=== PATIENT | male | born 1955 | race Caucasian/White ===

== ENCOUNTER 2021-01-02 19:34 | Inpatient (IN) ==
[2021-01-02] MEDS ORDERED: SODIUM CHLORIDE 0.9% 1000ML 1,000 ML IV STA (19:51)
--- NOTE | 2021-01-02 19:54 | Emergency Department Note ---
Impression & Plan Atrial fibrillation with RVR, NSTEMI (non-ST elevated myocardial infarction), Chest pain ED Provider Note NAME: ALEXANDRO NAVARRO AGE: 65 SEX: M : 1955 ARRIVES VIA: Walk-In INFORMANT: Patient ED PROVIDER(S): Clint Ignacio DO CHIEF COMPLAINT: Chest pain and palpitations HPI: Patient is a 65-year-old male who presents to ER for intermittent chest pain. He had some chest pain last night-midsternal which improved with rubbing on his chest. That has now abated. He does feel short of breath with walking around and that has been there for the past 2 weeks. He went to PCP and was referred in as he was found to be in a rapid heartbeat. Denies any belly pain, nausea, vomiting, or diarrhea. No dysuria, urgency, or frequency. He does have prostate cancer which they are currently treating. He notes that he normally has palpitations when he is in A. fib but he has not had any recently. He does not have any currently. He only takes aspirin and no other blood thinners. He has not missed any doses of his metoprolol. ROS: See above HPI for pertinent positives & negatives. A total of 10 systems reviewed and were otherwise negative. PAST MEDICAL HISTORY:See Below PAST SURGICAL HISTORY:See Below FAMILY HISTORY:See Below SOCIAL HISTORY:See Below HOME MEDICATIONS:See Below ALLERGIES:See Below VITALS:See Below PHYSICAL EXAMINATION: GENERAL: Sitting up in bed, alert, well appearing, well nourished, no distress, non-toxic EYE EXAM: normal conjunctiva. OROPHARYNX: no exudate, no erythema, lips, buccal mucosa, and tongue normal and mucous membranes are moist NECK: supple, no nuchal rigidity, no adenopathy, non-tender LUNGS: Clear to auscultation. Normal chest wall mechanics HEART: Tachycardia, S1 normal and S2 normal ABDOMEN: abdomen soft, non-tender, normo-active bowel sounds, no masses, no rebound or guarding. UPPER EXTREMITIES: upper extremities are grossly normal. LOWER EXTREMITIES: No pitting edema. NEURO EXAM: Normal sensorium, cranial nerves II-XII grossly intact, normal speech, no gross weakness of arms, no gross weakness of legs. MEDICAL DECISION MAKING: Patient is a 65-year-old male who presents the ER referred in by PCP for increased heart rate. IV was established blood was obtained. Labs showed no significant leukocytosis or anemia. INR unremarkable. BMP along with LFTs bilirubin was unremarkable. Troponin was positive at 9.5. TSH and lipase was unremarkable. Covid was negative. Initial EKG showed a atrial tachycardia which was persistently 163 which appeared was consistent with atrial flutter. We started to give her IV Lopressor. Heart rate trended down to the low 100s and then climbed back up on 4 separate occasions. Patient was given a total of 4 doses of IV Lopressor 4 mg. After the last dose heart rate trended up to the 180s. Troponin came back at this point 9.5. He is completely asymptomatic. Patient was discussed with Dr. Neto Marlow who agreed with placing the gentleman on a Cardizem drip. He was given a bolus of Cardizem. Elected to hold on amiodarone as we did not want him to convert as is uncertain of how long this gentleman has been in Afib. Heart rate trended down to the 80s and he remained well controlled on the Cardizem. Chest x-ray was unremarkable. He was discussed with the hospitalist. I placed him on heparin and he was given a bolus and drip. He had no bleeding risk factors. Patient was admitted for further work-up and admitted to the hospitalist. Triage Nursing notes reviewed. Limited review of prior medical records performed Vital Signs: reviewed and remarkable for HTN and tachy Differential diagnosis: Differential diagnoses includes but is not limited to acute coronary syndrome, myocardial infarction, pericarditis, pulmonary embolus, aortic dissection, pneumonia, pneumothorax, musculoskeletal, shingles, esophageal. ER treatment provided: See below Diagnostics interpreted by me: ECG: Atrial tachycardia rate of [address] depressions in the anterior lateral and inferior leads EKG #2 A. fib RVR With variable block rate of [address] depressions in the high lateral leads anterior and lateral which is slightly worse than previous. Mild ST elevations in V1 Cardiac Monitoring: An order was placed for continuous cardiac monitoring. The monitor shows a rate of 163 with atrial flutter rhythm. Laboratory studies: As stated above and show below. Imaging studies: Portable AP upright 1 view of the chest shows no focal infiltrate or pneumothorax per my read. Consultation(s): Discussed with Neto Marlow as stated above Discussed with Arvin Lloyd for further evaluation Procedures: none Critical Care: I have personally spent 75 minutes of critical care time in the direct management of this patient. This includes bedside care, interpretation of diagnostic studies, and testing, discussion with consultants, patient, and family members, and other required patient management activities. This 75 minutes is in excess of all separately billable procedures. Past Med/Surg History Social History Smoking Status: Never smoker Preferred Language: Turkmen Feels Safe at Home: Yes Allergies Allergies Allergy/AdvReac Type Severity Reaction Status Date / Time kiwi Allergy Intermediate Lip and Unverified 01/02/21 20:06 Tongue Swell Hemp Seeds Allergy Intermediate Tongue Uncoded 01/02/21 20:06 Swells Home Meds Home Medications Medication Instructions Recorded Confirmed [place] Ocular 1 cap PO DAILY 07/18/20 01/02/21 alpha lipoic acid 600 mg capsule 600 mg PO BID 07/18/20 01/02/21 ascorbic acid (vitamin C) 1,000 mg 1,000 mg PO BID 07/18/20 01/02/21 tablet,extended release aspirin 81 mg tablet,delayed 81 mg PO DAILY 07/18/20 01/02/21 release biotin 1,000 mcg chewable tablet 1,000 mcg PO DAILY 07/18/20 01/02/21 cholecalciferol (vitamin D3) 125 125 mcg PO BID 07/18/20 01/02/21 mcg (5,000 unit) tablet coenzyme Q10 100 mg capsule 200 mg PO DAILY 07/18/20 01/02/21 (CoQ-10) fenofibrate nanocrystallized 145 145 mg PO DAILY 07/18/20 01/02/21 mg tablet glipizide 10 mg tablet 10 mg PO BID 07/18/20 01/02/21 iodine 150 mcg tablet (Kelp 150 mcg PO DAILY 07/18/20 01/02/21 (iodine)) levocarnitine 500 mg tablet 1,000 mg PO BID 07/18/20 01/02/21 (L-Carnitine) linagliptin 5 mg tablet (Tradjenta) 5 mg PO DAILY 07/18/20 01/02/21 lisinopril 5 mg tablet 5 mg PO DAILY 07/18/20 01/02/21 meclizine 25 mg tablet 25 mg PO DAILY 07/18/20 01/02/21 metformin 850 mg tablet 850 mg PO TID 07/18/20 01/02/21 metoprolol tartrate 25 mg tablet 25 mg PO BID 07/18/20 01/02/21 multivitamin 1 tab PO DAILY 07/18/20 01/02/21 niacin 500 mg tablet 500 mg PO BID 07/18/20 01/02/21 olive leaf extract 250 mg capsule 500 mg PO DAILY 07/18/20 01/02/21 omega-3 fatty acids 1,000 mg PO BID 07/18/20 01/02/21 prasterone (dhea) 50 mg tablet 50 mg PO BID 07/18/20 01/02/21 (DHEA) pyridoxine (vitamin B6) 100 mg 100 mg PO BID 07/18/20 01/02/21 tablet (Vitamin B-6) turmeric root extract 500 mg 500 mg PO DAILY 07/18/20 01/02/21 capsule vitamin A 2,400 mcg capsule 8,000 unit PO [id number] 07/18/20 01/02/21 vitamin B complex 1 tab PO DAILY 07/18/20 01/02/21 vitamin E 400 unit capsule 400 unit PO DAILY 07/18/20 01/02/21 Apigenin 50 mg PO QAM 01/02/21 01/02/21 acetylcysteine 600 mg capsule (NAC) 600 mg PO HS 01/02/21 01/02/21 aspirin 325 mg tablet 325 mg PO BID 01/02/21 01/02/21 zinc 50 mg tablet 75 mg PO DAILY 01/02/21 01/02/21 Results & Data (ED) Vital Signs Vital Signs - 24 hr 01/02/21 19:34 01/02/21 19:37 01/02/21 19:50 Temperature 36.8 C Temperature Source Temporal Artery Scan Pulse Rate 163 H 163 H Pulse Rate [Apical] Pulse Rate from SpO2 Sensor Respiratory Rate 18 20 Respiratory Effort / Characteristics Respiratory Depth Blood Pressure 141/83 H 139/101 H Blood Pressure [Right Arm] Blood Pressure Mean 102 113 Blood Pressure Mean [Right Arm] Pulse Oximetry 98 Oxygen Delivery Method Room Air Room Air Oxygen Flow Rate Sepsis Recent Fever Within 48 Hours No Sepsis New/Unexplained Change in Mental Status No Sepsis Action Taken by Nursing No Action Required 01/02/21 19:52 01/02/21 20:03 01/02/21 20:09 Temperature 37.1 C Temperature Source Oral Pulse Rate 160 H Pulse Rate [Apical] 127 H Pulse Rate from SpO2 Sensor Respiratory Rate 20 Respiratory Effort / Characteristics Non-Labored Spontaneous Respiratory Depth Normal Blood Pressure 139/101 H Blood Pressure [Right Arm] 143/107 H Blood Pressure Mean Blood Pressure Mean [Right Arm] 119 Pulse Oximetry 98 98 Oxygen Delivery Method Nasal Cannula Room Air Oxygen Flow Rate 2 Sepsis Recent Fever Within 48 Hours Sepsis New/Unexplained Change in Mental Status Sepsis Action Taken by Nursing 01/02/21 20:10 01/02/21 20:30 01/02/21 20:31 Temperature Temperature Source Pulse Rate 128 H 175 H 187 H Pulse Rate [Apical] Pulse Rate from SpO2 Sensor 79 79 Respiratory Rate 19 14 Respiratory Effort / Characteristics Respiratory Depth Blood Pressure 143/107 H 127/88 127/88 Blood Pressure [Right Arm] Blood Pressure Mean 119 101 Blood Pressure Mean [Right Arm] Pulse Oximetry 98 96 Oxygen Delivery Method Oxygen Flow Rate Sepsis Recent Fever Within 48 Hours Sepsis New/Unexplained Change in Mental Status Sepsis Action Taken by Nursing 01/02/21 20:39 01/02/21 20:40 01/02/21 20:59 Temperature Temperature Source Pulse Rate 165 H 111 H 80 Pulse Rate [Apical] Pulse Rate from SpO2 Sensor 68 Respiratory Rate 19 20 Respiratory Effort / Characteristics Respiratory Depth Blood Pressure 132/87 132/87 126/78 Blood Pressure [Right Arm] Blood Pressure Mean 102 94 Blood Pressure Mean [Right Arm] Pulse Oximetry 98 Oxygen Delivery Method Oxygen Flow Rate Sepsis Recent Fever Within 48 Hours Sepsis New/Unexplained Change in Mental Status Sepsis Action Taken by Nursing 01/02/21 21:00 01/02/21 21:10 01/02/21 21:15 Temperature Temperature Source Pulse Rate 80 108 H Pulse Rate [Apical] 85 Pulse Rate from SpO2 Sensor 81 Respiratory Rate 17 17 Respiratory Effort / Characteristics Respiratory Depth Blood Pressure 128/86 112/75 Blood Pressure [Right Arm] Blood Pressure Mean 100 87 Blood Pressure Mean [Right Arm] Pulse Oximetry 100 Oxygen Delivery Method Oxygen Flow Rate Sepsis Recent Fever Within 48 Hours Sepsis New/Unexplained Change in Mental Status Sepsis Action Taken by Nursing 01/02/21 21:30 01/02/21 21:45 01/02/21 22:00 Temperature Temperature Source Pulse Rate 82 Pulse Rate [Apical] Pulse Rate from SpO2 Sensor 80 82 Respiratory Rate 15 Respiratory Effort / Characteristics Respiratory Depth Blood Pressure 117/87 114/89 112/81 Blood Pressure [Right Arm] Blood Pressure Mean 97 97 91 Blood Pressure Mean [Right Arm] Pulse Oximetry 100 100 Oxygen Delivery Method Oxygen Flow Rate Sepsis Recent Fever Within 48 Hours Sepsis New/Unexplained Change in Mental Status Sepsis Action Taken by Nursing 01/02/21 22:15 01/02/21 22:30 Temperature Temperature Source Pulse Rate 109 H 81 Pulse Rate [Apical] Pulse Rate from SpO2 Sensor Respiratory Rate 20 20 Respiratory Effort / Characteristics Respiratory Depth Blood Pressure 112/75 106/75 Blood Pressure [Right Arm] Blood Pressure Mean 87 85 Blood Pressure Mean [Right Arm] Pulse Oximetry Oxygen Delivery Method Oxygen Flow Rate Sepsis Recent Fever Within 48 Hours Sepsis New/Unexplained Change in Mental Status Sepsis Action Taken by Nursing Laboratory Data Result diagrams: 01/02/21 19:55 01/02/21 19:55 Lab Results 01/02/21 01/02/21 01/02/21 Range/Units 19:55 19:55 19:55 WBC 9.65 (4.8-10.8) K/uL RBC 4.63 L (4.7-6.1) M/uL Hgb 14.3 (14.0-18.0) g/dL Hct 42.3 (42-52) % MCV 91.4 (80-100) fL MCH 30.9 (25-34) pg MCHC 33.8 (32-36) g/dL RDW Std Deviation 48.1 H (36.4-46.3) fL RDW Coeff of Bailey 14.4 (11.5-14.5) % Plt Count 336 (130-400) K/uL MPV 10.0 (7.4-10.4) fL Immature Gran % (Auto) 0.4 % Neut % (Auto) 75.5 % Lymph % (Auto) 15.6 % [place] % (Auto) 7.0 % Eos % (Auto) 1.3 % Baso % (Auto) 0.2 % Neut # (Auto) 7.27 H (1.4-6.5) K/uL Lymph # (Auto) 1.51 (1.2-3.4) K/uL [place] # (Auto) 0.68 H (0.11-0.59) K/uL Eos # (Auto) 0.13 (0-0.5) K/uL Baso # (Auto) 0.02 (0-0.2) K/uL Immature Gran # (Auto) 0.04 H (0.00-0.02) K/uL PT 10.6 (9.0-12.0) Seconds INR 1.0 (0.9-1.1) APTT 26.3 (21.0-31.0) Seconds PTT Ratio 1.0 Sodium 139 (136-145) mmol/L Potassium 4.0 (3.5-5.1) mmol/L Chloride 105 (98-107) mmol/L Carbon Dioxide 30 (21-32) mmol/L Anion Gap 4.0 (3-11) BUN 26 H (7-18) mg/dl Creatinine 1.47 H (0.6-1.4) mg/dl Est Cr Clr Drug Dosing Not Reportable Est GFR ( Amer) 56.8 ml/min Est GFR (Non-Af Amer) 49.0 ml/min BUN/Creatinine Ratio 17.8 (10-20) Glucose 223 H (70-99) mg/dl Calcium 10.0 (8.5-10.1) mg/dl Magnesium 1.9 (1.8-2.4) mg/dl Total Bilirubin 0.5 (0.2-1) mg/dl AST 79 H (15-37) U/L ALT 30 (12-78) U/L Alkaline Phosphatase 48 (45-117) U/L Troponin I 9.560 H* (0-0.045) ng/ml Total Protein 7.5 (6.4-8.2) gm/dl Albumin 3.5 (3.4-5.0) gm/dl Globulin 4.0 (2.5-4.0) gm/dl Albumin/Globulin Ratio 0.9 (0.9-2) Lipase 467 H (73-393) U/L TSH 1.720 (0.300-4.500) uIu/ml COVID-19 Eval Order SARS-CoV-2 (PCR) (Negative) 01/02/21 01/02/21 Range/Units 21:16 21:16 WBC (4.8-10.8) K/uL RBC (4.7-6.1) M/uL Hgb (14.0-18.0) g/dL Hct (42-52) % MCV (80-100) fL MCH (25-34) pg MCHC (32-36) g/dL RDW Std Deviation (36.4-46.3) fL RDW Coeff of Bailey (11.5-14.5) % Plt Count (130-400) K/uL MPV (7.4-10.4) fL Immature Gran % (Auto) % Neut % (Auto) % Lymph % (Auto) % [place] % (Auto) % Eos % (Auto) % Baso % (Auto) % Neut # (Auto) (1.4-6.5) K/uL Lymph # (Auto) (1.2-3.4) K/uL [place] # (Auto) (0.11-0.59) K/uL Eos # (Auto) (0-0.5) K/uL Baso # (Auto) (0-0.2) K/uL Immature Gran # (Auto) (0.00-0.02) K/uL PT (9.0-12.0) Seconds INR (0.9-1.1) APTT (21.0-31.0) Seconds PTT Ratio Sodium (136-145) mmol/L Potassium (3.5-5.1) mmol/L Chloride (98-107) mmol/L Carbon Dioxide (21-32) mmol/L Anion Gap (3-11) BUN (7-18) mg/dl Creatinine (0.6-1.4) mg/dl Est Cr Clr Drug Dosing Est GFR ( Amer) ml/min Est GFR (Non-Af Amer) ml/min BUN/Creatinine Ratio (10-20) Glucose (70-99) mg/dl Calcium (8.5-10.1) mg/dl Magnesium (1.8-2.4) mg/dl Total Bilirubin (0.2-1) mg/dl AST (15-37) U/L ALT (12-78) U/L Alkaline Phosphatase (45-117) U/L Troponin I (0-0.045) ng/ml Total Protein (6.4-8.2) gm/dl Albumin (3.4-5.0) gm/dl Globulin (2.5-4.0) gm/dl Albumin/Globulin Ratio (0.9-2) Lipase (73-393) U/L TSH (0.300-4.500) uIu/ml COVID-19 Eval Order Covid19 at [facility] SARS-CoV-2 (PCR) NEGATIVE (Negative) Administered Medications Heparin Sodium/Dextrose (Heparin Sodium/Dextrose) 25,000 units in 500 mls @ 19 mls/hr IV .Q24H ACSEY; Protocol Stop: 02/01/21 21:14 Last Admin: 01/02/21 21:08 Dose: 950 units/hr, 19 mls/hr Documented by: [id number] Cosigned by: [id number] Diltiazem HCl 125 mg/ Dextrose 125 mls @ 5 mls/hr IV .Q24H CASEY; Protocol Stop: 02/01/21 20:59 Last Admin: 01/02/21 21:09 Dose: 5 mg/hr, 5 mls/hr Documented by: [id number] Cosigned by: [id number] Magnesium Sulfate/Dextrose (Magnesium Sulfate / D5w) 1 gm in 100 mls @ 50 mls/hr IV ONE STA Stop: 01/02/21 23:58 Last Admin: 01/02/21 22:23 Dose: 50 mls/hr Documented by: [id number] Sodium Chloride (Nss) 500 mls @ 500 mls/hr IV .Q1H STA Stop: 01/02/21 22:58 Last Admin: 01/02/21 22:26 Dose: 500 mls/hr Documented by: [id number] Metoprolol Tartrate (Metoprolol Tartrate 1 Mg/Ml Vial) 5 mg IV Q5M PRN PRN Reason: Tachycardia Stop: 02/01/21 19:50 Last Admin: 01/02/21 20:39 Dose: 5 mg Documented by: [id number] Admin: 01/02/21 20:30 Dose: 5 mg Documented by: [id number] Admin: 01/02/21 20:03 Dose: 5 mg Documented by: [id number] Discontinued Medications Diltiazem HCl (Diltiazem Hcl 5 Mg/Ml 5 Ml Vial) 10 mg IV NOW STA Stop: 01/02/21 21:01 Last Admin: 01/02/21 21:07 Dose: 10 mg Documented by: [id number] Cosigned by: [id number] Heparin Sodium (Porcine) (Heparin Sod (Porcine) 1000 Unit/Ml) 1 units IV NOW ONE Stop: 01/02/21 21:05 Last Admin: 01/02/21 21:08 Dose: 4,000 units Documented by: [id number] Cosigned by: [id number] Heparin Sodium/Dextrose (Heparin Iv Adult Wt-Based Low-Dose With Bolus Protocol) 1 ea N/A NOW STA; Protocol Stop: 01/02/21 20:50 Last Admin: 01/02/21 21:12 Dose: Not Given Documented by: [id number] Sodium Chloride (Nss 1000ml) 1,000 mls @ 999 mls/hr IV .Q1H1M STA Stop: 01/02/21 20:51 Last Infusion: 01/02/21 21:13 Dose: 0 mls/hr Documented by: [id number] Admin: 01/02/21 20:04 Dose: 999 mls/hr Documented by: [id number] Metoprolol Tartrate (Metoprolol Tartrate 25 Mg Tab) 25 mg PO NOW STA Stop: 01/02/21 21:55 Last Admin: 01/02/21 22:23 Dose: 25 mg Documented by: [id number] Miscellaneous (Stat Iv Infusion Titration Per Protocol) 1 ea N/A NOW STA Stop: 01/02/21 21:01 Last Admin: 01/02/21 22:23 Dose: 1 ea Documented by: [id number] Discharge Plan Visit Data Chief Complaint: Cardiac Assessment Stated Complaint: CARDIAC ASSESSMENT, DOC REF'D ED Provider: Clint Ignacio Discharge Problem: Atrial fibrillation with RVR, NSTEMI (non-ST elevated myocardial infarction), Chest pain Discharge Instructions Interventions: ED Discharge Assessment Last Done: 01/02/21 22:54 Forms Stand Alone Forms: My [facility] Prescriptions Prescriptions: No Action multivitamin Tablet 1 tab PO DAILY RF: 0 vitamin A 8,000 unit Capsule 8,000 unit PO [id number] RF: 0 glipizide 10 mg Tablet 10 mg PO BID RF: 0 ascorbic acid (vitamin C) 1,000 mg Tablet Extended Release 1,000 mg PO BID RF: 0 metformin 850 mg Tablet 850 mg PO TID RF: 0 aspirin [Aspir-81] 81 mg Tablet,Delayed Release (Dr/Ec) 81 mg PO DAILY RF: 0 meclizine 25 mg Tablet 25 mg PO DAILY RF: 0 L-Carnitine 500 mg Tablet 1,000 mg PO BID RF: 0 niacin 500 mg Tablet 500 mg PO BID RF: 0 vitamin B complex Tablet 1 tab PO DAILY RF: 0 lisinopril 5 mg tablet 5 mg PO DAILY RF: 0 pyridoxine (vitamin B6) [Vitamin B-6] 100 mg Tablet 100 mg PO BID RF: 0 vitamin E 400 unit Capsule 400 unit PO DAILY RF: 0 coenzyme Q10 [CoQ-10] 100 mg Capsule 200 mg PO DAILY RF: 0 [place] 3 Fish Oil Capsule 1,000 mg PO BID RF: 0 metoprolol tartrate 25 mg tablet 25 mg PO BID RF: 0 fenofibrate nanocrystallized 145 mg Tablet 145 mg PO DAILY RF: 0 cholecalciferol (vitamin D3) 125 mcg (5,000 unit) Tablet 125 mcg PO BID RF: 0 alpha lipoic acid 600 mg Capsule 600 mg PO BID RF: 0 olive leaf extract 250 mg Capsule 500 mg PO DAILY RF: 0 Tradjenta 5 mg Tablet 5 mg PO DAILY RF: 0 turmeric root extract 500 mg Capsule 500 mg PO DAILY RF: 0 Kelp (iodine) 150 mcg Tablet 150 mcg PO DAILY RF: 0 DHEA 50 mg Tablet 50 mg PO BID RF: 0 biotin 1,000 mcg Tablet,Chewable 1,000 mcg PO DAILY RF: 0 [place] Ocular 1 cap PO DAILY RF: 0 aspirin 325 mg Tablet 325 mg PO BID RF: 0 Apigenin 50 mg PO QAM RF: 0 zinc 50 mg Tablet 75 mg PO DAILY RF: 0 acetylcysteine [NAC] 600 mg Capsule 600 mg PO HS RF: 0 Referrals Referrals: Kathy Ibrahim MD [Primary Care Provider] -
[2021-01-02 20:03] LABS: Basophils # (auto) 0.02 K/uL (0-0.2); Basophils % (auto) 0.2 %; Eosinophils # (auto) 0.13 K/uL (0-0.5); Eosinophils % (auto) 1.3 %; Hematocrit (blood only) 42.3 % (42-52); Hemoglobin 14.3 g/dL (14.0-18.0); Immature Granulocytes # (auto) 0.04 K/uL (0.00-0.02); Immature Granulocytes % (auto) 0.4 %; Lymphocytes # (auto) 1.51 K/uL (1.2-3.4); Lymphocytes % (auto) 15.6 %; Mean Corpuscular Hemoglobin 30.9 pg (25-34); Mean Corpuscular Hgb Conc 33.8 g/dL (32-36); Mean Corpuscular Volume 91.4 fL (80-100); Monocytes # (auto) 0.68 K/uL (0.11-0.59); Neutrophils # (auto) 7.27 K/uL (1.4-6.5); Neutrophils % (auto) 75.5 %; Platelet Count 336 K/uL (130-400); RDW Coefficient of Variation 14.4 % (11.5-14.5); RDW Standard Deviation 48.1 fL (36.4-46.3); Red Blood Count 4.63 M/uL (4.7-6.1); White Blood Count 9.65 K/uL (4.8-10.8)
[2021-01-02] MEDS: METOPROLOL TARTRATE 1 MG/ML VIAL IV PRN ×3 (20:03→20:39)
[2021-01-02 20:13] LABS: Partial Thromboplastin Time 26.3 Seconds (21.0-31.0); Prothrombin Time 10.6 Seconds (9.0-12.0)
[2021-01-02 20:22] LABS: Alanine Aminotransferase 30 U/L (12-78); Albumin Level 3.5 gm/dl (3.4-5.0); Aspartate Aminotransferase 79 U/L (15-37); BUN Creatinine Ratio 17.8 (10-20); Blood Urea Nitrogen 26 mg/dl (7-18); Carbon Dioxide 30 mmol/L (21-32); Chloride 105 mmol/L (98-107); Est GFR (African American) 56.8 ml/min; Glucose 223 mg/dl (70-99); Lipase 467 U/L (73-393); Sodium 139 mmol/L (136-145)
[2021-01-02 20:31] LABS: Albumin Globulin Ratio 0.9 (0.9-2); Alkaline Phosphatase 48 U/L (45-117); Bilirubin,Total 0.5 mg/dl (0.2-1); Total Protein 7.5 gm/dl (6.4-8.2)
[2021-01-02] MEDS ORDERED: Heparin IV Adult Wt-Based Low-Dose WITH Bolus Protocol STA (20:49)
[2021-01-02] MEDS ORDERED: dilTIAZem HCL 125 MG in DEXTROSE 5% 100 ML IV SCH (21:00)
[2021-01-02] MEDS ORDERED: dilTIAZem HCl 5 MG/ML 5 ML VIAL IV STA (21:00)
[2021-01-02] MEDS ORDERED: STAT IV Infusion **Titration per Protocol STA (21:00)
[2021-01-02] MEDS ORDERED: HEPARIN SOD (PORCINE) 1000 UNIT/ML IV ONE (21:04)
[2021-01-02] MEDS: HEPARIN SODIUM/DEXTROSE 25,000 UNITS/500 ML BAG IV SCH (21:08)
[2021-01-02 21:25] LABS: Magnesium 1.9 mg/dl (1.8-2.4)
--- NOTE | 2021-01-02 21:52 | History & Physical Report ---
Date of Service January 02, 2021 Assessment & Plan (1) NSTEMI (non-ST elevated myocardial infarction): Plan: Weeklong symptoms No consultation until today. Rapid A. fib/AFl secondary to above not on anticoagulation as per patient preference hypertension, stable hyperlipidemia, hx statin reluctance as per records DM2 on oral medications, well-controlled as of recent hemoglobin A1c of 6.12 July 2020 bladder cancer status post surgery w possible metastatic disease CRI, creatinine at baseline, history of hydronephrosis as per records PCU Aspirin, beta-phuong, IV heparin TTE, Cardiology consult Re: ACS N.p.o. after midnight until patient seen by cardiology in anticipation of procedure Facilitate home beta-phuong and titrate, wean off Cardizem drip Update lipid profile and hemoglobin A1c Basal insulin adjusted for n.p.o. status, ISS BG goal 1 10-1 40 DVT prophylaxis. IV Heparin Full code Patient requesting updates for providers. Ms. Althea Raymond, contact #[phone]. Text document was generated using [employer] voice recognition software. It may contain grammatical or spelling errors. Kindly contact undersigned for clarification of any documentation item in question. History of Present Illness Chief Complaint: Chest pain Primary Care Provider: Kathy Ibrahim MD History obtained from patient, family, and records. Medical history significant for PAF not on anticoagulation as per patient preference, hypertension, hyperlipidemia, DM2 on oral medications, bladder cancer status post surgery with possible new mets, CRI (baseline creatinine 1.5). Last week patient noted intermittent chest pain, burning to sharp description without shortness of breath, nonpleuritic, no cough symptoms, sometimes accompanied by palpitations. Chest pain noted on both rest and exertion. Relief with aspirin intake. About 10 episodes over the next few days until last night when chest pain became more pronounced going to his neck both shoulders and both arms. Patient could not get comfortable. Patient seen at urgent care center today. Chest pain relieved by nitroglycerin administration at the facility. EKG concerning for ischemia or infarct as per documentation. Urgent care provider recommended ER evaluation but patient declined. Patient later agreed to go to ER after urgent care provider called his home and talk to his . At the ER, patient noted to be in rapid A. fib heart rate 1 10-1 80s. Lopressor dose followed by IV Cardizem bolus and drip initiated at the ER. Patient currently chest pain-free. Medical History as above recent outpatient CT from October 2020 showed scattered retroperitoneal lymph nodes, possible metastatic disease Patient following with oncology and radiation oncology as per documentation. 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 Allergies Allergy/AdvReac Type Severity Reaction Status Date / Time kiwi Allergy Intermediate Lip and Unverified 01/02/21 20:06 Tongue Swell Hemp Seeds Allergy Intermediate Tongue Uncoded 01/02/21 20:06 Swells Home Medications Medication Instructions Recorded Confirmed Type Macuguard Ocular 1 cap PO DAILY 07/18/20 01/02/21 History alpha lipoic acid 600 mg capsule 600 mg PO BID 07/18/20 01/02/21 History ascorbic acid (vitamin C) 1,000 mg 1,000 mg PO BID 07/18/20 01/02/21 History tablet,extended release aspirin 81 mg tablet,delayed 81 mg PO DAILY 07/18/20 01/02/21 History release biotin 1,000 mcg chewable tablet 1,000 mcg PO DAILY 07/18/20 01/02/21 History cholecalciferol (vitamin D3) 125 125 mcg PO BID 07/18/20 01/02/21 History mcg (5,000 unit) tablet coenzyme Q10 100 mg capsule 200 mg PO DAILY 07/18/20 01/02/21 History (CoQ-10) fenofibrate nanocrystallized 145 145 mg PO DAILY 07/18/20 01/02/21 History mg tablet glipizide 10 mg tablet 10 mg PO BID 07/18/20 01/02/21 History iodine 150 mcg tablet (Kelp 150 mcg PO DAILY 07/18/20 01/02/21 History (iodine)) levocarnitine 500 mg tablet 1,000 mg PO BID 07/18/20 01/02/21 History (L-Carnitine) linagliptin 5 mg tablet (Tradjenta) 5 mg PO DAILY 07/18/20 01/02/21 History lisinopril 5 mg tablet 5 mg PO DAILY 07/18/20 01/02/21 History meclizine 25 mg tablet 25 mg PO DAILY 07/18/20 01/02/21 History metformin 850 mg tablet 850 mg PO TID 07/18/20 01/02/21 History metoprolol tartrate 25 mg tablet 25 mg PO BID 07/18/20 01/02/21 History multivitamin 1 tab PO DAILY 07/18/20 01/02/21 History niacin 500 mg tablet 500 mg PO BID 07/18/20 01/02/21 History olive leaf extract 250 mg capsule 500 mg PO DAILY 07/18/20 01/02/21 History omega-3 fatty acids 1,000 mg PO BID 07/18/20 01/02/21 History prasterone (dhea) 50 mg tablet 50 mg PO BID 07/18/20 01/02/21 History (DHEA) pyridoxine (vitamin B6) 100 mg 100 mg PO BID 07/18/20 01/02/21 History tablet (Vitamin B-6) turmeric root extract 500 mg 500 mg PO DAILY 07/18/20 01/02/21 History capsule vitamin A 2,400 mcg capsule 8,000 unit PO [id number] 07/18/20 01/02/21 History vitamin B complex 1 tab PO DAILY 07/18/20 01/02/21 History vitamin E 400 unit capsule 400 unit PO DAILY 07/18/20 01/02/21 History Apigenin 50 mg PO QAM 01/02/21 01/02/21 History acetylcysteine 600 mg capsule (NAC) 600 mg PO HS 01/02/21 01/02/21 History aspirin 325 mg tablet 325 mg PO BID 01/02/21 01/02/21 History zinc 50 mg tablet 75 mg PO DAILY 01/02/21 01/02/21 History Past Med/Surg History Social History Smoking Status: Never smoker Preferred Language: Tamazight Feels Safe at Home: Yes Review of Systems Review of Systems: As per HPI, all 10 systems reviewed, intermittent hemorrhoidal bleed, all other ROS negative Physical Exam Physical Exam: GENERAL: Comfortable, obese, slightly anxious, no respiratory distress SKIN: Normal color, warm HEENT: Bespectacled, [place] palpebral conjunctivae, no ptosis, dry buccal mucosa NECK : Supple, no tenderness CHEST : CTA, no tenderness HEART : Irregular, tachycardic, no obvious murmurs ABDOMEN: Some distention, nontender EXTREMITIES : No LE swelling/tenderness, no other conspicuous deformities noted NEUROLOGIC : Coherent, no facial asymmetry, no other gross focality Results & Data Results & Data ([facility]) Vital Signs (Past 12 Hours) Vital Signs Temp Pulse Pulse Resp BP BP Pulse Ox 01/02/21 21:00 80 17 128/86 01/02/21 20:59 80 20 126/78 01/02/21 20:40 111 H 19 132/87 98 01/02/21 20:39 165 H 132/87 01/02/21 20:31 187 H 14 127/88 96 01/02/21 20:30 175 H 127/88 01/02/21 20:10 128 H 19 143/107 H 98 01/02/21 20:09 37.1 C 127 H 20 143/107 H 98 01/02/21 20:03 160 H 139/101 H 01/02/21 19:52 98 01/02/21 19:50 163 H 20 139/101 H 01/02/21 19:37 36.8 C 163 H 18 141/83 H 98 Laboratory Results Laboratory Results WBC 9.65 K/uL (4.8-10.8) 01/02/21 19:55 RBC 4.63 M/uL (4.7-6.1) L 01/02/21 19:55 Hgb 14.3 g/dL (14.0-18.0) 01/02/21 19:55 Hct 42.3 % (42-52) 01/02/21 19:55 MCV 91.4 fL (80-100) 01/02/21 19:55 MCH 30.9 pg (25-34) 01/02/21 19:55 MCHC 33.8 g/dL (32-36) 01/02/21 19:55 RDW Std Deviation 48.1 fL (36.4-46.3) H 01/02/21 19:55 RDW Coeff of Bailey 14.4 % (11.5-14.5) 01/02/21 19:55 Plt Count 336 K/uL (130-400) 01/02/21 19:55 MPV 10.0 fL (7.4-10.4) 01/02/21 19:55 Immature Gran % (Auto) 0.4 % 01/02/21 19:55 Neut % (Auto) 75.5 % 01/02/21 19:55 Lymph % (Auto) 15.6 % 01/02/21 19:55 [place] % (Auto) 7.0 % 01/02/21 19:55 Eos % (Auto) 1.3 % 01/02/21 19:55 Baso % (Auto) 0.2 % 01/02/21 19:55 Neut # (Auto) 7.27 K/uL (1.4-6.5) H 01/02/21 19:55 Lymph # (Auto) 1.51 K/uL (1.2-3.4) 01/02/21 19:55 [place] # (Auto) 0.68 K/uL (0.11-0.59) H 01/02/21 19:55 Eos # (Auto) 0.13 K/uL (0-0.5) 01/02/21 19:55 Baso # (Auto) 0.02 K/uL (0-0.2) 01/02/21 19:55 Immature Gran # (Auto) 0.04 K/uL (0.00-0.02) H 01/02/21 19:55 PT 10.6 Seconds (9.0-12.0) 01/02/21 19:55 INR 1.0 (0.9-1.1) 01/02/21 19:55 APTT 26.3 Seconds (21.0-31.0) 01/02/21 19:55 PTT Ratio 1.0 01/02/21 19:55 Sodium 139 mmol/L (136-145) 01/02/21 19:55 Potassium 4.0 mmol/L (3.5-5.1) 01/02/21 19:55 Chloride 105 mmol/L (98-107) 01/02/21 19:55 Carbon Dioxide 30 mmol/L (21-32) 01/02/21 19:55 Anion Gap 4.0 (3-11) 01/02/21 19:55 BUN 26 mg/dl (7-18) H 01/02/21 19:55 Creatinine 1.47 mg/dl (0.6-1.4) H 01/02/21 19:55 Est Cr Clr Drug Dosing Not Reportable 01/02/21 19:55 Est GFR ( Amer) 56.8 ml/min 01/02/21 19:55 Est GFR (Non-Af Amer) 49.0 ml/min 01/02/21 19:55 BUN/Creatinine Ratio 17.8 (10-20) 01/02/21 19:55 Glucose 223 mg/dl (70-99) H 01/02/21 19:55 Calcium 10.0 mg/dl (8.5-10.1) 01/02/21 19:55 Magnesium 1.9 mg/dl (1.8-2.4) 01/02/21 19:55 Total Bilirubin 0.5 mg/dl (0.2-1) 01/02/21 19:55 AST 79 U/L (15-37) H 01/02/21 19:55 ALT 30 U/L (12-78) 01/02/21 19:55 Alkaline Phosphatase 48 U/L (45-117) 01/02/21 19:55 Troponin I 9.560 ng/ml (0-0.045) H* 01/02/21 19:55 Total Protein 7.5 gm/dl (6.4-8.2) 01/02/21 19:55 Albumin 3.5 gm/dl (3.4-5.0) 01/02/21 19:55 Globulin 4.0 gm/dl (2.5-4.0) 01/02/21 19:55 Albumin/Globulin Ratio 0.9 (0.9-2) 01/02/21 19:55 Lipase 467 U/L (73-393) H 01/02/21 19:55 TSH 1.720 uIu/ml (0.300-4.500) 01/02/21 19:55 COVID-19 Eval Order Covid19 at [facility] 01/02/21 21:16 Diagnostic Findings Chest x-ray as per my interpretation cardiomegaly, elevated right hemidiaphragm EKG as per my interpretation : Rate 120, atrial flutter, RBBB, ST depression anterolateral leads
[2021-01-02] MEDS ORDERED: METOPROLOL TARTRATE 25 MG TAB PO STA (21:54)
[2021-01-02] MEDS ORDERED: MAGNESIUM SULFATE / D5W 1 GM/100 ML BAG IV STA (21:59)
[2021-01-02] MEDS ORDERED: SODIUM CHLORIDE 0.9% 500 ML IV STA (21:59)
[2021-01-02] MEDS ORDERED: GLUCAGON FOR INJ 1 MG VIAL SQ PRN (23:42)
[2021-01-02] MEDS ORDERED: LORazepam 0.5 MG/1 ML VIAL IV PRN (23:42)
[2021-01-02] MEDS ORDERED: HYDROmorphone INJ 0.5 MG/0.5 ML SYR IV PRN (23:42)
[2021-01-02] MEDS ORDERED: GLUCOSE 40% GEL 15 GM TUBE PO PRN (23:42)
[2021-01-02] MEDS ORDERED: DEXTROSE 50% 50 ML SYRINGE IV PRN (23:42)
[2021-01-02] MEDS ORDERED: CARBOHYDRATES FOR HYPOGLYCEMIA PO PRN (23:42)
[2021-01-02] MEDS ORDERED: traMADol HCL 50 MG TABLET PO PRN (23:42)
[2021-01-02] MEDS ORDERED: GLUCOSE 10 TABS/TUBE PO PRN (23:42)
[2021-01-02] MEDS ORDERED: PROMETHAZINE HCL 12.5 MG in SODIUM CHLORIDE 0.9% 50 ML IV PRN (23:42)
[2021-01-03] MEDS ORDERED: NSS + 20MEQ KCL 20 MEQ/1,000 ML BAG IV SCH (00:01)
[2021-01-03] MEDS: INSULIN ASPART 100 UNITS/ML 3 ML PEN SC SCH ×6 (00:11→21:15)
[2021-01-03] MEDS ORDERED: INSULIN GLARGINE SOLOSTAR 100 UNITS/ML 3 ML PEN SC STA (00:16)
[2021-01-03 03:26] LABS: Basophils # (auto) 0.03 K/uL (0-0.2); Basophils % (auto) 0.4 %; Eosinophils # (auto) 0.18 K/uL (0-0.5); Eosinophils % (auto) 2.2 %; Hematocrit (blood only) 38.7 % (42-52); Hemoglobin 12.6 g/dL (14.0-18.0); Immature Granulocytes # (auto) 0.02 K/uL (0.00-0.02); Immature Granulocytes % (auto) 0.2 %; Lymphocytes % (auto) 24.5 %; Mean Corpuscular Hemoglobin 30.1 pg (25-34); Mean Corpuscular Hgb Conc 32.6 g/dL (32-36); Mean Corpuscular Volume 92.4 fL (80-100); Mean Platelet Volume 9.5 fL (7.4-10.4); Monocytes # (auto) 0.61 K/uL (0.11-0.59); Monocytes % (auto) 7.5 %; Neutrophils # (auto) 5.32 K/uL (1.4-6.5); Neutrophils % (auto) 65.2 %; Platelet Count 274 K/uL (130-400); RDW Coefficient of Variation 14.6 % (11.5-14.5); RDW Standard Deviation 49.2 fL (36.4-46.3); Red Blood Count 4.19 M/uL (4.7-6.1); White Blood Count 8.16 K/uL (4.8-10.8)
[2021-01-03 03:39] LABS: Partial Thromboplastin Ratio 1.4; Partial Thromboplastin Time 37.1 Seconds (21.0-31.0)
[2021-01-03 03:42] LABS: BUN Creatinine Ratio 17.1 (10-20); Calcium 8.8 mg/dl (8.5-10.1); Creatinine Clr Calc Pharmacy 56.2 ml/min; Est GFR (African American) 59.2 ml/min; Est GFR (Non-African American) 51.1 ml/min; Potassium 4.1 mmol/L (3.5-5.1)
[2021-01-03 03:51] LABS: Troponin I 15.3 ng/ml (0-0.045)
[2021-01-03] MEDS ORDERED: HEPARIN SOD (PORCINE) 1000 UNIT/ML IV ONE (04:30)
--- NOTE | 2021-01-03 07:06 | XRay Report ---
XR chest 1V portable CLINICAL HISTORY: Chest Pain COMPARISON STUDY: No previous studies for comparison. FINDINGS: No pneumothorax. No pleural effusion. No large infiltrates or consolidative lesions are seen. Cardiomediastinal silhouette is within normal limits in size. No significant pulmonary vascular congestion.. Osseous structures: Multilevel degenerative changes of the spine. IMPRESSION: 1. No acute pulmonary process. ACT 112: Negative or not required by law. The above report was generated using voice recognition software. It may contain grammatical, syntax o r spelling errors. Electronically signed by: Yamila Krishna DO 01/03/2021 7:05 AM
--- NOTE | 2021-01-03 07:53 | Electrocardiogram Report ---
Test Reason : Blood Pressure : / mmHG Vent. Rate : 163 BPM Atrial Rate : 163 BPM P-R Int : 000 ms QRS Dur : 140 ms QT Int : 286 ms P-R-T Axes : 000 -50 268 degrees QTc Int : 470 ms Atrial flutter Left axis deviation ST depression in Anterolateral leads Abnormal ECG When compared with ECG of 18-JUL-2020 08:22, Vent. rate has increased BY 58 BPM Confirmed by Rajesh Resendiz ([id number]) on 01/03/2021 7:52:50 AM Referred By: REFERRED SELF Confirmed By:Rajesh Resendiz
--- NOTE | 2021-01-03 07:54 | Electrocardiogram Report ---
Test Reason : Blood Pressure : / mmHG Vent. Rate : 123 BPM Atrial Rate : 052 BPM P-R Int : 208 ms QRS Dur : 118 ms QT Int : 318 ms P-R-T Axes : 254 059 186 degrees QTc Int : 455 ms Atrial flutter Right bundle branch block ST depression in Anterolateral leads Abnormal ECG When compared with ECG of 02-JAN-2021 19:46, HR has decreased by 40 bpm Confirmed by Rajesh Resendiz ([id number]) on 01/03/2021 7:53:53 AM Referred By: REFERRED SELF Confirmed By:Rajesh Resendiz
[2021-01-03 07:57] LABS: Estimated Average Glucose 148 mg/dl; Hemoglobin A1C 6.8 % (4.5-5.6)
--- NOTE | 2021-01-03 08:03 | Cardiology Consultation ---
Date of Consultation January 03, 2021 Assessment & Plan (1) Atrial flutter with rapid ventricular response: (2) Bladder carcinoma: (3) DM2 (diabetes mellitus, type 2): (4) NSTEMI (non-ST elevated myocardial infarction): (5) Ischemic cardiomyopathy: The above findings were discussed with the patient along with his on the phone at great lengths. He was counseled about the ischemic changes and need for likely urgent intervention. Patient currently would like to hold off catheterization and think about it further I again stressed the need for urgent intervention and he will alert us as to his decision He is to remain n.p.o. and on IV heparin. I would be concerned with long-term dual antiplatelet therapy given the patient's bladder carcinoma and believe bare-metal stenting would be the preferred option should intervention be necessary. In terms of his atrial flutter he has been in A. fib in the past but previously not anticoagulated due to bladder carcinoma. He is now status post TURP with ongoing radiation oncology treatments has not had any bleeding issues while on heparin He spontaneously converted back to normal sinus rhythm and consideration for anticoagulation will have to be discussed Addendum: The patient notified nursing that he would like to proceed with cardiac catheterization here. Further recommendations to follow. History of Present Illness Reason for Consultation: Non-STEMI and atrial flutter with rapid ventricular response Requesting Physician: Dr. White Attending Physician: Shantell Chambers MD History of Present Illness The patient is a 65-year-old male who was previously seen by Dr. Ndiaye of our cardiology practice. He presented to [facility] on 01/02/2021 with complaints of indigestion. He states that for over the last week he has been having episodes of a burning sensation in his chest. He states that this sensation seems to come and go and does not appear to be associated with activity. He denies any associated shortness of breath, diaphoresis, nausea or lightheadedness. He notes that the day prior to presentation his discomfort was much more severe in nature and radiated through to his back and down his bilateral arms. [facility] at [facility] and sent to the emergency department. Upon further questioning he states he is also had palpitations for most of his life. He was recently diagnosed with paroxysmal atrial fibrillation and started on metoprolol. He states he has been having difficulty tolerating the dose and is down to 1/2 tablet of tartrate daily. He was not previously anticoagulated due to bladder cancer but he is now status post TURP at [facility] and he is scheduled to see medical oncology for further treatment. Currently he is without complaint at rest. Allergies Allergy/AdvReac Type Severity Reaction Status Date / Time kiwi Allergy Intermediate Lip and Unverified 01/02/21 20:06 Tongue Swell Hemp Seeds Allergy Intermediate Tongue Uncoded 01/02/21 20:06 Swells Home Medications Medication Instructions Recorded Confirmed Type Macuguard Ocular 1 cap PO DAILY 07/18/20 01/02/21 History alpha lipoic acid 600 mg capsule 600 mg PO BID 07/18/20 01/02/21 History ascorbic acid (vitamin C) 1,000 mg 1,000 mg PO BID 07/18/20 01/02/21 History tablet,extended release aspirin 81 mg tablet,delayed 81 mg PO DAILY 07/18/20 01/02/21 History release biotin 1,000 mcg chewable tablet 1,000 mcg PO DAILY 07/18/20 01/02/21 History cholecalciferol (vitamin D3) 125 125 mcg PO BID 07/18/20 01/02/21 History mcg (5,000 unit) tablet coenzyme Q10 100 mg capsule 200 mg PO DAILY 07/18/20 01/02/21 History (CoQ-10) fenofibrate nanocrystallized 145 145 mg PO DAILY 07/18/20 01/02/21 History mg tablet glipizide 10 mg tablet 10 mg PO BID 07/18/20 01/02/21 History iodine 150 mcg tablet (Kelp 150 mcg PO DAILY 07/18/20 01/02/21 History (iodine)) levocarnitine 500 mg tablet 1,000 mg PO BID 07/18/20 01/02/21 History (L-Carnitine) linagliptin 5 mg tablet (Tradjenta) 5 mg PO DAILY 07/18/20 01/02/21 History lisinopril 5 mg tablet 5 mg PO DAILY 07/18/20 01/02/21 History meclizine 25 mg tablet 25 mg PO DAILY 07/18/20 01/02/21 History metformin 850 mg tablet 850 mg PO TID 07/18/20 01/02/21 History metoprolol tartrate 25 mg tablet 25 mg PO BID 07/18/20 01/02/21 History multivitamin 1 tab PO DAILY 07/18/20 01/02/21 History niacin 500 mg tablet 500 mg PO BID 07/18/20 01/02/21 History olive leaf extract 250 mg capsule 500 mg PO DAILY 07/18/20 01/02/21 History omega-3 fatty acids 1,000 mg PO BID 07/18/20 01/02/21 History prasterone (dhea) 50 mg tablet 50 mg PO BID 07/18/20 01/02/21 History (DHEA) pyridoxine (vitamin B6) 100 mg 100 mg PO BID 07/18/20 01/02/21 History tablet (Vitamin B-6) turmeric root extract 500 mg 500 mg PO DAILY 07/18/20 01/02/21 History capsule vitamin A 2,400 mcg capsule 8,000 unit PO [id number] 07/18/20 01/02/21 History vitamin B complex 1 tab PO DAILY 07/18/20 01/02/21 History vitamin E 400 unit capsule 400 unit PO DAILY 07/18/20 01/02/21 History Apigenin 50 mg PO QAM 01/02/21 01/02/21 History acetylcysteine 600 mg capsule (NAC) 600 mg PO HS 01/02/21 01/02/21 History aspirin 325 mg tablet 325 mg PO BID 01/02/21 01/02/21 History zinc 50 mg tablet 75 mg PO DAILY 01/02/21 01/02/21 History Patient History Social History Smoking Status: Never smoker Second Hand Exposure: No; Do You Dip or Chew Tobacco: No; Tobacco Cessation Education Requested by Patient: No Hx Alcohol Use: Yes Alcohol type: beer Hx Substance Use: No Preferred Language: Bel[place] Communication Ability: Effective Senior Logistics Manager Required: No Beliefs That Will Affect Care: None marital status: Current Living Situation: Spouse Other Information That Helps Us Care for You: No Feels Safe at Home: Yes Safety Concerns: Feels Safe At This Time Assistive Devices: None Review of Systems Review of Systems: All systems reviewed & are unremarkable except as noted in HPI & below Physical Exam Physical Exam: General: Awake, alert and oriented x 3. No acute distress. HEENT: Normocephalic, atraumatic. Pupils equal, round and reactive to light and accommodation. Extraocular muscles are intact. Anicteric sclera. Moist mucous membranes. Neck: No JVD. No bruit. Cardiovascular: Regular. Positive S-4. Normal S-1 and S-2. No S-3. No murmurs or rubs. Pulmonary: Clear to auscultation B/L. No rales, rhonchi or wheezing Abdomen: Bowel sounds x 4, soft. No rebound, guarding or tenderness. No organomegaly. Extremities: No clubbing, cyanosis or edema. +2 pedal pulses bilaterally. Skin: Warm and dry. Results & Data ([facility]) Vital Signs (Past 12 Hours) Vital Signs Temp Pulse Pulse Pulse Resp BP BP 01/03/21 07:27 37.0 C 63 18 106/72 01/03/21 03:31 36.9 C 57 L 18 01/02/21 23:50 233 H 10 L 01/02/21 23:47 36.9 C 77 20 01/02/21 23:44 189 H 21 01/02/21 23:00 103 H 20 100/76 01/02/21 22:55 82 20 121/59 L 01/02/21 22:54 37 C 87 20 121/85 01/02/21 22:30 81 20 106/75 01/02/21 22:15 109 H 20 112/75 01/02/21 22:00 82 15 112/81 01/02/21 21:45 114/89 01/02/21 21:30 117/87 01/02/21 21:15 108 H 17 112/75 01/02/21 21:10 85 01/02/21 21:00 80 17 128/86 01/02/21 20:59 80 20 126/78 01/02/21 20:40 111 H 19 132/87 01/02/21 20:39 165 H 132/87 01/02/21 20:31 187 H 14 127/88 01/02/21 20:30 175 H 127/88 01/02/21 20:10 128 H 19 143/107 H 01/02/21 20:09 37.1 C 127 H 20 BP Pulse Ox 01/03/21 07:27 97 01/03/21 03:31 114/74 98 01/02/21 23:50 01/02/21 23:47 116/76 97 08/01/21 23:44 01/02/21 23:00 01/02/21 22:55 01/02/21 22:54 98 01/02/21 22:30 01/02/21 22:15 01/02/21 22:00 01/02/21 21:45 100 01/02/21 21:30 100 01/02/21 21:15 100 01/02/21 21:10 01/02/21 21:00 01/02/21 20:59 01/02/21 20:40 98 01/02/21 20:39 01/02/21 20:31 96 01/02/21 20:30 01/02/21 20:10 98 01/02/21 20:09 143/107 H 98 Laboratory Results Laboratory Results - last 24 hr 01/02/21 01/02/21 01/02/21 19:55 19:55 19:55 WBC 9.65 RBC 4.63 L Hgb 14.3 Hct 42.3 MCV 91.4 MCH 30.9 MCHC 33.8 RDW Std Deviation 48.1 H RDW Coeff of Bailey 14.4 Plt Count 336 MPV 10.0 Immature Gran % (Auto) 0.4 Neut % (Auto) 75.5 Lymph % (Auto) 15.6 Stanton % (Auto) 7.0 Eos % (Auto) 1.3 Baso % (Auto) 0.2 Neut # (Auto) 7.27 H Lymph # (Auto) 1.51 Stanton # (Auto) 0.68 H Eos # (Auto) 0.13 Baso # (Auto) 0.02 Immature Gran # (Auto) 0.04 H PT 10.6 INR 1.0 APTT 26.3 PTT Ratio 1.0 Sodium 139 Potassium 4.0 Chloride 105 Carbon Dioxide 30 Anion Gap 4.0 BUN 26 H Creatinine 1.47 H Est Cr Clr Drug Dosing Not Reportable Est GFR ( Amer) 56.8 Est GFR (Non-Af Amer) 49.0 BUN/Creatinine Ratio 17.8 Glucose 223 H POC Glucose Estimat Average Glucose Hemoglobin A1c Calcium 10.0 Magnesium 1.9 Total Bilirubin 0.5 AST 79 H ALT 30 Alkaline Phosphatase 48 Troponin I 9.560 H* Total Protein 7.5 Albumin 3.5 Globulin 4.0 Albumin/Globulin Ratio 0.9 Triglycerides Cholesterol LDL Cholesterol, Calc VLDL Cholesterol, Calc HDL Cholesterol Cholesterol/HDL Ratio Lipase 467 H TSH 1.720 COVID-19 Eval Order SARS-CoV-2 (PCR) 01/02/21 01/02/21 01/02/21 19:55 21:16 21:16 WBC RBC Hgb Hct MCV MCH MCHC RDW Std Deviation RDW Coeff of Bailey Plt Count MPV Immature Gran % (Auto) Neut % (Auto) Lymph % (Auto) Stanton % (Auto) Eos % (Auto) Baso % (Auto) Neut # (Auto) Lymph # (Auto) Stanton # (Auto) Eos # (Auto) Baso # (Auto) Immature Gran # (Auto) PT INR APTT PTT Ratio Sodium Potassium Chloride Carbon Dioxide Anion Gap BUN Creatinine Est Cr Clr Drug Dosing Est GFR ( Amer) Est GFR (Non-Af Amer) BUN/Creatinine Ratio Glucose POC Glucose Estimat Average Glucose 148 Hemoglobin A1c 6.8 H Calcium Magnesium Total Bilirubin AST ALT Alkaline Phosphatase Troponin I Total Protein Albumin Globulin Albumin/Globulin Ratio Triglycerides Cholesterol LDL Cholesterol, Calc VLDL Cholesterol, Calc HDL Cholesterol Cholesterol/HDL Ratio Lipase TSH COVID-19 Eval Order Covid19 at [facility] SARS-CoV-2 (PCR) NEGATIVE 01/03/21 01/03/21 01/03/21 00:09 03:13 03:13 WBC 8.16 RBC 4.19 L Hgb 12.6 L Hct 38.7 L MCV 92.4 MCH 30.1 MCHC 32.6 RDW Std Deviation 49.2 H RDW Coeff of Bailey 14.6 H Plt Count 274 MPV 9.5 Immature Gran % (Auto) 0.2 Neut % (Auto) 65.2 Lymph % (Auto) 24.5 Stanton % (Auto) 7.5 Eos % (Auto) 2.2 Baso % (Auto) 0.4 Neut # (Auto) 5.32 Lymph # (Auto) 2.00 Stanton # (Auto) 0.61 H Eos # (Auto) 0.18 Baso # (Auto) 0.03 Immature Gran # (Auto) 0.02 PT INR APTT PTT Ratio Sodium 141 Potassium 4.1 Chloride 108 H Carbon Dioxide 28 Anion Gap 5.0 BUN 24 H Creatinine 1.42 H Est Cr Clr Drug Dosing 56.2 Est GFR ( Amer) 59.2 Est GFR (Non-Af Amer) 51.1 BUN/Creatinine Ratio 17.1 Glucose 215 H POC Glucose 329 H* Estimat Average Glucose Hemoglobin A1c Calcium 8.8 Magnesium Total Bilirubin AST ALT Alkaline Phosphatase Troponin I 15.300 H* Total Protein Albumin Globulin Albumin/Globulin Ratio Triglycerides 127 Cholesterol 175 LDL Cholesterol, Calc 121 VLDL Cholesterol, Calc 25 HDL Cholesterol 29 Cholesterol/HDL Ratio 6 Lipase TSH COVID-19 Eval Order SARS-CoV-2 (PCR) 01/03/21 01/03/21 01/03/21 03:13 05:40 09:49 WBC RBC Hgb Hct MCV MCH MCHC RDW Std Deviation RDW Coeff of Bailey Plt Count MPV Immature Gran % (Auto) Neut % (Auto) Lymph % (Auto) Stanton % (Auto) Eos % (Auto) Baso % (Auto) Neut # (Auto) Lymph # (Auto) Stanton # (Auto) Eos # (Auto) Baso # (Auto) Immature Gran # (Auto) PT INR APTT 37.1 H PTT Ratio 1.4 Sodium Potassium Chloride Carbon Dioxide Anion Gap BUN Creatinine Est Cr Clr Drug Dosing Est GFR ( Amer) Est GFR (Non-Af Amer) BUN/Creatinine Ratio Glucose POC Glucose 195 H Estimat Average Glucose Hemoglobin A1c Calcium Magnesium Total Bilirubin AST ALT Alkaline Phosphatase Troponin I Pending Total Protein Albumin Globulin Albumin/Globulin Ratio Triglycerides Cholesterol LDL Cholesterol, Calc VLDL Cholesterol, Calc HDL Cholesterol Cholesterol/HDL Ratio Lipase TSH COVID-19 Eval Order SARS-CoV-2 (PCR)
[2021-01-03] MEDS: NIACIN 500 MG TAB PO SCH ×2 (08:09→21:19)
[2021-01-03] MEDS: MULTIVITAMIN TAB PO SCH (08:09)
[2021-01-03] MEDS: FENOFIBRATE NANOCRYSTALLIZED 145 MG TABLET PO SCH (08:09)
[2021-01-03] MEDS: METOPROLOL TARTRATE 25 MG TAB PO SCH ×2 (08:09→21:19)
[2021-01-03] MEDS: ASPIRIN 81 MG ECTAB PO SCH (08:09)
[2021-01-03] MEDS: INSULIN GLARGINE SOLOSTAR 100 UNITS/ML 3 ML PEN SC SCH (08:13)
--- NOTE | 2021-01-03 08:26 | Electrocardiogram Report ---
Test Reason : Blood Pressure : / mmHG Vent. Rate : 055 BPM Atrial Rate : 055 BPM P-R Int : 134 ms QRS Dur : 082 ms QT Int : 420 ms P-R-T Axes : 043 028 140 degrees QTc Int : 401 ms Sinus bradycardia Left atrial enlargement ST elevation consider anterior injury or acute infarct Inferior leads Consider right ventricular involvement in acute inferior infarct Abnormal ECG When compared with ECG of 02-JAN-2021 20:48, Atrial flutter no longer present HR has decreased by [address] elevation in Inferior leads now present Confirmed by Rajesh Resendiz ([id number]) on 01/03/2021 8:26:09 AM Referred By: REFERRED SELF Confirmed By:Rajesh Resendiz
[2021-01-03] MEDS ORDERED: lisinopril 5 MG TAB PO SCH (09:00)
[2021-01-03] MEDS ORDERED: niCARdipine HCL INJ 2.5 MG/ML 10 ML AMP ONE (10:14)
[2021-01-03] MEDS ORDERED: HEPARIN (PORCINE) 1000 UNIT/ML 10 ML (CATH LAB USE ONLY) ONE (10:14)
[2021-01-03] MEDS ORDERED: MIDAZOLAM HCL 1 MG/ML 2ML VIAL ONE ×2 (10:14→11:08)
[2021-01-03] MEDS ORDERED: fentaNYL citrate 100 MCG/2 ML VIAL ONE (10:15)
[2021-01-03] MEDS ORDERED: NITROGLYCERIN/D5W 100MCG/ML 20ML SYR ONE (10:15)
--- NOTE | 2021-01-03 10:24 | Pre Anesthesia Assessment ---
Date of Service January 03, 2021 Pre Sedation Assessment Vital Signs Temp Pulse Pulse Pulse Resp BP BP 01/03/21 10:03 67 20 101/62 01/03/21 07:27 37.0 C 63 18 106/72 01/03/21 03:31 36.9 C 57 L 18 01/02/21 23:50 233 H 10 L 01/02/21 23:47 36.9 C 77 20 01/02/21 23:44 189 H 21 01/02/21 23:00 103 H 20 100/76 01/02/21 22:55 82 20 121/59 L 01/02/21 22:54 37 C 87 20 121/85 01/02/21 22:30 81 20 106/75 01/02/21 22:15 109 H 20 112/75 01/02/21 22:00 82 15 112/81 01/02/21 21:45 114/89 01/02/21 21:30 117/87 01/02/21 21:15 108 H 17 112/75 01/02/21 21:10 85 01/02/21 21:00 80 17 128/86 01/02/21 20:59 80 20 126/78 01/02/21 20:40 111 H 19 132/87 01/02/21 20:39 165 H 132/87 01/02/21 20:31 187 H 14 127/88 01/02/21 20:30 175 H 127/88 01/02/21 20:10 128 H 19 143/107 H 01/02/21 20:09 37.1 C 127 H 20 01/02/21 20:03 160 H 139/101 H 01/02/21 19:52 01/02/21 19:50 163 H 20 139/101 H 01/02/21 19:37 36.8 C 163 H 18 141/83 H BP Pulse Ox 01/03/21 10:03 97 01/03/21 07:27 97 01/03/21 03:31 114/74 98 01/02/21 23:50 01/02/21 23:47 116/76 97 01/02/21 23:44 01/02/21 23:00 01/02/21 22:55 01/02/21 22:54 98 01/02/21 22:30 01/02/21 22:15 01/02/21 22:00 01/02/21 21:45 100 01/02/21 21:30 100 01/02/21 21:15 100 01/02/21 21:10 01/02/21 21:00 01/02/21 20:59 01/02/21 20:40 98 01/02/21 20:39 01/02/21 20:31 96 01/02/21 20:30 01/02/21 20:10 98 01/02/21 20:09 143/107 H 98 01/02/21 20:03 01/02/21 19:52 98 01/02/21 19:50 01/02/21 19:37 98 Cardiovascular RRR, no murmur, no edema Respiratory normal respiratory effort, lungs clear to auscultation Pre-Sedation Airway Assessment Smoking Status: Never smoker Hx Sleep Apnea: No Short, Thick Neck: No Thyromental Distance: > or= 3.5 Finger Breadths Oral Cavity: + WNL Mallampati Class: II ASA: ASA3 NPO Status Date of Last Intake of Fluids: 01/03/21 Time of Last Intake of Fluids: 07:00 Last Oral Intake of Fluids Comment: sips Date of Last Intake of Solid Food: 01/02/21 Time of Last Intake of Solid Foods: 22:00 Procedure Planning Contraindications for Sedation: none Current Medications Reviewed: Yes Notes The planned sedation has been discussed with the patient. Informed Consent was obtained. I have identified the patient, determined the appropriateness of sedation and have assessed the patient immediately prior to the procedure. All medicine(s) and interventions are by my order.
--- NOTE | 2021-01-03 10:24 | History & Physical Bridge Note ---
Date of Service January 03, 2021 History & Physical Bridge Note I have examined the patient, reviewed the History & Physical and in the interval since the performance of the History & Physical I have noted the following changes of clinical significance: no changes noted
[2021-01-03] MEDS ORDERED: ATROPINE SULFATE 0.1 MG/ML 10ML SYR IV ONE (11:42)
--- NOTE | 2021-01-03 11:54 | Cardiac Catheterization ---
Cardiac Cath Procedure Brief Procedure Date January 03, 2021 Pre-Procedure Diagnosis Pre-Procedure Diagnosis: Non STEMI AUC Score AUC Score: 9 Post-Procedure Diagnosis Post-Procedure Diagnosis: Severe CAD Procedure(s) Performed Procedure(s) Performed: Coronary Angiography and Left Heart Cath Dye Lab Technician Neto Marlow MD Cafe Aide(s) Aleena Aaron Estimated Blood Loss Estimated Blood Loss: <15cc Medication(s) Medication(s): Fentanyl (12.5 mcg IV x 3), Lidocaine 1% (Local infiltration access site) and Versed (1 mg IV x 3) Preliminary Findings Impression: Severe three-vessel coronary disease including proximal left anterior descending Recommendations Recommendations: CABG Specimens Specimens: None Fluids (cc crystalloids) Fluids (cc crystalloids): 100 Anesthesia Start time 1035, stop time 1128 Procedural Complication(s) None Disposition PCU
--- NOTE | 2021-01-03 12:03 | Cardiac Catheterization ---
Cardiac Cath Procedure Full Procedure Date January 03, 2021 Pre-Procedure Diagnosis Pre-Procedure Diagnosis: Non STEMI AUC Score AUC Score: 9 Post-Procedure Diagnosis Post-Procedure Diagnosis: Severe CAD Procedure(s) Performed Procedure(s) Performed: Coronary Angiography and Left Heart Cath Log Preparer Neto Marlow MD Geophysics Professor(s) Aleena Aaron Estimated Blood Loss Estimated Blood Loss: <15cc Medication(s) Medication(s): Fentanyl (12.5 mcg IV x 3), Lidocaine 1% (Local infiltration access site) and Versed (1 mg IV x 3) Summary of Findings Impression: Severe three-vessel coronary disease including proximal left anterior descending Mild left ventricular dysfunction by echocardiography (LV angiography not performed) Coronary angiography: Initial attempt via right radial access not obtained, wire unable to be advanced. Procedure performed without incident via right femoral artery Catheters used: 5 Dutch arterial sheath, 5 Dutch JL4 5 Dutch 3 DRC 5 Dutch angled pigtail Right dominant coronary anatomy noted Left main: Normal length and caliber with mild calcification and no obstruction Left anterior descending: Type III in distribution it gives rise to a small septal branch then 2 diagonal branches and a second small diagonal branch all in the midportion of its proximal third. The vessel then continues to beyond the left ventricular apex. There is diffuse disease in its proximal segment narrowing it by 80% proximal to the first septal branch and 90% after the second septal bra nch with diffuse disease between. The first diagonal is very small the second diagonal is modest in caliber and bifurcates with a 90% stenosis in its midportion. Left circumflex: Modest in caliber giving rise to a moderate obtuse marginal and a small posterior lateral branch. The obtuse marginal has a 90% narrowing in its proximal portion Right coronary artery: Dominant distribution. It gives rise to a sinoatrial branch shortly after its origin to mid vessel right ventricular branches, a modest sized posterior descending artery and 3 posterior ventricular branches. There is a discrete 80% stenosis in the mid right coronary artery LV angiography: Not performed in an attempt to conserve contrast exposure, adequate echocardiogram Hemodynamics: LV end-diastolic pressure 18-20, no transaortic valve gradient Hemodynamics Rest Ao:: 101// Final Ao: 104/62/80 LV: 114/10/ Recommendations Recommendations: CABG Specimens Specimens: None Radiation Exposure (mGy) 484 Contrast (mls) 60 Fluids (cc crystalloids) Fluids (cc crystalloids): 100 Anesthesia Start time 1035, stop time 1128 Procedural Complication(s) None Disposition PCU I attest to the content of the Intraoperative Record and any orders documented therein. Any exceptions are noted below. ACC Data: Physician Gynecologist Cardiac Status Clinical evaluation leading to the procedure CAD Presenation: Non STEMI Heart Failure: No Cardiogenic Shock within 24 Hours: No Cardiac Arrest within 24 Hours: No Imaging Studies Past 6 Months: Yes Stress Studies Past 6 Months: No Standard Exercise Test: No Stress Echocardiogram: No Stress Testing w/SPECT MPI: No Cardiac CTA: No STEMI OR Non-STEMI Symptom Onset Date: 01/02/21 Symptom Onset Time: 08:00 Thrombolytics: No Coronary Anatomy Dominant: Right Left Main (% Stenosis): Normal (Modest caliber vessel with mild calcification) LAD (% Stenosis): Proximal (80) and Mid (90 and proximal third after 2 diagonal branches, 70% mid) D1 (% Stenosis): Distal (Small vessel with distal disease) D2 (% Stenosis): Mid (80) OM1 (% Stenosis): Proximal (90) RCA (% Stenosis): Mid (80) R PDA (% Stenosis): Normal R PL1 (% Stenosis): Normal R PL2 (% Stenosis): Normal Diagnostic Physicians Name: Neto Marlow MD Closure Device Recommendations: CABG
[2021-01-03] MEDS: SODIUM CHLORIDE 0.9% 1000ML 1,000 ML IV SCH ×2 (12:31→20:06)
--- NOTE | 2021-01-03 14:20 | Communication Note ---
Date of Service: January 03, 2021 Patient underwent diagnostic coronary angiography today, left heart catheterization after presenting with atrial flutter with rapid response and non-ST segment elevation myocardial infarction. Study demonstrated three-vessel coronary disease including proximal left anterior descending stenosis. Discussed results with patient and his have recommended surgical evaluation. Patient in the process of consideration We will continue beta-phuong aspirin DELICIA inhibitor and resume IV heparin in 3 hours In the past patient has declined statin this will once again need to be readdressed
--- NOTE | 2021-01-03 16:58 | Hospitalist Progress Note ---
Date of Service January 03, 2021 Assessment & Plan (1) NSTEMI (non-ST elevated myocardial infarction): Plan: S/P cardiac catheterization with triple-vessel disease A. fib with RVR - rate controlled now History of hypertension History of diabetes mellitus type 2 History of hyperlipidemia Appreciate cardiology input. Continue aspirin 81 mg daily, Lopressor 25 mg daily, lisinopril 5 mg daily. Patient remains on heparin infusion. Diltiazem has been on hold, rate is controlled. Patient found to have triple-vessel disease. However, patient is not sure where he wants to have CABG done. He is thinking of going to [facility]. Continue with Lantus 15 units daily and insulin sliding scale AC at bedtime. DVT prophylaxis. IV Heparin Full code Admission and Anticipated Discharge Date Admission Date: January 02, 2021 Subjective Doing okay this morning. Patient was seen post catheterization. Denies any chest pain, shortness of breath, abdominal pain, dizziness or any palpitations. Denies any significant right groin discomfort. Review of Systems Review of Systems: All systems reviewed & are unremarkable except as noted in HPI & below Physical Exam Physical Exam: General: A&Ox3 HENT: NCAT, MMM, EOMI Eyes: PERRLA Neck: Supple, normal range of motion CVS: normal rate and rhythm Resp: b/l breath sound Abdomen: Soft, ND/NT, +BS Extremities: No c/c/e Neuro: face symmetric, no focal deficit Skin: warm and dry, no rashes/lesions/errythema MSK: normal ROM, no joint swelling/erythema Results & Data Results & Data ([facility]) Vital Signs (Past 12 Hours) Vital Signs Temp Pulse Pulse Pulse Resp BP BP 01/03/21 15:53 78 98/62 L 01/03/21 14:55 77 01/03/21 14:53 72 100/65 01/03/21 14:25 77 101/66 01/03/21 13:53 74 102/69 01/03/21 12:48 69 18 108/72 01/03/21 12:23 77 18 109/73 01/03/21 12:22 37.0 C 71 16 103/68 01/03/21 12:00 69 18 101/66 01/03/21 11:55 69 18 104/66 01/03/21 11:50 68 18 105/67 01/03/21 11:45 67 18 104/68 01/03/21 10:03 67 20 101/62 01/03/21 07:27 37.0 C 63 18 106/72 01/03/21 07:00 60 Pulse Ox 01/03/21 15:53 96 01/03/21 14:55 01/03/21 14:53 97 01/03/21 14:25 01/03/21 13:53 96 01/03/21 12:48 97 01/03/21 12:23 99 01/03/21 12:22 97 01/03/21 12:00 97 01/03/21 11:55 97 01/03/21 11:50 96 01/03/21 11:45 96 01/03/21 10:03 97 01/03/21 07:27 97 01/03/21 07:00
[2021-01-03] MEDS ORDERED: Nursing to Pharmacy Communication SCH (17:00)
[2021-01-03] MEDS ORDERED: INSULIN ASPART 100 UNITS/ML 3 ML PEN SC SCH (21:00)
[2021-01-03 23:39] LABS: Partial Thromboplastin Ratio 1.4; Partial Thromboplastin Time 36.8 Seconds (21.0-31.0)
[2021-01-04] MEDS ORDERED: HEPARIN SOD (PORCINE) 1000 UNIT/ML IV ONE (00:30)
[2021-01-04] MEDS: HEPARIN SODIUM/DEXTROSE 25,000 UNITS/500 ML BAG IV SCH (03:17)
[2021-01-04] MEDS: SODIUM CHLORIDE 0.9% 1000ML 1,000 ML IV SCH (03:18)
[2021-01-04 07:22] LABS: Partial Thromboplastin Time 51.3 Seconds (21.0-31.0)
[2021-01-04] MEDS: ASPIRIN 81 MG ECTAB PO SCH (08:19)
[2021-01-04] MEDS: MULTIVITAMIN TAB PO SCH (08:19)
[2021-01-04] MEDS: lisinopril 5 MG TAB PO SCH (08:19)
[2021-01-04] MEDS: NIACIN 500 MG TAB PO SCH ×2 (08:19→20:25)
[2021-01-04] MEDS: METOPROLOL TARTRATE 25 MG TAB PO SCH ×2 (08:19→20:25)
[2021-01-04] MEDS: FENOFIBRATE NANOCRYSTALLIZED 145 MG TABLET PO SCH (08:19)
[2021-01-04] MEDS: INSULIN ASPART 100 UNITS/ML 3 ML PEN SC SCH ×4 (08:21→22:09)
[2021-01-04] MEDS: INSULIN GLARGINE SOLOSTAR 100 UNITS/ML 3 ML PEN SC SCH (08:21)
[2021-01-04] MEDS ORDERED: STAT IV Infusion **Titration per Protocol STA (08:35)
[2021-01-04] MEDS ORDERED: 0.2 MICRON FILTER SET 1 EA IV ONE (08:35)
[2021-01-04] MEDS ORDERED: AMIODARONE IV BOLUS & DRIP IV STA (08:35)
[2021-01-04] MEDS ORDERED: AMIODARONE / D5W 150 MG/100 ML BAG IV ONE (08:45)
[2021-01-04 08:46] LABS: Basophils # (auto) 0.03 K/uL (0-0.2); Basophils % (auto) 0.4 %; Eosinophils # (auto) 0.13 K/uL (0-0.5); Eosinophils % (auto) 1.9 %; Hematocrit (blood only) 36.9 % (42-52); Hemoglobin 12.2 g/dL (14.0-18.0); Immature Granulocytes # (auto) 0.01 K/uL (0.00-0.02); Immature Granulocytes % (auto) 0.1 %; Lymphocytes # (auto) 1.22 K/uL (1.2-3.4); Lymphocytes % (auto) 17.5 %; Mean Corpuscular Hemoglobin 30.6 pg (25-34); Mean Corpuscular Hgb Conc 33.1 g/dL (32-36); Mean Corpuscular Volume 92.5 fL (80-100); Mean Platelet Volume 11.1 fL (7.4-10.4); Monocytes # (auto) 0.52 K/uL (0.11-0.59); Monocytes % (auto) 7.4 %; Neutrophils # (auto) 5.08 K/uL (1.4-6.5); Neutrophils % (auto) 72.7 %; Platelet Count 241 K/uL (130-400); RDW Coefficient of Variation 14.8 % (11.5-14.5); RDW Standard Deviation 50.1 fL (36.4-46.3); Red Blood Count 3.99 M/uL (4.7-6.1); White Blood Count 6.99 K/uL (4.8-10.8)
[2021-01-04] MEDS: NITROGLYCERIN SL 0.4 MG/TAB TAB SL PRN ×2 (08:52→11:05)
[2021-01-04 08:53] LABS: Est GFR (African American) 59.2 ml/min; Potassium 4.3 mmol/L (3.5-5.1)
[2021-01-04 08:54] LABS: Albumin Level 2.9 gm/dl (3.4-5.0); BUN Creatinine Ratio 15.6 (10-20); Calcium 8.7 mg/dl (8.5-10.1); Creatinine Clr Calc Pharmacy 56.7 ml/min; Est GFR (Non-African American) 51.1 ml/min
[2021-01-04 08:56] LABS: Albumin Globulin Ratio 0.8 (0.9-2); Bilirubin,Total 0.4 mg/dl (0.2-1); Globulin 3.5 gm/dl (2.5-4.0); Total Protein 6.4 gm/dl (6.4-8.2)
[2021-01-04] MEDS ORDERED: AMIODARONE / D5W 360 MG/200 ML BAG IV ONE (09:00)
--- NOTE | 2021-01-04 10:28 | Cardiology Progress Note ---
Date of Service January 04, 2021 Assessment & Plan (1) Atrial flutter with rapid ventricular response: (2) Bladder carcinoma: (3) DM2 (diabetes mellitus, type 2): (4) NSTEMI (non-ST elevated myocardial infarction): (5) Ischemic cardiomyopathy: Plan: Cardiac catheterization revealed 4-vessel disease in prox LAD, D2, OM1 and RCA. Coronary artery bypass grafting surgery recommended, however, they she is unsure as to where he would like to have the surgery done It have recurrent chest discomfort overnight so will not be able to discharge to home. Await patient decision. Will continue heparin for 48 hours now back in AFib so will be continued Given recurrences of atrial fibrillation and a high likelihood of recurrence during perioperative. Patient will be placed on amnio bolus and drip at this time to help maintain sinus rhythm Continue current aspirin, metoprolol and lisinopril Patient declining statin therapy despite lengthy discussion Recommend transfer to tertiary care center for coronary bypass surgery Admission and Anticipated Discharge Date Admission Date: January 02, 2021 Subjective Patient seen and examined, chart reviewed. States he had some recurrent chest discomfort overnight along with palpitations with activity. Denies shortness of breath or lightheadedness. He and his for still discussing where he would like to go for surgery he is also question whether not he would be a candidate for a trial of chelation therapy is currently being conducted at [facility]. Telemetry reviewed: Normal sinus rhythm overnight, lapsed back into AFib with RVR as I entered the room this morning. Review of Systems Review of Systems: All systems reviewed & are unremarkable except as noted in HPI & below Physical Exam Physical Exam: General: Awake, alert and oriented x 3. No acute distress. HEENT: Normocephalic, atraumatic. Pupils equal, round and reactive to light and accommodation. Extraocular muscles are intact. Anicteric sclera. Moist mucous membranes. Neck: No JVD. No bruit. Cardiovascular: irregularly irregular, unable to appreciate murmur, rub or gallop. Pulmonary: Clear to auscultation bilaterally. No rales, rhonchi, or wheezing. Abdomen: Bowel sounds x 4, soft. No rebound, guarding or tenderness. No organomegaly. Extremities: No clubbing, cyanosis or edema. +2 pedal pulses bilaterally. Skin: Warm and dry. Results & Data ([facility]) Vital Signs (Past 12 Hours) Vital Signs Temp Pulse Pulse Resp BP BP Pulse Ox 01/04/21 08:46 160 H 148/87 H 01/04/21 08:30 140 H 01/04/21 07:18 67 01/04/21 07:03 37.5 C 64 18 125/78 96 01/04/21 03:57 37.3 C 68 18 111/74 97 01/03/21 23:51 37.6 C H 67 18 114/76 94
--- NOTE | 2021-01-04 13:00 | Hospitalist Progress Note ---
Date of Service January 04, 2021 Assessment & Plan (1) NSTEMI (non-ST elevated myocardial infarction): Plan: S/P cardiac catheterization with triple-vessel disease A. fib with RVR - rate controlled now History of hypertension History of diabetes mellitus type 2 History of hyperlipidemia Appreciate cardiology input. Continue aspirin 81 mg daily, Lopressor 25 mg daily, lisinopril 5 mg daily. Patient remains on heparin infusion; to complete for 48 hours. Patient went into atrial flutter this morning. He started on amiodarone. Cardiology is on board. Patient found to have triple-vessel disease. Patient decided to be transferred to [facility] for his CABG. Spoke with [facility] transplant center patient was accepted by Dr. Robertson. Patient to be transferred once bed becomes available. Continue with Lantus 15 units daily and insulin sliding scale AC at bedtime. DVT prophylaxis. IV Heparin Full code Admission and Anticipated Discharge Date Admission Date: January 02, 2021 Subjective Earlier today patient did have chest pain and palpitations. Reports currently is resolved. Denies any shortness of breath, chest pain, palpitations, dizziness, nausea or any vomiting. Rest of the review of system is negative. Review of Systems Review of Systems: All systems reviewed & are unremarkable except as noted in HPI & below Physical Exam Physical Exam: General: A&Ox3 HENT: NCAT, MMM, EOMI Eyes: PERRLA Neck: Supple, normal range of motion CVS: normal rate and rhythm Resp: b/l breath sound Abdomen: Soft, ND/NT, +BS Extremities: No c/c/e Neuro: face symmetric, no focal deficit Skin: warm and dry, no rashes/lesions/errythema MSK: normal ROM, no joint swelling/erythema Results & Data Results & Data ([facility]) Vital Signs (Past 12 Hours) Vital Signs Temp Pulse Pulse Resp BP BP Pulse Ox 01/04/21 10:56 38.2 C H 91 H 18 138/89 97 01/04/21 08:46 160 H 148/87 H 01/04/21 08:30 140 H 01/04/21 07:18 67 01/04/21 07:03 37.5 C 64 18 125/78 96 01/04/21 03:57 37.3 C 68 18 111/74 97
[2021-01-04] MEDS: AMIODARONE / D5W 360 MG/200 ML BAG IV SCH (14:53)
[2021-01-04] MEDS: ACETAMINOPHEN 325 MG TAB PO PRN ×2 (15:31→20:24)
[2021-01-04 23:04] LABS: Magnesium 1.8 mg/dl (1.8-2.4)
[2021-01-05] MEDS: AMIODARONE / D5W 360 MG/200 ML BAG IV SCH ×2 (01:24→12:05)
[2021-01-05] MEDS: HEPARIN SODIUM/DEXTROSE 25,000 UNITS/500 ML BAG IV SCH ×4 (01:24→18:31)
[2021-01-05] MEDS ORDERED: MAGNESIUM SULFATE / D5W 1 GM/100 ML BAG IV ONE (03:00)
[2021-01-05] MEDS: ASPIRIN 81 MG ECTAB PO SCH (07:52)
[2021-01-05] MEDS: METOPROLOL TARTRATE 25 MG TAB PO SCH ×2 (07:52→20:23)
[2021-01-05] MEDS: NIACIN 500 MG TAB PO SCH ×2 (07:52→20:24)
[2021-01-05] MEDS: FENOFIBRATE NANOCRYSTALLIZED 145 MG TABLET PO SCH (07:52)
[2021-01-05] MEDS: MULTIVITAMIN TAB PO SCH (07:53)
[2021-01-05] MEDS: lisinopril 5 MG TAB PO SCH (07:53)
[2021-01-05] MEDS: INSULIN ASPART 100 UNITS/ML 3 ML PEN SC SCH ×4 (07:58→20:31)
[2021-01-05] MEDS: INSULIN GLARGINE SOLOSTAR 100 UNITS/ML 3 ML PEN SC SCH (08:01)
[2021-01-05 08:49] LABS: Hematocrit (blood only) 42.1 % (42-52); Hemoglobin 14.2 g/dL (14.0-18.0); Mean Corpuscular Hemoglobin 30.5 pg (25-34); Mean Corpuscular Volume 90.3 fL (80-100); Mean Platelet Volume 10.3 fL (7.4-10.4); Platelet Count 256 K/uL (130-400); RDW Coefficient of Variation 14.4 % (11.5-14.5); RDW Standard Deviation 47.3 fL (36.4-46.3); Red Blood Count 4.66 M/uL (4.7-6.1); White Blood Count 8.51 K/uL (4.8-10.8)
[2021-01-05 08:55] LABS: Mean Corpuscular Hgb Conc 33.7 g/dL (32-36)
[2021-01-05 08:58] LABS: Partial Thromboplastin Ratio 1.6; Partial Thromboplastin Time 41.3 Seconds (21.0-31.0)
[2021-01-05 09:12] LABS: BUN Creatinine Ratio 12.6 (10-20); Calcium 9.3 mg/dl (8.5-10.1); Est GFR (African American) 60.3 ml/min; Potassium 4.1 mmol/L (3.5-5.1)
--- NOTE | 2021-01-05 15:46 | Hospitalist Progress Note ---
Date of Service January 05, 2021 Assessment & Plan (1) NSTEMI (non-ST elevated myocardial infarction): Plan: S/P cardiac catheterization with 4 vessel disease A. flutter with RVR - rate controlled now History of hypertension History of diabetes mellitus type 2 History of hyperlipidemia Continue aspirin 81 mg daily, Lopressor 25 mg daily, lisinopril 5 mg daily. Patient back in [facility]. Currently on heparin drip and amiodarone drip Patient found to have multiple vessel disease. Patient decided to be transferred to [facility] for his CABG. Dr Chambers spoke with [facility] transfer center and patient was accepted by Dr. Robertson. Patient to be transferred once bed becomes available. Cardiology on board and recommendations noted Continue with Lantus 15 units daily and insulin sliding scale AC at bedtime. DVT prophylaxis. IV Heparin Full code Admission and Anticipated Discharge Date Admission Date: January 02, 2021 Subjective 65-year-old man with history of paroxysmal A. fib not previously on anticoagulation but but as per patient preference, hypertension, DM type II on oral medication, bladder cancer status post surgery with possible new meds, CKD who presented to the hospital with intermittent chest pain. Found to be in NSTEMI. Cardiac catheterization revealed 4 vessel disease in proximal LAD, D2, OM1 and RCA. Patient preferred to be transferred to [place] for evaluation and continue management. Patient seen and examined this morning. Denies any complaints. Denies any chest pain with mild exertion at this time. Denies any shortness of breath or palpitations Telemetry showed atrial fibrillation with rates ranging from 40-120s Review of Systems Constitutional: no fever, no chills and no fatigue Eyes: no problem reported Ear, Nose, Mouth, Throat: no problem reported Respiratory: no cough, no chest congestion and no dyspnea Cardiovascular: no chest pain, no dyspnea, no dyspnea on exertion, no orthopnea, no palpitations and no lightheadedness Gastrointestinal: no abdominal pain, no heartburn, no nausea, no vomiting and no diarrhea/loose stools Genitourinary: no dysuria, no difficulty urinating, no urinary frequency or no urinary incontinence Musculoskeletal: no problem reported Neurologic: no generalized weakness, no dizziness, no headache(s) and no confusion Psychiatric: no depression and no anxiety Physical Exam Constitutional: + well hydrated; no acute distress Eyes: PERRL, conjunctivae normal, anicteric sclerae ENMT: external ear and nose normal, oropharynx normal Respiratory: normal respiratory effort, lungs clear to auscultation Cardiovascular: Rate/Rhythm: + irregularly irregular Heart Sounds: normal S1 and normal S2 Gastrointestinal (Abdomen): normal bowel sounds, soft, nontender, no hepatosplenomegaly Musculoskeletal: no cyanosis or clubbing, extremities motor strength 5/5 Neurologic: PERRL, EOMI, accommodation nl, no face palsy, no dysarthria Psychiatric: A+Ox3, euthymic affect Genitourinary: no CVA tenderness Results & Data Results & Data ([facility]) Vital Signs (Past 12 Hours) Vital Signs Temp Pulse Resp BP Pulse Ox 01/05/21 10:47 37 C 85 16 112/75 98 01/05/21 07:20 36.7 C 56 L 16 123/73 97 01/05/21 04:00 36.8 C 92 H 20 129/80 96 Laboratory Results Abnormal lab results 01/04/21 01/04/21 01/04/21 Range/Units 10:35 16:27 20:59 RBC (4.7-6.1) M/uL RDW Std Deviation (36.4-46.3) fL APTT (21.0-31.0) Seconds Glucose (70-99) mg/dl POC Glucose 178 H 178 H (70-99) mg/dl CA 19-9 Antigen 294 H (<34) U/mL 01/05/21 01/05/21 01/05/21 Range/Units 07:21 08:25 08:25 RBC 4.66 L (4.7-6.1) M/uL RDW Std Deviation 47.3 H (36.4-46.3) fL APTT 41.3 H (21.0-31.0) Seconds Glucose (70-99) mg/dl POC Glucose 229 H (70-99) mg/dl CA 19-9 Antigen (<34) U/mL 01/05/21 01/05/21 Range/Units 08:25 11:14 RBC (4.7-6.1) M/uL RDW Std Deviation (36.4-46.3) fL APTT (21.0-31.0) Seconds Glucose 292 H (70-99) mg/dl POC Glucose 285 H (70-99) mg/dl CA 19-9 Antigen (<34) U/mL
[2021-01-05] MEDS ORDERED: DEXTROSE 50% 50 ML SYRINGE IV PRN (16:40)
[2021-01-05] MEDS ORDERED: GLUCOSE 10 TABS/TUBE PO PRN (16:40)
[2021-01-05] MEDS ORDERED: GLUCOSE 40% GEL 15 GM TUBE PO PRN (16:40)
[2021-01-05] MEDS ORDERED: CARBOHYDRATES FOR HYPOGLYCEMIA PO PRN (16:40)
[2021-01-05] MEDS ORDERED: GLUCAGON FOR INJ 1 MG VIAL SQ PRN (16:40)
[2021-01-05 17:09] LABS: Partial Thromboplastin Ratio 1.6; Partial Thromboplastin Time 41.3 Seconds (21.0-31.0)
--- NOTE | 2021-01-05 17:16 | Cardiology Progress Note ---
Date of Service January 05, 2021 Assessment & Plan (1) Atrial flutter with rapid ventricular response: Plan: We will continue IV amiodarone, increase metoprolol slightly using caution given transient bradycardia (2) Bladder carcinoma: (3) DM2 (diabetes mellitus, type 2): (4) NSTEMI (non-ST elevated myocardial infarction): (5) Ischemic cardiomyopathy: Plan: Cardiac catheterization revealed 4-vessel disease in prox LAD, D2, OM1 and RCA. Coronary artery bypass grafting surgery recommended Patient declining statin therapy despite lengthy discussion Recommend transfer to tertiary [facility] for coronary bypass surgery patient awaiting confirmation of medically Admission and Anticipated Discharge Date Admission Date: January 02, 2021 Subjective Patient denies chest pain shortness of breath tachypalpitations or dizziness. Heart rate "all over the place". Waiting bed availability for transfer to [facility]. Review of Systems Review of Systems: All systems reviewed & are unremarkable except as noted in Subjective Physical Exam Constitutional: no acute distress Eyes: PERRL, conjunctivae normal, anicteric sclerae ENMT: external ear and nose normal, oropharynx normal Neck: trachea midline, no thyromegaly Respiratory: normal respiratory effort, lungs clear to auscultation Cardiovascular: Rate/Rhythm: + tachycardic and + irregularly irregular Heart Sounds: normal S1 and normal S2; no gallop and no murmur Palpation: normal PMI Vessels: normal carotid upstroke and radial pulses present; no JVD and no carotid bruit Extremities: no edema Gastrointestinal (Abdomen): normal bowel sounds, soft, nontender, no hepatosplenomegaly Musculoskeletal: no cyanosis or clubbing, extremities motor strength 5/5 Skin: no rashes, warm and dry Neurologic: PERRL, EOMI, accommodation nl, no face palsy, no dysarthria Psychiatric: A+Ox3, euthymic affect Results & Data ([facility]) Vital Signs (Past 12 Hours) Vital Signs Temp Pulse Resp BP Pulse Ox 01/05/21 16:06 36.9 C 119 H 18 148/93 H 98 01/05/21 10:47 37 C 85 16 112/75 98 01/05/21 07:20 36.7 C 56 L 16 123/73 97 Laboratory Results Laboratory Results - last 24 hr 01/04/21 01/04/21 01/04/21 06:37 06:37 10:35 WBC RBC Hgb Hct MCV MCH MCHC RDW Std Deviation RDW Coeff of Bailey Plt Count MPV APTT PTT Ratio Sodium Potassium Chloride Carbon Dioxide Anion Gap BUN Creatinine Est Cr Clr Drug Dosing Est GFR ( Amer) Est GFR (Non-Af Amer) BUN/Creatinine Ratio Glucose POC Glucose Calcium Magnesium 1.8 Cancelled CA 19-9 Antigen 294 H 01/04/21 01/05/21 01/05/21 20:59 07:21 08:25 WBC RBC Hgb Hct MCV MCH MCHC RDW Std Deviation RDW Coeff of Bailey Plt Count MPV APTT 41.3 H PTT Ratio 1.6 Sodium Potassium Chloride Carbon Dioxide Anion Gap BUN Creatinine Est Cr Clr Drug Dosing Est GFR ( Amer) Est GFR (Non-Af Amer) BUN/Creatinine Ratio Glucose POC Glucose 178 H 229 H Calcium Magnesium CA 19-9 Antigen 01/05/21 01/05/21 01/05/21 08:25 08:25 11:14 WBC 8.51 RBC 4.66 L Hgb 14.2 Hct 42.1 MCV 90.3 MCH 30.5 MCHC 33.7 RDW Std Deviation 47.3 H RDW Coeff of Bailey 14.4 Plt Count 256 MPV 10.3 APTT PTT Ratio Sodium 137 Potassium 4.1 Chloride 107 Carbon Dioxide 24 Anion Gap 7.0 BUN 18 Creatinine 1.40 Est Cr Clr Drug Dosing 57.0 Est GFR ( Amer) 60.3 Est GFR (Non-Af Amer) 52.0 BUN/Creatinine Ratio 12.6 Glucose 292 H POC Glucose 285 H Calcium 9.3 Magnesium CA 19-9 Antigen 01/05/21 01/05/21 16:14 16:18 WBC RBC Hgb Hct MCV MCH MCHC RDW Std Deviation RDW Coeff of Bailey Plt Count MPV APTT 41.3 H PTT Ratio 1.6 Sodium Potassium Chloride Carbon Dioxide Anion Gap BUN Creatinine Est Cr Clr Drug Dosing Est GFR ( Amer) Est GFR (Non-Af Amer) BUN/Creatinine Ratio Glucose POC Glucose 244 H Calcium Magnesium CA 19-9 Antigen
[2021-01-05] MEDS ORDERED: PHARMACY GLYCEMIC MGMT CONSULT PRN (17:39)
[2021-01-05] MEDS ORDERED: INSULIN GLARGINE SOLOSTAR 100 UNITS/ML 3 ML PEN SC STA (17:58)
[2021-01-06] MEDS: AMIODARONE / D5W 360 MG/200 ML BAG IV SCH (00:17)
[2021-01-06] MEDS: INSULIN ASPART 100 UNITS/ML 3 ML PEN SC SCH ×6 (00:19→19:32)
[2021-01-06 00:53] LABS: Partial Thromboplastin Time 52.8 Seconds (21.0-31.0)
[2021-01-06 07:15] LABS: Hematocrit (blood only) 41.7 % (42-52); Hemoglobin 13.9 g/dL (14.0-18.0); Mean Corpuscular Hemoglobin 29.9 pg (25-34); Mean Corpuscular Hgb Conc 33.3 g/dL (32-36); Mean Corpuscular Volume 89.7 fL (80-100); Mean Platelet Volume 10.8 fL (7.4-10.4); Platelet Count 284 K/uL (130-400); RDW Coefficient of Variation 14.3 % (11.5-14.5); RDW Standard Deviation 46.6 fL (36.4-46.3); Red Blood Count 4.65 M/uL (4.7-6.1); White Blood Count 8.05 K/uL (4.8-10.8)
[2021-01-06] MEDS ORDERED: INSULIN ASPART 100 UNITS/ML 3 ML PEN SC SCH ×2 (07:30→16:30)
[2021-01-06 07:50] LABS: BUN Creatinine Ratio 13.6 (10-20); Calcium 9.9 mg/dl (8.5-10.1); Creatinine Clr Calc Pharmacy 56.8 ml/min; Est GFR (African American) 60.8 ml/min; Est GFR (Non-African American) 52.4 ml/min; Potassium 4.3 mmol/L (3.5-5.1)
[2021-01-06] MEDS: HEPARIN SODIUM/DEXTROSE 25,000 UNITS/500 ML BAG IV SCH ×2 (08:09→13:42)
[2021-01-06] MEDS: FENOFIBRATE NANOCRYSTALLIZED 145 MG TABLET PO SCH (08:31)
[2021-01-06] MEDS: METOPROLOL TARTRATE 25 MG TAB PO SCH ×2 (08:31→19:35)
[2021-01-06] MEDS: NIACIN 500 MG TAB PO SCH ×2 (08:32→19:35)
[2021-01-06] MEDS: lisinopril 5 MG TAB PO SCH (08:32)
[2021-01-06] MEDS: MULTIVITAMIN TAB PO SCH (08:32)
[2021-01-06] MEDS ORDERED: INSULIN GLARGINE SOLOSTAR 100 UNITS/ML 3 ML PEN SC SCH (09:00)
[2021-01-06] MEDS: ASPIRIN 81 MG ECTAB PO SCH (09:35)
--- NOTE | 2021-01-06 10:35 | Pharmacy Report ---
Pharmacy Glycemic Short Note 2 - Date of Service January 06, 2021 - Glycemic Short BSG Results (Last 24 hours): 01/05/21 01/05/21 01/05/21 11:14 16:14 20:30 Glucose POC Glucose 285 H 244 H 226 H 01/06/21 01/06/21 01/06/21 00:11 05:19 06:41 Glucose 238 H POC Glucose 174 H 232 H 01/06/21 07:28 Glucose POC Glucose 238 H OUTPATIENT ANTIDIABETIC REGIMEN: * Glipizide 10 mg daily * Linagliptin 5 mg daily * Metformin 850 mg TID * A1c = 6.8% 01/02/21 ASSESSMENT: * 65 yo male who presented with chest pain and found to have NSTEMI * He received a total of 52 units of insulin yesterday with poor glycemic control * 25 units of basal + 27 units of bolus * BSGs ranged from 174 - 292 mg/dL * pt on both heparin and amiodarone infusions * Fasting BSG remains above goal. Will continue to titrate basal insulin. * Post prandial BSGs are trending downward but remain above goal, therefore novolog parameters will be tightened. PLAN FOR INPATIENT GLYCEMIC CONTROL: * Hold outpatient oral diabetes medications * Basal insulin * Lantus 23 units SQ this morning, then dose per scale BID: * 10 units for BSG less than 180 mg/dL * 16 units for BSG 180 mg/dL or more * Bolus insulin * NovoLog per scale ACHS or Q6hrs while NPO * Goal Range: Low 110 mg/dL - High 140 mg/dL * Correction Factor: 15 mg/dL/unit * Nutritional / Prandial insulin per carb ratio of 1 unit per 5 grams CHO consumed PLAN FOR DISCHARGE: * A1c of 6.8% is at goal * Continue triple oral therapy as long as patient denies frequent hypoglycemia at home
--- NOTE | 2021-01-06 13:09 | Cardiology Progress Note ---
Date of Service January 06, 2021 Assessment & Plan (1) Atrial flutter with rapid ventricular response: Plan: Rhythm continues to demonstrate atrial flutter with occasional conversion to sinus rhythm with brief postconversion pauses. We will continue IV heparin for anticoagulation. Change IV amiodarone to oral (2) Bladder carcinoma: (3) DM2 (diabetes mellitus, type 2): (4) NSTEMI (non-ST elevated myocardial infarction): (5) Ischemic cardiomyopathy: Plan: Cardiac catheterization revealed 4-vessel disease in prox LAD, D2, OM1 and RCA. Coronary artery bypass grafting surgery recommended Patient declining statin therapy despite lengthy discussion Recommend transfer to tertiary care [place] for coronary bypass surgery patient awaiting confirmation of medical bed Admission and Anticipated Discharge Date Admission Date: January 02, 2021 Subjective Patient was seen and examined, chart, medications, telemetry reviewed. He denies any chest pains or shortness of breath. Remains in atrial flutter with intermittent conversion to sinus rhythm. Has 3 to 3-1/2-second pauses on conversion then after short periods of sinus bradycardia lapses back into atrial flutter. Patient asymptomatic Completing IV amiodarone, remains anticoagulated with IV heparin Review of Systems Review of Systems: All systems reviewed & are unremarkable except as noted in Subjective Physical Exam Constitutional: no acute distress Eyes: PERRL, conjunctivae normal, anicteric sclerae ENMT: external ear and nose normal, oropharynx normal Neck: trachea midline, no thyromegaly Respiratory: normal respiratory effort, lungs clear to auscultation Cardiovascular: RRR, no murmur, no edema Rate/Rhythm: + tachycardic and + irregularly irregular Heart Sounds: normal S1 and normal S2; no gallop and no murmur Palpation: normal PMI Vessels: normal carotid upstroke and radial pulses present; no JVD and no carotid bruit Extremities: no edema Gastrointestinal (Abdomen): normal bowel sounds, soft, nontender, no hepatosplenomegaly Musculoskeletal: no cyanosis or clubbing, extremities motor strength 5/5 Skin: no rashes, warm and dry Neurologic: PERRL, EOMI, accommodation nl, no face palsy, no dysarthria Psychiatric: A+Ox3, euthymic affect Results & Data ([facility]) Vital Signs (Past 12 Hours) Vital Signs Temp Pulse Pulse Resp BP BP Pulse Ox 01/06/21 11:58 37.1 C 51 L 18 114/70 96 01/06/21 08:28 36.7 C 86 16 125/87 97 01/06/21 08:00 130 H 01/06/21 03:20 36.6 C 131 H 16 113/77 98 Laboratory Results Laboratory Results - last 24 hr 01/05/21 01/05/21 01/05/21 16:14 16:18 20:30 WBC RBC Hgb Hct MCV MCH MCHC RDW Std Deviation RDW Coeff of Bailey Plt Count MPV APTT 41.3 H PTT Ratio 1.6 Sodium Potassium Chloride Carbon Dioxide Anion Gap BUN Creatinine Est Cr Clr Drug Dosing Est GFR ( Amer) Est GFR (Non-Af Amer) BUN/Creatinine Ratio Glucose POC Glucose 244 H 226 H Calcium 01/06/21 01/06/21 01/06/21 00:11 00:13 05:19 WBC RBC Hgb Hct MCV MCH MCHC RDW Std Deviation RDW Coeff of Bailey Plt Count MPV APTT 52.8 H* PTT Ratio 2.0 Sodium Potassium Chloride Carbon Dioxide Anion Gap BUN Creatinine Est Cr Clr Drug Dosing Est GFR ( Amer) Est GFR (Non-Af Amer) BUN/Creatinine Ratio Glucose POC Glucose 174 H 232 H Calcium 01/06/21 01/06/21 01/06/21 06:41 06:41 07:28 WBC 8.05 RBC 4.65 L Hgb 13.9 L Hct 41.7 L MCV 89.7 MCH 29.9 MCHC 33.3 RDW Std Deviation 46.6 H RDW Coeff of Bailey 14.3 Plt Count 284 MPV 10.8 H APTT PTT Ratio Sodium 137 Potassium 4.3 Chloride 106 Carbon Dioxide 27 Anion Gap 4.0 BUN 19 H Creatinine 1.39 Est Cr Clr Drug Dosing 56.8 Est GFR ( Amer) 60.8 Est GFR (Non-Af Amer) 52.4 BUN/Creatinine Ratio 13.6 Glucose 238 H POC Glucose 238 H Calcium 9.9 01/06/21 11:05 WBC RBC Hgb Hct MCV MCH MCHC RDW Std Deviation RDW Coeff of Bailey Plt Count MPV APTT PTT Ratio Sodium Potassium Chloride Carbon Dioxide Anion Gap BUN Creatinine Est Cr Clr Drug Dosing Est GFR ( Amer) Est GFR (Non-Af Amer) BUN/Creatinine Ratio Glucose POC Glucose 230 H Calcium
--- NOTE | 2021-01-06 13:15 | Hospitalist Progress Note ---
Date of Service January 06, 2021 Assessment & Plan (1) NSTEMI (non-ST elevated myocardial infarction): Plan: S/P cardiac catheterization with 4 vessel disease A. flutter with RVR - rate controlled now History of hypertension History of diabetes mellitus type 2 History of hyperlipidemia Continue aspirin 81 mg daily, Lopressor 25 mg daily, lisinopril 5 mg daily. Patient back in Aflutter. Currently on heparin drip Cardiology changed iv amio to po Patient found to have multiple vessel disease. Patient decided to be transferred to [facility] for his CABG. Dr Chambers spoke with [facility] transfer center and patient was accepted by Dr. Robertson. Patient to be transferred once bed becomes available. I called [facility] transfer center earlier this morning. They stated they do not have a bed at this time and will update us once they know Cardiology on board and recommendations noted Continue with Lantus and insulin sliding scale DVT prophylaxis. IV Heparin Full code Admission and Anticipated Discharge Date Admission Date: January 02, 2021 Subjective 65-year-old man with history of paroxysmal A. fib not previously on anticoagulation but but as per patient preference, hypertension, DM type II on oral medication, bladder cancer status post surgery with possible new meds, CKD who presented to the hospital with intermittent chest pain. Found to be in NSTEMI. Cardiac catheterization revealed 4 vessel disease in proximal LAD, D2, OM1 and RCA. Patient preferred to be transferred to [place] for evaluation and continue management. Patient seen and examined this morning. Denies any complaints. Review of Systems Constitutional: no fever, no chills and no fatigue Eyes: no problem reported Ear, Nose, Mouth, Throat: no problem reported Respiratory: no cough, no chest congestion and no dyspnea Cardiovascular: no chest pain, no dyspnea, no dyspnea on exertion, no orthopnea, no palpitations and no lightheadedness Gastrointestinal: no abdominal pain, no heartburn, no nausea, no vomiting and no diarrhea/loose stools Genitourinary: no dysuria, no difficulty urinating, no urinary frequency or no urinary incontinence Musculoskeletal: no problem reported Neurologic: no generalized weakness, no dizziness, no headache(s) and no confusion Psychiatric: no depression and no anxiety Physical Exam Constitutional: + well hydrated; no acute distress Eyes: PERRL, conjunctivae normal, anicteric sclerae ENMT: external ear and nose normal, oropharynx normal Respiratory: normal respiratory effort, lungs clear to auscultation Cardiovascular: Rate/Rhythm: + irregularly irregular Heart Sounds: normal S1 and normal S2 Gastrointestinal (Abdomen): normal bowel sounds, soft, nontender, no hepatosplenomegaly Musculoskeletal: no cyanosis or clubbing, extremities motor strength 5/5 Neurologic: PERRL, EOMI, accommodation nl, no face palsy, no dysarthria Psychiatric: A+Ox3, euthymic affect Genitourinary: no CVA tenderness Results & Data Results & Data ([facility]) Vital Signs (Past 12 Hours) Vital Signs Temp Pulse Pulse Resp BP BP Pulse Ox 01/06/21 11:58 37.1 C 51 L 18 114/70 96 01/06/21 08:28 36.7 C 86 16 125/87 97 01/06/21 08:00 130 H 01/06/21 03:20 36.6 C 131 H 16 113/77 98 Laboratory Results Abnormal lab results 01/05/21 01/05/21 01/06/21 Range/Units 16:18 20:30 00:11 RBC (4.7-6.1) M/uL Hgb (14.0-18.0) g/dL Hct (42-52) % RDW Std Deviation (36.4-46.3) fL MPV (7.4-10.4) fL APTT 41.3 H (21.0-31.0) Seconds BUN (7-18) mg/dl Glucose (70-99) mg/dl POC Glucose 226 H 174 H (70-99) mg/dl 01/06/21 01/06/21 01/06/21 Range/Units 00:13 05:19 06:41 RBC 4.65 L (4.7-6.1) M/uL Hgb 13.9 L (14.0-18.0) g/dL Hct 41.7 L (42-52) % RDW Std Deviation 46.6 H (36.4-46.3) fL MPV 10.8 H (7.4-10.4) fL APTT 52.8 H* (21.0-31.0) Seconds BUN (7-18) mg/dl Glucose (70-99) mg/dl POC Glucose 232 H (70-99) mg/dl 01/06/21 01/06/2121 Range/Units 06:41 07:28 11:05 RBC (4.7-6.1) M/uL Hgb (14.0-18.0) g/dL Hct (42-52) % RDW Std Deviation (36.4-46.3) fL MPV (7.4-10.4) fL APTT (21.0-31.0) Seconds BUN 19 H (7-18) mg/dl Glucose 238 H (70-99) mg/dl POC Glucose 238 H 230 H (70-99) mg/dl 01/06/21 Range/Units 16:25 RBC (4.7-6.1) M/uL Hgb (14.0-18.0) g/dL Hct (42-52) % RDW Std Deviation (36.4-46.3) fL MPV (7.4-10.4) fL APTT (21.0-31.0) Seconds BUN (7-18) mg/dl Glucose (70-99) mg/dl POC Glucose 112 H (70-99) mg/dl
[2021-01-06] MEDS: AMIODARONE 200 MG TAB PO SCH ×2 (14:22→19:33)
[2021-01-06] MEDS: INSULIN GLARGINE SOLOSTAR 100 UNITS/ML 3 ML PEN SC SCH (19:33)
[2021-01-07] MEDS ORDERED: INSULIN ASPART 100 UNITS/ML 3 ML PEN SC SCH
--- NOTE | 2021-01-07 05:46 | Electrocardiogram Report ---
Test Reason : Blood Pressure : / mmHG Vent. Rate : 146 BPM Atrial Rate : 133 BPM P-R Int : 000 ms QRS Dur : 090 ms QT Int : 300 ms P-R-T Axes : 000 096 153 degrees QTc Int : 467 ms Poor data quality, interpretation may be adversely affected Atrial flutter with rapid ventricular response Rightward axis Anterior infarct Marked ST abnormality, possible anterior subendocardial injury ST elevation, consider inferior injury pattern Abnormal ECG When compared with ECG of 03-JAN-2021 03:15, Atrial flutter has replaced Sinus rhythm Vent. rate has increased BY 91 BPM Acute Anterior infarct is now Present Confirmed by Kristian Huston ([id number]) on 01/07/2021 5:46:25 AM Referred By: REFERRED SELF Confirmed By:Kristian Huston
[2021-01-07 07:58] LABS: Hematocrit (blood only) 38.7 % (42-52); Hemoglobin 12.7 g/dL (14.0-18.0); Mean Corpuscular Hemoglobin 29.7 pg (25-34); Mean Corpuscular Hgb Conc 32.8 g/dL (32-36); Mean Corpuscular Volume 90.4 fL (80-100); Mean Platelet Volume 10.4 fL (7.4-10.4); Platelet Count 289 K/uL (130-400); RDW Coefficient of Variation 14.3 % (11.5-14.5); RDW Standard Deviation 46.9 fL (36.4-46.3); Red Blood Count 4.28 M/uL (4.7-6.1); White Blood Count 8.03 K/uL (4.8-10.8)
[2021-01-07 08:20] LABS: BUN Creatinine Ratio 14.4 (10-20); Calcium 9.7 mg/dl (8.5-10.1); Creatinine Clr Calc Pharmacy 51.3 ml/min; Est GFR (African American) 53.7 ml/min; Est GFR (Non-African American) 46.3 ml/min; Magnesium 1.9 mg/dl (1.8-2.4); Potassium 4.2 mmol/L (3.5-5.1)
[2021-01-07 08:21] LABS: Partial Thromboplastin Ratio 1.9
[2021-01-07 08:22] LABS: Phosphorus 4.3 mg/dl (2.5-4.9)
[2021-01-07 08:27] LABS: Partial Thromboplastin Time 51.1 Seconds (21.0-31.0)
[2021-01-07] MEDS: INSULIN ASPART 100 UNITS/ML 3 ML PEN SC SCH ×4 (08:37→20:43)
[2021-01-07] MEDS: HEPARIN SODIUM/DEXTROSE 25,000 UNITS/500 ML BAG IV SCH (08:37)
[2021-01-07] MEDS: METOPROLOL TARTRATE 25 MG TAB PO SCH ×2 (08:38→20:47)
[2021-01-07] MEDS: FENOFIBRATE NANOCRYSTALLIZED 145 MG TABLET PO SCH (08:39)
[2021-01-07] MEDS: lisinopril 5 MG TAB PO SCH (08:39)
[2021-01-07] MEDS: AMIODARONE 200 MG TAB PO SCH ×3 (08:39→20:43)
[2021-01-07] MEDS: MULTIVITAMIN TAB PO SCH (08:39)
[2021-01-07] MEDS: ASPIRIN 81 MG ECTAB PO SCH (08:39)
[2021-01-07] MEDS: NIACIN 500 MG TAB PO SCH ×2 (08:39→20:47)
[2021-01-07] MEDS: INSULIN GLARGINE SOLOSTAR 100 UNITS/ML 3 ML PEN SC SCH ×2 (08:40→20:44)
--- NOTE | 2021-01-07 09:13 | Hospitalist Progress Note ---
Date of Service January 07, 2021 Assessment & Plan (1) NSTEMI (non-ST elevated myocardial infarction): Plan: S/P cardiac catheterization with 4 vessel disease A. flutter with RVR - rate controlled now History of hypertension History of diabetes mellitus type 2 History of hyperlipidemia Continue aspirin 81 mg daily, Lopressor 25 mg daily, lisinopril 5 mg daily. Cardiology on board Converted back to sinus rhythm Currently on heparin drip Continue po amiodarone and metoprolol Patient found to have multiple vessel disease. Patient decided to be transferred to [facility] for his CABG. Dr Chambers spoke with [facility] transfer center and patient was accepted by Dr. Robertson. Patient to be transferred once bed becomes available. Still awaiting bed availability at [place] Continue with Lantus and insulin sliding scale DVT prophylaxis. IV Heparin Full code Admission and Anticipated Discharge Date Admission Date: January 02, 2021 Subjective 65-year-old man with history of paroxysmal A. fib not previously on anticoagulation but but as per patient preference, hypertension, DM type II on oral medication, bladder cancer status post surgery with possible new meds, CKD who presented to the hospital with intermittent chest pain. Found to be in NSTEMI. Cardiac catheterization revealed 4 vessel disease in proximal LAD, D2, OM1 and RCA. Patient preferred to be transferred to [place] for evaluation and continue management. Patient seen and examined this morning. Denies any complaints. Still waiting on bed availability at [facility] Review of Systems Review of Systems: As per HPI, all 10 systems reviewed, intermittent hemorrhoidal bleed, all other ROS negative Constitutional: no fever, no chills and no fatigue Eyes: no problem reported Ear, Nose, Mouth, Throat: no problem reported Respiratory: no cough, no chest congestion and no dyspnea Cardiovascular: no chest pain, no dyspnea, no dyspnea on exertion, no orthopnea, no palpitations and no lightheadedness Gastrointestinal: no abdominal pain, no heartburn, no nausea, no vomiting and no diarrhea/loose stools Genitourinary: no dysuria, no difficulty urinating, no urinary frequency or no urinary incontinence Musculoskeletal: no problem reported Neurologic: no generalized weakness, no dizziness, no headache(s) and no confusion Psychiatric: no depression and no anxiety Physical Exam Constitutional: + well hydrated; no acute distress Eyes: PERRL, conjunctivae normal, anicteric sclerae ENMT: external ear and nose normal, oropharynx normal Respiratory: normal respiratory effort, lungs clear to auscultation Cardiovascular: Rate/Rhythm: regular rate and regular rhythm Heart Sounds: normal S1 and normal S2 Gastrointestinal (Abdomen): normal bowel sounds, soft, nontender, no hepatosplenomegaly Musculoskeletal: no cyanosis or clubbing, extremities motor strength 5/5 Neurologic: PERRL, EOMI, accommodation nl, no face palsy, no dysarthria Psychiatric: A+Ox3, euthymic affect Genitourinary: no CVA tenderness Results & Data Results & Data ([facility]) Vital Signs (Past 12 Hours) Vital Signs Temp Pulse Resp BP BP Pulse Ox 01/07/21 07:20 36.6 C 59 L 18 113/73 97 01/07/21 03:42 36.9 C 58 L 18 111/65 97 01/06/21 23:27 37.1 C 62 16 102/65 98 Laboratory Results Abnormal lab results 01/06/21 01/06/21 01/06/21 Range/Units 16:25 19:30 23:10 RBC (4.7-6.1) M/uL Hgb (14.0-18.0) g/dL Hct (42-52) % RDW Std Deviation (36.4-46.3) fL APTT (21.0-31.0) Seconds BUN (7-18) mg/dl Creatinine (0.6-1.4) mg/dl Glucose (70-99) mg/dl POC Glucose 112 H 156 H 117 H (70-99) mg/dl 01/07/21 01/07/21 01/07/21 Range/Units 03:42 07:27 07:34 RBC 4.28 L (4.7-6.1) M/uL Hgb 12.7 L (14.0-18.0) g/dL Hct 38.7 L (42-52) % RDW Std Deviation 46.9 H (36.4-46.3) fL APTT (21.0-31.0) Seconds BUN (7-18) mg/dl Creatinine (0.6-1.4) mg/dl Glucose (70-99) mg/dl POC Glucose 168 H 186 H (70-99) mg/dl 01/07/21 01/07/21 01/07/21 Range/Units 07:34 07:34 11:23 RBC (4.7-6.1) M/uL Hgb (14.0-18.0) g/dL Hct (42-52) % RDW Std Deviation (36.4-46.3) fL APTT 51.1 H* (21.0-31.0) Seconds BUN 22 H (7-18) mg/dl Creatinine 1.54 H (0.6-1.4) mg/dl Glucose 192 H (70-99) mg/dl POC Glucose 162 H (70-99) mg/dl
--- NOTE | 2021-01-07 11:17 | Cardiology Progress Note ---
Date of Service January 07, 2021 Assessment & Plan (1) Atrial flutter with rapid ventricular response: Plan: Rhythm continues to demonstrate atrial flutter with occasional conversion to sinus rhythm with brief postconversion pauses. We will continue IV heparin for anticoagulation. Now maintaining sinus rhythm on oral amiodarone and metoprolol. (2) Bladder carcinoma: (3) DM2 (diabetes mellitus, type 2): (4) NSTEMI (non-ST elevated myocardial infarction): (5) Ischemic cardiomyopathy: Plan: Cardiac catheterization revealed multi vessel disease in prox LAD, D2, OM1 and RCA. Coronary artery bypass grafting surgery recommended Patient declining statin therapy despite lengthy discussion Recommend transfer to tertiary care center for coronary bypass surgery patient awaiting confirmation of medical bed Admission and Anticipated Discharge Date Admission Date: January 02, 2021 Subjective Patient was seen and examined, chart, medications, telemetry reviewed. No anginal symptoms Converted to sinus rhythm last evening no further atrial arrhythmias overnight. No pauses or bradycardia arrhythmias. No bleeding difficulties Review of Systems Review of Systems: All systems reviewed & are unremarkable except as noted in Subjective Physical Exam Constitutional: no acute distress Eyes: PERRL, conjunctivae normal, anicteric sclerae ENMT: external ear and nose normal, oropharynx normal Neck: trachea midline, no thyromegaly Respiratory: normal respiratory effort, lungs clear to auscultation Cardiovascular: RRR, no murmur, no edema Rate/Rhythm: + tachycardic and + irregularly irregular Heart Sounds: normal S1 and normal S2; no gallop and no murmur Palpation: normal PMI Vessels: normal carotid upstroke and radial pulses present; no JVD and no carotid bruit Extremities: no edema Gastrointestinal (Abdomen): normal bowel sounds, soft, nontender, no hepatosplenomegaly Musculoskeletal: no cyanosis or clubbing, extremities motor strength 5/5 Skin: no rashes, warm and dry Neurologic: PERRL, EOMI, accommodation nl, no face palsy, no dysarthria Psychiatric: A+Ox3, euthymic affect Results & Data ([facility]) Vital Signs (Past 12 Hours) Vital Signs Temp Pulse Resp BP BP Pulse Ox 01/07/21 07:20 36.6 C 59 L 18 113/73 97 01/07/21 03:42 36.9 C 58 L 18 111/65 97 01/06/21 23:27 37.1 C 62 16 102/65 98 Laboratory Results Laboratory Results - last 24 hr 01/06/21 01/06/21 01/06/21 16:25 19:30 23:10 WBC RBC Hgb Hct MCV MCH MCHC RDW Std Deviation RDW Coeff of Bailey Plt Count MPV APTT PTT Ratio Sodium Potassium Chloride Carbon Dioxide Anion Gap BUN Creatinine Est Cr Clr Drug Dosing Est GFR ( Amer) Est GFR (Non-Af Amer) BUN/Creatinine Ratio Glucose POC Glucose 112 H 156 H 117 H Calcium Phosphorus Magnesium 01/07/21 01/07/21 01/07/21 03:42 07:27 07:34 WBC 8.03 RBC 4.28 L Hgb 12.7 L Hct 38.7 L MCV 90.4 MCH 29.7 MCHC 32.8 RDW Std Deviation 46.9 H RDW Coeff of Bailey 14.3 Plt Count 289 MPV 10.4 APTT PTT Ratio Sodium Potassium Chloride Carbon Dioxide Anion Gap BUN Creatinine Est Cr Clr Drug Dosing Est GFR ( Amer) Est GFR (Non-Af Amer) BUN/Creatinine Ratio Glucose POC Glucose 168 H 186 H Calcium Phosphorus Magnesium 01/07/21 01/07/21 07:34 07:34 WBC RBC Hgb Hct MCV MCH MCHC RDW Std Deviation RDW Coeff of Bailey Plt Count MPV APTT 51.1 H* PTT Ratio 1.9 Sodium 136 Potassium 4.2 Chloride 105 Carbon Dioxide 23 Anion Gap 8.0 BUN 22 H Creatinine 1.54 H Est Cr Clr Drug Dosing 51.3 Est GFR ( Amer) 53.7 Est GFR (Non-Af Amer) 46.3 BUN/Creatinine Ratio 14.4 Glucose 192 H POC Glucose Calcium 9.7 Phosphorus 4.3 Magnesium 1.9
--- NOTE | 2021-01-07 12:49 | Pharmacy Report ---
Pharmacy Glycemic Short Note 2 - Date of Service January 07, 2021 - Glycemic Short BSG Results (Last 24 hours): 01/06/21 01/06/21 01/06/21 16:25 19:30 23:10 Glucose POC Glucose 112 H 156 H 117 H 01/07/21 01/07/21 01/07/21 03:42 07:27 07:34 Glucose 192 H POC Glucose 168 H 186 H 01/07/21 11:23 Glucose POC Glucose 162 H OUTPATIENT ANTIDIABETIC REGIMEN: * Glipizide 10 mg daily * Linagliptin 5 mg daily * Metformin 850 mg TID * A1c = 6.8% 01/02/21 ASSESSMENT: 01/07 * Pt has received 92 units of insulin over the past 24hrs * 33 units of basal with Lantus * 59 units of bolus with NovoLog * BSGs [phone] mg/dl * AM fasting BSg elevated with 33 units of basal insulin on board - will increase to 36-40 units * Post-prandial BSGs in range - no changes needed to CF/CR 01/06 * 65 yo male who presented with chest pain and found to have NSTEMI * He received a total of 52 units of insulin yesterday with poor glycemic control * 25 units of basal + 27 units of bolus * BSGs ranged from 174 - 292 mg/dL * pt on both heparin and amiodarone infusions * Fasting BSG remains above goal. Will continue to titrate basal insulin. * Post prandial BSGs are trending downward but remain above goal, therefore novolog parameters will be tightened. PLAN FOR INPATIENT GLYCEMIC CONTROL: * Hold outpatient oral diabetes medications * Basal insulin * Lantus 20 units SQ this morning, then dose per scale BID: * 16 units for BSG less than 180 mg/dL * 20 units for BSG 180 mg/dL or more * Bolus insulin * NovoLog per scale ACHS or Q6hrs while NPO * Goal Range: Low 110 mg/dL - High 140 mg/dL * Correction Factor: 12 mg/dL/unit * Nutritional / Prandial insulin per carb ratio of 1 unit per 4 grams CHO consumed PLAN FOR DISCHARGE: * A1c of 6.8% is at goal * Continue triple oral therapy as long as patient denies frequent hypoglycemia at home
[2021-01-08] MEDS: HEPARIN SODIUM/DEXTROSE 25,000 UNITS/500 ML BAG IV SCH ×2 (03:03→22:04)
[2021-01-08 08:19] LABS: Partial Thromboplastin Ratio 2.4
[2021-01-08 08:22] LABS: Partial Thromboplastin Time 62.2 Seconds (21.0-31.0)
[2021-01-08] MEDS: INSULIN ASPART 100 UNITS/ML 3 ML PEN SC SCH ×4 (08:24→22:05)
[2021-01-08] MEDS: INSULIN GLARGINE SOLOSTAR 100 UNITS/ML 3 ML PEN SC SCH ×2 (08:25→22:06)
[2021-01-08] MEDS: MULTIVITAMIN TAB PO SCH (08:26)
[2021-01-08] MEDS: NIACIN 500 MG TAB PO SCH ×2 (08:26→22:02)
[2021-01-08] MEDS: FENOFIBRATE NANOCRYSTALLIZED 145 MG TABLET PO SCH (08:26)
[2021-01-08] MEDS: lisinopril 5 MG TAB PO SCH (08:26)
[2021-01-08] MEDS: METOPROLOL TARTRATE 25 MG TAB PO SCH ×2 (08:26→22:02)
[2021-01-08] MEDS: ASPIRIN 81 MG ECTAB PO SCH (08:26)
[2021-01-08] MEDS: AMIODARONE 200 MG TAB PO SCH ×3 (08:27→22:01)
--- NOTE | 2021-01-08 09:37 | Discharge Summary ---
Date of Service January 09, 2021 Admission HPI Per Admitting Provider History obtained from patient, family, and records. Medical history significant for PAF not on anticoagulation as per patient preference, hypertension, hyperlipidemia, DM2 on oral medications, bladder cancer status post surgery with possible new mets, CRI (baseline creatinine 1.5). Last week patient noted intermittent chest pain, burning to sharp description without shortness of breath, nonpleuritic, no cough symptoms, sometimes accompanied by palpitations. Chest pain noted on both rest and exertion. Relief with aspirin intake. About 10 episodes over the next few days until last night when chest pain became more pronounced going to his neck both shoulders and both arms. Patient could not get comfortable. Patient seen at urgent care center today. Chest pain relieved by nitroglycerin administration at the facility. EKG concerning for ischemia or infarct as per documentation. Urgent care provider recommended ER evaluation but patient declined. Patient later agreed to go to ER after urgent care provider called his home and talk to his . At the ER, patient noted to be in rapid A. fib heart rate 1 10-1 80s. Lopressor dose followed by IV Cardizem bolus and drip initiated at the ER. Patient currently chest pain-free. Medical History as above recent outpatient CT from October 2020 showed scattered retroperitoneal lymph nodes, possible metastatic disease Patient following with oncology and radiation oncology as per documentation. 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 Admission Exam Per Admitting Provider GENERAL: Comfortable, obese, slightly anxious, no respiratory distress SKIN: Normal color, warm HEENT: Bespectacled, Mcmillin palpebral conjunctivae, no ptosis, dry buccal mucosa NECK : Supple, no tenderness CHEST : CTA, no tenderness HEART : Irregular, tachycardic, no obvious murmurs ABDOMEN: Some distention, nontender EXTREMITIES : No LE swelling/tenderness, no other conspicuous deformities noted NEUROLOGIC : Coherent, no facial asymmetry, no other gross focality Principal Diagnosis Non ST elevated Myocardial Infarction Multivessel Coronary Artery Disease Atrial flutter with rapid ventricular rate Discharge Exam Constitutional + well hydrated; no acute distress Eyes PERRL, conjunctivae normal, anicteric sclerae ENMT external ear and nose normal, oropharynx normal Respiratory normal respiratory effort, lungs clear to auscultation Cardiovascular Rate/Rhythm: regular rate and regular rhythm Heart Sounds: normal S1 and normal S2 Gastrointestinal (Abdomen) normal bowel sounds, soft, nontender, no hepatosplenomegaly Musculoskeletal no cyanosis or clubbing, extremities motor strength 5/5 Neurologic PERRL, EOMI, accommodation nl, no face palsy, no dysarthria Psychiatric A+Ox3, euthymic affect Genitourinary no CVA tenderness Discharge Data Allergies Allergy/AdvReac Type Severity Reaction Status Date / Time kiwi Allergy Intermediate Lip and Unverified 01/02/21 20:06 Tongue Swell Hemp Seeds Allergy Intermediate Tongue Uncoded 01/02/21 20:06 Swells Consultations 01/02/21 20:51 ED Decision to Admit Stat 01/02/21 23:42 Consult Cardiology Routine 01/04/21 12:49 Burn CD for patient Stat Procedures Performed Operation Date: 01/03/21 10:00 Actual Procedures p Cath, Left with Cors and Vent - Neto Marlow MD Summary of Findings Impression: Severe three-vessel coronary disease including proximal left anterior descending Mild left ventricular dysfunction by echocardiography (LV angiography not performed) Coronary angiography: Initial attempt via right radial access not obtained, wire unable to be advanced. Procedure performed without incident via right femoral artery Catheters used: 5 Niuean arterial sheath, 5 Niuean JL4 5 Niuean 3 DRC 5 Niuean angled pigtail Right dominant coronary anatomy noted Left main: Normal length and caliber with mild calcification and no obstruction Left anterior descending: Type III in distribution it gives rise to a small septal branch then 2 diagonal branches and a second small diagonal branch all in the midportion of its proximal third. The vessel then continues to beyond the left ventricular apex. There is diffuse disease in its proximal segment narrowing it by 80% proximal to the first septal branch and 90% after the second septal branch with diffuse disease between. The first diagonal is very small the second diagonal is modest in caliber and bifurcates with a 90% stenosis in its midportion. Left circumflex: Modest in caliber giving rise to a moderate obtuse marginal and a small posterior lateral branch. The obtuse marginal has a 90% narrowing in its proximal portion Right coronary artery: Dominant distribution. It gives rise to a sinoatrial branch shortly after its origin to mid vessel right ventricular branches, a modest sized posterior descending artery and 3 posterior ventricular branches. There is a discrete 80% stenosis in the mid right coronary artery LV angiography: Not performed in an attempt to conserve contrast exposure, adequate echocardiogram Hemodynamics: LV end-diastolic pressure 18-20, no transaortic valve gradient Hemodynamics Rest Ao:: 101/62/79 Final Ao: 104/62/80 LV: 114/03/27 Recommendations Recommendations: CABG Specimens Specimens: None Radiation Exposure (mGy) 484 Contrast (mls) 60 Fluids (cc crystalloids) Fluids (cc crystalloids): 100 Anesthesia Start time 1035, stop time 1128 Procedural Complication(s) None Disposition PCU I attest to the content of the Intraoperative Record and any orders documented therein. Any exceptions are noted below. 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 Cardiac Status Clinical evaluation leading to the procedure CAD Presenation: Non STEMI Heart Failure: No Cardiogenic Shock within 24 Hours: No Cardiac Arrest within 24 Hours: No Imaging Studies Past 6 Months: Yes Stress Studies Past 6 Months: No Standard Exercise Test: No Stress Echocardiogram: No Stress Testing w/SPECT MPI: No Cardiac CTA: No STEMI OR Non-STEMI Symptom Onset Date: 01/02/21 Symptom Onset Time: 08:00 Thrombolytics: No Coronary Anatomy Dominant: Right Left Main (% Stenosis): Normal (Modest caliber vessel with mild calcification) LAD (% Stenosis): Proximal (80) and Mid (90 and proximal third after 2 diagonal branches, 70% mid) D1 (% Stenosis): Distal (Small vessel with distal disease) D2 (% Stenosis): Mid (80) OM1 (% Stenosis): Proximal (90) RCA (% Stenosis): Mid (80) R PDA (% Stenosis): Normal R PL1 (% Stenosis): Normal R PL2 (% Stenosis): Normal Diagnostic Physicians Name: Neto Marlow MD Closure Device Recommendations: CABG s Cineradiography w/Routine Exam - Neto Marlow MD s Ultrasound Vascular Access - Neto Marlow MD Ordered Studies 01/03/21 10:15 CL Cath Imgs for PACS use only Stat Hospital Course (1) NSTEMI (non-ST elevated myocardial infarction): S/P cardiac catheterization with 4 vessel disease A. flutter with RVR - reverted back to sinus rhythm History of hypertension History of diabetes mellitus type 2 History of hyperlipidemia Patient is currently asymptomatic Continue aspirin 81 mg daily, lisinopril 5 mg daily. Currently on heparin drip. Was initially on amiodarone drip for Aflutter with RVR, now switched to oral Lopressor was increased to 37.5mg bid Aflutter has converted back to sinus rhythm Patient found to have multiple vessel disease as detailed in report above. Patient decided to be transferred to [facility] for his evaluation for CABG. Dr Chambers spoke with [facility] transfer center and patient was accepted by Dr. Robertson. Patient to be transferred once bed becomes available. Tiger Machine Operator recommends to continue IV heparin in route to [facility] Home antidiabetic regimen were held and glycemic control achieved with insulin regimen while inpatient. Total Time Total Time Spent Total Time Spent (In Minutes): 60 Total Time Includes: Examination of the Patient, Discharge Planning, Medication Reconciliation and Communication With Other Providers Discharge Plan Discharge Items Patient Disposition: Transfer Acute Care Hospital Reason For Visit: Chest Pain Discharge Diagnosis: Non ST elevated Myocardial Infarction Multivessel Coronary Artery Disease Atrial flutter with rapid ventricular rate Activity: As commented below Non-emergency contact: Primary Care Provider and Tiger Machine Operator Call non-emergency contact if: you have any medication questions Follow-up/Referrals: Kathy Ibrahim MD [Primary Care Provider] - Diet: Heart Healthy Addtl Attending Provider Instructions: Mr Raymond You came to the hospital complaining of chest pain. You were extensively evaluated and got a cardiac catheterization which revealed multivessel disease. You will need evaluation for CABG. You opted to be transferred to [place] for that. You are being transferred to [place] for continued evaluation and management. For the Atrial flutter with rapid ventricular rate, your metoprolol was increased to 37.5mg twice daily and started on amiodarone. The Tiger Machine Operator at [facility] will let you know of any other adjustments they will make while you are being managed there. It was a pleasure taking care of you. Pending Studies at Discharge: No Stand-Alone Forms: [facility] Skilled Items Patient informed of condition?: Yes DNR: No Discharge Level of Care: Other Communicable Disease: No Discharge Prognosis: Stable Lines: Peripheral IV Urinary Catheter: No Medications and DC Order Prescriptions: New amiodarone 200 mg Tablet 200 mg PO TID Qty: 90 RF: 0 nitroglycerin [Nitrostat] 0.4 mg Tablet, Sublingual 0.4 mg sublingual UD PRN (Reason: chest pain) Qty: 20 RF: 0 metoprolol tartrate 25 mg Tablet 37.5 mg PO BID Qty: 75 RF: 0 Continued multivitamin Tablet 1 tab PO DAILY RF: 0 vitamin A 8,000 unit Capsule 8,000 unit PO 6XWK RF: 0 glipizide 10 mg Tablet 10 mg PO BID RF: 0 ascorbic acid (vitamin C) 1,000 mg Tablet Extended Release 1,000 mg PO BID RF: 0 metformin 850 mg Tablet 850 mg PO TID RF: 0 aspirin 81 mg Tablet,Delayed Release (Dr/Ec) 81 mg PO DAILY RF: 0 meclizine 25 mg Tablet 25 mg PO DAILY RF: 0 L-Carnitine 500 mg Tablet 1,000 mg PO BID RF: 0 niacin 500 mg Tablet 500 mg PO BID RF: 0 vitamin B complex Tablet 1 tab PO DAILY RF: 0 lisinopril 5 mg tablet 5 mg PO DAILY RF: 0 pyridoxine (vitamin B6) [Vitamin B-6] 100 mg Tablet 100 mg PO BID RF: 0 vitamin E 400 unit Capsule 400 unit PO DAILY RF: 0 coenzyme Q10 [CoQ-10] 100 mg Capsule 200 mg PO DAILY RF: 0 omega-3 fatty acids Capsule 1,000 mg PO BID RF: 0 fenofibrate nanocrystallized 145 mg Tablet 145 mg PO DAILY RF: 0 cholecalciferol (vitamin D3) 125 mcg (5,000 unit) Tablet 125 mcg PO BID RF: 0 alpha lipoic acid 600 mg Capsule 600 mg PO BID RF: 0 olive leaf extract 250 mg Capsule 500 mg PO DAILY RF: 0 Tradjenta 5 mg Tablet 5 mg PO DAILY RF: 0 turmeric root extract 500 mg Capsule 500 mg PO DAILY RF: 0 DHEA 50 mg Tablet 50 mg PO BID RF: 0 biotin 1,000 mcg Tablet,Chewable 1,000 mcg PO DAILY RF: 0 Macuguard Ocular 1 cap PO DAILY RF: 0 Apigenin 50 mg PO QAM RF: 0 zinc 50 mg Tablet 75 mg PO DAILY RF: 0 acetylcysteine [NAC] 600 mg Capsule 600 mg PO HS RF: 0 Discontinued metoprolol tartrate 25 mg tablet 25 mg PO BID RF: 0 Kelp (iodine) 150 mcg Tablet 150 mcg PO DAILY RF: 0 aspirin 325 mg Tablet 325 mg PO BID RF: 0 Discharge Orders: Discharge Order (Routine); Ordered 01/09/21 Ordered By: Jodie Benitez Admission Data Admit Date/Time: 01/02/21 22:31 Attending Provider: Jodie Benitez I. Admit Provider: Dawit Petersen Primary Care Provider: Kathy Ibrahim Other Providers: Dawit Petersen ; Rupert Nguyễn ; Donald Nguyễn ; Neto Marlow ; Aleksey Quiñones ; Rakesh Ndiaye ; Ras Gambino ; Farida Valles ; Althea Dockery ; Taylor Butler ; Onesimo Lizama ; Shantlel Chambers Other Interventions: Discharge Summary Assessment (RN) Last Done: 01/09/21 23:49
--- NOTE | 2021-01-08 19:24 | Hospitalist Progress Note ---
Date of Service January 08, 2021 Assessment & Plan (1) NSTEMI (non-ST elevated myocardial infarction): Plan: S/P cardiac catheterization with 4 vessel disease A. flutter with RVR - reverted back to sinus rhythm History of hypertension History of diabetes mellitus type 2 History of hyperlipidemia Patient is currently asymptomatic Continue aspirin 81 mg daily, lisinopril 5 mg daily. Currently on heparin drip. Was initially on amiodarone drip for Aflutter with RVR, now switched to oral Lopressor was increased to 37.5mg bid Aflutter has converted back to sinus rhythm Patient found to have multiple vessel disease as detailed in report above. Patient decided to be transferred to [facility] for his evaluation for CABG. Dr Chambers spoke with [facility] transfer center and patient was accepted by Dr. Robertson. Patient to be transferred once transport becomes available. Automatic Riveting Machine Operator recommends to continue IV heparin in route to [facility] Home antidiabetic regimen were held and glycemic control achieved with insulin regimen while inpatient. Admission and Anticipated Discharge Date Admission Date: January 02, 2021 Subjective 65-year-old man with history of paroxysmal A. fib not previously on anticoagulation but but as per patient preference, hypertension, DM type II on oral medication, bladder cancer status post surgery with possible new meds, CKD who presented to the hospital with intermittent chest pain. Found to be in NSTEMI. Cardiac catheterization revealed 4 vessel disease in proximal LAD, D2, OM1 and RCA. Patient preferred to be transferred to [place] for evaluation and continue management. Patient seen and examined this morning. Denies any complaints. Bed now available at [facility]. Now awaiting transport availability Review of Systems Review of Systems: As per HPI, all 10 systems reviewed, intermittent hemorrhoidal bleed, all other ROS negative Constitutional: no fever, no chills and no fatigue Eyes: no problem reported Ear, Nose, Mouth, Throat: no problem reported Respiratory: no cough, no chest congestion and no dyspnea Cardiovascular: no chest pain, no dyspnea, no dyspnea on exertion, no orthopnea, no palpitations and no lightheadedness Gastrointestinal: no abdominal pain, no heartburn, no nausea, no vomiting and no diarrhea/loose stools Genitourinary: no dysuria, no difficulty urinating, no urinary frequency or no urinary incontinence Musculoskeletal: no problem reported Neurologic: no generalized weakness, no dizziness, no headache(s) and no confusion Psychiatric: no depression and no anxiety Physical Exam Constitutional: + well hydrated; no acute distress Eyes: PERRL, conjunctivae normal, anicteric sclerae ENMT: external ear and nose normal, oropharynx normal Respiratory: normal respiratory effort, lungs clear to auscultation Cardiovascular: Rate/Rhythm: regular rate and regular rhythm Heart Sounds: normal S1 and normal S2 Gastrointestinal (Abdomen): normal bowel sounds, soft, nontender, no hepatosplenomegaly Musculoskeletal: no cyanosis or clubbing, extremities motor strength 5/5 Neurologic: PERRL, EOMI, accommodation nl, no face palsy, no dysarthria Psychiatric: A+Ox3, euthymic affect Genitourinary: no CVA tenderness Results & Data Results & Data ([facility]) Vital Signs (Past 12 Hours) Vital Signs Temp Pulse Pulse Pulse Resp BP BP 01/08/21 19:17 36.8 C 60 17 113/66 01/08/21 16:00 36.8 C 50 L 18 107/69 01/08/21 11:57 36.6 C 50 L 18 119/56 L 01/08/21 09:57 36.7 C 77 54 L 17 117/71 106/68 01/08/21 08:10 62 01/08/21 07:38 36.7 C 54 L 17 117/71 01/08/21 07:37 51 L Pulse Ox 01/08/21 19:17 98 01/08/21 16:00 98 01/08/21 11:57 99 01/08/21 09:57 98 01/08/21 08:10 01/08/21 07:38 98 01/08/21 07:37
[2021-01-09 08:33] LABS: Partial Thromboplastin Ratio 2.4
[2021-01-09] MEDS: INSULIN ASPART 100 UNITS/ML 3 ML PEN SC SCH ×4 (08:40→20:22)
[2021-01-09] MEDS: lisinopril 5 MG TAB PO SCH (08:41)
[2021-01-09] MEDS: METOPROLOL TARTRATE 25 MG TAB PO SCH ×3 (08:41→20:21)
[2021-01-09] MEDS: MULTIVITAMIN TAB PO SCH (08:41)
[2021-01-09] MEDS: NIACIN 500 MG TAB PO SCH ×2 (08:42→20:21)
[2021-01-09] MEDS: FENOFIBRATE NANOCRYSTALLIZED 145 MG TABLET PO SCH (08:42)
[2021-01-09] MEDS: AMIODARONE 200 MG TAB PO SCH (08:42)
[2021-01-09] MEDS: ASPIRIN 81 MG ECTAB PO SCH (08:42)
[2021-01-09] MEDS: INSULIN GLARGINE SOLOSTAR 100 UNITS/ML 3 ML PEN SC SCH ×2 (08:43→20:21)
[2021-01-09 08:50] LABS: Partial Thromboplastin Time 63.7 Seconds (21.0-31.0)
--- NOTE | 2021-01-09 10:38 | Cardiology Progress Note ---
Date of Service January 09, 2021 Assessment & Plan (1) Atrial flutter with rapid ventricular response: Plan: Continue IV heparin in anticipation of transport to [place] for CABG. Now maintaining sinus rhythm on oral amiodarone and metoprolol. (2) Bladder carcinoma: (3) DM2 (diabetes mellitus, type 2): (4) NSTEMI (non-ST elevated myocardial infarction): (5) Ischemic cardiomyopathy: Plan: Cardiac catheterization revealed multi vessel disease in prox LAD, D2, OM1 and RCA. Coronary artery bypass grafting surgery recommended Patient declining statin therapy despite lengthy discussion Recommend transfer to tertiary care [place] for coronary bypass surgery patient awaiting confirmation of medical bed Admission and Anticipated Discharge Date Admission Date: January 02, 2021 Subjective The patient with no chest pain. Atrial arrhythmias are under control. Still waiting for transfer to [place] for CABG. Review of Systems Review of Systems: Review of Systems: See HPI for pertinent positives. All other 10 point review of systems are negative. Physical Exam Physical Exam: General: no acute distress and stated age Head: normocephalic, no masses, lesions, tenderness or abnormalities Eyes: conjunctiva are pink and non-injected, sclera clear Neck: supple, no adenopathy, no bruits, normal jugular venous pulse, no hepatojugular reflux Chest: normal shape and normal respiratory effort Lungs: clear to auscultation and percussion Cardiac Exam: - regular rate & rhythm, no murmurs gallops or rubs - normal S1, normal S2 Pulses: 2(+) throughout Abdomen: abdomen soft, non-tender, no abnormal masses and no hepatosplenomegaly Musculoskeletal: no gait disturbance, no joint inflammation, no deforming arthritis Extremities: no edema and no cyanosis Neuro: grossly normal exam Results & Data ([facility]) Vital Signs (Past 12 Hours) Vital Signs Temp Pulse Resp BP BP Pulse Ox 01/09/21 07:30 36.7 C 52 L 18 110/68 98 01/09/21 03:16 37.0 C 50 L 15 114/71 97 01/09/21 00:00 36.7 C 54 L 16 105/68 98 Laboratory Results Laboratory Results - last 24 hr 01/08/21 01/08/21 01/08/21 11:32 16:20 20:32 APTT PTT Ratio POC Glucose 130 H 166 H 162 H 01/09/21 01/09/21 07:02 07:58 APTT 63.7 H* PTT Ratio 2.4 POC Glucose 154 H Medications Administered Current Inpatient Medications Acetaminophen (Acetaminophen 325 Mg Tab) 650 mg PO Q4H PRN PRN Reason: Pain or Fever Stop: 02/01/21 23:41 Last Admin: 01/04/21 20:24 Dose: 650 mg Documented by: Amiodarone HCl (Amiodarone 200 Mg Tab) 200 mg PO TID [facility] Stop: 02/05/21 13:59 Last Admin: 01/09/21 08:42 Dose: 200 mg Documented by: Aspirin (Aspirin 81 Mg Ectab) 81 mg PO DAILY [facility] Stop: 02/02/21 08:59 Last Admin: 01/09/21 08:42 Dose: 81 mg Documented by: Dextrose (Dextrose 50% 50 Ml Syringe) 25 - 50 ml IV UD PRN; Protocol PRN Reason: Hypoglycemia Protocol Stop: 02/04/21 16:39 Fenofibrate (Fenofibrate Nanocrystallized 145 Mg Tablet) 145 mg PO DAILY [facility] Stop: 02/02/21 08:59 Last Admin: 01/09/21 08:42 Dose: 145 mg Documented by: Glucagon (Glucagon For Inj 1 Mg Vial) 1 mg SQ UD PRN; Protocol PRN Reason: Hypoglycemia Protocol Stop: 02/04/21 16:39 Glucose (Glucose 10 Tabs/Tube) 4 - 8 tabs PO UD PRN; Protocol PRN Reason: Hypoglycemia Protocol Stop: 02/04/21 16:39 Glucose (Glucose 40% Gel 15 Gm Tube) 15 - 30 gm PO UD PRN; Protocol PRN Reason: Hypoglycemia Protocol Stop: 02/04/21 16:39 Hydromorphone HCl (Hydromorphone Inj 0.5 Mg/0.5 Ml Syr) 0.5 mg IV Q3H PRN PRN Reason: Pain Stop: 01/16/21 23:41 Heparin Sodium/Dextrose (Heparin Sodium/Dextrose) 25,000 units in 500 mls @ 29 mls/hr IV .[id number] [facility]; Protocol Stop: 02/01/21 21:14 Last Admin: 01/08/21 22:04 Dose: 1,450 units/hr, 29 mls/hr Documented by: Lorazepam (Ativan) 0.5 mg in 1 mls @ 1 mls/min IV Q4H PRN PRN Reason: Anxiety/Agitation Stop: 02/01/21 23:41 Promethazine HCl 12.5 mg/ (Sodium Chloride) 50.5 mls @ 202 mls/hr IV Q6H PRN PRN Reason: Nausea And Vomiting Stop: 02/01/21 23:41 Insulin Aspart (Insulin Aspart 100 Units/Ml 3 Ml Pen) 0 units SC ACHS [facility]; Protocol Stop: 02/02/21 00:00 Last Admin: 01/09/21 08:40 Dose: 15 units Documented by: Insulin Glargine (Insulin Glargine Solostar 100 Units/Ml 3 Ml Pen) 24 units SC BID [facility]; Protocol Stop: 02/05/21 20:59 Last Admin: 01/09/21 08:43 Dose: 24 units Documented by: Lisinopril (Lisinopril 5 Mg Tab) 5 mg PO DAILY [facility] Stop: 02/03/21 08:59 Last Admin: 01/09/21 08:41 Dose: 5 mg Documented by: Metoprolol Tartrate (Metoprolol Tartrate 25 Mg Tab) 37.5 mg PO BID [facility] Stop: 02/04/21 20:59 Last Admin: 01/09/21 08:47 Dose: Not Given Documented by: Miscellaneous (Carbohydrates For Hypoglycemia ) 15 - 30 gm PO UD PRN PRN Reason: Hypoglycemia Protocol Stop: 02/04/21 16:39 Miscellaneous Information (Pharmacy Glycemic Mgmt Consult) 1 ea N/A UD PRN; Protocol PRN Reason: Consult Stop: 02/04/21 17:38 Multivitamins (Multivitamin Tab) 1 tab PO DAILY [facility] Stop: 02/02/21 08:59 Last Admin: 01/09/21 08:41 Dose: 1 tab Documented by: Niacin (Niacin 500 Mg Tab) 500 mg PO BID [facility] Stop: 02/02/21 08:59 Last Admin: 01/09/21 08:42 Dose: 500 mg Documented by: Nitroglycerin (Nitroglycerin Sl 0.4 Mg/Tab Tab) 0.4 mg SL UD PRN PRN Reason: Chest Pain Stop: 02/01/21 23:41 Last Admin: 01/04/21 11:05 Dose: 0.4 mg Documented by: Tramadol HCl (Tramadol Hcl 50 Mg Tablet) 25 - 50 mg PO Q4H PRN PRN Reason: Pain Stop: 02/01/21 23:41
--- NOTE | 2021-01-09 10:52 | Pharmacy Report ---
Pharmacy Glycemic Short Note 2 - Date of Service January 09, 2021 - Glycemic Short BSG Results (Last 24 hours): 01/08/21 01/08/21 01/08/21 11:32 16:20 20:32 POC Glucose 130 H 166 H 162 H 01/09/21 07:02 POC Glucose 154 H OUTPATIENT ANTIDIABETIC REGIMEN: * Glipizide 10 mg PO daily * Linagliptin 5 mg PO daily * Metformin 850 mg PO TID * HbA1c = 6.8% (01/02/21) ASSESSMENT: 01/09: * Patient received a total of 81 units of insulin yesterday (48 units basal + 33 units bolus) * BSGs acceptable: [id number] mg/dL * Fasting improved to 154 mg/dL today * No changes necessary 01/07: * Pt has received 92 units of insulin over the past 24hrs * 33 units of basal with Lantus * 59 units of bolus with NovoLog * BSGs [phone] mg/dl * AM fasting BSg elevated with 33 units of basal insulin on board - will increase to 36-40 units * Post-prandial BSGs in range - no changes needed to CF/CR 01/06 * 65 yo male who presented with chest pain and found to have NSTEMI * He received a total of 52 units of insulin yesterday with poor glycemic control * 25 units of basal + 27 units of bolus * BSGs ranged from 174 - 292 mg/dL * pt on both heparin and amiodarone infusions * Fasting BSG remains above goal. Will continue to titrate basal insulin. * Post prandial BSGs are trending downward but remain above goal, therefore novolog parameters will be tightened. PLAN FOR INPATIENT GLYCEMIC CONTROL: * Hold outpatient oral diabetes medications * Basal insulin * Lantus 24 units SC BID * Bolus insulin * NovoLog per scale ACHS or Q6hrs while NPO * Goal Range: Low 110 mg/dL - High 140 mg/dL * Correction Factor: 12 mg/dL/unit * Nutritional / Prandial insulin per carb ratio of 1 unit per 4 grams CHO consumed PLAN FOR DISCHARGE: * HbA1c of 6.8% is at goal * Continue triple oral therapy as long as patient denies frequent hypoglycemia at home
--- NOTE | 2021-01-09 11:11 | Hospitalist Progress Note ---
Date of Service January 09, 2021 Assessment & Plan (1) NSTEMI (non-ST elevated myocardial infarction): Plan: S/P cardiac catheterization with 4 vessel disease A. flutter with RVR - reverted back to sinus rhythm History of hypertension History of diabetes mellitus type 2 History of hyperlipidemia Patient is currently asymptomatic Continue aspirin 81 mg daily, lisinopril 5 mg daily. Patient declined statin therapy Currently on heparin drip. Was initially on amiodarone drip for Aflutter with RVR, now switched to oral Lopressor was increased to 37.5mg bid Aflutter has converted back to sinus rhythm Patient found to have multiple vessel disease as detailed in report above. Patient decided to be transferred to [facility] for his evaluation for CABG. Dr Chambers spoke with [facility] transfer center and patient was accepted by Dr. Robertson. Patient to be transferred once transport becomes available. [employer] recommends to continue IV heparin for now Home antidiabetic regimen were held and glycemic control achieved with insulin regimen while inpatient. Admission and Anticipated Discharge Date Admission Date: January 02, 2021 Subjective 65-year-old man with history of paroxysmal A. fib not previously on anticoagulation but but as per patient preference, hypertension, DM type II on oral medication, bladder cancer status post surgery with possible new meds, CKD who presented to the hospital with intermittent chest pain. Found to be in NSTEMI. Cardiac catheterization revealed 4 vessel disease in proximal LAD, D2, OM1 and RCA. Patient preferred to be transferred to [place] for evaluation and continue management. Patient seen and examined this morning. Denies any complaints. Bed now available at [facility] [place] but EMT transport not available yet Review of Systems Constitutional: no fever, no chills and no fatigue Eyes: no problem reported Ear, Nose, Mouth, Throat: no problem reported Respiratory: no cough, no chest congestion and no dyspnea Cardiovascular: no chest pain, no dyspnea, no dyspnea on exertion, no orthopnea, no palpitations and no lightheadedness Gastrointestinal: no abdominal pain, no heartburn, no nausea, no vomiting and no diarrhea/loose stools Genitourinary: no dysuria, no difficulty urinating, no urinary frequency or no urinary incontinence Musculoskeletal: no problem reported Neurologic: no generalized weakness, no dizziness, no headache(s) and no confusion Psychiatric: no depression and no anxiety Physical Exam Constitutional: + well hydrated; no acute distress Eyes: PERRL, conjunctivae normal, anicteric sclerae ENMT: external ear and nose normal, oropharynx normal Respiratory: normal respiratory effort, lungs clear to auscultation Cardiovascular: Rate/Rhythm: regular rate and regular rhythm Heart Sounds: normal S1 and normal S2 Gastrointestinal (Abdomen): normal bowel sounds, soft, nontender, no hepatosplenomegaly Musculoskeletal: no cyanosis or clubbing, extremities motor strength 5/5 Neurologic: PERRL, EOMI, accommodation nl, no face palsy, no dysarthria Psychiatric: A+Ox3, euthymic affect Genitourinary: no CVA tenderness Results & Data Results & Data ([facility]) Vital Signs (Past 12 Hours) Vital Signs Temp Pulse Resp BP BP Pulse Ox 01/09/21 07:30 36.7 C 52 L 18 110/68 98 01/09/21 03:16 37.0 C 50 L 15 114/71 97 01/09/21 00:00 36.7 C 54 L 16 105/68 98 Laboratory Results Abnormal lab results 01/08/21 01/08/21 01/09/21 Range/Units 16:20 20:32 07:02 APTT (21.0-31.0) Seconds POC Glucose 166 H 162 H 154 H (70-99) mg/dl 01/09/21 01/09/21 Range/Units 07:58 11:06 APTT 63.7 H* (21.0-31.0) Seconds POC Glucose 201 H (70-99) mg/dl
[2021-01-09] MEDS: HEPARIN SODIUM/DEXTROSE 25,000 UNITS/500 ML BAG IV SCH (14:54)
[2021-01-09] MEDS ORDERED: AMIODARONE 200 MG TAB PO SCH (17:00)
== END 2021-01-09 23:56 | disposition short-term general hospital (02) | DRG 281 ==
LOC: ED 19:34 → 2S 22:31 → SUATTDRO 22:31 → 2S 22:54

== ENCOUNTER 2021-11-04 15:31 | Inpatient (IN) ==
[~2021-11-04 15:31] MED LIST: methylPREDNISolone 4 MG TAB PO ONE
[2021-11-04] MEDS ORDERED: ADENOSINE IV SOLN 3 MG/ML 2 ML VIAL IV ONE (15:37)
[2021-11-04] MEDS ORDERED: dilTIAZem HCl 5 MG/ML 5 ML VIAL IV ONE (15:38)
[2021-11-04] MEDS ORDERED: SODIUM CHLORIDE 0.9% 1000ML 1,000 ML IV STA (15:39)
[2021-11-04] MEDS ORDERED: dilTIAZem HCl 5 MG/ML 5 ML VIAL IV STA (15:40)
[2021-11-04] MEDS ORDERED: SODIUM CHLORIDE 0.9% 1000ML 1,000 ML IV ONE (15:42)
--- NOTE | 2021-11-04 15:43 | Emergency Department Note ---
Impression & Plan Atrial flutter ADMIT ED Provider Note HPI: The patient is a 65-year-old gentleman with history of coronary artery disease status post CABG, history of paroxysmal atrial fibrillation no longer on any rate control or anticoagulation, who presents the emergency department with tachyarrhythmia. Patient was at the outpatient providers office at [facility] for possible urinary tract infection, he does have a history of bladder carcinoma nephrostomy tubes. Patient states he was unaware that he was tachycardic, his heart rate was noted to be in the 170s, he denies any chest pain or shortness of breath, his blood pressure stable on arrival, he is saturating well on room air, EKG on arrival shows what appears to be atrial flutter with a heart rate in the 170s. ROS: -Cardio: Tachyarrhythmia *10 point review systems was conducted and is otherwise negative unless stated above *Outpatient medications and allergy history reviewed PE: General: Alert, NAD HEENT: Normocephalic, atraumatic Eyes: Extraocular eye movement is intact, no scleral erythema Pulmonary: Clear to auscultation bilaterally, no wheezing Cardio: Tachycardic rate with regular rhythm GI: Abdomen is soft, nontender : No suprapubic tenderness MSK: No evidence of trauma or malformation of the extremities, no edema Skin: No evidence of rash Neuro: Alert, no focal deficits Psychiatric: Cooperative telemetry monitor: - An order was placed for continuous cardiac monitoring - Patient was noted to be in a narrow complex rhythm with rate of 172 EKG: Rate: 173 Rhythm: Atrial flutter with 2-1 block Intervals: TX interval indeterminate, QRS 72 ms, QTC 450 ms, ST changes: No ST elevation Time: 1533 Medical Decision Making: Patient presented to the emergency department with a tachyarrhythmia without symptoms of palpitations, shortness of breath, or chest pain. This was noted at his outpatient providers office today at [facility]. On arrival here to the ED the patient is hemodynamically stable from the standpoint of his blood pressure, he is saturating well on room air. He does have significant comorbidities including coronary artery disease and history of bladder carcinoma with nephrostomy tubes. Shortly after arrival patient was placed on potline monitor, lab work was sent, given EKG findings patient was given a bolus of diltiazem initially without any response. His EKG does appear consistent with atrial flutter and less likely SVT. Case was then discussed with on-call cardiology for [facility], Dr. Walker, who did evaluate the patient at the bedside here in the ED. Patient was initially started on a diltiazem drip, he did not have response to this and therefore decision was made to cardiovert the patient following discussion with cardiology. Dr. Nguyễn graciously evaluated the patient at the bedside and performed bedside cardioversion while patient was under sedation. Please see procedure note for details. Patient tolerated the procedure well and following cardioversion he is noted to have a slower rate in the 70s, rhythm is interpreted as atrial fibrillation on EKG following review with cardiology this is thought to actually be sinus rhythm with J-point elevation in the inferior leads, not consistent with any type of ischemic pattern. Patient continues to feel well following sedation and denies any chest pain. His lab work shows evidence of a mild leukocytosis, acute on chronic anemia, high-sensitivity troponin is in the 20s. Patient was started on heparin drip following cardioversion. Urinalysis is pending, blood cultures ordered. Patient did complain of some acute on chronic right knee pain as well, x-ray imaging was obtained that does not show any evidence of bony abnormality, perez spect this is acute on chronic pain related to arthritis as the patient stated. Case was discussed with the on-call admitting provider for the [facility] system, Sophie Freire, and the patient was admitted in improved condition for further care. Critical care time: 55 minutes -Stabilization of tachyarrhythmia requiring IV rate control medications and ultimately cardioversion, time spent at the bedside, interpretation of diagnostic studies including EKG, discussion with specialty services/cardiology, arrangement of admission. Diagnosis: 1. Atrial flutter with rapid rate 2. Acute on chronic right knee pain 3. Hyperglycemia without DKA 4. Acute on chronic kidney disease 5. Acute on chronic anemia Disposition: Admission Ras Lopez DO Emergency Medicine Past Med/Surg History Medical History CAD (coronary artery disease) Chronic kidney disease Chronic sinusitis Concussion DM type 2 (diabetes mellitus, type 2) Dyslipidemia HTN (hypertension) Paroxysmal A-fib Urothelial cancer Varicella without complication Surgical History S/P CABG x 4 Family History Mother Hypertension Cancer Father Cancer Hypertension Grandmother (Maternal) Cancer Social History Smoking Status: Never smoker Second Hand Exposure: No; Hx Alcohol Use: Yes Alcohol type: beer Hx Substance Use: No Preferred Language: Thai Communication Ability: Effective Cloth Examiner Machine Required: No Beliefs That Will Affect Care: None marital status: Current Living Situation: Spouse current occupation: Retired Feels Safe at Home: Yes Assistive Devices: Glasses Allergies Allergies Allergy/AdvReac Type Severity Reaction Status Date / Time kiwi Allergy Intermediate Lip and Unverified 11/04/21 16:50 Tongue Swell metoprolol AdvReac Intermediate Immediate Unverified 11/04/21 17:04 Bradycardia Hemp Seeds Allergy Intermediate Tongue Uncoded 11/04/21 16:50 Swells Home Meds Home Medications Medication Instructions Recorded Confirmed alpha lipoic acid 600 mg capsule 600 mg PO HS 07/18/20 11/04/21 ascorbic acid (vitamin C) 1,000 mg 2,000 mg PO BID 07/18/20 11/04/21 tablet,extended release aspirin 81 mg tablet,delayed 81 mg PO HS 07/18/20 11/04/21 release biotin 1,000 mcg chewable tablet 1,000 mcg PO HS 07/18/20 11/04/21 cholecalciferol (vitamin D3) 125 125 mcg PO HS 07/18/20 11/04/21 mcg (5,000 unit) tablet coenzyme Q10 100 mg capsule 300 mg PO TID 07/18/20 11/04/21 (CoQ-10) linagliptin 5 mg tablet (Tradjenta) 5 mg PO DAILY 07/18/20 11/04/21 meclizine 25 mg tablet 25 mg PO HS 07/18/20 11/04/21 niacin 500 mg tablet 500 mg PO BID 07/18/20 11/04/21 pyridoxine (vitamin B6) 100 mg 100 mg PO HS 07/18/20 11/04/21 tablet (Vitamin B-6) vitamin B complex 1 tab PO DAILY 07/18/20 11/04/21 Apigenin 50 mg PO QAM 01/02/21 11/04/21 acetylcysteine 600 mg capsule (NAC) 600 mg PO HS PRN 01/02/21 11/04/21 glipizide 10 mg tablet, extended 10 mg PO DAILY 11/04/21 11/04/21 release 24 hr [id number]-[id number]-vitC 1 cap PO DAILY 11/04/21 11/04/21 capsule (Glucosamine Complex-MSM) magnesium 250 mg tablet 250 mg PO DAILY 11/04/21 11/04/21 methylprednisolone 4 mg tablets in 4 - 24 mg PO DAILY 11/04/21 11/04/21 a dose pack omega 4-rqx-wlo-fish oil 1,000 mg 1 cap PO DAILY 11/04/21 11/04/21 (120 mg-180 mg) capsule (Fish Oil) Previous Rx's Medication Instructions Recorded nitroglycerin 0.4 mg sublingual 0.4 mg SUBLINGUAL UD PRN #20 tab 01/08/21 tablet (Nitrostat) Results & Data (ED) Vital Signs Vital Signs - 24 hr 11/04/21 15:33 11/04/21 15:40 11/04/21 15:46 Temperature 37.3 C Temperature Source Oral Pulse Rate 174 H 173 H Pulse Rate from SpO2 Sensor 171 H Pulse Rhythm Regular Pulse Strength Normal Respiratory Rate 20 25 H Respiratory Effort / Characteristics Non-Labored Spontaneous Respiratory Depth Normal Respiratory Pattern Regular Blood Pressure 124/91 122/85 Blood Pressure Mean 102 97 Blood Pressure Position Sitting Pulse Oximetry 99 99 100 Oxygen Delivery Method Room Air Room Air Oxygen Flow Rate Sepsis Recent Fever Within 48 Hours No Sepsis New/Unexplained Change in Mental Status No Sepsis Action Taken by Nursing No Action Required End-Tidal CO2 11/04/21 15:50 11/04/21 15:55 11/04/21 16:00 Temperature Temperature Source Pulse Rate 172 H 170 H 172 H Pulse Rate from SpO2 Sensor 172 H 169 H 171 H Pulse Rhythm Pulse Strength Respiratory Rate 15 21 15 Respiratory Effort / Characteristics Respiratory Depth Respiratory Pattern Blood Pressure 126/90 134/92 129/91 Blood Pressure Mean 102 106 103 Blood Pressure Position Pulse Oximetry 100 100 100 Oxygen Delivery Method Oxygen Flow Rate Sepsis Recent Fever Within 48 Hours Sepsis New/Unexplained Change in Mental Status Sepsis Action Taken by Nursing End-Tidal CO2 11/04/21 16:05 11/04/21 16:10 11/04/21 16:15 Temperature Temperature Source Pulse Rate 171 H 171 H 171 H Pulse Rate from SpO2 Sensor 172 H 174 H 171 H Pulse Rhythm Pulse Strength Respiratory Rate 22 19 29 H Respiratory Effort / Characteristics Respiratory Depth Respiratory Pattern Blood Pressure 131/94 117/85 139/96 Blood Pressure Mean 106 95 110 Blood Pressure Position Pulse Oximetry 100 95 100 Oxygen Delivery Method Oxygen Flow Rate Sepsis Recent Fever Within 48 Hours Sepsis New/Unexplained Change in Mental Status Sepsis Action Taken by Nursing End-Tidal CO2 11/04/21 16:23 11/04/21 16:30 11/04/21 16:45 Temperature Temperature Source Pulse Rate 170 H 172 H 170 H Pulse Rate from SpO2 Sensor 172 H 172 H 169 H Pulse Rhythm Pulse Strength Respiratory Rate 39 H 31 H 19 Respiratory Effort / Characteristics Respiratory Depth Respiratory Pattern Blood Pressure 124/97 121/99 132/96 Blood Pressure Mean 106 106 108 Blood Pressure Position Pulse Oximetry 100 100 100 Oxygen Delivery Method Oxygen Flow Rate Sepsis Recent Fever Within 48 Hours Sepsis New/Unexplained Change in Mental Status Sepsis Action Taken by Nursing End-Tidal CO2 11/04/21 17:00 11/04/21 17:15 11/04/21 17:20 Temperature Temperature Source Pulse Rate 171 H 171 H 172 H Pulse Rate from SpO2 Sensor 171 H 172 H 172 H Pulse Rhythm Pulse Strength Respiratory Rate 19 17 16 Respiratory Effort / Characteristics Respiratory Depth Respiratory Pattern Blood Pressure 112/86 111/90 Blood Pressure Mean 94 97 Blood Pressure Position Pulse Oximetry 100 100 100 Oxygen Delivery Method Oxygen Flow Rate Sepsis Recent Fever Within 48 Hours Sepsis New/Unexplained Change in Mental Status Sepsis Action Taken by Nursing End-Tidal CO2 11/04/21 17:30 11/04/21 17:45 11/04/21 17:50 Temperature Temperature Source Pulse Rate 170 H 170 H 173 H Pulse Rate from SpO2 Sensor 171 H 171 H 172 H Pulse Rhythm Pulse Strength Respiratory Rate 19 21 24 Respiratory Effort / Characteristics Respiratory Depth Respiratory Pattern Blood Pressure 123/88 117/92 Blood Pressure Mean 99 100 Blood Pressure Position Pulse Oximetry 100 100 100 Oxygen Delivery Method Oxygen Flow Rate Sepsis Recent Fever Within 48 Hours Sepsis New/Unexplained Change in Mental Status Sepsis Action Taken by Nursing End-Tidal CO2 25 28 11/04/21 17:55 11/04/21 17:56 11/04/21 18:00 Temperature Temperature Source Pulse Rate 169 H 169 H 77 Pulse Rate from SpO2 Sensor 169 H 75 Pulse Rhythm Pulse Strength Respiratory Rate 18 14 17 Respiratory Effort / Characteristics Respiratory Depth Respiratory Pattern Blood Pressure 112/89 123/79 Blood Pressure Mean 96 93 Blood Pressure Position Pulse Oximetry 100 100 Oxygen Delivery Method Non-rebreather Non-rebreather Oxygen Flow Rate 15 15 Sepsis Recent Fever Within 48 Hours Sepsis New/Unexplained Change in Mental Status Sepsis Action Taken by Nursing End-Tidal CO2 32 28 28 11/04/21 18:05 11/04/21 18:10 11/04/21 18:15 Temperature Temperature Source Pulse Rate 76 76 81 Pulse Rate from SpO2 Sensor 76 78 76 Pulse Rhythm Pulse Strength Respiratory Rate 20 16 23 Respiratory Effort / Characteristics Respiratory Depth Respiratory Pattern Blood Pressure 115/75 117/80 115/84 Blood Pressure Mean 88 92 94 Blood Pressure Position Pulse Oximetry 100 100 100 Oxygen Delivery Method Nasal Cannula Non-rebreather Room Air Room Air Oxygen Flow Rate 2 Sepsis Recent Fever Within 48 Hours Sepsis New/Unexplained Change in Mental Status Sepsis Action Taken by Nursing End-Tidal CO2 27 29 27 11/04/21 18:20 11/04/21 18:25 11/04/21 18:30 Temperature Temperature Source Pulse Rate 81 80 80 Pulse Rate from SpO2 Sensor 81 81 86 Pulse Rhythm Pulse Strength Respiratory Rate 13 15 17 Respiratory Effort / Characteristics Respiratory Depth Respiratory Pattern Blood Pressure 135/93 132/91 139/92 Blood Pressure Mean 107 104 107 Blood Pressure Position Pulse Oximetry 100 100 100 Oxygen Delivery Method Room Air Room Air Room Air Oxygen Flow Rate Sepsis Recent Fever Within 48 Hours Sepsis New/Unexplained Change in Mental Status Sepsis Action Taken by Nursing End-Tidal CO2 28 29 28 11/04/21 18:35 11/04/21 18:40 11/04/21 18:45 Temperature Temperature Source Pulse Rate 80 87 94 H Pulse Rate from SpO2 Sensor 81 83 89 Pulse Rhythm Pulse Strength Respiratory Rate 15 13 39 H Respiratory Effort / Characteristics Respiratory Depth Respiratory Pattern Blood Pressure 142/80 H Blood Pressure Mean 100 Blood Pressure Position Pulse Oximetry 100 100 100 Oxygen Delivery Method Room Air Room Air Oxygen Flow Rate Sepsis Recent Fever Within 48 Hours Sepsis New/Unexplained Change in Mental Status Sepsis Action Taken by Nursing End-Tidal CO2 28 26 18 11/04/21 18:50 11/04/21 18:52 11/04/21 18:55 Temperature Temperature Source Pulse Rate 87 86 85 Pulse Rate from SpO2 Sensor 83 82 77 Pulse Rhythm Pulse Strength Respiratory Rate 17 13 15 Respiratory Effort / Characteristics Respiratory Depth Respiratory Pattern Blood Pressure 125/64 135/75 Blood Pressure Mean 84 95 Blood Pressure Position Pulse Oximetry 100 100 97 Oxygen Delivery Method Room Air Oxygen Flow Rate Sepsis Recent Fever Within 48 Hours Sepsis New/Unexplained Change in Mental Status Sepsis Action Taken by Nursing End-Tidal CO2 28 26 31 11/04/21 19:00 11/04/21 19:33 Temperature Temperature Source Pulse Rate 85 Pulse Rate from SpO2 Sensor 88 Pulse Rhythm Pulse Strength Respiratory Rate 13 Respiratory Effort / Characteristics Respiratory Depth Respiratory Pattern Blood Pressure 127/78 Blood Pressure Mean 94 Blood Pressure Position Pulse Oximetry 100 100 Oxygen Delivery Method Room Air Room Air Oxygen Flow Rate 0 Sepsis Recent Fever Within 48 Hours Sepsis New/Unexplained Change in Mental Status Sepsis Action Taken by Nursing End-Tidal CO2 30 Laboratory Data Result diagrams: 11/04/21 16:00 11/04/21 16:00 Lab Results 11/04/21 11/04/21 11/04/21 Range/Units 16:00 16:00 16:00 WBC 11.67 H (4.8-10.8) K/uL RBC 3.19 L (4.7-6.1) M/uL Hgb 8.8 L (14.0-18.0) g/dL Hct 27.9 L (42-52) % MCV 87.5 (80-100) fL MCH 27.6 (25-34) pg MCHC 31.5 L (32-36) g/dL RDW Std Deviation 59.5 H (36.4-46.3) fL RDW Coeff of Bailey 18.7 H (11.5-14.5) % Plt Count 481 H (130-400) K/uL MPV 9.4 (7.4-10.4) fL Immature Gran % (Auto) 0.4 % Neut % (Auto) 82.6 % Lymph % (Auto) 8.7 % Eddy % (Auto) 7.2 % Eos % (Auto) 0.8 % Baso % (Auto) 0.3 % Neut # (Auto) 9.63 H (1.4-6.5) K/uL Lymph # (Auto) 1.02 L (1.2-3.4) K/uL Eddy # (Auto) 0.84 H (0.11-0.59) K/uL Eos # (Auto) 0.09 (0-0.5) K/uL Baso # (Auto) 0.04 (0-0.2) K/uL Immature Gran # (Auto) 0.05 H (0.00-0.02) K/uL PT 11.4 (9.0-12.0) Seconds INR 1.1 (0.9-1.1) APTT 26.0 (21.0-31.0) Seconds PTT Ratio 0.9 Sodium 131 L (136-145) mmol/L Potassium 4.7 (3.5-5.1) mmol/L Chloride 99 (98-107) mmol/L Carbon Dioxide 23 (21-32) mmol/L Anion Gap 9 (3-11) BUN 48 H (6-23) mg/dl Creatinine 2.18 H (0.6-1.4) mg/dl Est Cr Clr Drug Dosing 32.2 ml/min Est GFR ( Amer) 35.3 ml/min Est GFR (Non-Af Amer) 30.4 ml/min BUN/Creatinine Ratio 22.0 H (10-20) Glucose 308 H* (70-99(Fasting)) mg/dl Calcium 8.8 (8.5-10.1) mg/dl Magnesium 1.7 (1.7-2.4) mg/dl Total Bilirubin 0.3 (0.2-1.0) mg/dl AST 19 (13-39) U/L ALT 29 (7-52) U/L Alkaline Phosphatase 88 (34-104) U/L Troponin I High Sens 26.4 H (0-20) pg/ml Total Protein 7.0 (6.0-8.3) gm/dl Albumin 3.2 L (3.4-5.0) gm/dl Globulin 3.8 (2.5-4.0) gm/dl Albumin/Globulin Ratio 0.8 L (0.9-2) Lipase 69 (11-82) U/L TSH (0.300-4.500) uIu/ml Urine Color Urine Appearance (Clear) Urine pH (4.5-7.5) Ur Specific [place] (1.000-1.030) Urine Protein (Negative) Urine Glucose (UA) (Negative) Urine Ketones (Negative) Urine Blood (Negative) Urine Nitrite (Negative) Urine Bilirubin (Negative) Urine Urobilinogen (Negative) Ur Leukocyte Esterase (Negative) SARS-CoV-2, RNA, NAAT (NEGATIVE) 11/04/21 11/04/2122 Range/Units 16:00 17:45 18:28 WBC (4.8-10.8) K/uL RBC (4.7-6.1) M/uL Hgb (14.0-18.0) g/dL Hct (42-52) % MCV (80-100) fL MCH (25-34) pg MCHC (32-36) g/dL RDW Std Deviation (36.4-46.3) fL RDW Coeff of Bailey (11.5-14.5) % Plt Count (130-400) K/uL MPV (7.4-10.4) fL Immature Gran % (Auto) % Neut % (Auto) % Lymph % (Auto) % Eddy % (Auto) % Eos % (Auto) % Baso % (Auto) % Neut # (Auto) (1.4-6.5) K/uL Lymph # (Auto) (1.2-3.4) K/uL Eddy # (Auto) (0.11-0.59) K/uL Eos # (Auto) (0-0.5) K/uL Baso # (Auto) (0-0.2) K/uL Immature Gran # (Auto) (0.00-0.02) K/uL PT (9.0-12.0) Seconds INR (0.9-1.1) APTT (21.0-31.0) Seconds PTT Ratio Sodium (136-145) mmol/L Potassium (3.5-5.1) mmol/L Chloride (98-107) mmol/L Carbon Dioxide (21-32) mmol/L Anion Gap (3-11) BUN (6-23) mg/dl Creatinine (0.6-1.4) mg/dl Est Cr Clr Drug Dosing ml/min Est GFR ( Amer) ml/min Est GFR (Non-Af Amer) ml/min BUN/Creatinine Ratio (10-20) Glucose (70-99(Fasting)) mg/dl Calcium (8.5-10.1) mg/dl Magnesium (1.7-2.4) mg/dl Total Bilirubin (0.2-1.0) mg/dl AST (13-39) U/L ALT (7-52) U/L Alkaline Phosphatase (34-104) U/L Troponin I High Sens (0-20) pg/ml Total Protein (6.0-8.3) gm/dl Albumin (3.4-5.0) gm/dl Globulin (2.5-4.0) gm/dl Albumin/Globulin Ratio (0.9-2) Lipase (11-82) U/L TSH 3.633 (0.300-4.500) uIu/ml Urine Color Yellow Urine Appearance Turbid A (Clear) Urine pH 7.5 (4.5-7.5) Ur Specific [place] 1.012 (1.000-1.030) Urine Protein 3+ H (Negative) Urine Glucose (UA) 2+ H (Negative) Urine Ketones Negative (Negative) Urine Blood 3+ H (Negative) Urine Nitrite Negative (Negative) Urine Bilirubin Negative (Negative) Urine Urobilinogen Negative (Negative) Ur Leukocyte Esterase 3+ H (Negative) SARS-CoV-2, RNA, NAAT NEGATIVE (NEGATIVE) Administered Medications Heparin Sodium/Dextrose (Heparin Sodium/Dextrose) 25,000 units in 500 mls @ 26 mls/hr IV .[id number] [facility]; Protocol Stop: 12/04/21 17:44 Last Admin: 11/04/21 18:09 Dose: 1,300 units/hr, 26 mls/hr Documented by: [id number] Cosigned by: [id number] Amiodarone HCl/Dextrose (Nexterone / D5w) 360 mg in 200 mls @ 33.333 mls/hr IV ONE ONE; Protocol Stop: 11/05/21 00:47 Last Admin: 11/04/21 19:35 Dose: 1 mg/min, 33.3 mls/hr Documented by: [id number] Cosigned by: [id number] Discontinued Medications Adenosine (Adenosine Iv Soln 3 Mg/Ml 2 Ml Vial) Confirm Administered Dose 18 mg IV .STK-MED ONE Stop: 11/04/21 15:38 Last Admin: 11/04/21 16:03 Dose: Not Given Documented by: [id number] Diltiazem HCl (Diltiazem Hcl 5 Mg/Ml 5 Ml Vial) Confirm Administered Dose 25 mg IV .STK-MED ONE Stop: 11/04/21 15:39 Last Admin: 11/04/21 16:03 Dose: Not Given Documented by: [id number] Diltiazem HCl (Diltiazem Hcl 5 Mg/Ml 5 Ml Vial) 15 mg IV NOW STA Stop: 11/04/21 15:41 Last Admin: 11/04/21 15:40 Dose: 15 mg Documented by: [id number] Cosigned by: [id number] Heparin Sodium (Porcine) (Heparin Sod (Porcine) 1000 Unit/Ml) 1 units IV NOW ONE Stop: 11/04/21 17:45 Last Admin: 11/04/21 18:08 Dose: 6,000 units Documented by: [id number] Cosigned by: [id number] Heparin Sodium/Dextrose (Heparin Iv Adult Wt-Based Standard With Bolus Protocol) 1 ea IV NOW STA; Protocol Stop: 11/04/21 17:29 Last Admin: 11/04/21 18:10 Dose: Not Given Documented by: [id number] Sodium Chloride (Nss 1000ml) 1,000 mls @ 999 mls/hr IV .[id number] STA Stop: 11/04/21 16:39 Last Admin: 11/04/21 16:09 Dose: 999 mls/hr Documented by: [id number] Diltiazem HCl 125 mg/ Dextrose 125 mls @ 10 mls/hr IV .[id number] [facility]; Protocol Stop: 12/04/21 16:14 Last Titration: 11/04/21 17:15 Dose: 0 mg/hr, 0 mls/hr Documented by: [id number] Cosigned by: [id number] Titration: 11/04/21 16:42 Dose: 10 mg/hr, 10 mls/hr Documented by: [id number] Cosigned by: [id number] Admin: 11/04/21 16:12 Dose: 5 mg/hr, 5 mls/hr Documented by: [id number] Cosigned by: [id number] Miscellaneous (Stat Iv Infusion Titration Per Protocol) 1 ea N/A NOW STA Stop: 11/04/21 16:03 Last Admin: 11/04/21 16:26 Dose: Not Given Documented by: [id number] Propofol (Propofol Iv Emulsion 10 Mg/Ml 20 Ml Vial) 80 mg IV NOW STA Stop: 11/04/21 17:21 Last Admin: 11/04/21 17:57 Dose: 60 mg Documented by: [id number] Cosigned by: [id number] Imaging Data Radiologist's Impression: Chest X-Ray 11/04/21 15:40 SINGLE VIEW CHEST CLINICAL HISTORY: Atypical chest pain. FINDINGS: An AP, portable, semierect chest radiograph is compared to study dated 07/01/2021 and correlated with chest CT dated 06/30/2021. The examination is degraded by portable technique, apical lordotic positioning, and patient rotation. The patient is status post midline sternotomy. The heart is enlarged. The pulmonary vasculature is noncongested. Scarring/atelectasis is noted at the left lung base. The lungs are otherwise clear. No large pleural effusion or pneumothorax is seen. The skeletal structures appear osteopenic. The bony thorax is grossly intact. IMPRESSION: Cardiomegaly with no acute cardiopulmonary abnormality. ACT 112: Negative or not required by law. Electronically signed by: Diego Melendez M.D. 11/04/2021 4:17 PM Knee X-Ray 11/04/21 17:09 LEFT KNEE 3 VIEWS CLINICAL HISTORY: Atraumatic left knee pain. FINDINGS: AP, crosstable lateral, and sunrise views of the left knee are obtained. No prior studies are available for comparison at the time of dictation. The skeletal structures are well mineralized. No fracture is seen. There is minimal degenerative joint space narrowing. Patellar enthesophytes are observed. There is a large calcified fabella. No joint effusion is identified. The overlying soft tissues are within normal limits. IMPRESSION: No acute bony abnormality is identified. Electronically signed by: Diego Melendez M.D. 11/04/2021 6:51 PM Discharge Plan Visit Data Chief Complaint: Tachycardia Stated Complaint: SVT ED Provider: Ras Lopez Discharge Problem: Atrial flutter Forms Stand Alone Forms: Anesthesia/Sedation, Adult, [facility] Prescriptions Prescriptions: No Action ascorbic acid (vitamin C) 1,000 mg Tablet Extended Release 2,000 mg PO BID RF: 0 aspirin 81 mg Tablet,Delayed Release (Dr/Ec) 81 mg PO HS RF: 0 meclizine 25 mg Tablet 25 mg PO HS RF: 0 niacin 500 mg Tablet 500 mg PO BID RF: 0 vitamin B complex Tablet 1 tab PO DAILY RF: 0 pyridoxine (vitamin B6) [Vitamin B-6] 100 mg Tablet 100 mg PO HS RF: 0 coenzyme Q10 [CoQ-10] 100 mg Capsule 300 mg PO TID RF: 0 cholecalciferol (vitamin D3) 125 mcg (5,000 unit) Tablet 125 mcg PO HS RF: 0 alpha lipoic acid 600 mg Capsule 600 mg PO HS RF: 0 Tradjenta 5 mg Tablet 5 mg PO DAILY RF: 0 biotin 1,000 mcg Tablet,Chewable 1,000 mcg PO HS RF: 0 glipizide 10 mg tablet extended release 24hr 10 mg PO DAILY RF: 0 magnesium 250 mg Tablet 250 mg PO DAILY RF: 0 Glucosamine Complex-MSM Capsule 1 cap PO DAILY RF: 0 omega 8-uch-gxk-fish oil [Fish Oil] 1,000 mg (120 mg-180 mg) Capsule 1 cap PO DAILY RF: 0 methylprednisolone 4 mg tablets,dose pack 4 - 24 mg PO DAILY RF: 0 Apigenin 50 mg PO QAM RF: 0 acetylcysteine [NAC] 600 mg Capsule 600 mg PO HS PRN (Reason: Protection of liver) RF: 0 nitroglycerin [Nitrostat] 0.4 mg Tablet, Sublingual 0.4 mg sublingual UD PRN (Reason: chest pain) Qty: 20 RF: 0 Referrals Referrals: Kathy Ibrahim MD [Primary Care Provider] - Discharge Problem: Atrial flutter Qualifiers: Atrial flutter type: unspecified Qualified Code(s): I48.92 - Unspecified atrial flutter
[2021-11-04] MEDS ORDERED: STAT IV Infusion **Titration per Protocol STA (16:02)
[2021-11-04] MEDS ORDERED: dilTIAZem HCL 125 MG in DEXTROSE 5% 100 ML IV SCH (16:15)
--- NOTE | 2021-11-04 16:18 | XRay Report ---
SINGLE VIEW CHEST CLINICAL HISTORY: Atypical chest pain. FINDINGS: An AP, portable, semierect chest radiograph is compared to study dated 07/01/2021 and correl ated with chest CT dated 06/30/2021. The examination is degraded by portable technique, apical lordoti c positioning, and patient rotation. The patient is status post midline sternotomy. The heart is enla rged. The pulmonary vasculature is noncongested. Scarring/atelectasis is noted at the left lung base. The lungs are otherwise clear. No large pleural effusion or pneumothorax is seen. The skeletal struc tures appear osteopenic. The bony thorax is grossly intact. IMPRESSION: Cardiomegaly with no acute cardiopulmonary abnormality. ACT 112: Negative or not required by law. Electronically signed by: Diego Melendez M.D. 11/04/2021 4:17 PM
[2021-11-04 16:22] LABS: INR 1.1 (0.9-1.1); Partial Thromboplastin Ratio 0.9; Prothrombin Time 11.4 Seconds (9.0-12.0)
[2021-11-04 16:40] LABS: Albumin Globulin Ratio 0.8 (0.9-2); Albumin Level 3.2 gm/dl (3.4-5.0); Bilirubin,Total 0.3 mg/dl (0.2-1.0); Calcium 8.8 mg/dl (8.5-10.1); Creatinine Clr Calc Pharmacy 32.2 ml/min; Est GFR (African American) 35.3 ml/min; Est GFR (Non-African American) 30.4 ml/min; Globulin 3.8 gm/dl (2.5-4.0); Magnesium 1.7 mg/dl (1.7-2.4); Potassium 4.7 mmol/L (3.5-5.1); Troponin I High Sensitivity 26.4 pg/ml (0-20)
[2021-11-04] MEDS ORDERED: PROPOFOL IV EMULSION 10 MG/ML 20 ML VIAL IV STA (17:20)
--- NOTE | 2021-11-04 17:24 | Pre Anesthesia Assessment ---
Date of Service November 04, 2021 Pre Sedation Assessment Vital Signs Temp Pulse Resp BP Pulse Ox 11/04/21 19:33 100 11/04/21 19:00 85 13 127/78 100 11/04/21 18:55 85 15 135/75 97 11/04/21 18:52 86 13 125/64 100 11/04/21 18:50 87 17 100 11/04/21 18:45 94 H 39 H 100 11/04/21 18:40 87 13 100 11/04/21 18:35 80 15 142/80 H 100 11/04/21 18:30 80 17 139/92 100 11/04/21 18:25 80 15 132/91 100 11/04/21 18:20 81 13 135/93 100 11/04/21 18:15 81 23 115/84 100 11/04/21 18:10 76 16 117/80 100 11/04/21 18:05 76 20 115/75 100 11/04/21 18:00 77 17 123/79 100 11/04/21 17:56 169 H 14 112/89 11/04/21 17:55 169 H 18 100 11/04/21 17:50 173 H 24 100 11/04/21 17:45 170 H 21 117/92 100 11/04/21 17:30 170 H 19 123/88 100 11/04/21 17:20 172 H 16 100 11/04/21 17:15 171 H 17 111/90 100 11/04/21 17:00 171 H 19 112/86 100 11/04/21 16:45 170 H 19 132/96 100 11/04/21 16:30 172 H 31 H 121/99 100 11/04/21 16:23 170 H 39 H 124/97 100 11/04/21 16:15 171 H 29 H 139/96 100 11/04/21 16:10 171 H 19 117/85 95 11/04/21 16:05 171 H 22 131/94 100 11/04/21 16:00 172 H 15 129/91 100 11/04/21 15:55 170 H 21 134/92 100 11/04/21 15:50 172 H 15 126/90 100 11/04/21 15:46 173 H 25 H 122/85 100 11/04/21 15:40 99 11/04/21 15:33 37.3 C 174 H 20 124/91 99 Cardiovascular Additional Comments: Tachycardic rate with regular rhythm Respiratory normal respiratory effort, lungs clear to auscultation Pre-Sedation Airway Assessment Smoking Status: Never smoker Hx Sleep Apnea: No CLASS II Class III NPO Status Date of Last Intake of Fluids: 11/04/21 Time of Last Intake of Fluids: 13:00 Date of Last Intake of Solid Food: 11/04/21 Time of Last Intake of Solid Foods: 13:00 Last Intake of Solids Comment: small amount of yogurt Notes The planned sedation has been discussed with the patient. Informed Consent was obtained. I have identified the patient, determined the appropriateness of sedation and have assessed the patient immediately prior to the procedure. All medicine(s) and interventions are by my order. [facility] [place] Procedure Codes (Charges) Indication for Procedure Indication for procedure: Cardioversion for atrial flutter refractory to IV medications
[2021-11-04] MEDS ORDERED: Heparin IV Adult Wt-Based Standard WITH Bolus Protocol IV STA (17:28)
[2021-11-04 17:33] LABS: Basophils # (auto) 0.04 K/uL (0-0.2); Basophils % (auto) 0.3 %; Eosinophils # (auto) 0.09 K/uL (0-0.5); Eosinophils % (auto) 0.8 %; Hematocrit (blood only) 27.9 % (42-52); Hemoglobin 8.8 g/dL (14.0-18.0); Immature Granulocytes # (auto) 0.05 K/uL (0.00-0.02); Immature Granulocytes % (auto) 0.4 %; Lymphocytes # (auto) 1.02 K/uL (1.2-3.4); Lymphocytes % (auto) 8.7 %; Mean Corpuscular Hemoglobin 27.6 pg (25-34); Mean Corpuscular Hgb Conc 31.5 g/dL (32-36); Mean Corpuscular Volume 87.5 fL (80-100); Mean Platelet Volume 9.4 fL (7.4-10.4); Monocytes # (auto) 0.84 K/uL (0.11-0.59); Monocytes % (auto) 7.2 %; Neutrophils # (auto) 9.63 K/uL (1.4-6.5); Neutrophils % (auto) 82.6 %; Platelet Count 481 K/uL (130-400); RDW Coefficient of Variation 18.7 % (11.5-14.5); RDW Standard Deviation 59.5 fL (36.4-46.3); Red Blood Count 3.19 M/uL (4.7-6.1); White Blood Count 11.67 K/uL (4.8-10.8)
--- NOTE | 2021-11-04 17:43 | History & Physical Bridge Note ---
Date of Service November 04, 2021 History & Physical Bridge Note Complete consultation in process HPI: Patient is a 65-year-old male with past medical history of bladder carcinoma for which she has a left-sided nephrostomy tube, right ureter stent, chronic renal insufficiency with baseline creatinine in the range of 2-2.5. In January, he had presented with findings of chest discomfort, non-ST segment myocardial infarction, and atrial flutter with rapid ventricular spots. Severe repolarization changes noted at that time. Cardiac catheterization revealed multivessel coronary heart disease. Ultimately he was transferred to the [facility] and underwent CABG x4 in January,. Today he had been evaluated as an outpatient by primary care for concerns with regards to urinary tract infection, and was found to be tachycardic. Upon arrival to the emergency room atrial flutter with rapid ventricular response at 170 bpm observed. Tachycardia has persisted despite receiving bolus and then infusion of diltiazem. Systolic blood pressure stable, reading at 1700 was 112/86, and most recent measurement as of 5:41 PM is 123/88. Patient complained in the emergency room by his spouse, Althea. Is currently afebrile. His most significant complaint is arthritic pains in his left knee. He denies any subjective sensation that his heart rate is elevated. Denies subjective chest pain or shortness of breath. He does monitor his blood pressure and heart rates at home. He had most recently checked his heart rate with his home pulse oximetry monitor yesterday, with heart rates in the 90s. Physical examination Heart rate 171, temperature 37.7, blood pressure 123/88 Cardiovascular tachycardic, no murmurs, no edema Pulmonary lungs clear to auscultation bilaterally Abdomen soft nontender Left knee, nonerythematous Neurologic no focal deficits Data: Cardiac Enzymes 11/04/21 Range/Units 16:00 AST 19 (13-39) U/L Troponin I High Sens 26.4 H (0-20) pg/ml Coagulation 11/04/21 Range/Units 16:00 PT 11.4 (9.0-12.0) Seconds APTT 26.0 (21.0-31.0) Seconds CBC 11/04/21 Range/Units 16:00 WBC 11.67 H (4.8-10.8) K/uL RBC 3.19 L (4.7-6.1) M/uL Hgb 8.8 L (14.0-18.0) g/dL Hct 27.9 L (42-52) % Plt Count 481 H (130-400) K/uL Neut # (Auto) 9.63 H (1.4-6.5) K/uL Lymph # (Auto) 1.02 L (1.2-3.4) K/uL [place] # (Auto) 0.84 H (0.11-0.59) K/uL Eos # (Auto) 0.09 (0-0.5) K/uL Baso # (Auto) 0.04 (0-0.2) K/uL Comprehensive Metabolic Panel 11/04/21 Range/Units 16:00 Sodium 131 L (136-145) mmol/L Potassium 4.7 (3.5-5.1) mmol/L Chloride 99 (98-107) mmol/L Carbon Dioxide 23 (21-32) mmol/L BUN 48 H (6-23) mg/dl Creatinine 2.18 H (0.6-1.4) mg/dl Glucose 308 H* (70-99(Fasting)) mg/dl Calcium 8.8 (8.5-10.1) mg/dl AST 19 (13-39) U/L ALT 29 (7-52) U/L Alkaline Phosphatase 88 (34-104) U/L Total Protein 7.0 (6.0-8.3) gm/dl Albumin 3.2 L (3.4-5.0) gm/dl Intake and Output 11/04/21 11/04/21 11/04/21 06:59 14:59 22:59 Intake Total 2.5 / 2.5 Balance 2.5 / 2.5 Intake: IV 2.5 / 2.5 dilTIAZem HCL 125 mg In 2.5 / 2.5 Dextrose 5% 100 ml @ 5 MG/HR 5 mls/hr IV .Q24H [facility] Rx#: [id number] Other: Weight 75.9 kg Weight Measurement Method Chair Scale Patient Weight 11/05/21 06:59 Weight 75.9 kg Impression Atrial flutter with rapid ventricular response, no significant ischemic changes. Suspected underlying UTI, perhaps driving the tachycardia. -Patient previously been noted to have borderline tachycardia-bradycardia syndrome both at this institution and noted perioperatively at [facility]. -At time of surgery he underwent CABG x4, as well as biatrial maze as described in the operative report, and surgical occlusion of the left atrial appendage. This tachycardia is felt to be of clinical significance. And I think if it is not addressed, patient will be at risk for ongoing decompensation. At present, his risk of stroke is felt to be relatively low, as it appears he has been in the tachycardia less than 24 hours, and does have a history of left atrial appendage occlusion. Plan: Proceed with cautious conscious sedation and trial direct-current cardioversion. As noted by patient, and as outlined in patient's record including progress notes from pul clinic, metoprolol has been avoided in the past due to concerns of bradycardia. He completed a 1 month course of amiodarone post procedure. And has not been on amiodarone or anticoagulation in the interim, as this has been the first recurrence of atrial arrhythmias. Informed consent obtained. SAMARA Nguyễn
[2021-11-04] MEDS ORDERED: HEPARIN SOD (PORCINE) 1000 UNIT/ML IV ONE (17:44)
[2021-11-04] MEDS: HEPARIN SODIUM/DEXTROSE 25,000 UNITS/500 ML BAG IV SCH (18:09)
--- NOTE | 2021-11-04 18:32 | Post Operative Brief Note ---
Cardiology Brief Post Op Date of Surgery November 04, 2021 Pre & Post Diagnosis Preprocedure diagnosis: Atrial flutter with rapid ventricular response Post procedure diagnosis: Successful conversion to sinus rhythm Procedure Direct-current cardioversion: The patient's vital signs were monitored via the standard fashion. High flow oxygen delivered. After informed consent was obtained and a timeout was performed the patient was sedated administered by Dr. Lopez of emergency medicine with patient receiving 60 mg of propofol. Patient then underwent synchronized direct-current cardioversion receiving a single dose of 150 J of biphasic energy with successful conversion to sinus rhythm. A 4.5-second conversion pause was observed, with offset to sinus rhythm in the 70s. Post procedure EKG reveals sinus rhythm with frequent premature atrial contractions in the 80s. Agricultural Real Estate Agent Donald Nguyễn DO Hair Dryer Erika Leong RN Estimated Blood Loss 0 Findings Consistent with Post-Op Diagnosis as noted above. Anesthesia Type MAC Complications None
--- NOTE | 2021-11-04 18:43 | Cardioversion ---
Date of Service November 04, 2021 Electrical Cardioversion Rpt Electrical Cardioversion Report Date of Surgery November 04, 2021 Pre & Post Diagnosis Preprocedure diagnosis: Atrial flutter with rapid ventricular response Post procedure diagnosis: Successful conversion to sinus rhythm Procedure Direct-current cardioversion: The patient's vital signs were monitored via the standard fashion. High flow oxygen delivered. After informed consent was obtained and a timeout was performed the patient was sedated administered by Dr. Lopez of emergency medicine with patient receiving 60 mg of propofol. Patient then underwent synchronized direct-current cardioversion receiving a single dose of 150 J of biphasic energy with successful conversion to sinus rhythm. A 4.5-second conversion pause was observed, with offset to sinus rhythm in the 70s. Post procedure EKG reveals sinus rhythm with frequent premature atrial contractions in the 80s. Plant General Manager Donald Nguyễn DO Doctor Podiatric Medicine Erika Leong RN Estimated Blood Loss 0 Findings as noted above. Anesthesia Type MAC Complications None
--- NOTE | 2021-11-04 18:46 | Cardiology Consultation ---
Date of Consultation November 04, 2021 Assessment & Plan (1) Atrial flutter with rapid ventricular response: (2) CAD (coronary artery disease), [place] coronary artery: (3) Anemia: (4) Bladder carcinoma: (5) Stage 4 chronic kidney disease: 65-year-old male (1) Atrial flutter with rapid ventricular response: -As noted, presented with recurrent atrial flutter rapid ventricular spots. Did not respond to conservative measures, as well as bolus/infusion of diltiazem, with ongoing tachycardia, very rapid rate. -Based on home heart rate measurement in the 90s by pulse oximeter yesterday, less than 24 hours of duration. -Patient not anticoagulated at baseline, but does have a history of surgical left atrial appendage occlusion. -As previously documented, patient without overt signs and symptoms of ischemia, however given his history of multivessel coronary artery disease and CABG, acute rate control recommended. -Patient therefore underwent synchronized direct-current cardioversion receiving 150 J of synchronized biphasic energy with successful conversion. Sinus rhythm at frequent PACs noted post procedure. J-point elevation in the inferior leads, but no significant ischemic changes, and certainly no symptoms of angina reported. Patient received 60 mg of IV propofol for the procedure. -Start unfractioned heparin infusion at least in the short-term pending further evaluation. -Proceed with IV amiodarone infusion. No loading bolus. Patient has not tolerated metoprolol in the past with bradycardia noted, well outlined [facility] notes and described by patient. -An echocardiogram has been requested and will be performed tomorrow. (2) CAD (coronary artery disease), [place] coronary artery: -Continue aspirin 81 mg daily. -Patient not on beta-phuong as previously noted due to bradycardia. -Not on DELICIA/ARB due to CKD. -Not on statin due to personal preference as well documented in his outpatient chart. -Continue fenofibrate. -Continue amlodipine 5 mg daily if blood pressure allows. (3) Anemia: Hemoglobin today 8.8. Not much different than the level of 8.1 noted 10/10/2021. Patient however does have baseline anemia, hemoglobin in the range of 7.27.5 September,. Long-term anticoagulation may not be an option. (4) Bladder carcinoma: As noted, followed by urology. (5) Stage 4 chronic kidney disease: Renal function appears to be at baseline. (6) Dysuria: Urinalysis sent, urine culture sent, both from the emergency room, as well as from [facility] earlier today. Defer evaluation and treatment for UTI to hospitalist. (7) left knee pain. Patient notes "new arthritis diagnosis" other than the dysuria this is actually his most significant subjective complaint. Knee is nonerythematous, does not appear to be inflamed on exam. It would appear that a Medrol Dosepak and recently been prescribed on 10/28/[address] Quiñones on-call this evening, and assumes rounding on 11/05/2021 (6) Dysuria: History of Present Illness History of Present Illness Handy Raymond is a 65-year-old male seen in cardiology consultation per the request of Dr Holden of emergency medicine for the evaluation of atrial flutter with rapid ventricular response. Patient's primary pen or pencil assembly machine operator is Dr. Ndiaye of our practice. Patient presented to primary care today for further evaluation of dysuria. He was found to have abnormal urinalysis suggestive of UTI, and was also tachycardic on arrival. He was transferred to the emergency department via EMS, an EKG performed on arrival revealed atrial flutter with 2 :1 AV conduction at 173 bpm. Age-indeterminate anterior infarction cannot be excluded. Patient received a bolus of IV diltiazem, and then diltiazem infusion at 10 mg/h, which did not lower or modify the heart rate or rhythm at all. Patient denies recent chest discomfort or shortness of breath. Monitors heart rate and blood pressure at home, with normal heart rate readings several days ago, and on his home pulse oximeter yesterday, heart rate was in the 90s. No subjective sensation of elevated heart rate noted. Past Medical History: 1. History of metastatic bladder carcinoma, diagnosed when he presented with flo hematuria July,. Has history of right ureteral stent, left percutaneous nephrostomy tube. 2. In January,, presented to [facility] with chest discomfort, atrial arrhythmias including atrial flutter with intermittent conversions to sinus bradycardia/pauses, profound ST changes while tachycardic. Underwent cardiac catheterization (Dr Neto Marlow) with findings of three-vessel coronary heart disease and was transferred to [facility] where on 01/17/2021, underwent CABG x 4 (OSBORNE to LAD, SVG to OM, PDA, Diagonal) + Biatrial Maze + ALEXANDREA clip by Juan Wheatley MD 3. Per CT surgery progress notes echo in clinic, postoperative atrial fibrillation noted, with alternating with sinus bradycardia, had been seen by electrophysiology at that time, ultimately transitioned to amiodarone therapy without beta-phuong. Completed 1 month course of oral amiodarone postoperatively. 4. Most recent echocardiogram, [facility], 01/26/2021, several days post CABG. Report describes normal left ventricular size, mild concentric LVH, LVEF 68+/_ 5%. Normal right ventricular chamber size. Dilated left atrium, dilated right atrium. 5. Recent severe left knee pain. 6. Stage 4, Chronic kidney disease, baseline creatinine 2.4-2.8 mg/dl Allergies Allergy/AdvReac Type Severity Reaction Status Date / Time kiwi Allergy Intermediate Lip and Unverified 11/04/21 16:50 Tongue Swell metoprolol AdvReac Intermediate Immediate Unverified 11/04/21 17:04 Bradycardia Hemp Seeds Allergy Intermediate Tongue Uncoded 11/04/21 16:50 Swells Home Medications Medication Instructions Recorded Confirmed Type alpha lipoic acid 600 mg capsule 600 mg PO HS 07/18/20 11/04/21 History ascorbic acid (vitamin C) 1,000 mg 2,000 mg PO BID 07/18/20 11/04/21 History tablet,extended release aspirin 81 mg tablet,delayed 81 mg PO HS 07/18/20 11/04/21 History release biotin 1,000 mcg chewable tablet 1,000 mcg PO HS 07/18/20 11/04/21 History cholecalciferol (vitamin D3) 125 125 mcg PO HS 07/18/20 11/04/21 History mcg (5,000 unit) tablet coenzyme Q10 100 mg capsule 300 mg PO TID 07/18/20 11/04/21 History (CoQ-10) linagliptin 5 mg tablet (Tradjenta) 5 mg PO DAILY 07/18/20 11/04/21 History meclizine 25 mg tablet 25 mg PO HS 07/18/20 11/04/21 History niacin 500 mg tablet 500 mg PO BID 07/18/20 11/04/21 History pyridoxine (vitamin B6) 100 mg 100 mg PO HS 07/18/20 11/04/21 History tablet (Vitamin B-6) vitamin B complex 1 tab PO DAILY 07/18/20 11/04/21 History Apigenin 50 mg PO QAM 01/02/21 11/04/21 History acetylcysteine 600 mg capsule (NAC) 600 mg PO HS PRN 01/02/21 11/04/21 History nitroglycerin 0.4 mg sublingual 0.4 mg SUBLINGUAL UD PRN #20 tab 01/08/2108/23 Rx tablet (Nitrostat) glipizide 10 mg tablet, extended 10 mg PO DAILY 11/04/21 11/04/21 History release 24 hr psrvbmzdfhl-qrs-kdiowmpqy-vitC 1 cap PO DAILY 11/04/21 11/04/21 History capsule (Glucosamine Complex-MSM) magnesium 250 mg tablet 250 mg PO DAILY 11/04/21 11/04/21 History methylprednisolone 4 mg tablets in 4 - 24 mg PO DAILY 11/04/21 11/04/21 History a dose pack omega 8-ojl-ywl-fish oil 1,000 mg 1 cap PO DAILY 11/04/21 11/04/21 History (120 mg-180 mg) capsule (Fish Oil) Patient History Medical History CAD (coronary artery disease) Chronic kidney disease Chronic sinusitis Concussion DM type 2 (diabetes mellitus, type 2) Dyslipidemia HTN (hypertension) Paroxysmal A-fib Urothelial cancer Varicella without complication Surgical History S/P CABG x 4 Family History Mother Hypertension Cancer Father Cancer Hypertension Grandmother (Maternal) Cancer Social History Smoking Status: Never smoker Second Hand Exposure: No; Hx Alcohol Use: Yes Alcohol type: beer Hx Substance Use: No Preferred Language: Cuban Communication Ability: Effective Assembly Machine Offbearer Required: No Beliefs That Will Affect Care: None marital status: Current Living Situation: Spouse current occupation: Retired Feels Safe at Home: Yes Assistive Devices: Glasses Review of Systems Review of Systems: All systems reviewed & are unremarkable except as noted in HPI & below Physical Exam Constitutional: + ill appearing and + thin Respiratory: normal respiratory effort, lungs clear to auscultation Cardiovascular: Rate/Rhythm: regular rhythm and + tachycardic Gastrointestinal (Abdomen): normal bowel sounds, soft, nontender, no hepatosplenomegaly Neurologic: PERRL, EOMI, accommodation nl, no face palsy, no dysarthria Genitourinary: Collection bag for nephrostomy tube, with yellow clear urine Results & Data ([facility]) Vital Signs (Past 12 Hours) Vital Signs Temp Pulse Resp BP Pulse Ox 11/04/21 18:20 81 13 135/93 100 11/04/21 18:15 81 23 115/84 100 11/04/21 18:10 76 16 117/80 100 11/04/21 18:05 76 20 115/75 100 11/04/21 18:00 77 17 123/79 100 11/04/21 17:56 169 H 14 112/89 11/04/21 17:55 169 H 18 100 11/04/21 17:50 173 H 24 100 11/04/21 17:45 170 H 21 117/92 100 11/04/21 17:30 170 H 19 123/88 100 11/04/21 17:20 172 H 16 100 11/04/21 17:15 171 H 17 111/90 100 11/04/21 17:00 171 H 19 112/86 100 11/04/21 16:45 170 H 19 132/96 100 11/04/21 16:30 172 H 31 H 121/99 100 11/04/21 16:23 170 H 39 H 124/97 100 11/04/21 16:15 171 H 29 H 139/96 100 11/04/21 16:10 171 H 19 117/85 95 11/04/21 16:05 171 H 22 131/94 100 11/04/21 16:00 172 H 15 129/91 100 11/04/21 15:55 170 H 21 134/92 100 11/04/21 15:50 172 H 15 126/90 100 11/04/21 15:46 173 H 25 H 122/85 100 11/04/21 15:40 99 11/04/21 15:33 37.3 C 174 H 20 124/91 99 Laboratory Results Cardiac Enzymes 11/04/21 Range/Units 16:00 AST 19 (13-39) U/L Troponin I High Sens 26.4 H (0-20) pg/ml Coagulation 11/04/21 Range/Units 16:00 PT 11.4 (9.0-12.0) Seconds APTT 26.0 (21.0-31.0) Seconds CBC 11/04/21 Range/Units 16:00 WBC 11.67 H (4.8-10.8) K/uL RBC 3.19 L (4.7-6.1) M/uL Hgb 8.8 L (14.0-18.0) g/dL Hct 27.9 L (42-52) % Plt Count 481 H (130-400) K/uL Neut # (Auto) 9.63 H (1.4-6.5) K/uL Lymph # (Auto) 1.02 L (1.2-3.4) K/uL [place] # (Auto) 0.84 H (0.11-0.59) K/uL Eos # (Auto) 0.09 (0-0.5) K/uL Baso # (Auto) 0.04 (0-0.2) K/uL Comprehensive Metabolic Panel 11/04/21 Range/Units 16:00 Sodium 131 L (136-145) mmol/L Potassium 4.7 (3.5-5.1) mmol/L Chloride 99 (98-107) mmol/L Carbon Dioxide 23 (21-32) mmol/L BUN 48 H (6-23) mg/dl Creatinine 2.18 H (0.6-1.4) mg/dl Glucose 308 H* (70-99(Fasting)) mg/dl Calcium 8.8 (8.5-10.1) mg/dl AST 19 (13-39) U/L ALT 29 (7-52) U/L Alkaline Phosphatase 88 (34-104) U/L Total Protein 7.0 (6.0-8.3) gm/dl Albumin 3.2 L (3.4-5.0) gm/dl Intake and Output 11/04/21 11/04/21 11/04/21 06:59 14:59 22:59 Intake Total 8.0 / 8.0 Balance 8.0 / 8.0 Intake: IV 8.0 / 8.0 dilTIAZem HCL 125 mg In 8.0 / 8.0 Dextrose 5% 100 ml @ 5 MG/HR 5 mls/hr IV .Q24H [facility] Rx#: [id number] Other: Weight 75.9 kg Weight Measurement Method Chair Scale Patient Weight 11/05/21 06:59 Weight 75.9 kg Diagnostic Findings Chest x-ray enlargement of the cardiac silhouette, without interstitial edema Knee x-ray, no acute bony abnormality noted
[2021-11-04] MEDS ORDERED: 0.2 MICRON FILTER SET 1 EA IV ONE (18:48)
[2021-11-04] MEDS ORDERED: AMIODARONE / D5W 360 MG/200 ML BAG IV ONE (18:48)
--- NOTE | 2021-11-04 18:53 | XRay Report ---
LEFT KNEE 3 VIEWS CLINICAL HISTORY: Atraumatic left knee pain. FINDINGS: AP, crosstable lateral, and sunrise views of the left knee are obtained. No prior studies a re available for comparison at the time of dictation. The skeletal structures are well mineralized. N o fracture is seen. There is minimal degenerative joint space narrowing. Patellar enthesophytes are o bserved. There is a large calcified fabella. No joint effusion is identified. The overlying soft tiss ues are within normal limits. IMPRESSION: No acute bony abnormality is identified. Electronically signed by: Diego Melendez M.D. 11/04/2021 6:51 PM
--- NOTE | 2021-11-04 18:59 | History & Physical Report ---
Date of Service November 04, 2021 Assessment & Plan (1) Atrial flutter: Plan: History paroxysmal atrial fibrillation not on anticoagulation Patient is 65-year-old male with PMH Paroxysmal atrial fibrillation not on anticoagulation, CAD, NSTEMI s/p CABG x4 in December 2020, bladder cancer with metastasis intrapelvic lymph nodes, CKD IV, nephrostomy tube, chronic anemia, HTN, HLD, DM II presented to the ER for tachycardia found at PCP office today. Denies CP, SOB, palpitations. Today in ER found to be in atrial flutter rapid ventricular rate, rate in 170s. Was given diltiazem and drip without improvement. Cardiology consulted and performed cardioversion with conversion to sinus rhythm. Amiodarone started per cardiology Heparin IV started per cardiology Monitor on telemetry Echo Cardiology on board Treatment as below for possible UTI (2) UTI (urinary tract infection): (3) Bladder carcinoma: Plan: History bladder cancer with metastasis to intrapelvic lymph nodes. Patient treating with alternative medicine Nephrostomy tube in place Recent UTI symptoms and treated with cefdinir 10/13/2021 for UTI based on UA with some improvement Recurrent dysuria, urinary frequency past several days. Denies fever, chills, flank pain UA: 3+ leuk esterase,> 30 WBC, > 30 epithelial cells Start cefepime Urine culture, blood cultures pending (4) CAD (coronary artery disease), [place] coronary artery: Plan: S/P CABG x 4 in 2020 Continue aspirin Not on DELICIA secondary to CKD. Not on beta phuong secondary to h/o bradycardia, not on statin secondary to self preference Patient not on beta-phuong as previously noted due to bradycardia Patient reports hasn't been taking fenofibrate (5) DM2 (diabetes mellitus, type 2): Plan: A1c: 6.4 in 06/09/2021 Patient to finish medrol dose pack for knee pain on 11/05/21 Hold home glycemic agents Basal bolus insulin per protocol A1c in a.m. (6) Stage 4 chronic kidney disease: Plan: Cr: 2.18. Baseline 2.4-2.8 Monitor renal functions, avoid nephrotoxic agents when possible (7) Anemia: Plan: Hgb: 8.8. Denies noted bleeding Baseline Hgb: 7-8 Monitor H&H (8) HTN (hypertension): Plan: Continue amlodipine DVT Prophylaxis On IV Heparin Full Code as per discussion with pt, however reports would not want prolonged life support Follows with Dr Ibrahim for routine care Pt was seen and care coordinated with Dr Benitez. See addendum History of Present Illness Chief Complaint: Elevated heart rate Primary Care Provider: Kathy Ibrahim MD Patient is 65-year-old male with PMH Paroxysmal atrial fibrillation not on anticoagulation, CAD, NSTEMI s/p CABG x4 in December 2020, bladder cancer with metastasis intrapelvic lymph nodes, CKD IV, nephrostomy tube, chronic anemia, HTN, HLD, DM II presented to the ER for tachycardia. Today seen at PCP office for urinary symptoms and was found to have tachycardia and was referred to ER. Reports having dysuria, urinary frequency for past several days. States urine noted to turn white in coloration and also having some discomfort to mid abdomen. reports dx UTI outpatient and was treated with cefdinir on 10/13/21 (No urine culture found in outpatient chart review). Patient denies any chest pain, shortness of breath, palpitations. Has chronic constipation. Also c/o bilateral knee pain, left worse than right knee and reports on medrol dose pack for arthritis and finishes dose pack tomorrow. Denies known fever/chills, diaphoresis, N/V/D, VALENTINE, dizziness, syncope, vision changes, neck pain, orthopnea, cough, sore throat, choking, otalgia, rhinorrhea, abdominal pain, paresthesias, extremity weakness, extremity edema, rashes, hematuria. Today in ER found to be in atrial flutter rapid ventricular rate, rate in 170s. Was given diltiazem and drip without improvement. Cardiology consulted and performed cardioversion with conversion to sinus rhythm. Allergies Allergy/AdvReac Type Severity Reaction Status Date / Time kiwi Allergy Intermediate Lip and Unverified 11/04/21 16:50 Tongue Swell metoprolol AdvReac Intermediate Immediate Unverified 11/04/21 17:04 Bradycardia Hemp Seeds Allergy Intermediate Tongue Uncoded 11/04/21 16:50 Swells Home Medications Medication Instructions Recorded Confirmed Type alpha lipoic acid 600 mg capsule 600 mg PO HS 07/18/20 11/04/21 History ascorbic acid (vitamin C) 1,000 mg 2,000 mg PO BID 07/18/20 11/04/21 History tablet,extended release aspirin 81 mg tablet,delayed 81 mg PO HS 07/18/20 11/04/21 History release biotin 1,000 mcg chewable tablet 1,000 mcg PO HS 07/18/20 11/04/21 History cholecalciferol (vitamin D3) 125 125 mcg PO HS 07/18/20 11/04/21 History mcg (5,000 unit) tablet coenzyme Q10 100 mg capsule 300 mg PO TID 07/18/20 11/04/21 History (CoQ-10) linagliptin 5 mg tablet (Tradjenta) 5 mg PO DAILY 07/18/20 11/04/21 History meclizine 25 mg tablet 25 mg PO HS 07/18/20 11/04/21 History niacin 500 mg tablet 500 mg PO BID 07/18/20 11/04/21 History pyridoxine (vitamin B6) 100 mg 100 mg PO HS 07/18/20 11/04/21 History tablet (Vitamin B-6) vitamin B complex 1 tab PO DAILY 07/18/20 11/04/21 History Apigenin 50 mg PO QAM 01/02/21 11/04/21 History acetylcysteine 600 mg capsule (NAC) 600 mg PO HS PRN 01/02/21 11/04/21 History nitroglycerin 0.4 mg sublingual 0.4 mg SUBLINGUAL UD PRN #20 tab 01/08/21 11/04/21 Rx tablet (Nitrostat) amlodipine 5 mg tablet 5 mg PO DAILY 11/04/21 11/04/21 History docusate sodium 100 mg capsule 100 mg PO BID 11/04/21 11/04/21 History glipizide 10 mg tablet, extended 10 mg PO DAILY 11/04/21 11/04/21 History release 24 hr zlckcjqxiva-ukz-sdojrkwho-vitC 1 cap PO DAILY 11/04/21 11/04/21 History capsule (Glucosamine Complex-MSM) magnesium 250 mg tablet 250 mg PO DAILY 11/04/21 11/04/21 History methylprednisolone 4 mg tablets in 4 - 24 mg PO DAILY 11/04/21 11/04/21 History a dose pack omega 0-hrc-mij-fish oil 1,000 mg 1 cap PO DAILY 11/04/21 11/04/21 History (120 mg-180 mg) capsule (Fish Oil) Past Med/Surg History Medical History (Updated 11/04/21 @ 20:57 by Vannesa Freire PA-C) Bladder carcinoma CAD (coronary artery disease) Chronic kidney disease Chronic sinusitis Concussion DM type 2 (diabetes mellitus, type 2) Dyslipidemia HTN (hypertension) Paroxysmal A-fib Urothelial cancer Varicella without complication Surgical History S/P CABG x 4 Family History Mother Hypertension Cancer Father Cancer Hypertension Grandmother (Maternal) Cancer Social History Smoking Status: Never smoker Second Hand Exposure: Yes; Do You Dip or Chew Tobacco: No; Hx Alcohol Use: Yes Alcohol type: hard liquor Hx Substance Use: No Preferred Language: Austrian Communication Ability: Effective Car 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 Required: No Beliefs That Will Affect Care: None marital status: Current Living Situation: Spouse current occupation: Retired Other Information That Helps Us Care for You: No Feels Safe at Home: Yes Safety Concerns: Feels Safe At This Time Assistive Devices: Glasses Review of Systems Review of Systems: All systems reviewed & are unremarkable except as noted in HPI & below Physical Exam Physical Exam: per Dr Benitez Results & Data Results & Data ([facility]) Vital Signs (Past 12 Hours) Vital Signs Temp Pulse Resp BP Pulse Ox 11/04/21 18:20 81 13 135/93 100 11/04/21 18:15 81 23 115/84 11/04/21 18:10 76 16 117/80 11/04/21 18:05 76 20 115/75 100 11/04/21 18:00 77 17 123/79 11/04/21 17:56 169 H 14 112/89 11/04/21 17:55 169 H 18 11/04/21 17:50 173 H 24 11/04/21 17:45 170 H 21 117/92 100 11/04/21 17:30 170 H 19 123/88 100 11/04/21 17:20 172 H 16 100 11/04/21 17:15 171 H 17 111/90 11/04/21 17:00 171 H 19 112/86 11/04/21 16:45 170 H 19 132/96 100 11/04/21 16:30 172 H 31 H 121/99 100 11/04/21 16:23 170 H 39 H 124/97 100 11/04/21 16:15 171 H 29 H 139/96 100 11/04/21 16:10 171 H 19 117/85 95 11/04/21 16:05 171 H 22 131/94 100 11/04/21 16:00 172 H 15 129/91 100 11/04/21 15:55 170 H 21 134/92 100 11/04/21 15:50 172 H 15 126/90 100 11/04/21 15:46 173 H 25 H 122/85 100 11/04/21 15:40 99 11/04/21 15:33 37.3 C 174 H 20 124/91 99 Laboratory Results Short CBC 11/04/21 Range/Units 16:00 WBC 11.67 H (4.8-10.8) K/uL Hgb 8.8 L (14.0-18.0) g/dL Hct 27.9 L (42-52) % Plt Count 481 H (130-400) K/uL BMP 11/04/21 16:00 Sodium 131 L Potassium 4.7 Chloride 99 Carbon Dioxide 23 BUN 48 H Creatinine 2.18 H Glucose 308 H* Calcium 8.8 Liver Function 11/04/21 Range/Units 16:00 Total Bilirubin 0.3 (0.2-1.0) mg/dl AST 19 (13-39) U/L ALT 29 (7-52) U/L Alkaline Phosphatase 88 (34-104) U/L Albumin 3.2 L (3.4-5.0) gm/dl Urine 11/04/21 Range/Units 17:45 Urine Color Yellow Urine Appearance Turbid A (Clear) Urine pH 7.5 (4.5-7.5) Ur Specific [place] 1.012 (1.000-1.030) Urine Protein 3+ H (Negative) Urine Glucose (UA) 2+ H (Negative) Diagnostic Findings Chest X-Ray 11/04/21 15:40 SINGLE VIEW CHEST CLINICAL HISTORY: Atypical chest pain. FINDINGS: An AP, portable, semierect chest radiograph is compared to study dated 07/01/2021 and correlated with chest CT dated 06/30/2021. The examination is degraded by portable technique, apical lordotic positioning, and patient rotation. The patient is status post midline sternotomy. The heart is enlarged. The pulmonary vasculature is noncongested. Scarring/atelectasis is noted at the left lung base. The lungs are otherwise clear. No large pleural effusion or pneumothorax is seen. The skeletal structures appear osteopenic. The bony thorax is grossly intact. IMPRESSION: Cardiomegaly with no acute cardiopulmonary abnormality. ACT 112: Negative or not required by law. Electronically signed by: Diego Melendez M.D. 11/04/2021 4:17 PM Knee X-Ray 11/04/21 17:09 LEFT KNEE 3 VIEWS CLINICAL HISTORY: Atraumatic left knee pain. FINDINGS: AP, crosstable lateral, and sunrise views of the left knee are obtained. No prior studies are available for comparison at the time of dictation. The skeletal structures are well mineralized. No fracture is seen. There is minimal degenerative joint space narrowing. Patellar enthesophytes are observed. There is a large calcified fabella. No joint effusion is identified. The overlying soft tissues are within normal limits. IMPRESSION: No acute bony abnormality is identified. Electronically signed by: Diego Melendez M.D. 11/04/2021 6:51 PM Code Status & VTE Plan VTE Prophylaxis Plan VTE Prophylaxis will be ordered: Yes Supervising Physician Co-Signing Physician Notes Date of Service: November 04, 2021 History and physical exam performed by me. History notable for 65-year-old man with paroxysmal A. fib not on anticoagulation, diabetes mellitus on oral medications, hypertension, NSTEMI last year with multiple vessel disease status post CABG, history of bladder cancer, CKD, acute renal failure earlier this year requiring right stent placement and left nephrostomy tube who presents from PCPs office where he went for management of urinary symptoms and was noted to be tachycardic. Has been having dysuria, frequency, change in color of urine to whitish for the past week. Was on oral antibiotics symptoms initially improved but then resumed again. Associated with lower abdominal pain. Reports temperature of 99.1 at home. Was noted to be in atrial flutter with rapid ventricular rate on presentation to the ER. Received diltiazem bolus without response. Was seen by cardiology and had successful synchronized direct-current cardioversion. On exam, General: Well hydrated, average body habitus, no acute distress, Chronically ill looking Eyes: PERRL, conjunctivae normal, not pale, anicteric sclerae, EOM intact bilaterally ENMT: External ear and nose normal, oropharynx normal Respiratory: Normal respiratory effort, no respiratory distress, lungs clear to auscultation, no crackles and no wheezes Cardiovascular: RRR S1 S2 Gastrointestinal (Abdomen): Abdomen is not distended, soft, non-tender to palpation, no guarding, no palpable hepatosplenomegaly, normal bowel sounds Musculoskeletal: No cyanosis or clubbing, No pedal edema Genitourinary: Left urostomy tube in situ with yellowish urine in bag Neurologic: Alert and oriented x 3, No focal weakness, sensation grossly intact Psychiatric: Alert and oriented x 3, euthymic affect, no depressed affect Atrial flutter with RVR S/p cardioversion Complicated urinary tract infection Was recently treated with cefdinir. Follow-up urine cultures. Continue cefepime for now Cardiology on board. Recommendations noted. Continue heparin drip for now. Continue amiodarone drip Agree with other plans as detailed by Vannesa Freire PA-C (1) Atrial flutter Atrial flutter type: unspecified Qualified Code(s): I48.92 - Unspecified atrial flutter
[2021-11-04 19:25] LABS: Appearance Urine Turbid (Clear); Bacteria Urine Automated Negative (Negative); Bilirubin Urine Negative (Negative); Blood Urine 3+ (Negative); Color Urine Yellow; Epithelial Cell Urine Auto >30 /lpf (0-5); Glucose Urine UA 2+ (Negative); Ketones Urine Negative (Negative); Leukocyte Esterase Urine 3+ (Negative); Nitrite Urine Negative (Negative); Specific Gravity Urine 1.012 (1.000-1.030); Urobilinogen Urine Negative (Negative); WBC Urine Automated >30 /hpf (0-5); pH Urine 7.5 (4.5-7.5)
--- NOTE | 2021-11-04 19:35 | Communication Note ---
Date of Service: November 04, 2021 History and physical exam performed by me. History notable for 65-year-old man with paroxysmal A. fib not on anticoagulation, diabetes mellitus on oral medications, hypertension, NSTEMI last year with multiple vessel disease status post CABG, history of bladder cancer, CKD, acute renal failure earlier this year requiring right stent placement and left nephrostomy tube who presents from PCPs office where he went for management of urinary symptoms and was noted to be tachycardic. Has been having dysuria, frequency, change in color of urine to whitish for the past week. Was on oral antibiotics symptoms initially improved but then resumed again. Associated with lower abdominal pain. Reports temperature of 99.1 at home. Was noted to be in atrial flutter with rapid ventricular rate on presentation to the ER. Received diltiazem bolus without response. Was seen by cardiology and had successful synchronized direct-current cardioversion. On exam, General: Well hydrated, average body habitus, no acute distress, Chronically ill looking Eyes: PERRL, conjunctivae normal, not pale, anicteric sclerae, EOM intact bilaterally ENMT: External ear and nose normal, oropharynx normal Respiratory: Normal respiratory effort, no respiratory distress, lungs clear to auscultation, no crackles and no wheezes Cardiovascular: RRR S1 S2 Gastrointestinal (Abdomen): Abdomen is not distended, soft, non-tender to palpation, no guarding, no palpable hepatosplenomegaly, normal bowel sounds Musculoskeletal: No cyanosis or clubbing, No pedal edema Genitourinary: Left urostomy tube in situ with yellowish urine in bag Neurologic: Alert and oriented x 3, No focal weakness, sensation grossly intact Psychiatric: Alert and oriented x 3, euthymic affect, no depressed affect Atrial flutter with RVR S/p cardioversion Complicated urinary tract infection Was recently treated with cefdinir. Follow-up urine cultures. Continue cefepime for now Cardiology on board. Recommendations noted. Continue heparin drip for now. Continue amiodarone drip Agree with other plans as detailed by Vannesa Freire PA-C
[2021-11-04 19:37] LABS: Protein Urine 3+ (Negative)
[2021-11-04] MEDS ORDERED: GLUCOSE 40% GEL 15 GM TUBE PO PRN (20:20)
[2021-11-04] MEDS ORDERED: GLUCAGON FOR INJ 1 MG VIAL SQ PRN (20:20)
[2021-11-04] MEDS ORDERED: GLUCOSE 10 TABS/TUBE PO PRN (20:20)
[2021-11-04] MEDS ORDERED: NITROGLYCERIN SL 0.4 MG/TAB TAB SL PRN (20:20)
[2021-11-04] MEDS ORDERED: MAGNESIUM HYDROXIDE SUSP 30 ML UDC PO PRN (20:20)
[2021-11-04] MEDS ORDERED: DEXTROSE 50% 50 ML SYRINGE IV PRN (20:20)
[2021-11-04] MEDS ORDERED: CARBOHYDRATES FOR HYPOGLYCEMIA PO PRN (20:20)
[2021-11-04] MEDS ORDERED: INSULIN ASPART PER UNIT SC SCH (21:00)
[2021-11-04] MEDS ORDERED: NON-FORMULARY MEDICATION (Alpha Lipoic Acid 600 mg Capsule) PO SCH (21:00)
[2021-11-04] MEDS ORDERED: NON-FORMULARY MEDICATION (Biotin 1,000 mcg Tablet,Chewable) PO SCH (21:00)
[2021-11-04] MEDS ORDERED: NON-FORMULARY MEDICATION (Coenzyme Q10 [Coq-10] 100 mg Capsule) PO SCH (21:00)
--- NOTE | 2021-11-04 21:21 | Emergency Department Note ---
Post Sedation Assessment Vital Signs Temp Pulse Resp BP Pulse Ox 11/04/21 18:55 85 15 135/75 97 11/04/21 18:52 86 13 125/64 100 11/04/21 18:50 87 17 100 11/04/21 18:45 94 H 39 H 100 11/04/21 18:40 87 13 100 11/04/21 18:35 80 15 142/80 H 100 11/04/21 18:30 80 17 139/92 100 11/04/21 18:25 80 15 132/91 100 11/04/21 18:20 81 13 135/93 100 11/04/21 18:15 81 23 115/84 100 11/04/21 18:10 76 16 117/80 100 11/04/21 18:05 76 20 115/75 100 11/04/21 18:00 77 17 123/79 100 11/04/21 17:56 169 H 14 112/89 11/04/21 17:55 169 H 18 100 11/04/21 17:50 173 H 24 100 11/04/21 17:45 170 H 21 117/92 100 11/04/21 17:30 170 H 19 123/88 100 11/04/21 17:20 172 H 16 100 11/04/21 17:15 171 H 17 111/90 100 11/04/21 17:00 171 H 19 112/86 100 11/04/21 16:45 170 H 19 132/96 100 11/04/21 16:30 172 H 31 H 121/99 100 11/04/21 16:23 170 H 39 H 124/97 100 11/04/21 16:15 171 H 29 H 139/96 100 11/04/21 16:10 171 H 19 117/85 95 11/04/21 16:05 171 H 22 131/94 100 11/04/21 16:00 172 H 15 129/91 100 11/04/21 15:55 170 H 21 134/92 100 11/04/21 15:50 172 H 15 126/90 100 11/04/21 15:46 173 H 25 H 122/85 100 11/04/21 15:40 99 11/04/21 15:33 37.3 C 174 H 20 124/91 99 Recovery Score Activity: Moves 4 extremities Respiration: Deep Breath/Cough Circulation: +/-20% PreAnes Value Consciousness: Fully Awake Oxygen Saturation: > 92% On Room Air Post Anesthesia Score: 10 Post Anesthesia Score Comment: Patient tolerated the procedure well, he is alert, he is following commands Post Sedation Plan On clinical assessment, the patient appears to have tolerated the sedation without complications. Patient is recovering as anticipated. Patient will continue to be monitored by nursing and may be discharged when sedation discharge criteria are met per below protocol. Upon Completions of procedure up to 15 minutes continue every 5 minute vital signs and the P.A.R. score; then discharge to a Phase I or Fast Track to Phase II per the following guidelines: * Discharge Patient to appropriate Phase II area if PAR is 8 or greater or return to pre- procedure baseline. The post - procedure orders will be as directed. * If PAR score is less than 8 or not return to pre-procedure baseline then patient will follow Phase I monitoring till PAR is reached for Phase II. The Phase I may be done in procedure room or may call to secure a Phase I area. * If naloxone or flumazenil are used for reversal, hold in Phase I for continued monitoring from when last reversal dose was given for a minimum of 60 minutes or longer pending the nurse and/or physician discretion of patient condition before discharge to Phase II. Please call the Sedation Physician to re-evaluate and complete post-note for discharge to Phase II area. Do NOT discharge from procedure sedation or Phase 1 until post- sedation evaluation note is complete by procedure /sedation MD Sedation Discharge Instructions to be given to the patient at discharge to home. Sedation Data Sedation Times Sedation Start Date: 11/04/21 Sedation Start Time: 17:57 Sedation End Date: 11/04/21 Sedation End Time: 18:16 Total Sedation Time: 19 Procedure Times Procedure Start Time:: 17:59 Procedure End Time: 17:59 Supervising Physician Co-Signing Physician Notes Patient appears well status post sedation with propofol for cardioversion. He is awake, he is alert, he is following commands. He otherwise appears in no acute distress. : Atrial flutter Qualifiers: Atrial flutter type: unspecified Qualified Code(s): I48.92 - Unspecified atrial flutter
--- NOTE | 2021-11-04 21:25 | Pre Anesthesia Assessment ---
Date of Service November 04, 2021 Pre Sedation Assessment Vital Signs Temp Pulse Pulse Resp BP BP Pulse Ox 11/04/21 20:20 36.7 C 80 20 123/76 99 11/04/21 20:00 85 18 112/74 99 11/04/21 19:33 100 11/04/21 19:00 85 13 127/78 100 11/04/21 18:55 85 15 135/75 97 11/04/21 18:52 86 13 125/64 100 11/04/21 18:50 87 17 100 11/04/21 18:45 94 H 39 H 100 11/04/21 18:40 87 13 100 11/04/21 18:35 80 15 142/80 H 100 11/04/21 18:30 80 17 139/92 100 11/04/21 18:25 80 15 132/91 100 11/04/21 18:20 81 13 135/93 100 11/04/21 18:15 81 23 115/84 100 11/04/21 18:10 76 16 117/80 100 11/04/21 18:05 76 20 115/75 100 11/04/21 18:00 77 17 123/79 100 11/04/21 17:56 169 H 14 112/89 11/04/21 17:55 169 H 18 100 11/04/21 17:50 173 H 24 100 11/04/21 17:45 170 H 21 117/92 100 11/04/21 17:30 170 H 19 123/88 100 11/04/21 17:20 172 H 16 100 11/04/21 17:15 171 H 17 111/90 100 11/04/21 17:00 171 H 19 112/86 100 11/04/21 16:45 170 H 19 132/96 100 11/04/21 16:30 172 H 31 H 121/99 100 11/04/21 16:23 170 H 39 H 124/97 100 11/04/21 16:15 171 H 29 H 139/96 100 11/04/21 16:10 171 H 19 117/85 95 11/04/21 16:05 171 H 22 131/94 100 11/04/21 16:00 172 H 15 129/91 100 11/04/21 15:55 170 H 21 134/92 100 11/04/21 15:50 172 H 15 126/90 100 11/04/21 15:46 173 H 25 H 122/85 100 11/04/21 15:40 99 11/04/21 15:33 37.3 C 174 H 20 124/91 99 Pre-Sedation Airway Assessment Smoking Status: Never smoker Hx Sleep Apnea: No Short, Thick Neck: No Thyromental Distance: > or= 3.5 Finger Breadths Oral Cavity: + WNL Mallampati Class: I ASA: ASA2 NPO Status Date of Last Intake of Fluids: 11/04/21 Time of Last Intake of Fluids: 13:00 Last Oral Intake of Fluids Comment: water Date of Last Intake of Solid Food: 11/04/21 Time of Last Intake of Solid Foods: 13:00 Last Intake of Solids Comment: small amount of yogurt Notes The planned sedation has been discussed with the patient. Informed Consent was obtained. I have identified the patient, determined the appropriateness of sedation and have assessed the patient immediately prior to the procedure. All medicine(s) and interventions are by my order.
--- NOTE | 2021-11-04 21:29 | Emergency Department Note ---
ED Visit Note Patient was advised on the risk and benefit of sedation for the procedure. Procedure was explained to the patient by the bedside cardiology provider. Risk and benefit of sedation was explained by myself. Patient consented for sedation with propofol, he signed consent at the bedside. Patient was placed on nonrebreather mask, preoxygenated to 100%, placed on end- tidal CO2 with appropriate waveform. Following timeout, patient was bolused with 60 mg of propofol via IV push, adequate sedation was achieved. Patient maintained oxygen saturations at 100% on nonrebreather mask with good respiratory effort throughout the duration of the procedure. Cardioversion was performed successfully, patient subsequently became more alert and was following commands. Patient tolerated the procedure well. . Sedation Data Sedation Times Sedation Start Date: 11/04/21 Sedation Start Time: 17:57 Sedation End Date: 11/04/21 Sedation End Time: 18:16 Total Sedation Time: 19 Procedure Times Procedure Start Time:: 17:59 Procedure End Time: 17:59 : Atrial flutter Qualifiers: Atrial flutter type: unspecified Qualified Code(s): I48.92 - Unspecified atrial flutter
[2021-11-04] MEDS ORDERED: INSULIN HUMAN REGULAR PER UNIT 7 UNITS in SYRINGE 6.93 ML IV ONE (21:30)
[2021-11-04] MEDS ORDERED: CEFEPIME 1,000 MG in SYRINGE 0 ML IV ONE (21:30)
[2021-11-04] MEDS: LIDOCAINE 5% 1 PATCH TD SCH (21:51)
[2021-11-04] MEDS: ASCORBIC ACID 500 MG TAB PO SCH (22:05)
[2021-11-04] MEDS: CHOLECALCIFEROL 5,000 UNITS 125 MCG TAB PO SCH (22:09)
[2021-11-04] MEDS: ASPIRIN 81 MG ECTAB PO SCH (22:09)
[2021-11-04] MEDS: NIACIN 500 MG TAB PO SCH (22:09)
[2021-11-04] MEDS: DOCUSATE SODIUM 100 MG CAP PO SCH (22:10)
[2021-11-04] MEDS: PYRIDOXINE HCL 50 MG TAB PO SCH (22:10)
[2021-11-04] MEDS: MECLIZINE HCL 25 MG TAB PO SCH (22:10)
[2021-11-04] MEDS: INSULIN GLARGINE SOLOSTAR 100 UNITS/ML 3 ML PEN SC SCH (22:12)
[2021-11-04] MEDS: oxyCODONE HCL IR 5 MG TAB (IMMEDIATE RELEASE) PO PRN (22:16)
[2021-11-04 23:49] LABS: Partial Thromboplastin Ratio 2.8
[2021-11-04 23:59] LABS: Partial Thromboplastin Time 77.7 Seconds (21.0-31.0)
[2021-11-05] MEDS ORDERED: INSULIN GLARGINE SOLOSTAR 100 UNITS/ML 3 ML PEN SC STA (00:11)
[2021-11-05] MEDS: INSULIN ASPART PER UNIT SC SCH ×5 (00:42→21:28)
[2021-11-05] MEDS: AMIODARONE / D5W 360 MG/200 ML BAG IV SCH ×2 (00:43→12:09)
[2021-11-05 04:29] LABS: Hematocrit (blood only) 24.6 % (42-52); Hemoglobin 7.7 g/dL (14.0-18.0); Mean Corpuscular Hemoglobin 26.7 pg (25-34); Mean Corpuscular Hgb Conc 31.3 g/dL (32-36); Mean Corpuscular Volume 85.4 fL (80-100); Mean Platelet Volume 8.6 fL (7.4-10.4); Platelet Count 390 K/uL (130-400); RDW Coefficient of Variation 18.7 % (11.5-14.5); RDW Standard Deviation 58.1 fL (36.4-46.3); Red Blood Count 2.88 M/uL (4.7-6.1); White Blood Count 11.69 K/uL (4.8-10.8)
[2021-11-05 04:49] LABS: BUN Creatinine Ratio 20.8 (10-20); Calcium 8.5 mg/dl (8.5-10.1); Creatinine Clr Calc Pharmacy 33.2 ml/min; Est GFR (African American) 36.5 ml/min; Est GFR (Non-African American) 31.5 ml/min; Potassium 4.7 mmol/L (3.5-5.1)
[2021-11-05 04:58] LABS: Partial Thromboplastin Ratio 2.8
[2021-11-05] MEDS: oxyCODONE HCL IR 5 MG TAB (IMMEDIATE RELEASE) PO PRN ×2 (05:00→14:31)
[2021-11-05 06:59] LABS: Estimated Average Glucose 183 mg/dl
[2021-11-05] MEDS: MAGNESIUM OXIDE 400 MG TAB PO SCH (08:03)
[2021-11-05] MEDS: amLODIPine BESYLATE 5 MG TAB PO SCH (08:03)
[2021-11-05] MEDS: DOCUSATE SODIUM 100 MG CAP PO SCH ×2 (08:03→21:17)
[2021-11-05] MEDS: NIACIN 500 MG TAB PO SCH ×2 (08:03→21:18)
[2021-11-05] MEDS: OMEGA-3 (PURIFIED FISH OIL) 1 GM CAP PO SCH (08:03)
[2021-11-05] MEDS: ASCORBIC ACID 500 MG TAB PO SCH ×2 (08:03→21:16)
[2021-11-05] MEDS: INSULIN GLARGINE SOLOSTAR 100 UNITS/ML 3 ML PEN SC SCH ×2 (08:05→21:21)
[2021-11-05 11:55] LABS: Partial Thromboplastin Ratio 1.9
[2021-11-05] MEDS: HEPARIN SODIUM/DEXTROSE 25,000 UNITS/500 ML BAG IV SCH ×2 (12:09→14:27)
[2021-11-05 12:11] LABS: Partial Thromboplastin Time 53.2 Seconds (21.0-31.0)
--- NOTE | 2021-11-05 13:44 | Hospitalist Progress Note ---
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 Denies CP, SOB, palpitations. In the ER, he was found to be in atrial flutter rapid ventricular rate, rate in 170s. Was given diltiazem and drip without improvement.Cardiology consulted and performed cardioversion with conversion to sinus rhythm Atrial flutter with RVR s/p successful cardioversion 11/04 - on iv amio and heparin drip per cardio - continue tele - echo pending PAF s/p surgical ALEXANDREA occlusion and not on anticoagulation UTI (urinary tract infection)- recently treated with cefdinir course 10/13/21. 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 Patient treating with alternative medicine - Nephrostomy tube in place CAD (coronary artery disease), [place] coronary artery: S/P CABG x 4 in 2020 - Continue aspirin. Not on ACEI secondary to CKD. Not on beta phuong secondary to h/o bradycardia, not on statin secondary to self preference; reports not taking fenofibrate DM2: A1c: 8. Patient to finish medrol dose pack for knee pain on 11/05/21 - Hold home glycemic agents; basal bolus insulin per protocol- cautious in setting of CKD. Stage 4 chronic kidney disease: Cr: 2.18. Baseline 2.4-2.8; monitor renal functions, avoid nephrotoxic agents when possible Anemia: Hgb: 8.8->7.7. no active bleeding noted. Monitor while on iv heparin. Transfuse as indicated. HTN (hypertension): Continue amlodipine Left hip/knee pain- diagnosed with arthritis and on medrol dose pack started 10/28. PT/OT eval. recommend OP follow up with ortho. DVT Prophylaxis- iv heparin Dispo- pending final urine clx and echo. On iv cefepime Admission and Anticipated Discharge Date Admission Date: November 04, 2021 Subjective Feels okay. States he was evaluated by cardio this morning and plan is to switch amio to po and stop heparin drip. Denies any chest pain, palpitations, shortness of breath, nausea, vomiting. Discussed about pending urine clx. States he has left hip pain limiting his ambulation for the past few months. Physical Exam Physical Exam: General: Lying comfortably in bed, not in distress, on room air HEENT: EOMI, JASWANT, MMM Chest: Clear breath sounds bilaterally, no wheezes or crackles CVS: Regular rate and rhythm, normal heart sounds, no murmur Abdomen: Soft, non tender, not distended, normal bowel sounds Neuro: Awake, alert, oriented, conversing well, non focal Extremities: No cyanosis, clubbing or edema Results & Data Results & Data ([facility]) Vital Signs (Past 12 Hours) Vital Signs Temp Pulse Pulse Resp BP Pulse Ox 11/05/21 11:00 37.0 C 78 18 118/74 100 11/05/21 08:29 36.9 C 71 18 130/73 97 11/05/21 07:16 71 11/05/21 04:08 36.8 C 72 16 100/63 99 Laboratory Results Short CBC 11/04/21 11/04/21 11/05/21 Range/Units 16:00 16:00 04:07 WBC 11.67 H 11.69 H (4.8-10.8) K/uL Hgb 8.8 L 7.7 L (14.0-18.0) g/dL Hct 27.9 L 24.6 L (42-52) % Plt Count 481 H 390 (130-400) K/uL Creatinine 2.18 H (0.6-1.4) mg/dl 11/05/21 Range/Units 04:07 WBC (4.8-10.8) K/uL Hgb (14.0-18.0) g/dL Hct (42-52) % Plt Count (130-400) K/uL Creatinine 2.12 H (0.6-1.4) mg/dl BMP 11/04/21 11/05/21 16:00 04:07 Sodium 131 L 134 L Potassium 4.7 4.7 Chloride 99 104 Carbon Dioxide 23 23 BUN 48 H 44 H Creatinine 2.18 H 2.12 H Glucose 308 H* 156 H Calcium 8.8 8.5 Liver Function 11/04/21 Range/Units 16:00 Total Bilirubin 0.3 (0.2-1.0) mg/dl AST 19 (13-39) U/L ALT 29 (7-52) U/L Alkaline Phosphatase 88 (34-104) U/L Albumin 3.2 L (3.4-5.0) gm/dl Urine 11/04/21 Range/Units 17:45 Urine Color Yellow Urine Appearance Turbid A (Clear) Urine pH 7.5 (4.5-7.5) Ur Specific [place] 1.012 (1.000-1.030) Urine Protein 3+ H (Negative) Urine Glucose (UA) 2+ H (Negative) Medications Administered Current Inpatient Medications Acetaminophen (Acetaminophen 325 Mg Tab) 650 mg PO Q4H PRN PRN Reason: Pain or Fever Stop: 12/04/21 20:19 Amlodipine Besylate (Amlodipine Besylate 5 Mg Tab) 5 mg PO DAILY CASEY Stop: 12/05/21 08:59 Last Admin: 11/05/21 08:03 Dose: 5 mg Documented by: Ascorbic Acid (Ascorbic Acid 500 Mg Tab) 2,000 mg PO BID CASEY Stop: 12/04/21 20:59 Last Admin: 11/05/21 08:03 Dose: 2,000 mg Documented by: Aspirin (Aspirin 81 Mg Ectab) 81 mg PO HS CASEY Stop: 12/04/21 20:59 Last Admin: 11/04/21 22:09 Dose: 81 mg Documented by: Dextrose (Dextrose 50% 50 Ml Syringe) 25 - 50 ml IV UD PRN; Protocol PRN Reason: Hypoglycemia Protocol Stop: 12/04/21 20:19 Docusate Sodium (Docusate Sodium 100 Mg Cap) 100 mg PO BID CASEY Stop: 12/04/21 20:59 Last Admin: 11/05/21 08:03 Dose: 100 mg Documented by: Fish Oil ([place]-3 (Purified Fish Oil) 1 Gm Cap) 1 gm PO DAILY CASEY Stop: 12/05/21 08:59 Last Admin: 11/05/21 08:03 Dose: 1 gm Documented by: Glucagon (Glucagon For Inj 1 Mg Vial) 1 mg SQ UD PRN; Protocol PRN Reason: Hypoglycemia Protocol Stop: 12/04/21 20:19 Glucose (Glucose 10 Tabs/Tube) 4 - 8 tabs PO UD PRN; Protocol PRN Reason: Hypoglycemia Protocol Stop: 12/04/21 20:19 Glucose (Glucose 40% Gel 15 Gm Tube) 15 - 30 gm PO UD PRN; Protocol PRN Reason: Hypoglycemia Protocol Stop: 12/04/21 20:19 Heparin Sodium/Dextrose (Heparin Sodium/Dextrose) 25,000 units in 500 mls @ 26 mls/hr IV .[id number] [facility]; Protocol Stop: 12/04/21 17:44 Last Titration: 11/05/21 12:17 Dose: 1,200 units/hr, 24 mls/hr Documented by: Amiodarone HCl/Dextrose (Nexterone / D5w) 360 mg in 200 mls @ 16.667 mls/hr IV .Q12H [facility] Stop: 12/05/21 00:47 Last Admin: 11/05/21 12:09 Dose: 0.5 mg/min, 16.7 mls/hr Documented by: Cefepime HCl 1,000 mg/ Syringe 11.3 mls @ 5.5 mls/min IV Q24H [facility]; Protocol Stop: 11/15/21 20:59 Insulin Aspart (Insulin Aspart Per Unit) 0 units SC ACHS CASEY Stop: 12/05/21 00:09 Last Admin: 11/05/21 12:09 Dose: Not Given Documented by: Insulin Glargine (Insulin Glargine Solostar 100 Units/Ml 3 Ml Pen) 0 units SC BID [facility] Stop: 12/04/21 20:59 Last Admin: 11/05/21 08:05 Dose: 5 units Documented by: Lidocaine (Lidocaine 5% 1 Patch) 1 patch TD HS [facility] Stop: 12/04/21 21:44 Last Admin: 11/04/21 21:51 Dose: 1 patch Documented by: Magnesium Hydroxide (Magnesium Hydroxide Susp 30 Ml Udc) 30 ml PO Q12H PRN PRN Reason: Constipation Stop: 12/04/21 20:19 Magnesium Oxide (Magnesium Oxide 400 Mg Tab) 400 mg PO DAILY CASEY Stop: 12/05/21 08:59 Last Admin: 11/05/21 08:03 Dose: 400 mg Documented by: Meclizine HCl (Meclizine Hcl 25 Mg Tab) 25 mg PO HS CASEY Stop: 12/04/21 20:59 Last Admin: 11/04/21 22:10 Dose: 25 mg Documented by: Miscellaneous (Carbohydrates For Hypoglycemia ) 15 - 30 gm PO UD PRN PRN Reason: Hypoglycemia Protocol Stop: 12/04/21 20:19 Miscellaneous (Remove Lidoderm Patch) 1 ea N/A DAILY CASEY Stop: 12/05/21 08:59 Last Admin: 11/05/21 08:05 Dose: 1 ea Documented by: Niacin (Niacin 500 Mg Tab) 500 mg PO BID CASEY Stop: 12/04/21 20:59 Last Admin: 11/05/21 08:03 Dose: 500 mg Documented by: Nitroglycerin (Nitroglycerin Sl 0.4 Mg/Tab Tab) 0.4 mg SL UD PRN PRN Reason: chest pain Stop: 12/04/21 20:19 Oxycodone HCl (Oxycodone Hcl Ir 5 Mg Tab (Immediate Release)) 5 mg PO Q6H PRN PRN Reason: Severe Pain Stop: 11/06/21 21:24 Last Admin: 11/05/21 05:00 Dose: 5 mg Documented by: Polyethylene Glycol (Polyethylene (Miralax) 17 Gm Pack) 17 gm PO DAILY PRN PRN Reason: Constipation Stop: 12/04/21 20:19 Pyridoxine HCl (Pyridoxine Hcl 50 Mg Tab) 100 mg PO HS CASEY Stop: 12/04/21 20:59 Last Admin: 11/04/21 22:10 Dose: 100 mg Documented by: Vitamin D (Cholecalciferol 5,000 Units 125 Mcg Tab) 5,000 units PO HS CASEY Stop: 12/04/21 20:59 Last Admin: 11/04/21 22:09 Dose: 5,000 units Documented by: (1) Atrial flutter Atrial flutter type: unspecified Qualified Code(s): I48.92 - Unspecified atrial flutter
[2021-11-05] MEDS ORDERED: LIDOCAINE 5% 1 PATCH TD SCH (14:00)
--- NOTE | 2021-11-05 14:07 | Cardiology Progress Note ---
Date of Service November 05, 2021 Assessment & Plan (1) Atrial flutter with rapid ventricular response: (2) CAD (coronary artery disease), [place] coronary artery: (3) Anemia: (4) Bladder carcinoma: (5) Stage 4 chronic kidney disease: Plan: 65-year-old patient presented with paroxysmal atrial flutter rapid ventricular response status post external direct-current cardioversion. Patient is at increased risk for bleeding due to bladder carcinoma and known recurrent hematuria. Hemoglobin trending down to 7.7gm/dL this morning. With history of left atrial appendage clip, atrial flutter duration <24 hours, he is low risk for intracardiac thrombus. Recommend discontinuation of anticoagulation today. Transition IV amiodarone to oral amiodarone 200 mg twice daily. Continue aspirin as previously ordered. History of bradycardia related to beta-phuong therapy. Per review of outpatient records, patient declined statin therapy. Recommend trial of atorvastatin 40 mg daily if the agreeable. Close cardiology follow-up in 2 weeks. Admission and Anticipated Discharge Date Admission Date: November 04, 2021 Subjective Patient seen and examined at the bedside. Converted to sinus rhythm external direct-current cardioversion performed yesterday without complication. Remains in sinus rhythm overnight. Feeling well from a cardiovascular perspective this morning. Anxious for discharge. Offers no concerns/complaints.Coronary artery bypass grafting, biatrial maze, left atrial appendage clip performed summer 2020 at [facility]. IV heparin currently infusing. Hemoglobin has trended down to 7.7 overnight. No signs/symptoms of GI/ blood loss. Review of Systems Review of Systems: All systems reviewed & are unremarkable except as noted in Subjective Physical Exam Constitutional: well nourished; no acute distress Respiratory: no respiratory distress, no labored breathing, no retractions and does not use accessory muscles Auscultation: lungs clear to auscultation bilaterally; no crackles, no rales, no rhonchi and no wheezes Cardiovascular: Rate/Rhythm: regular rate and regular rhythm Heart Sounds: normal S1 and normal S2; no murmur Vessels: radial pulses present; no JVD and no carotid bruit Extremities: no edema Gastrointestinal (Abdomen): Inspection/Auscultation: abdomen normal to inspection and normal bowel sounds; abdomen not distended Percussion/Palpation: abdomen soft; abdomen nontender, no guarding and abdomen not rigid Neurologic: CN's II-XI intact bilaterally and moves all extremities; no focal motor deficits Motor/Sensory: no tremor Psychiatric: A+Ox3, euthymic affect Results & Data ([facility]) Vital Signs (Past 12 Hours) Vital Signs Temp Pulse Pulse Resp BP Pulse Ox 11/05/21 11:00 37.0 C 78 18 118/74 100 11/05/21 08:29 36.9 C 71 18 130/73 97 11/05/21 07:16 71 11/05/21 04:08 36.8 C 72 16 100/63 99
[2021-11-05] MEDS: AMIODARONE 200 MG TAB PO SCH (16:48)
[2021-11-05] MEDS ORDERED: CEFEPIME 1,000 MG in SYRINGE 0 ML IV SCH (21:00)
[2021-11-05] MEDS: ASPIRIN 81 MG ECTAB PO SCH (21:16)
[2021-11-05] MEDS: CHOLECALCIFEROL 5,000 UNITS 125 MCG TAB PO SCH (21:17)
[2021-11-05] MEDS: MECLIZINE HCL 25 MG TAB PO SCH (21:18)
[2021-11-05] MEDS: PYRIDOXINE HCL 50 MG TAB PO SCH (21:19)
[2021-11-05] MEDS: LIDOCAINE 5% 1 PATCH TD SCH ×2 (21:20→22:21)
[2021-11-06] MEDS: ACETAMINOPHEN 325 MG TAB PO PRN ×2 (01:29→13:39)
[2021-11-06 06:23] LABS: Hematocrit (blood only) 27.2 % (42-52); Hemoglobin 8.4 g/dL (14.0-18.0); Mean Corpuscular Hemoglobin 26.5 pg (25-34); Mean Corpuscular Hgb Conc 30.9 g/dL (32-36); Mean Corpuscular Volume 85.8 fL (80-100); Mean Platelet Volume 8.9 fL (7.4-10.4); Platelet Count 421 K/uL (130-400); RDW Standard Deviation 59.5 fL (36.4-46.3); Red Blood Count 3.17 M/uL (4.7-6.1); White Blood Count 10.36 K/uL (4.8-10.8)
[2021-11-06 06:48] LABS: BUN Creatinine Ratio 18.5 (10-20); Calcium 8.8 mg/dl (8.5-10.1); Creatinine Clr Calc Pharmacy 28.9 ml/min; Est GFR (African American) 30.9 ml/min; Est GFR (Non-African American) 26.7 ml/min; Potassium 4.4 mmol/L (3.5-5.1)
--- NOTE | 2021-11-06 08:07 | Electrocardiogram Report ---
Test Reason : Blood Pressure : / mmHG Vent. Rate : 173 BPM Atrial Rate : 346 BPM P-R Int : 000 ms QRS Dur : 072 ms QT Int : 270 ms P-R-T Axes : 000 073 130 degrees QTc Int : 458 ms Atrial flutter with 2:1 A-V conduction Low voltage QRS Cannot rule out Anterior infarct (cited on or before 04-NOV-2021) Abnormal ECG When compared with ECG of 01-JUL-2021 15:06, Atrial flutter has replaced Sinus rhythm Vent. rate has increased BY [address] now depressed in Anterior leads Confirmed by Gerard Wallace ([id number]) on 11/06/2021 8:07:10 AM Referred By: REFERRED SELF Confirmed By:Gerard Wallace
--- NOTE | 2021-11-06 08:13 | Electrocardiogram Report ---
Test Reason : Blood Pressure : / mmHG Vent. Rate : 081 BPM Atrial Rate : 076 BPM P-R Int : 000 ms QRS Dur : 074 ms QT Int : 384 ms P-R-T Axes : 000 051 094 degrees QTc Int : 446 ms Sinus rhythm with Premature atrial complexes Nonspecific ST and T wave abnormality Abnormal ECG When compared with ECG of 04-NOV-2021 15:33, (unconfirmed) Sinus rhythm has replaced Atrial flutter Vent. rate has decreased BY [address] elevation now present in Inferior leads Confirmed by Gerard Wallace ([id number]) on 11/06/2021 8:13:07 AM Referred By: REFERRED SELF Confirmed By:Gerard Wallace
[2021-11-06] MEDS: INSULIN ASPART PER UNIT SC SCH ×4 (08:24→21:26)
--- NOTE | 2021-11-06 08:30 | Electrocardiogram Report ---
Test Reason : Blood Pressure : / mmHG Vent. Rate : 073 BPM Atrial Rate : 073 BPM P-R Int : 136 ms QRS Dur : 076 ms QT Int : 416 ms P-R-T Axes : 087 077 105 degrees QTc Int : 458 ms Normal sinus rhythm Pulmonary disease pattern Nonspecific ST abnormality Abnormal ECG When compared with ECG of 04-NOV-2021 18:18, (unconfirmed) Premature atrial complexes are no longer Present Confirmed by Gerard Wallace ([id number]) on 11/06/2021 8:30:36 AM Referred By: REFERRED SELF Confirmed By:Gerard Wallace
[2021-11-06] MEDS: INSULIN GLARGINE SOLOSTAR 100 UNITS/ML 3 ML PEN SC SCH ×2 (08:38→21:26)
[2021-11-06] MEDS: NIACIN 500 MG TAB PO SCH ×2 (08:40→21:26)
[2021-11-06] MEDS: AMIODARONE 200 MG TAB PO SCH ×2 (08:40→16:52)
[2021-11-06] MEDS: amLODIPine BESYLATE 5 MG TAB PO SCH (08:40)
[2021-11-06] MEDS: OMEGA-3 (PURIFIED FISH OIL) 1 GM CAP PO SCH (08:40)
[2021-11-06] MEDS: MAGNESIUM OXIDE 400 MG TAB PO SCH (08:40)
[2021-11-06] MEDS: ASCORBIC ACID 500 MG TAB PO SCH ×2 (08:40→21:25)
[2021-11-06] MEDS: DOCUSATE SODIUM 100 MG CAP PO SCH ×2 (08:40→21:25)
--- NOTE | 2021-11-06 09:00 | Electrocardiogram Report ---
Test Reason : Blood Pressure : / mmHG Vent. Rate : 077 BPM Atrial Rate : 077 BPM P-R Int : 122 ms QRS Dur : 082 ms QT Int : 396 ms P-R-T Axes : 096 085 099 degrees QTc Int : 448 ms Normal sinus rhythm Inferior infarct , age undetermined T-wave inversion in Anterior leads Abnormal ECG When compared with ECG of 05-NOV-2021 05:43, (unconfirmed) No significant change was found Confirmed by Gerard Wallace ([id number]) on 11/06/2021 8:59:49 AM Referred By: REFERRED SELF Confirmed By:Gerard Wallace
--- NOTE | 2021-11-06 11:30 | Cardiology Progress Note ---
Date of Service November 06, 2021 Assessment & Plan (1) Atrial flutter with rapid ventricular response: (2) CAD (coronary artery disease), [place] coronary artery: (3) Anemia: (4) Bladder carcinoma: (5) Stage 4 chronic kidney disease: Plan: 65-year-old patient presented with paroxysmal atrial flutter rapid ventricular response status post external direct-current cardioversion. Patient is at increased risk for bleeding due to bladder carcinoma and known recurrent hematuria. Hemoglobin trending upward to 8.4 gm/dL this morning. With history of left atrial appendage clip, atrial flutter duration <24 hours, he is low risk for intracardiac thrombus. Anticoagulation discontinued 11/05/2021. Continue oral amiodarone 200 mg twice daily for 2 weeks then reduce dose to once daily. Continue aspirin as previously ordered. History of bradycardia related to beta-phuong therapy. Consider electrophysiology consultation regarding atrial flutter in the outpatient setting. Per review of outpatient records, patient declined statin therapy. Recommend trial of atorvastatin 40 mg daily if the agreeable. Close cardiology follow-up in 2 weeks. Admission and Anticipated Discharge Date Admission Date: November 04, 2021 Subjective Patient seen examined at the bedside. Remains in sinus rhythm. Denies palpitations or chest discomfort. present for evaluation via telephone. Patient offers no complaints. Review of Systems Review of Systems: All systems reviewed & are unremarkable except as noted in Subjective Physical Exam Constitutional: well nourished; no acute distress Respiratory: no respiratory distress, no labored breathing, no retractions and does not use accessory muscles Auscultation: lungs clear to auscultation b ilaterally; no crackles, no rales, no rhonchi and no wheezes Cardiovascular: Rate/Rhythm: regular rate and regular rhythm Heart Sounds: normal S1 and normal S2; no murmur Vessels: radial pulses present; no JVD and no carotid bruit Extremities: no edema Gastrointestinal (Abdomen): Inspection/Auscultation: abdomen normal to inspection and normal bowel sounds; abdomen not distended Percussion/Pal pation: abdomen soft; abdomen nontender, no guarding and abdomen not rigid Neurologic: CN's II-XI intact bilaterally and moves all extremities; no focal motor deficits Motor/Sensory: no tremor Psychiatric: A+Ox3, euthymic affect Results & Data ([facility]) Vital Signs (Past 12 Hours) Vital Signs Temp Pulse Resp BP Pulse Ox 06/05/22 08:42 112/64 11/06/21 07:50 37.0 C 80 19 99/62 L 98 11/06/21 02:32 37.2 C 86 16 125/74 96 11/05/21 23:41 37.1 C 79 18 133/76 99
--- NOTE | 2021-11-06 15:26 | Hospitalist Progress Note ---
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 Denies CP, SOB, palpitations. In the ER, he was found to be in atrial flutter rapid ventricular rate, rate in 170s. Was given diltiazem and drip without improvement.Cardiology consulted and performed cardioversion with conversion to sinus rhythm Atrial flutter with RVR s/p successful cardioversion 11/04 - s/p iv amio- now on po amio 200 bid for 2 weeks followed by once daily per cardio - s/p heparin drip- cardio did not recommend ongoing anticog given his low thrombic risk, his anemia and bladder cancer and his risk of bleeding - cardio recommended trial of lipitor as well as OP follow up with EP consult - echo and tele reviewed PAF s/p surgical ALEXANDREA occlusion and not on anticoagulation Abnormal UA- urine clx negative- remains stable and empiric antibiotics discontinued. Recently treated with cefdinir course 10/13/21. 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 Patient treating with alternative medicine - Nephrostomy tube in place CAD (coronary artery disease), [place] coronary artery: S/P CABG x 4 in 2020 - Continue aspirin. Not on ACEI secondary to CKD. Not on beta phuong secondary to h/o bradycardia, not on statin secondary to self preference; reports not taking fenofibrate DM2: A1c: 8. Patient finished medrol dose pack for knee pain on 11/05/21 - Hold home glycemic agents; basal bolus insulin per protocol- cautious in setting of CKD. Stage 4 chronic kidney disease: Cr: 2.43, Baseline 2.4-2.8; monitor renal func tions, avoid nephrotoxic agents when possible Anemia: Hgb: 8.8->7.7->8.8. no active bleeding noted. Monitor. Not on anticoagulation. HTN: Continue amlodipine Left hip/knee pain- diagnosed with arthritis and on medrol dose pack started 10/28. Significantly improved with lidocaine patch, however patient and were very concerned and would like to know what is the cause prior to discharge home- Consult ortho for further input and if any further imaging is warranted. Seen by PT/OT. DVT Prophylaxis- sc heparin Dispo- Pending ortho eval. Discharge tomorrow if labs stable and no further work up per ortho Updated over the phone regarding plan of care Admission and Anticipated Discharge Date Admission Date: November 04, 2021 Subjective He feels okay. Denies any chest pain, palpitations, fever, chills. Denies any dysuria. His hip and knee pain is significantly improved with lidocaine patch. His xray femur and knee showed only mild degenerative changes of hip and knee however his is very concerned about the pain and would like an answer as to why it would hurt so much, rather than depend on the patch and therapy. Discussed about OP follow up with ortho but she is concerned about discharge- she is agreeable to ortho evaluation to see if they have any input and see if he would need any workup. Physical Exam Physical Exam: General: Lying comfortably in bed, not in distress, on room air HEENT: EOMI, JASWANT, MMM Chest: Clear breath sounds bilaterally, no wheezes or crackles CVS: Regular rate and rhythm, normal heart sounds, no murmur Abdomen: Soft, non tender, not distended, normal bowel sounds Left sided nephrostomy tube Neuro: Awake, alert, oriented, conversing well, non focal Extremities: No cyanosis, clubbing or edema Results & Data Results & Data ([facility]) Vital Signs (Past 12 Hours) Vital Signs Temp Pulse Resp BP Pulse Ox 11/06/21 12:07 36.9 C 86 19 122/74 99 11/06/21 08:42 112/64 11/06/21 07:50 37.0 C 80 19 99/62 L 98 Laboratory Results Short CBC 11/06/21 Range/Units 06:01 WBC 10.36 (4.8-10.8) K/uL Hgb 8.4 L (14.0-18.0) g/dL Hct 27.2 L (42-52) % Plt Count 421 H (130-400) K/uL BMP 11/06/21 06:01 Sodium 137 Potassium 4.4 Chloride 106 Carbon Dioxide 23 BUN 45 H Creatinine 2.43 H D Glucose 129 H Calcium 8.8 Medications Administered Current Inpatient Medications Acetaminophen (Acetaminophen 325 Mg Tab) 650 mg PO Q4H PRN PRN Reason: Pain or Fever Stop: 12/04/21 20:19 Last Admin: 11/06/21 13:39 Dose: 650 mg Documented by: Amiodarone HCl (Amiodarone 200 Mg Tab) 200 mg PO BIDM CASEY Stop: 12/05/21 16:59 Last Admin: 11/06/21 08:40 Dose: 200 mg Documented by: Amlodipine Besylate (Amlodipine Besylate 5 Mg Tab) 5 mg PO DAILY CASEY Stop: 12/05/21 08:59 Last Admin: 11/06/21 08:40 Dose: 5 mg Documented by: Ascorbic Acid (Ascorbic Acid 500 Mg Tab) 2,000 mg PO BID CASEY Stop: 12/04/21 20:59 Last Admin: 11/06/21 08:40 Dose: 2,000 mg Documented by: Aspirin (Aspirin 81 Mg Ectab) 81 mg PO HS CASEY Stop: 12/04/21 20:59 Last Admin: 11/05/21 21:16 Dose: 81 mg Documented by: Dextrose (Dextrose 50% 50 Ml Syringe) 25 - 50 ml IV UD PRN; Protocol PRN Reason: Hypoglycemia Protocol Stop: 12/04/21 20:19 Docusate Sodium (Docusate Sodium 100 Mg Cap) 100 mg PO BID CASEY Stop: 12/04/21 20:59 Last Admin: 11/06/21 08:40 Dose: 100 mg Documented by: Fish Oil ([place]-3 (Purified Fish Oil) 1 Gm Cap) 1 gm PO DAILY CASEY Stop: 12/05/21 08:59 Last Admin: 11/06/21 08:40 Dose: 1 gm Documented by: Glucagon (Glucagon For Inj 1 Mg Vial) 1 mg SQ UD PRN; Protocol PRN Reason: Hypoglycemia Protocol Stop: 12/04/21 20:19 Glucose (Glucose 10 Tabs/Tube) 4 - 8 tabs PO UD PRN; Protocol PRN Reason: Hypoglycemia Protocol Stop: 12/04/21 20:19 Glucose (Glucose 40% Gel 15 Gm Tube) 15 - 30 gm PO UD PRN; Protocol PRN Reason: Hypoglycemia Protocol Stop: 12/04/21 20:19 Insulin Aspart (Insulin Aspart Per Unit) 0 units SC ACHS CASEY Stop: 12/05/21 00:09 Last Admin: 11/06/21 12:15 Dose: 4 units Documented by: Insulin Glargine (Insulin Glargine Solostar 100 Units/Ml 3 Ml Pen) 0 units SC BID CASEY Stop: 12/04/21 20:59 Last Admin: 11/06/21 08:38 Dose: 5 units Documented by: Lidocaine (Lidocaine 5% 1 Patch) 1 patch TD HS CASEY Stop: 12/04/21 21:44 Last Admin: 11/05/21 22:21 Dose: 1 patch Documented by: Magnesium Hydroxide (Magnesium Hydroxide Susp 30 Ml Udc) 30 ml PO Q12H PRN PRN Reason: Constipation Stop: 12/04/21 20:19 Magnesium Oxide (Magnesium Oxide 400 Mg Tab) 400 mg PO DAILY CASEY Stop: 12/05/21 08:59 Last Admin: 11/06/21 08:40 Dose: 400 mg Documented by: Meclizine HCl (Meclizine Hcl 25 Mg Tab) 25 mg PO HS CASEY Stop: 12/04/21 20:59 Last Admin: 11/05/21 21:18 Dose: 25 mg Documented by: Miscellaneous (Carbohydrates For Hypoglycemia ) 15 - 30 gm PO UD PRN PRN Reason: Hypoglycemia Protocol Stop: 12/04/21 20:19 Miscellaneous (Remove Lidoderm Patch) 1 ea N/A DAILY CASEY Stop: 12/05/21 08:59 Last Admin: 11/06/21 08:51 Dose: 1 ea Documented by: Niacin (Niacin 500 Mg Tab) 500 mg PO BID CASEY Stop: 12/04/21 20:59 Last Admin: 11/06/21 08:40 Dose: 500 mg Documented by: Nitroglycerin (Nitroglycerin Sl 0.4 Mg/Tab Tab) 0.4 mg SL UD PRN PRN Reason: chest pain Stop: 12/04/21 20:19 Oxycodone HCl (Oxycodone Hcl Ir 5 Mg Tab (Immediate Release)) 5 mg PO Q6H PRN PRN Reason: Severe Pain Stop: 11/06/21 21:24 Last Admin: 11/05/21 14:31 Dose: 5 mg Documented by: Polyethylene Glycol (Polyethylene (Miralax) 17 Gm Pack) 17 gm PO DAILY PRN PRN Reason: Constipation Stop: 12/04/21 20:19 Pyridoxine HCl (Pyridoxine Hcl 50 Mg Tab) 100 mg PO [facility] Stop: 12/04/21 20:59 Last Admin: 11/05/21 21:19 Dose: 100 mg Documented by: Vitamin D (Cholecalciferol 5,000 Units 125 Mcg Tab) 5,000 units PO [facility] Stop: 12/04/21 20:59 Last Admin: 11/05/21 21:17 Dose: 5,000 units Documented by: (1) Atrial flutter Atrial flutter type: unspecified Qualified Code(s): I48.92 - Unspecified atrial flutter
[2021-11-06 18:09] LABS: Appearance Urine Clear (Clear); Bacteria Urine Automated Negative (Negative); Bilirubin Urine Negative (Negative); Blood Urine 3+ (Negative); Color Urine Yellow; Epithelial Cell Urine Auto 20-30 /lpf (0-5); Glucose Urine UA Negative (Negative); Ketones Urine Negative (Negative); Leukocyte Esterase Urine 2+ (Negative); Nitrite Urine Negative (Negative); Protein Urine Negative (Negative); Specific Gravity Urine 1.007 (1.000-1.030); Urobilinogen Urine Negative (Negative); WBC Urine Automated >30 /hpf (0-5)
[2021-11-06] MEDS: CHOLECALCIFEROL 5,000 UNITS 125 MCG TAB PO SCH (21:25)
[2021-11-06] MEDS: MECLIZINE HCL 25 MG TAB PO SCH (21:26)
[2021-11-06] MEDS: PYRIDOXINE HCL 50 MG TAB PO SCH (21:26)
[2021-11-06] MEDS: ASPIRIN 81 MG ECTAB PO SCH (21:26)
[2021-11-06] MEDS: LIDOCAINE 5% 1 PATCH TD SCH (21:27)
[2021-11-06] MEDS: CEFEPIME 1,000 MG in SYRINGE 0 ML IV SCH (21:28)
[2021-11-07] MEDS: ACETAMINOPHEN 325 MG TAB PO PRN ×4 (00:58→21:49)
[2021-11-07 06:53] LABS: Basophils # (auto) 0.03 K/uL (0-0.2); Basophils % (auto) 0.3 %; Eosinophils # (auto) 0.18 K/uL (0-0.5); Eosinophils % (auto) 1.9 %; Hematocrit (blood only) 27.1 % (42-52); Hemoglobin 8.5 g/dL (14.0-18.0); Immature Granulocytes # (auto) 0.04 K/uL (0.00-0.02); Immature Granulocytes % (auto) 0.4 %; Lymphocytes # (auto) 1.19 K/uL (1.2-3.4); Lymphocytes % (auto) 12.4 %; Mean Corpuscular Hemoglobin 27.1 pg (25-34); Mean Corpuscular Hgb Conc 31.4 g/dL (32-36); Mean Corpuscular Volume 86.3 fL (80-100); Mean Platelet Volume 9.1 fL (7.4-10.4); Monocytes # (auto) 0.58 K/uL (0.11-0.59); Neutrophils # (auto) 7.58 K/uL (1.4-6.5); Platelet Count 381 K/uL (130-400); RDW Coefficient of Variation 19.5 % (11.5-14.5); RDW Standard Deviation 61.3 fL (36.4-46.3); Red Blood Count 3.14 M/uL (4.7-6.1)
[2021-11-07 07:09] LABS: BUN Creatinine Ratio 18.7 (10-20); C Reactive Protein 13.54 mg/dl (0-0.5); Calcium 9.1 mg/dl (8.5-10.1); Creatinine Clr Calc Pharmacy 26.8 ml/min; Est GFR (African American) 28.2 ml/min; Est GFR (Non-African American) 24.4 ml/min; Magnesium 1.3 mg/dl (1.7-2.4); Potassium 4.8 mmol/L (3.5-5.1)
[2021-11-07] MEDS: INSULIN ASPART PER UNIT SC SCH ×4 (07:55→20:22)
[2021-11-07] MEDS: NIACIN 500 MG TAB PO SCH ×2 (08:00→20:23)
[2021-11-07] MEDS: INSULIN GLARGINE SOLOSTAR 100 UNITS/ML 3 ML PEN SC SCH ×2 (08:00→20:22)
[2021-11-07] MEDS: DOCUSATE SODIUM 100 MG CAP PO SCH ×2 (08:00→20:23)
[2021-11-07] MEDS: ASCORBIC ACID 500 MG TAB PO SCH ×2 (08:00→20:23)
[2021-11-07] MEDS: AMIODARONE 200 MG TAB PO SCH ×2 (08:00→16:48)
[2021-11-07] MEDS: amLODIPine BESYLATE 5 MG TAB PO SCH (08:00)
[2021-11-07] MEDS: OMEGA-3 (PURIFIED FISH OIL) 1 GM CAP PO SCH (08:00)
[2021-11-07] MEDS: MAGNESIUM OXIDE 400 MG TAB PO SCH (08:00)
--- NOTE | 2021-11-07 08:51 | Orthopedic Consultation ---
Date of Service November 07, 2021 Assessment & Plan (1) Lumbar radiculopathy: It seems like most of his pain may be coming from his back. He says he has to bend forward for comfort. When he lies flat at night is when he has most of his pain in his left thigh. I like to get some x-rays of his left hip and his lumbar spine. I also want an MRI of his lumbar spine. We will continue to treat him once the studies return. History of Present Illness Reason for Consultation: Left hip and thigh pain Requesting Physician: . Attending Physician: Ja Lund MD Giorgio is a 65-year-old male who was recently has been dealing with some cardiac issues. He is been receiving cardiac care for that. Unfortunately about a month ago he began having significant pain from his left gluteal region down to his left knee. It was fairly debilitating. He said when he was out in the store he had to grab onto a shopping cart and bent forward to help alleviate the pain. He has difficulty lying flat at night. When he lies flat at night that is when he has the most pain down his left leg. He says that the pain moves around. Sometimes it is in his thigh, sometimes in his groin, sometimes in his knee. He is currently admitted to the hospital for cardiac issues. He had x- rays of his left knee which were negative. Orthopedics was consulted to evaluate and treat his left thigh pain. Allergies Allergy/AdvReac Type Severity Reaction Status Date / Time kiwi Allergy Intermediate Lip and Unverified 11/04/21 16:50 Tongue Swell metoprolol AdvReac Intermediate Immediate Unverified 11/04/21 17:04 Bradycardia Hemp Seeds Allergy Intermediate Tongue Uncoded 11/04/21 16:50 Swells Home Medications Medication Instructions Recorded Confirmed Type alpha lipoic acid 600 mg capsule 600 mg PO HS 07/18/20 11/04/21 History ascorbic acid (vitamin C) 1,000 mg 2,000 mg PO BID 07/18/20 11/04/21 History tablet,extended release aspirin 81 mg tablet,delayed 81 mg PO HS 07/18/20 11/04/21 History release biotin 1,000 mcg chewable tablet 1,000 mcg PO HS 07/18/20 11/04/21 History cholecalciferol (vitamin D3) 125 125 mcg PO HS 07/18/20 11/04/21 History mcg (5,000 unit) tablet coenzyme Q10 100 mg capsule 300 mg PO TID 07/18/20 11/04/21 History (CoQ-10) linagliptin 5 mg tablet (Tradjenta) 5 mg PO DAILY 07/18/20 11/04/21 History meclizine 25 mg tablet 25 mg PO HS 07/18/20 11/04/21 History niacin 500 mg tablet 500 mg PO BID 07/18/20 11/04/21 History pyridoxine (vitamin B6) 100 mg 100 mg PO HS 07/18/20 11/04/21 History tablet (Vitamin B-6) vitamin B complex 1 tab PO DAILY 07/18/20 11/04/21 History Apigenin 50 mg PO QAM 01/02/21 11/04/21 History acetylcysteine 600 mg capsule (NAC) 600 mg PO HS PRN 01/02/21 11/04/21 History nitroglycerin 0.4 mg sublingual 0.4 mg SUBLINGUAL UD PRN #20 tab 01/08/21 11/04/21 Rx tablet (Nitrostat) amlodipine 5 mg tablet 5 mg PO DAILY 11/04/21 11/04/21 History docusate sodium 100 mg capsule 100 mg PO BID 11/04/21 11/04/21 History glipizide 10 mg tablet, extended 10 mg PO DAILY 11/04/21 11/04/21 History release 24 hr uyvfteqowxv-cgh-plrfpgyyk-vitC 1 cap PO DAILY 11/04/21 11/04/21 History capsule (Glucosamine Complex-MSM) magnesium 250 mg tablet 250 mg PO DAILY 11/04/21 11/04/21 History methylprednisolone 4 mg tablets in 4 - 24 mg PO DAILY 11/04/21 11/04/21 History a dose pack omega [id number]-gbw-[id number]-fish oil 1,000 mg 1 cap PO DAILY 11/04/21 11/04/21 History (120 mg-180 mg) capsule (Fish Oil) amiodarone 200 mg tablet 200 mg PO UD #60 tab 11/06/21 Rx atorvastatin 40 mg tablet (Lipitor) 40 mg PO HS #30 tab 11/06/21 Rx lidocaine 5 % topical patch 1 patch TRANSDERMAL HS #30 ea 11/06/21 Rx Past Med/Surg History Medical History Bladder carcinoma CAD (coronary artery disease) Chronic kidney disease Chronic sinusitis Concussion DM type 2 (diabetes mellitus, type 2) Dyslipidemia HTN (hypertension) Paroxysmal A-fib Urothelial cancer Varicella without complication Surgical History S/P CABG x 4 Family History Mother Hypertension Cancer Father Cancer Hypertension Grandmother (Maternal) Cancer Social History Smoking Status: Never smoker Second Hand Exposure: Yes; Do You Dip or Chew Tobacco: No; Hx Alcohol Use: Yes Alcohol type: hard liquor Hx Substance Use: No Preferred Language: Filipino Communication Ability: Effective 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 Physical Exam On physical examination, there is no effusion of his left knee. Is good range of motion. Examination of his hip shows good range of motion. He is little discomfort with forced internal rotation but is not too bad. Examination of his lumbar spine shows he is unable to stand up straight. If I hyperextend his back he has increased pain down his left leg. Constitutional WD/WN, vitals as above Eyes PERRL, conjunctivae normal, anicteric sclerae ENMT external ear and nose normal, oropharynx normal Neck trachea midline, no thyromegaly Respiratory normal respiratory effort Cardiovascular RRR, no murmur, no edema Gastrointestinal (Abdomen) normal bowel sounds, soft, nontender, no hepatosplenomegaly Psychiatric A+Ox3, euthymic affect Results & Data Results & Data Laboratory Results . Diagnostic Findings X-rays of the left knee were revealed and show no evidence of arthritis. The x- rays are essentially negative. CT scan of the pelvis from a month ago was reviewed and shows some mild arthritis of the left hip but nothing major. I will see any lesions in the bone. PG Care Time/CCT Total # of Minutes Spent Total Time Spent with Patient: Total time spent is greater than 50% in coordination of care (as documented) at patient's floor/unit and/or counseling patient: Coding Level of Care Code 11061 Inpt Consult Level 4 Diagnoses Lumbar radiculopathy M54.16
[2021-11-07] MEDS: SODIUM CHLORIDE 0.9% 1000ML 1,000 ML IV SCH ×2 (08:57→20:21)
[2021-11-07] MEDS: MAGNESIUM SULFATE / D5W 1 GM/100 ML BAG IV SCH ×4 (09:06→14:57)
--- NOTE | 2021-11-07 09:15 | Hospitalist Progress Note ---
Date of Service November 07, 2021 Assessment & Plan (1) Atrial flutter: (2) Bladder carcinoma: (3) CAD (coronary artery disease), [place] coronary artery: (4) DM2 (diabetes mellitus, type 2): (5) Stage 4 chronic kidney disease: (6) Anemia: (7) HTN (hypertension): (8) Abnormal urinalysis: Plan: Patient is 65-year-old male with PMH Paroxysmal atrial fibrillation not on anticoagulation, CAD, NSTEMI s/p CABG x4 in December 2020, bladder cancer with metastasis intrapelvic lymph nodes, CKD IV, nephrostomy tube, chronic anemia, HTN, HLD, DM II presented to the ER for tachycardia found at PCP office today. Denies CP, SOB, palpitations. In the ER, he was found to be in atrial flutter rapid ventricular rate, rate in 170s. Was given diltiazem and drip without improvement.Cardiology consulted and performed cardioversion with conversion to sinus rhythm Atrial flutter with RVR s/p successful cardioversion 11/04 - s/p iv amio- now on po amio 200 bid for 2 weeks followed by once daily per cardio - s/p heparin drip- cardio did not recommend ongoing anticog given his low thrombic risk, his anemia and bladder cancer and his risk of bleeding - cardio recommended trial of lipitor as well as OP follow up with EP consult - echo and tele reviewed Left hip/knee pain- seen by orthopedics- plan for imaging of left hip and back including MRI lumbar spine noted. Further management per ortho. Continue pain regimen- lidocaine patch, tylenol, oxy prn. CK normal. Inflammatory markers ESR/CRP elevated- if ortho work up negative, will need rheum evaluation. Stage 4 chronic kidney disease: Cr continues to trend up 2.1->2.4->2.6, will give some gentle ivf and recheck in am. Avoid nephrotoxics PAF s/p surgical ALEXANDREA occlusion and not on anticoagulation Abnormal UA- urine clx negative however has recurrence of symptoms, hence repeat UA sent which is abnormal concerning for UTI and resumed back on cefepime. Continue pending culture results. Recently treated with cefdinir course 10/13/21. 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 Patient treating with alternative medicine - Nephrostomy tube in place CAD (coronary artery disease), [place] coronary artery: S/P CABG x 4 in 2020 - Continue aspirin. Not on ACEI secondary to CKD. Not on beta phuong secondary to h/o bradycardia, not on statin secondary to self preference; reports not taking fenofibrate DM2: A1c: 8. Patient finished medrol dose pack for knee pain on 11/05/21 - Hold home glycemic agents; basal bolus insulin per protocol- cautious in setting of CKD. Anemia: Hgb: 8.8->7.7->8.4->8.5. no active bleeding noted. Monitor. Not on anticoagulation. HTN: Continue amlodipine Hypomagnesemia- repleted. recheck in am. DVT Prophylaxis- sc heparin Dispo- Pending further ortho work up, pending final urine clx results Admission and Anticipated Discharge Date Admission Date: November 04, 2021 Subjective States he had bad left hip/knee pain overnight, currently slightly better. Denies any fever, chills, nausea, vomiting. Seen by orthopedics and plan for more imaging hip/back noted. He is appreciative for addressing his concerns. Physical Exam Physical Exam: General: Sitting in chair, leaning forward, not in acute distress, on room air HEENT: EOMI, JASWANT, MMM Chest: Clear breath sounds bilaterally, no wheezes or crackles CVS: Regular rate and rhythm, normal heart sounds, no murmur Abdomen: Soft, non tender, not distended, normal bowel sounds Left sided nephrostomy tube Neuro: Awake, alert, oriented, conversing well, non focal Extremities: No cyanosis, clubbing or edema Results & Data Results & Data ([facility]) Vital Signs (Past 12 Hours) Vital Signs Temp Pulse Pulse Resp BP Pulse Ox 11/07/21 07:16 36.7 C 102 H 19 127/70 97 11/07/21 07:00 85 11/07/21 03:53 37.4 C 95 H 18 118/70 98 11/06/21 23:51 89 11/06/21 23:48 37.9 C H 76 18 120/69 97 Laboratory Results Short CBC 11/07/21 Range/Units 06:10 WBC 9.60 (4.8-10.8) K/uL Hgb 8.5 L (14.0-18.0) g/dL Hct 27.1 L (42-52) % Plt Count 381 (130-400) K/uL BMP 11/07/21 06:10 Sodium 135 L Potassium 4.8 Chloride 103 Carbon Dioxide 20 L BUN 49 H Creatinine 2.62 H Glucose 150 H Calcium 9.1 Cardiac Enzymes 11/07/21 Range/Units 06:10 Total Creatine Kinase 12 L (30-223) U/L Urine 11/06/21 Range/Units 17:45 Urine Color Yellow Urine Appearance Clear (Clear) Urine pH 5.0 (4.5-7.5) Ur Specific [place] 1.007 (1.000-1.030) Urine Protein Negative (Negative) Urine Glucose (UA) Negative (Negative) Medications Administered Current Inpatient Medications Acetaminophen (Acetaminophen 325 Mg Tab) 650 mg PO Q4H PRN PRN Reason: Pain or Fever Stop: 12/04/21 20:19 Last Admin: 11/07/21 08:05 Dose: 650 mg Documented by: Amiodarone HCl (Amiodarone 200 Mg Tab) 200 mg PO BIDM CASEY Stop: 12/05/21 16:59 Last Admin: 11/07/21 08:00 Dose: 200 mg Documented by: Amlodipine Besylate (Amlodipine Besylate 5 Mg Tab) 5 mg PO DAILY CASEY Stop: 12/05/21 08:59 Last Admin: 11/07/21 08:00 Dose: 5 mg Documented by: Ascorbic Acid (Ascorbic Acid 500 Mg Tab) 2,000 mg PO BID CASEY Stop: 12/04/21 20:59 Last Admin: 11/07/21 08:00 Dose: 2,000 mg Documented by: Aspirin (Aspirin 81 Mg Ectab) 81 mg PO HS CASEY Stop: 12/04/21 20:59 Last Admin: 11/06/21 21:26 Dose: 81 mg Documented by: Dextrose (Dextrose 50% 50 Ml Syringe) 25 - 50 ml IV UD PRN; Protocol PRN Reason: Hypoglycemia Protocol Stop: 12/04/21 20:19 Docusate Sodium (Docusate Sodium 100 Mg Cap) 100 mg PO BID CASEY Stop: 12/04/21 20:59 Last Admin: 11/07/21 08:00 Dose: 100 mg Documented by: Fish Oil ([place]-3 (Purified Fish Oil) 1 Gm Cap) 1 gm PO DAILY CASEY Stop: 12/05/21 08:59 Last Admin: 11/07/21 08:00 Dose: 1 gm Documented by: Glucagon (Glucagon For Inj 1 Mg Vial) 1 mg SQ UD PRN; Protocol PRN Reason: Hypoglycemia Protocol Stop: 12/04/21 20:19 Glucose (Glucose 10 Tabs/Tube) 4 - 8 tabs PO UD PRN; Protocol PRN Reason: Hypoglycemia Protocol Stop: 12/04/21 20:19 Glucose (Glucose 40% Gel 15 Gm Tube) 15 - 30 gm PO UD PRN; Protocol PRN Reason: Hypoglycemia Protocol Stop: 12/04/21 20:19 Cefepime HCl 1,000 mg/ Syringe 11.3 mls @ 5.5 mls/min IV Q24H CASEY; Protocol Stop: 11/16/21 20:59 Last Admin: 11/06/21 21:28 Dose: 5.5 mls/min Documented by: Magnesium Sulfate/Dextrose (Magnesium Sulfate / D5w) 1 gm in 100 mls @ 50 mls/hr IV Q2H CAESY Stop: 11/07/21 15:59 Last Admin: 11/07/21 09:06 Dose: 50 mls/hr Documented by: Sodium Chloride (Nss 1000ml) 1,000 mls @ 80 mls/hr IV .[id number] CASEY Stop: 11/08/21 07:44 Last Admin: 11/07/21 08:57 Dose: 80 mls/hr Documented by: Insulin Aspart (Insulin Aspart Per Unit) 0 units SC ACHS CASEY Stop: 12/05/21 00:09 Last Admin: 11/07/21 07:55 Dose: 4 units Documented by: Insulin Glargine (Insulin Glargine Solostar 100 Units/Ml 3 Ml Pen) 0 units SC BID CASEY Stop: 12/04/21 20:59 Last Admin: 11/07/21 08:00 Dose: 5 units Documented by: Lidocaine (Lidocaine 5% 1 Patch) 1 patch TD HS [facility] Stop: 12/04/21 21:44 Last Admin: 11/06/21 21:27 Dose: 1 patch Documented by: Magnesium Hydroxide (Magnesium Hydroxide Susp 30 Ml Udc) 30 ml PO Q12H PRN PRN Reason: Constipation Stop: 12/04/21 20:19 Magnesium Oxide (Magnesium Oxide 400 Mg Tab) 400 mg PO DAILY CASEY Stop: 12/05/21 08:59 Last Admin: 11/07/21 08:00 Dose: 400 mg Documented by: Meclizine HCl (Meclizine Hcl 25 Mg Tab) 25 mg PO HS CASEY Stop: 12/04/21 20:59 Last Admin: 11/06/21 21:26 Dose: 25 mg Documented by: Miscellaneous (Carbohydrates For Hypoglycemia ) 15 - 30 gm PO UD PRN PRN Reason: Hypoglycemia Protocol Stop: 12/04/21 20:19 Miscellaneous (Remove Lidoderm Patch) 1 ea N/A DAILY CASEY Stop: 12/05/21 08:59 Last Admin: 11/07/21 08:01 Dose: 1 ea Documented by: Niacin (Niacin 500 Mg Tab) 500 mg PO BID CASEY Stop: 12/04/21 20:59 Last Admin: 11/07/21 08:00 Dose: 500 mg Documented by: Nitroglycerin (Nitroglycerin Sl 0.4 Mg/Tab Tab) 0.4 mg SL UD PRN PRN Reason: chest pain Stop: 12/04/21 20:19 Polyethylene Glycol (Polyethylene (Miralax) 17 Gm Pack) 17 gm PO DAILY PRN PRN Reason: Constipation Stop: 12/04/21 20:19 Pyridoxine HCl (Pyridoxine Hcl 50 Mg Tab) 100 mg PO HS CASEY Stop: 12/04/21 20:59 Last Admin: 11/06/21 21:26 Dose: 100 mg Documented by: Vitamin D (Cholecalciferol 5,000 Units 125 Mcg Tab) 5,000 units PO HS CASEY Stop: 12/04/21 20:59 Last Admin: 11/06/21 21:25 Dose: 5,000 units Documented by: (1) Atrial flutter Atrial flutter type: unspecified Qualified Code(s): I48.92 - Unspecified atrial flutter
--- NOTE | 2021-11-07 09:57 | XRay Report ---
XR femur LT 2V routine, XR hip 1V LT w pelvis HISTORY: 65 years-old Male thigh pain with bladder cancer acute left-sided hip and thigh pain COMPARISON: Lumbar spine radiographs of same day, CT abdomen and pelvis 07/01/2021 TECHNIQUE: AP view of the pelvis with 2 views of the left hip and 2 views of the left femur FINDINGS: PELVIS/LEFT HIP: There is mild osteoarthritis of the hips. No acute fracture, dislocation or avascular necrosis. Surgi kalyn clips project over the upper right thigh. Partially imaged right-sided ureteral stent is noted wi th distal tip projected superiorly within the pelvis. Pelvic basin calcifications may represent phleb oliths. LEFT FEMUR: Mild upper thigh soft tissue swelling laterally. No acute fracture, dislocation or opaque foreign bod y. Mild osteoarthritis of the knee. IMPRESSION: No acute fracture. ACT 112: Negative or not required by law. The above report was generated using voice recognition software. It may contain grammatical, syntax o r spelling errors. Electronically signed by: Franco Abbott M.D. 11/07/2021 9:56 AM
--- NOTE | 2021-11-07 10:19 | XRay Report ---
LUMBAR SPINE 3 VIEWS CLINICAL HISTORY: Low back pain. Left-sided lumbar radiculopathy. FINDINGS: 3 views of the lumbar spine are correlated with abdominal CT dated 07/01/2021. The skeletal structures appear osteopenic. There is no radiographic evidence of fracture or malalignment. Vertebr al body height and alignment are maintained. The transverse and spinous processes are intact. Small a nterior and lateral marginal osteophytes are seen throughout. The intervertebral disc spaces are main tained. The visualized bony pelvis appears intact. There is a nonobstructed abdominal bowel gas patte rn. A left-sided percutaneous nephrostomy tube and a right ureteral stent are in place. There is athe rosclerotic calcification of the abdominal aorta. IMPRESSION: 1. No osseous abnormality is seen involving the lumbar spine. 2. Osteopenia and mild spondylotic change as above. ACT 112: Negative or not required by law. Electronically signed by: Diego Melendez M.D. 11/07/2021 10:17 AM
[2021-11-07] MEDS: HEPARIN SOD 5,000 UNIT/0.5 ML VIAL SQ SCH ×2 (10:55→20:23)
[2021-11-07] MEDS: POLYETHYLENE (MIRALAX) 17 GM PACK PO PRN (16:59)
[2021-11-07] MEDS: PYRIDOXINE HCL 50 MG TAB PO SCH (20:21)
[2021-11-07] MEDS: CHOLECALCIFEROL 5,000 UNITS 125 MCG TAB PO SCH (20:21)
[2021-11-07] MEDS: MECLIZINE HCL 25 MG TAB PO SCH (20:21)
[2021-11-07] MEDS: ASPIRIN 81 MG ECTAB PO SCH (20:21)
[2021-11-07] MEDS: CEFEPIME 1,000 MG in SYRINGE 0 ML IV SCH (20:22)
[2021-11-07] MEDS: LIDOCAINE 5% 1 PATCH TD SCH (20:23)
--- NOTE | 2021-11-08 06:53 | Orthopedic Progress Note ---
Date of Service November 08, 2021 Assessment & Plan (1) Lumbar radiculopathy: It is still unclear what is causing his left hip pain. I am awaiting an MRI of his lumbar spine. I do want a rule out any radicular components given his history and certain aspects of his examination. I do not see any signs of metastasis on his radiographs. He does not have any significant left hip arthritis. This may be a simple bursitis, however, he has been almost bedbound with it for the past few months. We will await to see what the MRI of his lumbar spine shows and then proceed with treatment from there. Emmanuel Alvares was seen and examined at bedside this morning. He is still dealing with the pain down his left leg. He says when he sleeps on his back or rolls to his right side the pain in his left hip becomes more severe. He says it is a screa kb pain going from his back down the lateral aspect of his hip to his knee. He does move a lidocaine patch around which helps some. He has some tenderness over the left greater trochanteric bursa, but he states he is almost been bedbound for the past couple of months because of the leg pain. He had x-rays done yesterday. An MRI was ordered but they want to check with the [facility] regarding some of his cardiac hardware. He is scheduled to have the MRI of his back today. Review of Systems All systems reviewed & are unremarkable except as noted in HPI & below. Physical Exam On physical examination, he has mild pain in his lower lumbar spine. He has increased tenderness palpation over the left greater trochanteric bursa compared to his right. He has no pain or effusion of his knee. He has little to no pain with internal rotation of his hip. Constitutional WD/WN, vitals as above Eyes PERRL, conjunctivae normal, anicteric sclerae ENMT external ear and nose normal, oropharynx normal Neck trachea midline, no thyromegaly Respiratory normal respiratory effort Cardiovascular RRR, no murmur, no edema Gastrointestinal (Abdomen) normal bowel sounds, soft, nontender, no hepatosplenomegaly Psychiatric A+Ox3, euthymic affect Results & Data Results & Data Laboratory Results . Diagnostic Findings X-rays of the left hip and pelvis do not show any significant arthritis. I do not see any osseous abnormalities. X-rays of the left femur do not show any osseous abnormalities or cancerous lesions. X-rays of the lumbar spine show a slight loss of lumbar lordosis. There is mild degenerative disc disease. No significant spondylosis. PG Care Time/CCT Total # of Minutes Spent Total Time Spent with Patient: Total time spent is greater than 50% in coordination of care (as documented) at patient's floor/unit and/or counseling patient: Coding Level of Care Code 59245 Subseq Hosp Care Lvl 2 Diagnoses Lumbar radiculopathy M54.16
[2021-11-08 07:10] LABS: Hematocrit (blood only) 26.2 % (42-52); Hemoglobin 8.2 g/dL (14.0-18.0); Mean Corpuscular Hemoglobin 26.9 pg (25-34); Mean Corpuscular Hgb Conc 31.3 g/dL (32-36); Mean Corpuscular Volume 85.9 fL (80-100); Platelet Count 371 K/uL (130-400); RDW Coefficient of Variation 19.6 % (11.5-14.5); RDW Standard Deviation 61.6 fL (36.4-46.3); Red Blood Count 3.05 M/uL (4.7-6.1); White Blood Count 10.15 K/uL (4.8-10.8)
[2021-11-08 07:32] LABS: BUN Creatinine Ratio 19.2 (10-20); Calcium 8.7 mg/dl (8.5-10.1); Creatinine Clr Calc Pharmacy 28.1 ml/min; Est GFR (African American) 29.9 ml/min; Est GFR (Non-African American) 25.8 ml/min; Magnesium 2.3 mg/dl (1.7-2.4); Potassium 4.6 mmol/L (3.5-5.1)
[2021-11-08] MEDS: amLODIPine BESYLATE 5 MG TAB PO SCH (08:53)
[2021-11-08] MEDS: INSULIN ASPART PER UNIT SC SCH ×4 (08:54→21:03)
[2021-11-08] MEDS: ASCORBIC ACID 500 MG TAB PO SCH ×2 (08:54→21:03)
[2021-11-08] MEDS: AMIODARONE 200 MG TAB PO SCH (08:54)
[2021-11-08] MEDS: MAGNESIUM OXIDE 400 MG TAB PO SCH (08:54)
[2021-11-08] MEDS: DOCUSATE SODIUM 100 MG CAP PO SCH ×2 (08:54→21:03)
[2021-11-08] MEDS: NIACIN 500 MG TAB PO SCH ×2 (08:54→21:01)
[2021-11-08] MEDS: HEPARIN SOD 5,000 UNIT/0.5 ML VIAL SQ SCH (08:55)
[2021-11-08] MEDS: OMEGA-3 (PURIFIED FISH OIL) 1 GM CAP PO SCH (08:55)
[2021-11-08] MEDS: INSULIN GLARGINE SOLOSTAR 100 UNITS/ML 3 ML PEN SC SCH ×2 (08:55→21:03)
[2021-11-08] MEDS ORDERED: AMIODARONE IV BOLUS & DRIP IV STA (09:48)
[2021-11-08] MEDS ORDERED: STAT IV Infusion **Titration per Protocol STA (09:48)
[2021-11-08] MEDS ORDERED: AMIODARONE / D5W 150 MG/100 ML BAG IV STA (09:48)
[2021-11-08] MEDS ORDERED: 0.2 MICRON FILTER SET 1 EA IV ONE (09:48)
[2021-11-08] MEDS ORDERED: AMIODARONE / D5W 360 MG/200 ML BAG IV ONE (09:58)
--- NOTE | 2021-11-08 09:59 | Cardiology Progress Note ---
Date of Service November 08, 2021 Assessment & Plan (1) Atrial flutter with rapid ventricular response: (2) CAD (coronary artery disease), [place] coronary artery: (3) Anemia: (4) Bladder carcinoma: (5) Stage 4 chronic kidney disease: Plan: Patient converted back to atrial flutter with rapid ventricular response at a heart rate of 160 bpm this morning. Notes palpitations. Remains hemodynamically stable. No chest discomfort or heaviness.Treated with oral amiodarone since admission although not fully loaded. Recommend restart IV amiodarone 150 mg x 1 now followed by continuous infusion. Restart intravenous heparin in anticipation of external direct-current cardioversion. He ate breakfast this morning so procedure will be delayed 6 hours as he is currently hemodynamically stable. Anesthesia consult placed. Admission and Anticipated Discharge Date Admission Date: November 04, 2021 Subjective Patient seen examined the bedside. Notes palpitations this morning. Denies chest pain or shortness of breath. No lightheadedness, dizziness, syncope, or near syncope. Lapsed into atrial flutter at approximately 9:30 AM. Offers no other concerns/complaints. Review of Systems Review of Systems: All systems reviewed & are unremarkable except as noted in Subjective Physical Exam Constitutional: well nourished; no acute distress Respiratory: no respiratory distress, no labored breathing, no retractions and does not use accessory muscles Auscultation: lungs clear to auscultation bilaterally; no crackles, no rales, no rhonchi and no wheezes Cardiovascular: Rate/Rhythm: regular rate and regular rhythm Heart Sounds: normal S1 and normal S2; no murmur Vessels: radial pulses present; no JVD and no carotid bruit Extremities: no edema Gastrointestinal (Abdomen): Inspection/Auscultation: abdomen normal to inspection and normal bowel sounds; abdomen not distended Percussion/Palpation: abdomen soft; abdomen nontender, no guarding and abdomen not rigid Neurologic: CN's II-XI intact bilaterally and moves all extremities; no focal motor deficits Motor/Sensory: no tremor Psychiatric: A+Ox3, euthymic affect Results & Data ([facility]) Vital Signs (Past 12 Hours) Vital Signs Temp Pulse Pulse Resp BP Pulse Ox 11/08/21 09:08 36.9 C 161 H 18 119/82 98 11/08/21 07:51 37.0 C 89 19 125/72 98 11/08/21 07:12 81 11/08/21 02:27 79 11/07/21 23:25 37.0 C 78 20 126/75 99
[2021-11-08] MEDS ORDERED: HEPARIN SOD (PORCINE) 1000 UNIT/ML IV ONE (10:04)
[2021-11-08 11:13] LABS: Partial Thromboplastin Time 27.2 Seconds (21.0-31.0)
--- NOTE | 2021-11-08 11:39 | Hospitalist Progress Note ---
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 Denies CP, SOB, palpitations. In the ER, he was found to be in atrial flutter rapid ventricular rate, rate in 170s. Was given diltiazem and drip without improvement.Cardiology consulted and performed cardioversion with conversion to sinus rhythm Recurrent Atrial flutter with RVR s/p successful cardioversion 11/04 and 11/08 - s/p iv amio and iv heparin drip and cardioversion 11/04 with conversion to NSR and has been on NSR until this morning when he flipped back to Aflutter with RVR and hence iv amio drip, heparin drip were resumed. Had cardioversion again today and converted back to NSR - Further managment per cardio - Continue tele - echo and tele reviewed Left hip/knee pain- seen by orthopedics- Xrays hip and spine did not show significant finding, MRI lumbar spine pending- Further management per ortho. Continue pain regimen- lidocaine patch, tylenol, oxy prn. CK normal. Inflammatory markers ESR/CRP elevated- if ortho work up negative, will need rheum evaluation. Stage 4 chronic kidney disease: Cr now stable 2.1->2.4->2.6->2.5, s/p some gentle ivf, recheck in am. Avoid nephrotoxics PAF s/p surgical ALEXANDREA occlusion and not on anticoagulation UTI- urine clx on admissionw was negative however has recurrence of symptoms, hence repeat UA sent which is growing GNB and resumed back on cefepime. Continue pending final culture results. Recently treated with cefdinir course 10/13/21. 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 Patient treating with alternative medicine - Nephrostomy tube in place CAD (coronary artery disease), [place] coronary artery: S/P CABG x 4 in 2020 - Continue aspirin. Not on ACEI secondary to CKD. Not on beta phuong secondary to h/o bradycardia, not on statin secondary to self preference; reports not taking fenofibrate DM2: A1c: 8. Patient finished medrol dose pack for knee pain on 11/05/21 - Hold home glycemic agents; basal bolus insulin per protocol- cautious in setting of CKD. Anemia: Hgb: 8.8->7.7->8.4->8.5->8.2. no active bleeding noted. Monitor. Not on anticoagulation. HTN: Continue amlodipine Hypomagnesemia- resolved. DVT Prophylaxis- sc heparin Dispo- Pending further ortho work up, pending final urine clx results. [facility] today and had cardioversion Admission and Anticipated Discharge Date Admission Date: November 04, 2021 Subjective He has been having issues with his pain, currently pain is okay. He had a bowel movement and some urinary incontinence. He went into Aflutter with RVR again this morning and had some palpitations. Physical Exam Physical Exam: General: Sitting in chair, leaning forward, not in acute distress, on room air HEENT: EOMI, JASWANT, MMM Chest: Clear breath sounds bilaterally, no wheezes or crackles CVS: during my encounter, regular normal heart sounds but later converted into AFlutter with RVR Abdomen: Soft, non tender, not distended, normal bowel sounds Left sided nephrostomy tube Neuro: Awake, alert, oriented, conversing well, non focal Extremities: No cyanosis, clubbing or edema Results & Data Results & Data ([facility]) Vital Signs (Past 12 Hours) Vital Signs Temp Pulse Pulse Resp BP Pulse Ox 11/08/21 09:08 36.9 C 161 H 18 119/82 98 11/08/21 07:51 37.0 C 89 19 125/72 98 11/08/21 07:12 81 11/08/21 02:27 79 Laboratory Results Short CBC 11/08/21 Range/Units 06:28 WBC 10.15 (4.8-10.8) K/uL Hgb 8.2 L (14.0-18.0) g/dL Hct 26.2 L (42-52) % Plt Count 371 (130-400) K/uL BMP 11/08/21 06:28 Sodium 134 L Potassium 4.6 Chloride 105 Carbon Dioxide 19 L BUN 48 H Creatinine 2.50 H Glucose 136 H Calcium 8.7 Medications Administered Current Inpatient Medications Acetaminophen (Acetaminophen 325 Mg Tab) 650 mg PO Q4H PRN PRN Reason: Pain or Fever Stop: 12/04/21 20:19 Last Admin: 11/07/21 21:49 Dose: 650 mg Documented by: Amiodarone HCl (Amiodarone 200 Mg Tab) 200 mg PO BIDM CASEY Stop: 12/05/21 16:59 Last Admin: 11/08/21 08:54 Dose: 200 mg Documented by: Amlodipine Besylate (Amlodipine Besylate 5 Mg Tab) 5 mg PO DAILY CASEY Stop: 12/05/21 08:59 Last Admin: 11/08/21 08:53 Dose: 5 mg Documented by: Ascorbic Acid (Ascorbic Acid 500 Mg Tab) 2,000 mg PO BID CASEY Stop: 12/04/21 20:59 Last Admin: 11/08/21 08:54 Dose: 2,000 mg Documented by: Aspirin (Aspirin 81 Mg Ectab) 81 mg PO HS CASEY Stop: 12/04/21 20:59 Last Admin: 11/07/21 20:21 Dose: 81 mg Documented by: Dextrose (Dextrose 50% 50 Ml Syringe) 25 - 50 ml IV UD PRN; Protocol PRN Reason: Hypoglycemia Protocol Stop: 12/04/21 20:19 Docusate Sodium (Docusate Sodium 100 Mg Cap) 100 mg PO BID CASEY Stop: 12/04/21 20:59 Last Admin: 11/08/21 08:54 Dose: 100 mg Documented by: Fish Oil ([place]-3 (Purified Fish Oil) 1 Gm Cap) 1 gm PO DAILY CASEY Stop: 12/05/21 08:59 Last Admin: 11/08/21 08:55 Dose: 1 gm Documented by: Glucagon (Glucagon For Inj 1 Mg Vial) 1 mg SQ UD PRN; Protocol PRN Reason: Hypoglycemia Protocol Stop: 12/04/21 20:19 Glucose (Glucose 10 Tabs/Tube) 4 - 8 tabs PO UD PRN; Protocol PRN Reason: Hypoglycemia Protocol Stop: 12/04/21 20:19 Glucose (Glucose 40% Gel 15 Gm Tube) 15 - 30 gm PO UD PRN; Protocol PRN Reason: Hypoglycemia Protocol Stop: 12/04/21 20:19 Cefepime HCl 1,000 mg/ Syringe 11.3 mls @ 5.5 mls/min IV Q24H [facility]; Protocol Stop: 11/16/21 20:59 Last Admin: 11/07/21 20:22 Dose: 5.5 mls/min Documented by: Amiodarone HCl/Dextrose (Nexterone / D5w) 360 mg in 200 mls @ 16.667 mls/hr IV .Q12H CASEY Stop: 12/08/21 15:59 Last Admin: 11/08/21 16:37 Dose: 0.5 mg/min, 16.7 mls/hr Documented by: Heparin Sodium/Dextrose (Heparin Sodium/Dextrose) 25,000 units in 500 mls @ 25 mls/hr IV .Q20H [facility]; Protocol Stop: 12/08/21 10:14 Last Admin: 11/08/21 12:07 Dose: 1,250 units/hr, 25 mls/hr Documented by: Insulin Aspart (Insulin Aspart Per Unit) 0 units SC ACHS CASEY Stop: 12/05/21 00:09 Last Admin: 11/08/21 12:08 Dose: 1 units Documented by: Insulin Glargine (Insulin Glargine Solostar 100 Units/Ml 3 Ml Pen) 0 units SC BID [facility] Stop: 12/04/21 20:59 Last Admin: 11/08/21 08:55 Dose: 5 units Documented by: Lidocaine (Lidocaine 5% 1 Patch) 1 patch TD [facility] Stop: 12/04/21 21:44 Last Admin: 11/07/21 20:23 Dose: 1 patch Documented by: Magnesium Hydroxide (Magnesium Hydroxide Susp 30 Ml Udc) 30 ml PO Q12H PRN PRN Reason: Constipation Stop: 12/04/21 20:19 Magnesium Oxide (Magnesium Oxide 400 Mg Tab) 400 mg PO DAILY [facility] Stop: 12/05/21 08:59 Last Admin: 11/08/21 08:54 Dose: 400 mg Documented by: Meclizine HCl (Meclizine Hcl 25 Mg Tab) 25 mg PO HS [facility] Stop: 12/04/21 20:59 Last Admin: 11/07/21 20:21 Dose: 25 mg Documented by: Miscellaneous (Carbohydrates For Hypoglycemia ) 15 - 30 gm PO UD PRN PRN Reason: Hypoglycemia Protocol Stop: 12/04/21 20:19 Miscellaneous (Remove Lidoderm Patch) 1 ea N/A DAILY CASEY Stop: 12/05/21 08:59 Last Admin: 11/08/21 08:55 Dose: 1 ea Documented by: Niacin (Niacin 500 Mg Tab) 500 mg PO BID CASEY Stop: 12/04/21 20:59 Last Admin: 11/08/21 08:54 Dose: 500 mg Documented by: Nitroglycerin (Nitroglycerin Sl 0.4 Mg/Tab Tab) 0.4 mg SL UD PRN PRN Reason: chest pain Stop: 12/04/21 20:19 Polyethylene Glycol (Polyethylene (Miralax) 17 Gm Pack) 17 gm PO DAILY PRN PRN Reason: Constipation Stop: 12/04/21 20:19 Last Admin: 11/07/21 16:59 Dose: 17 gm Documented by: Pyridoxine HCl (Pyridoxine Hcl 50 Mg Tab) 100 mg PO HS CASEY Stop: 12/04/21 20:59 Last Admin: 11/07/21 20:21 Dose: 100 mg Documented by: Vitamin D (Cholecalciferol 5,000 Units 125 Mcg Tab) 5,000 units PO HS CASEY Stop: 12/04/21 20:59 Last Admin: 11/07/21 20:21 Dose: 5,000 units Documented by: (1) Atrial flutter Atrial flutter type: unspecified Qualified Code(s): I48.92 - Unspecified atrial flutter
[2021-11-08] MEDS: HEPARIN SODIUM/DEXTROSE 25,000 UNITS/500 ML BAG IV SCH (12:07)
[2021-11-08] MEDS: Heparin IV Adult Wt-Based Standard WITH Bolus Protocol IV SCH ×2 (12:14→12:18)
--- NOTE | 2021-11-08 14:44 | Anesthesiology Consultation ---
Date of Service November 08, 2021 Assessment & Plan (1) Encounter for pre-operative examination: Chart Review Chart Review: Acceptable Risk for Surgery and Patient NOT seen in Pre Admission Testing Consults Requested none History Surgery Operation Date: 11/08/21 15:30 Proposed Procedures p Cardioversion with Anesthesia - Aleksey Quiñones DO Operation Date: 11/08/21 15:30 Proposed Procedures p Cardioversion - Varun Dodson MD Height/Weight Height: 5 ft 8 in Weight: 74.5 kg Allergies Allergy/AdvReac Type Severity Reaction Status Date / Time kiwi Allergy Intermediate Lip and Unverified 11/04/21 16:50 Tongue Swell metoprolol AdvReac Intermediate Immediate Unverified 11/04/21 17:04 Bradycardia Hemp Seeds Allergy Intermediate Tongue Uncoded 11/04/21 16:50 Swells Medications Home Medications Medication Instructions Recorded Confirmed Last Taken alpha lipoic acid 600 mg capsule 600 mg PO HS 07/18/20 11/04/21 11/03/21 ascorbic acid (vitamin C) 1,000 mg 2,000 mg PO BID 07/18/20 11/04/21 11/03/21 tablet,extended release aspirin 81 mg tablet,delayed 81 mg PO HS 07/18/20 11/04/21 11/03/21 release biotin 1,000 mcg chewable tablet 1,000 mcg PO HS 07/18/20 11/04/21 11/03/21 cholecalciferol (vitamin D3) 125 125 mcg PO HS 07/18/20 11/04/21 11/03/21 mcg (5,000 unit) tablet coenzyme Q10 100 mg capsule 300 mg PO TID 07/18/20 11/04/21 11/04/21 (CoQ-10) linagliptin 5 mg tablet (Tradjenta) 5 mg PO DAILY 07/18/20 11/04/21 11/03/21 meclizine 25 mg tablet 25 mg PO HS 07/18/20 11/04/21 11/03/21 niacin 500 mg tablet 500 mg PO BID 07/18/20 11/04/21 11/04/21 pyridoxine (vitamin B6) 100 mg 100 mg PO HS 07/18/20 11/04/21 11/03/21 tablet (Vitamin B-6) vitamin B complex 1 tab PO DAILY 02/11/04/21 11/04/21 Apigenin 50 mg PO QAM 01/02/21 11/04/21 01/02/21 acetylcysteine 600 mg capsule (NAC) 600 mg PO HS PRN 01/02/21 11/04/21 11/03/21 nitroglycerin 0.4 mg sublingual 0.4 mg SUBLINGUAL UD PRN #20 tab 01/08/21 11/04/21 Unknown tablet (Nitrostat) amlodipine 5 mg tablet 5 mg PO DAILY 11/04/21 11/04/21 Unknown docusate sodium 100 mg capsule 100 mg PO BID 11/04/21 11/04/21 Unknown glipizide 10 mg tablet, extended 10 mg PO DAILY 11/04/21 11/04/21 11/04/21 release 24 hr [id number]-ctm-[id number]-vitC 1 cap PO DAILY 11/04/21 11/04/21 11/04/21 capsule (Glucosamine Complex-MSM) magnesium 250 mg tablet 250 mg PO DAILY 11/04/21 11/04/21 11/04/21 methylprednisolone 4 mg tablets in 4 - 24 mg PO DAILY 11/04/21 11/04/21 11/04/21 a dose pack 8 mg omega [id number]-[id number]-wka-fish oil 1,000 mg 1 cap PO DAILY 11/04/21 11/04/21 11/04/21 (120 mg-180 mg) capsule (Fish Oil) amiodarone 200 mg tablet 200 mg PO UD #60 tab 11/06/21 Unknown atorvastatin 40 mg tablet (Lipitor) 40 mg PO HS #30 tab 11/06/21 Unknown lidocaine 5 % topical patch 1 patch TRANSDERMAL HS #30 ea 11/06/21 Unknown Active Medications Generic Name Dose Route Start Last Admin Trade Name Freq PRN Reason Stop Dose Admin Acetaminophen 650 mg 11/04/21 20:20 11/07/21 21:49 Acetaminophen 325 Mg Tab PO 12/04/21 20:19 650 mg Q4H PRN Administration Pain or Fever Amiodarone HCl 200 mg 11/05/21 17:00 11/08/21 08:54 Amiodarone 200 Mg Tab PO 12/05/21 16:59 200 mg BIDM CASEY Administration Amlodipine Besylate 5 mg 11/05/21 09:00 11/08/21 08:53 Amlodipine Besylate 5 Mg Tab PO 12/05/21 08:59 5 mg DAILY CASEY Administration Ascorbic Acid 2,000 mg 11/04/21 21:00 11/08/21 08:54 Ascorbic Acid 500 Mg Tab PO 12/04/21 20:59 2,000 mg BID CASEY Administration Aspirin 81 mg 11/04/21 21:00 11/07/21 20:21 Aspirin 81 Mg Ectab PO 12/04/21 20:59 81 mg HS CASEY Administration Docusate Sodium 100 mg 11/04/21 21:00 11/08/21 08:54 Docusate Sodium 100 Mg Cap PO 12/04/21 20:59 100 mg BID CASEY Administration Fish Oil 1 gm 11/05/21 09:00 11/08/21 08:55 [place]-3 (Purified Fish Oil) 1 Gm Cap PO 12/05/21 08:59 1 gm DAILY CASEY Administration Cefepime HCl 1,000 mg/ Syringe 11.3 mls @ 5.5 mls/min 11/06/21 21:00 11/07/21 20:22 IV 11/16/21 20:59 5.5 mls/min Q24H CASEY Administration Protocol Amiodarone HCl/Dextrose 360 mg in 200 mls @ 33.333 mls/hr 11/08/21 09:58 11/08/21 10:59 Nexterone / D5w IV 11/08/21 15:57 33.3 mls/hr ONE ONE Administration Heparin Sodium/Dextrose 25,000 units in 500 mls @ 25 mls/hr 11/08/21 10:15 11/08/21 12:07 Heparin Sodium/Dextrose IV 12/08/21 10:14 1,250 units/hr .Q20H CASEY 25 mls/hr Administration Protocol 1,250 UNITS/HR Insulin Aspart 0 units 11/05/21 00:10 11/08/21 12:08 Insulin Aspart Per Unit SC 12/05/21 00:09 1 units ACHS CASEY Administration Insulin Glargine 0 units 11/04/21 21:00 11/08/21 08:55 Insulin Glargine Solostar 100 Units/Ml 3 Ml Pen SC 12/04/21 20:59 5 units BID CASEY Administration Lidocaine 1 patch 11/04/21 21:45 11/07/21 20:23 Lidocaine 5% 1 Patch TD 12/04/21 21:44 1 patch HS CASEY Administration Magnesium Oxide 400 mg 11/05/21 09:00 11/08/21 08:54 Magnesium Oxide 400 Mg Tab PO 12/05/21 08:59 400 mg DAILY CASEY Administration Meclizine HCl 25 mg 11/04/21 21:00 11/07/21 20:21 Meclizine Hcl 25 Mg Tab PO 12/04/21 20:59 25 mg HS CASEY Administration Miscellaneous 1 ea 11/05/21 09:00 11/08/21 08:55 Remove Lidoderm Patch N/A 12/05/21 08:59 1 ea DAILY CASEY Administration Niacin 500 mg 11/04/21 21:00 11/08/21 08:54 Niacin 500 Mg Tab PO 12/04/21 20:59 500 mg BID CASEY Administration Polyethylene Glycol 17 gm 11/04/21 20:20 11/07/21 16:59 Polyethylene (Miralax) 17 Gm Pack PO 12/04/21 20:19 17 gm DAILY PRN Administration Constipation Pyridoxine HCl 100 mg 11/04/21 21:00 11/07/21 20:21 Pyridoxine Hcl 50 Mg Tab PO 12/04/21 20:59 100 mg HS CASEY Administration Vitamin D 5,000 units 11/04/21 21:00 11/07/21 20:21 Cholecalciferol 5,000 Units 125 Mcg Tab PO 12/04/21 20:59 5,000 units HS CASEY Administration NPO Date Last Intake of Fluids: 11/04/21 Time Last Intake of Fluids: 13:30 Last Intake of Fluids Comment: water Date Last Intake of Solids: 11/04/21 Time Last Intake of Solids: 13:30 Last Intake of Solids Comment: activia Past Medical History Medical History Bladder carcinoma CAD (coronary artery disease) Chronic kidney disease Chronic sinusitis Concussion DM type 2 (diabetes mellitus, type 2) Dyslipidemia HTN (hypertension) Paroxysmal A-fib Urothelial cancer Varicella without complication Exercise / Class Metabolic Activity II 4-5 Yardwork/Stairs/Walk up hill Past Family History Family History Mother Hypertension Cancer Father Cancer Hypertension Grandmother (Maternal) Cancer Past Surgical History Surgical History S/P CABG x 4 Past Anesthesia History No Hx of Anesthesia Complications and No Family Hx of Anesthesia Complications History of PONV No Hx of PONV and No Hx of Motion Sickness Social History Smoking Status: Never smoker Do You Dip or Chew Tobacco: No Hx Alcohol Use: Yes Alcohol type: hard liquor alcohol intake frequency: holidays/special occasions only Hx Substance Use: No substance use type: does not use Physical Exam Vital Signs Last Vital Signs Temp 37.1 C 11/08/21 12:08 Pulse 138 H 11/08/21 12:08 Resp 20 11/08/21 12:08 BP 126/77 11/08/21 12:08 Pulse Ox 97 11/08/21 12:08 Testing Laboratory Results 11/08/21 06:28 11/08/21 06:28 PT 11.4 Seconds (9.0-12.0) 11/04/21 16:00 INR 1.1 (0.9-1.1) 11/04/21 16:00 APTT 27.2 Seconds (21.0-31.0) 11/08/21 10:52 Hemoglobin A1c 8.0 % (4.5-5.6) H 11/05/21 04:07 Urine Color Yellow 11/06/21 17:45 Urine Appearance Clear (Clear) 11/06/21 17:45 Urine pH 5.0 (4.5-7.5) 11/06/21 17:45 Ur Specific [place] 1.007 (1.000-1.030) 11/06/21 17:45 Urine Protein Negative (Negative) 11/06/21 17:45 Urine Glucose (UA) Negative (Negative) 11/06/21 17:45 Urine Ketones Negative (Negative) 11/06/21 17:45 Urine Nitrite Negative (Negative) 11/06/21 17:45 Ur Leukocyte Esterase 2+ (Negative) H 11/06/21 17:45 Urine WBC (Auto) >30 /hpf (0-5) H 11/06/21 17:45 Urine RBC (Auto) 5-10 /hpf (0-4) H 11/06/21 17:45 U Hyaline Cast (Auto) 1-5 /lpf (0-5) 11/06/21 17:45 U Epithel Cells (Auto) 20-30 /lpf (0-5) H 11/06/21 17:45 Urine Bacteria (Auto) Negative (Negative) 11/06/21 17:45 11/06/21 17:45 Urine Culture - Preliminary Urine,Clean Catch Gram negative bacilli 11/04/21 19:28 Aerobic Blood Culture - Preliminary Blood No growth in Aerobic bottle after 48 hours. Anaerobic Blood Culture - Preliminary No growth in Anaerobic bottle after 48 hours. 11/04/21 19:29 Aerobic Blood Culture - Preliminary Blood No growth in Aerobic bottle after 48 hours. Anaerobic Blood Culture - Preliminary No growth in Anaerobic bottle after 48 hours. 11/04/21 17:45 Urine Culture - Final Urine,Clean Catch No growth - less than 1,000 colonies/mL. 11/08/21 11/08/21 11:26 07:04 POC Glucose 161 H 171 H Electrocardiogram a flutter with rvr
[2021-11-08] MEDS ORDERED: PROPOFOL IV EMULSION 10 MG/ML 20 ML VIAL IV ONE (15:14)
--- NOTE | 2021-11-08 15:37 | Cardioversion ---
Date of Service November 08, 2021 Electrical Cardioversion Rpt Electrical Cardioversion Report Indication: Paroxysmal atrial flutter with rapid ventricular response. Complications: None Anesthesia: Conscious sedation provided by the anesthesia service with propofol. Please see separate report. Procedural summary: Patient brought to the cardiac catheterization lab holding area in a fasting state. Defibrillator pads were placed in an anterior and posterior position. Atrial flutter with rapid ventricular response confirmed on telemetry. When adequate sedation achieved, the defibrillator was synced to the QRS complex. A single 150 J shock was delivered. Patient successfully conv erted from atrial flutter to sinus rhythm. No significant post-conversion pause recorded. Patient tolerated procedure well. No complications. Conclusion: Successful external direct-current cardioversion from atrial flutter to sinus rhythm with 150J.
[2021-11-08] MEDS: AMIODARONE / D5W 360 MG/200 ML BAG IV SCH (16:37)
--- NOTE | 2021-11-08 16:37 | Anesthesiology Progress Note ---
Date of Service November 08, 2021 Anesthesia Post Procedure Vital Signs Vital Signs: Temp Pulse Pulse Resp BP Pulse Ox 11/08/21 16:04 36.7 C 79 18 123/69 99 11/08/21 15:50 79 18 122/78 95 11/08/21 15:35 78 18 121/70 95 11/08/21 15:26 129 H 11/08/21 15:03 134 H 18 120/72 95 11/08/21 12:08 37.1 C 138 H 20 126/77 97 11/08/21 11:49 36.7 C 125 H 20 119/81 99 11/08/21 09:08 36.9 C 161 H 18 119/82 98 11/08/21 07:51 37.0 C 89 19 125/72 98 11/08/21 07:12 81 11/08/21 02:27 79 11/07/21 23:25 37.0 C 78 20 126/75 99 11/07/21 19:23 37.3 C 92 H 18 120/74 98 Pain Intensity Left Knee: Pain Intensity: 3 Transfer of Care Handoff Completed per policy Notes Mental Status: alert / awake / arousable and participated in evaluation Patient Amnestic to Procedure: Yes Nausea / Vomiting: adequately controlled Pain: adequately controlled Airway Patency, RR, SpO2: stable & adequate BP & HR: stable & adequate Hydration State: stable & adequate Anesthetic Complications: no major complications apparent
[2021-11-08] MEDS: POLYETHYLENE (MIRALAX) 17 GM PACK PO PRN (18:24)
[2021-11-08 18:28] LABS: Partial Thromboplastin Ratio 2.6
[2021-11-08] MEDS: ACETAMINOPHEN 325 MG TAB PO PRN (20:31)
[2021-11-08] MEDS: PYRIDOXINE HCL 50 MG TAB PO SCH (21:01)
[2021-11-08] MEDS: CHOLECALCIFEROL 5,000 UNITS 125 MCG TAB PO SCH (21:01)
[2021-11-08] MEDS: CEFEPIME 1,000 MG in SYRINGE 0 ML IV SCH (21:01)
[2021-11-08] MEDS: MECLIZINE HCL 25 MG TAB PO SCH (21:02)
[2021-11-08] MEDS: ASPIRIN 81 MG ECTAB PO SCH (21:02)
[2021-11-08] MEDS: LIDOCAINE 5% 1 PATCH TD SCH (21:04)
[2021-11-09 01:43] LABS: Partial Thromboplastin Ratio 2.2
[2021-11-09 01:46] LABS: Partial Thromboplastin Time 59.8 Seconds (21.0-31.0)
[2021-11-09] MEDS: AMIODARONE / D5W 360 MG/200 ML BAG IV SCH (03:50)
[2021-11-09] MEDS: ACETAMINOPHEN 325 MG TAB PO PRN ×2 (05:51→10:19)
[2021-11-09] MEDS: HEPARIN SODIUM/DEXTROSE 25,000 UNITS/500 ML BAG IV SCH (05:51)
[2021-11-09 07:35] LABS: Hematocrit (blood only) 26.2 % (42-52); Hemoglobin 8.1 g/dL (14.0-18.0); Mean Corpuscular Hemoglobin 26.7 pg (25-34); Mean Corpuscular Hgb Conc 30.9 g/dL (32-36); Mean Corpuscular Volume 86.5 fL (80-100); Mean Platelet Volume 9.2 fL (7.4-10.4); Platelet Count 372 K/uL (130-400); RDW Standard Deviation 62.7 fL (36.4-46.3); Red Blood Count 3.03 M/uL (4.7-6.1); White Blood Count 11.27 K/uL (4.8-10.8)
[2021-11-09 07:57] LABS: BUN Creatinine Ratio 19.3 (10-20); C Reactive Protein 13.21 mg/dl (0-0.5); Calcium 8.6 mg/dl (8.5-10.1); Creatinine Clr Calc Pharmacy 24.7 ml/min; Est GFR (African American) 25.5 ml/min; Potassium 4.5 mmol/L (3.5-5.1)
[2021-11-09 08:02] LABS: Partial Thromboplastin Ratio 2.1
[2021-11-09 08:03] LABS: Partial Thromboplastin Time 59.1 Seconds (21.0-31.0)
[2021-11-09] MEDS: INSULIN ASPART PER UNIT SC SCH ×4 (08:15→21:15)
[2021-11-09] MEDS: INSULIN GLARGINE SOLOSTAR 100 UNITS/ML 3 ML PEN SC SCH ×2 (08:15→21:15)
[2021-11-09] MEDS: OMEGA-3 (PURIFIED FISH OIL) 1 GM CAP PO SCH (08:16)
[2021-11-09] MEDS: NIACIN 500 MG TAB PO SCH ×2 (08:16→21:24)
[2021-11-09] MEDS: amLODIPine BESYLATE 5 MG TAB PO SCH (08:16)
[2021-11-09] MEDS: ASCORBIC ACID 500 MG TAB PO SCH ×2 (08:16→21:25)
[2021-11-09] MEDS: DOCUSATE SODIUM 100 MG CAP PO SCH ×2 (08:16→21:26)
[2021-11-09] MEDS: MAGNESIUM OXIDE 400 MG TAB PO SCH (08:16)
--- NOTE | 2021-11-09 10:15 | Magnetic Resonance Report ---
MR lumbar spine wo con CLINICAL HISTORY: lumbar radicular pain TECHNIQUE: Multiplanar sequences through the lumbar spine were obtained, without intravenous contrast . Comparison: None available at the time of this dictation. FINDINGS: The alignment is anatomical. Degenerative changes are noted in the discs and vertebral bodies. L1-L2: No significant abnormality. L2-L3: Broad-based disc bulge is seen with mild bilateral neuroforaminal stenosis. L3-L4: Broad-based disc bulge is seen with mild bilateral neuroforaminal stenosis. L4-L5: No significant abnormality. L5-S1: No significant abnormality. The spinal ligaments are intact, without evidence of disruption or abnormal signal intensity. The spi nal cord is normal in signal intensity and there is no evidence of cord contusion. There is no eviden ce of an extradural, intradural, extramedullary or intramedullary lesion. Visualized soft tissues are normal. IMPRESSION: Broad-based disc bulge is seen with mild bilateral neural foraminal stenosis. ACT 112: Negative or not required by law. Electronically signed by: Dimitris Xiong M.D. 11/09/2021 10:12 AM
[2021-11-09] MEDS ORDERED: AMIODARONE 200 MG TAB PO ONE (10:29)
--- NOTE | 2021-11-09 11:34 | Hospitalist Progress Note ---
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 Denies CP, SOB, palpitations. In the ER, he was found to be in atrial flutter rapid ventricular rate, rate in 170s. Was given diltiazem and drip without improvement.Cardiology consulted and performed cardioversion with conversion to sinus rhythm Recurrent Atrial flutter with RVR s/p successful cardioversion 11/04 and 11/08 - s/p iv amio and iv heparin drip - continue iv heparin drip for 24 more hrs per cardio - Iv amio changed to po amio 400 bid per cardio - Continue tele - echo and tele reviewed Left hip/knee pain- seen by orthopedics- Xrays hip and spine did not show significant finding, MRI lumbar spine noted- Discussed with Dr Solares- Recommended OP follow up for steroid injection. Continue pain regimen- lidocaine patch, tylenol, oxy prn. CK normal. Inflammatory markers ESR/CRP elevated but improving. Consider rheum evaluation as OP if does not improve despite ortho interventions. ARIADNA on CKD3b/4: Cr trending up 2.1->2.4->2.6->2.5->2.8; ?related to his maligancy- he is s/p some gentle ivf, never seen by nephrology- will consult nephro. Avoid nephrotoxics PAF s/p surgical ALEXANDREA occlusion and not on anticoagulation UTI- urine clx on admission was negative however has recurrence of symptoms, hence repeat UA sent which is growing stenotrophomonas maltophila - Was on cefepime and switched to iv ceftazidime for now- will transition to levaquin at discharge renally dosed, QTc 447 but will need to monitor being on amiodarone. 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 Patient treating with alternative medicine - Nephrostomy tube in place CAD (coronary artery disease), [place] coronary artery: S/P CABG x 4 in 2020 - Continue aspirin. Not on ACEI secondary to CKD. Not on beta phuong secondary to h/o bradycardia, not on statin secondary to self preference; reports not taking fenofibrate DM2: A1c: 8. Patient finished medrol dose pack for knee pain on 11/05/21 - Hold home glycemic agents; basal bolus insulin per protocol- cautious in setting of CKD. Anemia: Hgb: 8.8->7.7->8.4->8.5->8.2->8.1. no active bleeding noted. Monitor. Not on anticoagulation. HTN: Continue amlodipine Hypomagnesemia- resolved. DVT Prophylaxis- heparin drip Dispo- on iv heparin drip, iv ABx, monitoring labs and on tele. Anticipate discharge in 1-2 days if remains stable. Admission and Anticipated Discharge Date Admission Date: November 04, 2021 Subjective Continues with pain and has to find a comfortable position. Better this morning when I saw him. Discussed the MRI findings and orthopedic recommendation regarding OP visit for steroid injection. No fever, chills, chest pain, shortness of breath. Physical Exam Physical Exam: General: Lying in bed curled up on right side, not in acute distress HEENT: EOMI, JASWANT, MMM Chest: Clear breath sounds bilaterally, no wheezes or crackles CVS: regular, normal heart sounds Abdomen: Soft, non tender, not distended, normal bowel sounds Left sided nephrostomy tube Neuro: Awake, alert, oriented, conversing well, non focal Extremities: No cyanosis, clubbing or edema Psych: low mood but appreciative of the care he is receiving Results & Data Results & Data ([facility]) Vital Signs (Past 12 Hours) Vital Signs Temp Pulse Pulse Resp BP Pulse Ox 11/09/21 07:46 37.1 C 72 22 121/67 98 11/09/21 07:27 73 11/09/21 03:18 36.4 C L 81 20 129/75 100 Laboratory Results Short CBC 11/09/21 Range/Units 06:34 WBC 11.27 H (4.8-10.8) K/uL Hgb 8.1 L (14.0-18.0) g/dL Hct 26.2 L (42-52) % Plt Count 372 (130-400) K/uL BMP 11/09/21 06:34 Sodium 132 L Potassium 4.5 Chloride 101 Carbon Dioxide 19 L BUN 55 H Creatinine 2.85 H D Glucose 187 H Calcium 8.6 Diagnostic Findings Lumbar Spine MRI 11/08/21 07:52 MR lumbar spine wo con CLINICAL HISTORY: lumbar radicular pain TECHNIQUE: Multiplanar sequences through the lumbar spine were obtained, without intravenous contrast. Comparison: None available at the time of this dictation. FINDINGS: The alignment is anatomical. Degenerative changes are noted in the discs and vertebral bodies. L1-L2: No significant abnormality. L2-L3: Broad-based disc bulge is seen with mild bilateral neuroforaminal stenosis. L3-L4: Broad-based disc bulge is seen with mild bilateral neuroforaminal stenosis. L4-L5: No significant abnormality. L5-S1: No significant abnormality. The spinal ligaments are intact, without evidence of disruption or abnormal signal intensity. The spinal cord is normal in signal intensity and there is no evidence of cord contusion. There is no evidence of an extradural, intradural, extramedullary or intramedullary lesion. Visualized soft tissues are normal. IMPRESSION: Broad-based disc bulge is seen with mild bilateral neural foraminal stenosis. ACT 112: Negative or not required by law. Electronically signed by: Dimitris Xiong M.D. 11/09/2021 10:12 AM Medications Administered Current Inpatient Medications Acetaminophen (Acetaminophen 325 Mg Tab) 650 mg PO Q4H PRN PRN Reason: Pain or Fever Stop: 12/04/21 20:19 Last Admin: 11/09/21 10:19 Dose: 650 mg Documented by: Amiodarone HCl (Amiodarone 200 Mg Tab) 200 mg PO BIDM [facility] Stop: 12/05/21 16:59 Last Admin: 11/08/21 08:54 Dose: 200 mg Documented by: Amiodarone HCl (Amiodarone 200 Mg Tab) 400 mg PO BIDM [facility] Stop: 12/09/21 16:59 Amlodipine Besylate (Amlodipine Besylate 5 Mg Tab) 5 mg PO DAILY [facility] Stop: 12/05/21 08:59 Last Admin: 11/09/21 08:16 Dose: 5 mg Documented by: Ascorbic Acid (Ascorbic Acid 500 Mg Tab) 2,000 mg PO BID [facility] Stop: 12/04/21 20:59 Last Admin: 11/09/21 08:16 Dose: 2,000 mg Documented by: Aspirin (Aspirin 81 Mg Ectab) 81 mg PO HS [facility] Stop: 12/04/21 20:59 Last Admin: 11/08/21 21:02 Dose: 81 mg Documented by: Dextrose (Dextrose 50% 50 Ml Syringe) 25 - 50 ml IV UD PRN; Protocol PRN Reason: Hypoglycemia Protocol Stop: 12/04/21 20:19 Docusate Sodium (Docusate Sodium 100 Mg Cap) 100 mg PO BID [facility] Stop: 12/04/21 20:59 Last Admin: 11/09/21 08:16 Dose: 100 mg Documented by: Fish Oil ([place]-3 (Purified Fish Oil) 1 Gm Cap) 1 gm PO DAILY [facility] Stop: 12/05/21 08:59 Last Admin: 11/09/21 08:16 Dose: 1 gm Documented by: Glucagon (Glucagon For Inj 1 Mg Vial) 1 mg SQ UD PRN; Protocol PRN Reason: Hypoglycemia Protocol Stop: 12/04/21 20:19 Glucose (Glucose 10 Tabs/Tube) 4 - 8 tabs PO UD PRN; Protocol PRN Reason: Hypoglycemia Protocol Stop: 12/04/21 20:19 Glucose (Glucose 40% Gel 15 Gm Tube) 15 - 30 gm PO UD PRN; Protocol PRN Reason: Hypoglycemia Protocol Stop: 12/04/21 20:19 Heparin Sodium/Dextrose (Heparin Sodium/Dextrose) 25,000 units in 500 mls @ 24 mls/hr IV .[id number] [facility]; Protocol Stop: 12/08/21 10:14 Last Titration: 11/09/21 08:17 Dose: 1,200 units/hr, 24 mls/hr Documented by: Ceftazidime 2,000 mg/ Dextrose 60 mls @ 120 mls/hr IV Q24H [facility]; Protocol Stop: 11/19/21 09:59 Last Infusion: 11/09/21 11:28 Dose: Infused Documented by: Insulin Aspart (Insulin Aspart Per Unit) 0 units SC ACHS [facility] Stop: 12/05/21 00:09 Last Admin: 11/09/21 12:19 Dose: 4 units Documented by: Insulin Glargine (Insulin Glargine Solostar 100 Units/Ml 3 Ml Pen) 0 units SC BID [facility] Stop: 12/04/21 20:59 Last Admin: 11/09/21 08:15 Dose: 10 units Documented by: Lidocaine (Lidocaine 5% 1 Patch) 1 patch TD HS [facility] Stop: 12/04/21 21:44 Last Admin: 11/08/21 21:04 Dose: 1 patch Documented by: Magnesium Hydroxide (Magnesium Hydroxide Susp 30 Ml Udc) 30 ml PO Q12H PRN PRN Reason: Constipation Stop: 12/04/21 20:19 Magnesium Oxide (Magnesium Oxide 400 Mg Tab) 400 mg PO DAILY [facility] Stop: 12/05/21 08:59 Last Admin: 11/09/21 08:16 Dose: 400 mg Documented by: Meclizine HCl (Meclizine Hcl 25 Mg Tab) 25 mg PO HS [facility] Stop: 12/04/21 20:59 Last Admin: 11/08/21 21:02 Dose: 25 mg Documented by: Miscellaneous (Carbohydrates For Hypoglycemia ) 15 - 30 gm PO UD PRN PRN Reason: Hypoglycemia Protocol Stop: 12/04/21 20:19 Miscellaneous (Remove Lidoderm Patch) 1 ea N/A DAILY [facility] Stop: 12/05/21 08:59 Last Admin: 11/09/21 08:16 Dose: 1 ea Documented by: Niacin (Niacin 500 Mg Tab) 500 mg PO BID [facility] Stop: 12/04/21 20:59 Last Admin: 11/09/21 08:16 Dose: 500 mg Documented by: Nitroglycerin (Nitroglycerin Sl 0.4 Mg/Tab Tab) 0.4 mg SL UD PRN PRN Reason: chest pain Stop: 12/04/21 20:19 Polyethylene Glycol (Polyethylene (Miralax) 17 Gm Pack) 17 gm PO DAILY PRN PRN Reason: Constipation Stop: 12/04/21 20:19 Last Admin: 11/08/21 18:24 Dose: 17 gm Documented by: Pyridoxine HCl (Pyridoxine Hcl 50 Mg Tab) 100 mg PO HS [facility] Stop: 12/04/21 20:59 Last Admin: 11/08/21 21:01 Dose: 100 mg Documented by: Vitamin D (Cholecalciferol 5,000 Units 125 Mcg Tab) 5,000 units PO HS [facility] Stop: 12/04/21 20:59 Last Admin: 11/08/21 21:01 Dose: 5,000 units Documented by: (1) Atrial flutter Atrial flutter type: unspecified Qualified Code(s): I48.92 - Unspecified atrial flutter
--- NOTE | 2021-11-09 13:14 | Cardiology Progress Note ---
Date of Service November 09, 2021 Assessment & Plan (1) Atrial flutter with rapid ventricular response: (2) CAD (coronary artery disease), [place] coronary artery: (3) Anemia: (4) Bladder carcinoma: (5) Stage 4 chronic kidney disease: Plan: Successful external direct-current cardioversion performed 11/08/2021 without complication. Intravenous amiodarone and heparin infusing. Recommend discontinuation of IV amiodarone. Transition to oral amiodarone 400 mg twice daily. Continue IV heparin for an additional 24 hours. Treatment of hip bursitis per internal medicine and orthopedic surgery. Admission and Anticipated Discharge Date Admission Date: November 04, 2021 Subjective Patient seen examined the bedside. Remains in sinus rhythm overnight. Voices concern regarding left hip and knee discomfort. Denies chest pain, palpitations, or shortness of breath. Intravenous amiodarone and heparin infusing. Review of Systems Review of Systems: All systems reviewed & are unremarkable except as noted in Subjective Physical Exam Constitutional: well nourished; no acute distress Respiratory: no respiratory distress, no labored breathing, no retractions and does not use accessory muscles Auscultation: lungs clear to auscultation bilaterally; no crackles, no rales, no rhonchi and no wheezes Cardiovascular: Rate/Rhythm: regular rate and regular rhythm Heart Sounds: normal S1 and normal S2; no murmur Vessels: radial pulses present; no JVD and no carotid bruit Extremities: no edema Gastrointestinal (Abdomen): Inspection/Auscultation: abdomen normal to inspection and normal bowel sounds; abdomen not distended Percussion/Palpation: abdomen soft; abdomen nontender, no guarding and abdomen not rigid Neurologic: CN's II-XI intact bilaterally and moves all extremities; no focal motor deficits Motor/Sensory: no tremor Psychiatric: A+Ox3, euthymic affect Results & Data ([facility]) Vital Signs (Past 12 Hours) Vital Signs Temp Pulse Pulse Resp BP Pulse Ox 11/09/21 11:43 37.2 C 93 H 18 156/91 H 96 11/09/21 07:46 37.1 C 72 22 121/67 98 11/09/21 07:27 73 11/09/21 03:18 36.4 C L 81 20 129/75 100
[2021-11-09] MEDS: AMIODARONE 200 MG TAB PO SCH (17:19)
[2021-11-09] MEDS: TAMSULOSIN HCL 0.4 MG CAP PO SCH (18:26)
--- NOTE | 2021-11-09 19:03 | Electrocardiogram Report ---
Test Reason : Blood Pressure : / mmHG Vent. Rate : 161 BPM Atrial Rate : 159 BPM P-R Int : 000 ms QRS Dur : 074 ms QT Int : 292 ms P-R-T Axes : 000 078 120 degrees QTc Int : 477 ms Atrial flutter Low voltage QRS Cannot rule out Anteroseptal infarct , age undetermined Cannot rule out Inferior infarct Nonspecific ST and T wave abnormality Abnormal ECG When compared with ECG of 06-NOV-2021 05:52, Atrial flutter has replaced Sinus rhythm Vent. rate has decreased by 84 bpm Confirmed by Kristian Huston ([id number]) on 11/09/2021 7:03:12 PM Referred By: REFERRED SELF Confirmed By:Kristian Huston
[2021-11-09] MEDS: ASPIRIN 81 MG ECTAB PO SCH (21:26)
[2021-11-09] MEDS: MECLIZINE HCL 25 MG TAB PO SCH (21:26)
[2021-11-09] MEDS: PYRIDOXINE HCL 50 MG TAB PO SCH (21:27)
[2021-11-09] MEDS: LIDOCAINE 5% 1 PATCH TD SCH (21:27)
[2021-11-09] MEDS: CHOLECALCIFEROL 5,000 UNITS 125 MCG TAB PO SCH (21:27)
[2021-11-09] MEDS: POLYETHYLENE (MIRALAX) 17 GM PACK PO PRN (21:31)
--- NOTE | 2021-11-09 21:55 | Electrocardiogram Report ---
Test Reason : Blood Pressure : / mmHG Vent. Rate : 086 BPM Atrial Rate : 086 BPM P-R Int : 126 ms QRS Dur : 080 ms QT Int : 374 ms P-R-T Axes : 080 074 093 degrees QTc Int : 447 ms Sinus rhythm with Premature ventricular complexes Nonspecific T wave abnormality Abnormal ECG When compared with ECG of 08-NOV-2021 09:05, Premature ventricular complexes are now Present Vent. rate has decreased BY 75 BPM Sinus rhythm has replaced Atrial flutter ST no longer depressed in Lateral leads Confirmed by Kristian Huston ([id number]) on 11/09/2021 9:55:08 PM Referred By: REFERRED SELF Confirmed By:Kristian Huston
[2021-11-10] MEDS: ACETAMINOPHEN 325 MG TAB PO PRN ×3 (02:00→19:52)
[2021-11-10] MEDS: HEPARIN SODIUM/DEXTROSE 25,000 UNITS/500 ML BAG IV SCH (02:37)
[2021-11-10] MEDS ORDERED: HYDROmorphone INJ 0.5 MG/0.5 ML SYR IV STA (03:36)
--- NOTE | 2021-11-10 06:33 | Orthopedic Progress Note ---
Date of Service November 10, 2021 Assessment & Plan (1) Hip pain: With the MRI of the lumbar spine, does not appear that his symptoms are coming from his back. With the x-rays of his spine, hip, and femur I did not see any evidence of metastasis to the bone from his bladder cancer. He still having a lot of pain in his hip region. He has some discomfort over the greater trochanteric bursa, but he seems to be in a lot of pain for simple bursitis. These issues have been going on for several months. I think it is best at this time if we continue to treat him in the office. He can follow-up with the [facility] sports medicine physician, Dr. Contreras, soon after he leaves the hospital. Dr. Contreras may be able to provide additional diagnostics and possible ultrasound-guided injections to help better delineate the source of his pain. Full orthopedic discharge instructions were placed in the discharge summary. At this point orthopedics will sign off, if you have any further questions please feel free to contact me personally on my cell phone at [phone]. Or, [place] text me anytime. Subjective Giorgio was seen and examined at bedside this morning. Unfortunately still having pain in his hip. He said he was only able to sleep half hour last night and his pain medications are inadequate. He feels better if he is hunched over on the side of the bed. He did not make eye contact with me throughout the encounter. He had the MRI of his lumbar spine done yesterday. Review of Systems All systems reviewed & are unremarkable except as noted in HPI & below. Physical Exam On physical examination, he is sitting in a forward flexed position. He did not want to stand up. He still has some tenderness palpation of the greater trochanteric region. Results & Data Results & Data Laboratory Results . Diagnostic Findings MRI of the lumbar spine was personally reviewed. There is mild disc bulging at L2-3 and L3-4. Otherwise, the MRI of the lumbar spine did not look too bad. PG Care Time/CCT Total # of Minutes Spent Total Time Spent with Patient: Total time spent is greater than 50% in coordination of care (as documented) at patient's floor/unit and/or counseling patient: Coding Level of Care Code 49073 Subseq Hosp Care Lvl 2 Diagnoses Hip pain M25.559
[2021-11-10 07:50] LABS: Hematocrit (blood only) 24.1 % (42-52); Hemoglobin 7.7 g/dL (14.0-18.0); Mean Corpuscular Hemoglobin 27.2 pg (25-34); Mean Corpuscular Volume 85.2 fL (80-100); Mean Platelet Volume 9.1 fL (7.4-10.4); Platelet Count 340 K/uL (130-400); RDW Coefficient of Variation 19.8 % (11.5-14.5); RDW Standard Deviation 62.3 fL (36.4-46.3); Red Blood Count 2.83 M/uL (4.7-6.1); White Blood Count 10.61 K/uL (4.8-10.8)
[2021-11-10 08:12] LABS: BUN Creatinine Ratio 16.3 (10-20); C Reactive Protein 16.79 mg/dl (0-0.5); Calcium 8.6 mg/dl (8.5-10.1); Creatinine Clr Calc Pharmacy 24.9 ml/min; Est GFR (African American) 25.8 ml/min; Est GFR (Non-African American) 22.3 ml/min; Magnesium 1.8 mg/dl (1.7-2.4); Potassium 4.3 mmol/L (3.5-5.1)
[2021-11-10] MEDS: INSULIN ASPART PER UNIT SC SCH ×4 (08:16→21:04)
[2021-11-10] MEDS: INSULIN GLARGINE SOLOSTAR 100 UNITS/ML 3 ML PEN SC SCH ×2 (08:17→21:05)
[2021-11-10 08:18] LABS: Partial Thromboplastin Ratio 2.4
[2021-11-10] MEDS: oxyCODONE HCL IR 5 MG TAB (IMMEDIATE RELEASE) PO PRN ×3 (09:39→21:51)
[2021-11-10] MEDS: DOCUSATE SODIUM 100 MG CAP PO SCH ×2 (09:40→19:52)
[2021-11-10] MEDS: amLODIPine BESYLATE 5 MG TAB PO SCH (09:40)
[2021-11-10] MEDS: NIACIN 500 MG TAB PO SCH ×2 (09:40→19:46)
[2021-11-10] MEDS: MAGNESIUM OXIDE 400 MG TAB PO SCH (09:40)
[2021-11-10] MEDS: OMEGA-3 (PURIFIED FISH OIL) 1 GM CAP PO SCH (09:40)
[2021-11-10] MEDS: ASCORBIC ACID 500 MG TAB PO SCH ×2 (09:40→19:46)
[2021-11-10] MEDS: TAMSULOSIN HCL 0.4 MG CAP PO SCH (09:48)
[2021-11-10] MEDS: AMIODARONE 200 MG TAB PO SCH ×2 (09:49→17:26)
--- NOTE | 2021-11-10 13:52 | Hospitalist Progress Note ---
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 Denies CP, SOB, palpitations. In the ER, he was found to be in atrial flutter rapid ventricular rate, rate in 170s. Was given diltiazem and drip without improvement.Cardiology consulted and performed cardioversion with conversion to sinus rhythm Recurrent Atrial flutter with RVR s/p successful cardioversion 11/04 and 11/08 - s/p iv amio and iv heparin drip - On iv heparin drip per cardio- likely to dc today - Iv amio changed to po amio 400 bid per cardio - Continue tele - echo and tele reviewed Left hip/knee pain- ?trochanteric bursitis vs others- seen by orthopedics- Xrays hip and spine, MRI lumbar spine did not show significant finding. Discussed with Dr Solares who recommended to follow-up with the [facility] sports medicine physician, Dr. Contreras, soon after he leaves the hospital for additional diagnostics and possible ultrasound-guided injections to help better delineate the source of his pain.If not improved, recommend rheum evaluation given elevated inflammatory markers- I spoke to the patient regarding the recommendations. ARIADNA on CKD3b/4: Cr trending up 2.1->2.4->2.6->2.5->2.8->2.8; ?related to his malignancy and DM- follows with nephro Dr Ibrahim- consulted. Avoid nephrotoxics PAF s/p surgical ALEXANDREA occlusion and not on anticoagulation UTI- urine clx on admission was negative however has recurrence of symptoms, hence repeat UA sent which is growing stenotrophomonas maltophila - Was on cefepime and switched to iv ceftazidime D2 for now- will transition to levaquin at discharge renally dosed, QTc 447 but will need to monitor being on amiodarone. 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 Patient t reating with alternative medicine - Nephrostomy tube in place CAD (coronary artery disease), [place] coronary artery: S/P CABG x 4 in 2020 - Continue aspirin. Not on ACEI secondary to CKD. Not on beta phuong secondary to h/o bradycardia, not on statin secondary to self preference; reports not taking fenofibrate DM2: A1c: 8. Hold home glycemic agents; basal bolus insulin per protocol- cautious in setting of CKD. Adjusted today for hyperglycemia Anemia: Hgb: 8.8->7.7->8.4->8.5->8.2->8.1->7.7. no active bleeding noted. likely anemia of chronic disease due to CKD and malignancy. Monitor. Not on anticoagulation. HTN: Continue amlodipine Hyponatremia- stable when corrected for hyperglycemia. Recheck in am DVT Prophylaxis- heparin drip Dispo- on iv heparin drip, iv ABx, monitoring labs and on tele. Anticipate discharge in 1-2 days if remains stable. Admission and Anticipated Discharge Date Admission Date: November 04, 2021 Subjective Continues with pain not relieved by current regimen and took oxy with some relief. Discussed about ortho recommendations. States he has appointment with his urologist in [place] for the stent issues on Sunday. Physical Exam Physical Exam: General: Sitting in chair bending forward, not in acute distress HEENT: EOMI, JASWANT, MMM Chest: Clear breath sounds bilaterally, no wheezes or crackles CVS: regular, normal heart sounds Abdomen: Soft, non tender, not distended, normal bowel sounds Left sided nephrostomy tube Neuro: Awake, alert, oriented, conversing well, non focal Extremities: No cyanosis, clubbing or edema Psych: low mood but appreciative of the care he is receiving Results & Data Results & Data ([facility]) Vital Signs (Past 12 Hours) Vital Signs Temp Pulse Pulse Resp BP BP Pulse Ox 11/10/21 11:30 81 11/10/21 11:16 37.8 C H 80 18 100/56 L 99 11/10/21 07:23 36.5 C 81 18 128/74 99 11/10/21 03:25 37.3 C 82 20 111/65 98 Laboratory Results Short CBC 11/10/21 Range/Units 07:11 WBC 10.61 (4.8-10.8) K/uL Hgb 7.7 L (14.0-18.0) g/dL Hct 24.1 L (42-52) % Plt Count 340 (130-400) K/uL BMP 11/10/21 07:11 Sodium 129 L Potassium 4.3 Chloride 100 Carbon Dioxide 20 L BUN 46 H Creatinine 2.82 H Glucose 232 H Calcium 8.6 Medications Administered Current Inpatient Medications Acetaminophen (Acetaminophen 325 Mg Tab) 650 mg PO Q4H PRN PRN Reason: Pain or Fever Stop: 12/04/21 20:19 Last Admin: 11/10/21 02:00 Dose: 650 mg Documented by: Amiodarone HCl (Amiodarone 200 Mg Tab) 200 mg PO BIDM CASEY Stop: 12/05/21 16:59 Last Admin: 11/08/21 08:54 Dose: 200 mg Documented by: Amiodarone HCl (Amiodarone 200 Mg Tab) 400 mg PO BIDM [facility] Stop: 12/09/21 16:59 Last Admin: 11/10/21 09:49 Dose: 400 mg Documented by: Amlodipine Besylate (Amlodipine Besylate 5 Mg Tab) 5 mg PO DAILY CASYE Stop: 12/05/21 08:59 Last Admin: 11/10/21 09:40 Dose: 5 mg Documented by: Ascorbic Acid (Ascorbic Acid 500 Mg Tab) 2,000 mg PO BID CASEY Stop: 12/04/21 20:59 Last Admin: 11/10/21 09:40 Dose: 2,000 mg Documented by: Aspirin (Aspirin 81 Mg Ectab) 81 mg PO HS CASEY Stop: 12/04/21 20:59 Last Admin: 11/09/21 21:26 Dose: 81 mg Documented by: Dextrose (Dextrose 50% 50 Ml Syringe) 25 - 50 ml IV UD PRN; Protocol PRN Reason: Hypoglycemia Protocol Stop: 12/04/21 20:19 Docusate Sodium (Docusate Sodium 100 Mg Cap) 100 mg PO BID CASEY Stop: 12/04/21 20:59 Last Admin: 11/10/21 09:40 Dose: 100 mg Documented by: Fish Oil ([place]-3 (Purified Fish Oil) 1 Gm Cap) 1 gm PO DAILY CASEY Stop: 12/05/21 08:59 Last Admin: 11/10/21 09:40 Dose: 1 gm Documented by: Glucagon (Glucagon For Inj 1 Mg Vial) 1 mg SQ UD PRN; Protocol PRN Reason: Hypoglycemia Protocol Stop: 12/04/21 20:19 Glucose (Glucose 10 Tabs/Tube) 4 - 8 tabs PO UD PRN; Protocol PRN Reason: Hypoglycemia Protocol Stop: 12/04/21 20:19 Glucose (Glucose 40% Gel 15 Gm Tube) 15 - 30 gm PO UD PRN; Protocol PRN Reason: Hypoglycemia Protocol Stop: 12/04/21 20:19 Heparin Sodium/Dextrose (Heparin Sodium/Dextrose) 25,000 units in 500 mls @ 24 mls/hr IV .[id number] [facility]; Protocol Stop: 12/08/21 10:14 Last Titration: 11/10/21 08:38 Dose: 1,200 units/hr, 24 mls/hr Documented by: Ceftazidime 2,000 mg/ Dextrose 60 mls @ 120 mls/hr IV Q24H [facility]; Protocol Stop: 11/19/21 09:59 Last Infusion: 11/10/21 10:26 Dose: Infused Documented by: Insulin Aspart (Insulin Aspart Per Unit) 0 units SC ACHS [facility] Stop: 12/05/21 00:09 Last Admin: 11/10/21 12:15 Dose: 6 units Documented by: Insulin Glargine (Insulin Glargine Solostar 100 Units/Ml 3 Ml Pen) 0 units SC BID [facility] Stop: 12/04/21 20:59 Last Admin: 11/10/21 08:17 Dose: 10 units Documented by: Lidocaine (Lidocaine 5% 1 Patch) 1 patch TD [facility] Stop: 12/04/21 21:44 Last Admin: 11/09/21 21:27 Dose: 1 patch Documented by: Magnesium Hydroxide (Magnesium Hydroxide Susp 30 Ml Udc) 30 ml PO Q12H PRN PRN Reason: Constipation Stop: 12/04/21 20:19 Magnesium Oxide (Magnesium Oxide 400 Mg Tab) 400 mg PO DAILY [facility] Stop: 12/05/21 08:59 Last Admin: 11/10/21 09:40 Dose: 400 mg Documented by: Meclizine HCl (Meclizine Hcl 25 Mg Tab) 25 mg PO [facility] Stop: 12/04/21 20:59 Last Admin: 11/09/21 21:26 Dose: 25 mg Documented by: Miscellaneous (Carbohydrates For Hypoglycemia ) 15 - 30 gm PO UD PRN PRN Reason: Hypoglycemia Protocol Stop: 12/04/21 20:19 Miscellaneous (Remove Lidoderm Patch) 1 ea N/A DAILY CASEY Stop: 12/05/21 08:59 Last Admin: 11/10/21 09:40 Dose: 1 ea Documented by: Niacin (Niacin 500 Mg Tab) 500 mg PO BID CASEY Stop: 12/04/21 20:59 Last Admin: 11/10/21 09:40 Dose: 500 mg Documented by: Nitroglycerin (Nitroglycerin Sl 0.4 Mg/Tab Tab) 0.4 mg SL UD PRN PRN Reason: chest pain Stop: 12/04/21 20:19 Oxycodone HCl (Oxycodone Hcl Ir 5 Mg Tab (Immediate Release)) 5 mg PO Q4 PRN PRN Reason: Pain Stop: 11/24/21 09:32 Last Admin: 11/10/21 09:39 Dose: 5 mg Documented by: Polyethylene Glycol (Polyethylene (Miralax) 17 Gm Pack) 17 gm PO DAILY PRN PRN Reason: Constipation Stop: 12/04/21 20:19 Last Admin: 11/09/21 21:31 Dose: 17 gm Documented by: Pyridoxine HCl (Pyridoxine Hcl 50 Mg Tab) 100 mg PO HS [facility] Stop: 12/04/21 20:59 Last Admin: 11/09/21 21:27 Dose: 100 mg Documented by: Tamsulosin HCl (Tamsulosin Hcl 0.4 Mg Cap) 0.4 mg PO QAM [facility] Stop: 12/09/21 16:59 Last Admin: 11/10/21 09:48 Dose: 0.4 mg Documented by: Vitamin D (Cholecalciferol 5,000 Units 125 Mcg Tab) 5,000 units PO HS [facility] Stop: 12/04/21 20:59 Last Admin: 11/09/21 21:27 Dose: 5,000 units Documented by: (1) Atrial flutter Atrial flutter type: unspecified Qualified Code(s): I48.92 - Unspecified atrial flutter
--- NOTE | 2021-11-10 15:19 | Cardiology Progress Note ---
Date of Service November 10, 2021 Assessment & Plan (1) Atrial flutter with rapid ventricular response: (2) CAD (coronary artery disease), [place] coronary artery: (3) Anemia: (4) Bladder carcinoma: (5) Stage 4 chronic kidney disease: (6) UTI (urinary tract infection): Plan: Successful external direct-current cardioversion performed 11/08/2021 without complication. Discontinue IV heparin. Continue oral amiodarone 400 mg twice daily. Treatment of hip bursitis per internal medicine and orthopedic surgery. Treatment of urinary tract infection as per internal medicine. Admission and Anticipated Discharge Date Admission Date: November 04, 2021 Subjective Patient seen examined the bedside. Denies chest pain or unusual shortness of breath. Telemetry reveals sinus rhythm with PACs. Hip discomfort unchanged. Offers no new concerns/complaints. Review of Systems Review of Systems: All systems reviewed & are unremarkable except as noted in Subjective Physical Exam Constitutional: well nourished; no acute distress Respiratory: no respiratory distress, no labored breathing, no retractions and does not use accessory muscles Auscultation: lungs clear to auscultation bilaterally; no crackles, no rales, no rhonchi and no wheezes Cardiovascular: Rate/Rhythm: regular rate and regular rhythm Heart Sounds: normal S1 and normal S2; no murmur Vessels: radial pulses present; no JVD and no carotid bruit Extremities: no edema Gastrointestinal (Abdomen): Inspection/Auscultation: abdomen normal to inspection and normal bowel sounds; abdomen not distended Percussion/Palpation: abdomen soft; abdomen nontender, no guarding and abdomen not rigid Neurologic: CN's II-XI intact bilaterally and moves all extremities; no focal motor deficits Motor/Sensory: no tremor Psychiatric: A+Ox3, euthymic affect Results & Data ([facility]) Vital Signs (Past 12 Hours) Vital Signs Temp Pulse Pulse Resp BP BP Pulse Ox 11/10/21 11:30 81 11/10/21 11:16 37.8 C H 80 18 100/56 L 99 11/10/21 07:23 36.5 C 81 18 128/74 99 11/10/21 03:25 37.3 C 82 20 111/65 98
[2021-11-10] MEDS: PYRIDOXINE HCL 50 MG TAB PO SCH (19:45)
[2021-11-10] MEDS: ASPIRIN 81 MG ECTAB PO SCH (19:45)
[2021-11-10] MEDS: CHOLECALCIFEROL 5,000 UNITS 125 MCG TAB PO SCH (19:45)
[2021-11-10] MEDS: MECLIZINE HCL 25 MG TAB PO SCH (19:47)
[2021-11-11] MEDS: LIDOCAINE 5% 1 PATCH TD SCH (01:55)
--- NOTE | 2021-11-11 02:47 | Consultation Report ---
NEPHROLOGY CONSULTATION NOTE REASON FOR CONSULTATION: Rising creatinine in a patient with CKD IV. HISTORY OF PRESENT ILLNESS: The patient is a 65-year-old male whom I see in my CKD Clinic. [facility] bladder cancer with metastasis to intrapelvic lymph nodes as well as obstructive uropathy req uiring nephrostomy tube in the left and ureteric stent in the right. He has a history of severe acut e renal failure secondary to obstruction few months ago. After the placement of the nephrostomy tube and the ureteric stent, his most recent creatinine has been in the low to mid 2s range. The patient was seen on 11/04/2021 at PCP office for urinary symptoms. He was found to be in atrial flutter wit h tachycardia. After which the patient was sent over to the hospital. Since being admitted, he has been on heparin drip and he has also required cardioversion twice. The patient was having some dysur ia and has been put on antibiotics for the UTI. Creatinine was 2.1 on the time of admission, which i s slightly better than baseline, but since then it has gone up a little bit, but today is a little be tter than yesterday. In any case, all of the current creatinine is within his baseline range. At th is point, the patient is not eating much and drinking a lot of liquids trying to fix his constipation . But as a result, sodium is dropping steadily for the last few days. Does not have any nausea, vom iting, fever, chills, dizziness, syncope, worsening shortness of breath or other complaints. The pat ient has been switched over to oral amiodarone at this time and heparin will be continued until the e nd of the day. REVIEW OF SYSTEMS: As detailed in HPI; unless stated otherwise, 12 systems reviewed and negative. P ositive review of systems included some urinary symptoms and some palpitation and shortness of breath at the time of admission, but not now. SOCIAL HISTORY: The patient is and lives with his . He used to drink quite heavily in t he past, but not now. He is currently retired. 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 FAMILY HISTORY: Negative for renal disease or dialysis. PAST MEDICAL AND SURGICAL HISTORY: Includes bladder carcinoma with metastasis. Severe obstructive u ropathy requiring nephrostomy tube in the left and ureteric stent in the right, chronic kidney diseas e, stage IV secondary to severe obstructive uropathy as well as longstanding diabetes, chronic sinusi tis, type 2 diabetes of longstanding duration, dyslipidemia, hypertension, history of paroxysmal atri al fibrillation, bladder carcinoma, currently being treated with alternative medicine. PHYSICAL EXAMINATION: GENERAL: This is a middle-aged white male who appears to be declining in health and appeared quite w eak and debilitated compared to my last visit in the clinic. He is awake, alert, oriented x3. HEENT: Mucous membrane is moist. NECK: Supple. No jugular venous distention. VITAL SIGNS: Blood pressure is 100/56, temperature 37.8, 99% on room air. CHEST: Bilateral decreased breath sounds. CARDIOVASCULAR: S1 and S2 regular. Soft systolic murmur heard. ABDOMEN: Soft, nontender. EXTREMITIES: Show no edema. LABORATORY TEST: From this morning shows sodium 129, potassium 4.3, BUN 46, creatinine of 2.82. C-r eactive protein 16.7. Hemoglobin 7.7, WBC count 10.6, platelet count 340. Chest x-ray done at the t kristen of admission showed cardiomegaly, but no pulmonary congestion. ASSESSMENT AND PLAN: A 65-year-old male with bladder cancer with metastasis with severe obstructive uropathy requiring right ureteric stent and left nephrostomy tube associated with chronic kidney dise ase IV, baseline creatinine in the mid to low 2s. Now admitted with atrial flutter with rapid ventri cular response. I have been consulted for somewhat rising creatinine for the last few days. 1. Acute renal failure on background chronic kidney disease. His current creatinine of 2.8 is withi n his overall baseline. Slightly higher than baseline needs to be expected given the acute setting o f atrial flutter with rapid ventricular response, which will affect the renal perfusion to some exten t. No further workup is needed for the slight rise in creatinine. In any case today's number is act ually slightly better than yesterday. Do not use DELICIA inhibitor or ARB. We will continue to follow h im in the CKD Clinic. At this point, the nephrostomy tube and the ureteric stent is working appropri ately. However, he does have an upcoming appointment in a few days in [facility], which he should definitely attend. No further workup is needed from the renal standpoint. 2. Atrial fibrillation with rapid ventricular response/status post cardioversion twice. He is now o n oral amiodarone. Defer to cardiology. 3. Anemia. Given his active cancer with metastasis, I do not think we can give ESAs. Consider bloo d transfusion if agreeable if the blood count gets below 7. 4. Hyponatremia. This is in the setting of CKD and possibly significant mismatch between the amount of liquid he drinks and very little solid food he eats. He is deliberately trying to do this to fix his constipation, but this is causing the sodium to drop. However, sodium is not at a critically lo w level. He is unwilling to increase the solid food intake by that much and unwilling to lower the f luid intake by that much anyway. Job ID: [id number]
[2021-11-11] MEDS: ACETAMINOPHEN 325 MG TAB PO PRN ×2 (06:19→15:43)
[2021-11-11 07:36] LABS: Hematocrit (blood only) 23.7 % (42-52); Hemoglobin 7.4 g/dL (14.0-18.0); Mean Corpuscular Hemoglobin 26.7 pg (25-34); Mean Corpuscular Hgb Conc 31.2 g/dL (32-36); Mean Corpuscular Volume 85.6 fL (80-100); Mean Platelet Volume 8.7 fL (7.4-10.4); Platelet Count 310 K/uL (130-400); RDW Coefficient of Variation 20.3 % (11.5-14.5); RDW Standard Deviation 63.4 fL (36.4-46.3); Red Blood Count 2.77 M/uL (4.7-6.1); White Blood Count 9.95 K/uL (4.8-10.8)
[2021-11-11 07:45] LABS: Partial Thromboplastin Time 28.8 Seconds (21.0-31.0)
[2021-11-11 07:53] LABS: BUN Creatinine Ratio 15.6 (10-20); Calcium 8.6 mg/dl (8.5-10.1); Creatinine Clr Calc Pharmacy 24.3 ml/min; Est GFR (African American) 25.1 ml/min; Est GFR (Non-African American) 21.6 ml/min; Magnesium 1.8 mg/dl (1.7-2.4); Potassium 4.6 mmol/L (3.5-5.1)
[2021-11-11] MEDS: INSULIN ASPART PER UNIT SC SCH ×4 (08:10→21:22)
[2021-11-11] MEDS: INSULIN GLARGINE SOLOSTAR 100 UNITS/ML 3 ML PEN SC SCH ×2 (08:11→21:22)
[2021-11-11] MEDS: NIACIN 500 MG TAB PO SCH ×2 (08:19→21:16)
[2021-11-11] MEDS: MAGNESIUM OXIDE 400 MG TAB PO SCH (08:19)
[2021-11-11] MEDS: AMIODARONE 200 MG TAB PO SCH (08:19)
[2021-11-11] MEDS: OMEGA-3 (PURIFIED FISH OIL) 1 GM CAP PO SCH (08:19)
[2021-11-11] MEDS: ASCORBIC ACID 500 MG TAB PO SCH ×2 (08:19→21:16)
[2021-11-11] MEDS: TAMSULOSIN HCL 0.4 MG CAP PO SCH (08:19)
[2021-11-11] MEDS: DOCUSATE SODIUM 100 MG CAP PO SCH ×2 (08:19→21:04)
[2021-11-11] MEDS: amLODIPine BESYLATE 5 MG TAB PO SCH (08:19)
[2021-11-11] MEDS ORDERED: AMIODARONE IV BOLUS & DRIP IV STA (09:24)
[2021-11-11] MEDS ORDERED: AMIODARONE / D5W 150 MG/100 ML BAG IV STA (09:24)
[2021-11-11] MEDS ORDERED: 0.2 MICRON FILTER SET 1 EA IV ONE (09:24)
[2021-11-11] MEDS ORDERED: STAT IV Infusion **Titration per Protocol STA (09:24)
--- NOTE | 2021-11-11 09:33 | Cardiology Progress Note ---
Date of Service November 11, 2021 Assessment & Plan (1) Atrial flutter with rapid ventricular response: (2) CAD (coronary artery disease), [place] coronary artery: (3) Anemia: (4) Bladder carcinoma: (5) Stage 4 chronic kidney disease: (6) UTI (urinary tract infection): Plan: With the patient's history of chronic kidney disease, the choice of antiarrhythmics is limited. He has been receiving oral amiodarone as a loading dose. At this point I will stop the oral amiodarone, bolus him and start him on a drip. While the patient is in the hospital I think it is reasonable to continue anticoagulation. Admission and Anticipated Discharge Date Admission Date: November 04, 2021 Subjective The patient reverted back into atrial flutter with RVR. Heart rates 130 to 160 bpm. Relatively asymptomatic. Review of Systems Review of Systems: Review of Systems: See HPI for pertinent positives. All other 10 point review of systems are negative. Physical Exam Physical Exam: General: no acute distress and stated age Head: normocephalic, no masses, lesions, tenderness or abnormalities Eyes: conjunctiva are pink and non-injected, sclera clear Neck: supple, no adenopathy, no bruits, normal jugular venous pulse, no hepatojugular reflux Chest: normal shape and normal respiratory effort Lungs: clear to auscultation and percussion Cardiac Exam: - regular rate & rhythm, no murmurs gallops or rubs - normal S1, normal S2 Pulses: 2(+) throughout Abdomen: abdomen soft, non-tender, no abnormal masses and no hepatosplenomegaly Musculoskeletal: no gait disturbance, no joint inflammation, no deforming arthritis Extremities: no edema and no cyanosis Neuro: grossly normal exam Results & Data ([facility]) Vital Signs (Past 12 Hours) Vital Signs Temp Pulse Pulse Resp BP Pulse Ox 11/11/21 07:29 37.3 C 75 17 115/76 96 11/11/21 04:02 36.8 C 80 17 124/66 97 11/10/21 22:29 36.6 C 77 16 104/71 99 11/10/21 22:15 74 Laboratory Results Laboratory Results - last 24 hr 11/10/21 11/10/21 11/10/21 11:11 16:28 20:33 WBC RBC Hgb Hct MCV MCH MCHC RDW Std Deviation RDW Coeff of Bailey Plt Count MPV APTT PTT Ratio Sodium Potassium Chloride Carbon Dioxide Anion Gap BUN Creatinine Est Cr Clr Drug Dosing Est GFR ( Amer) Est GFR (Non-Af Amer) BUN/Creatinine Ratio Glucose POC Glucose 157 H 259 H 225 H Calcium Magnesium 11/11/21 11/11/21 11/11/21 07:19 07:19 07:19 WBC 9.95 RBC 2.77 L Hgb 7.4 L Hct 23.7 L MCV 85.6 MCH 26.7 MCHC 31.2 L RDW Std Deviation 63.4 H RDW Coeff of Bailey 20.3 H Plt Count 310 MPV 8.7 APTT 28.8 PTT Ratio 1.0 Sodium 130 L Potassium 4.6 Chloride 101 Carbon Dioxide 20 L Anion Gap 9 BUN 45 H Creatinine 2.89 H Est Cr Clr Drug Dosing 24.3 Est GFR ( Amer) 25.1 Est GFR (Non-Af Amer) 21.6 BUN/Creatinine Ratio 15.6 Glucose 140 H POC Glucose Calcium 8.6 Magnesium 1.8 11/11/21 07:24 WBC RBC Hgb Hct MCV MCH MCHC RDW Std Deviation RDW Coeff of Bailey Plt Count MPV APTT PTT Ratio Sodium Potassium Chloride Carbon Dioxide Anion Gap BUN Creatinine Est Cr Clr Drug Dosing Est GFR ( Amer) Est GFR (Non-Af Amer) BUN/Creatinine Ratio Glucose POC Glucose 164 H Calcium Magnesium Medications Administered Current Inpatient Medications Acetaminophen (Acetaminophen 325 Mg Tab) 650 mg PO Q4H PRN PRN Reason: Pain or Fever Stop: 12/04/21 20:19 Last Admin: 11/11/21 06:19 Dose: 650 mg Documented by: Amiodarone HCl (Amiodarone Iv Bolus & Drip) 1 ea IV NOW STA; Protocol Stop: 11/11/21 09:25 Amlodipine Besylate (Amlodipine Besylate 5 Mg Tab) 5 mg PO DAILY [facility] Stop: 12/05/21 08:59 Last Admin: 11/11/21 08:19 Dose: 5 mg Documented by: Ascorbic Acid (Ascorbic Acid 500 Mg Tab) 2,000 mg PO BID [facility] Stop: 12/04/21 20:59 Last Admin: 11/11/21 08:19 Dose: 2,000 mg Documented by: Aspirin (Aspirin 81 Mg Ectab) 81 mg PO HS [facility]Y Stop: 12/04/21 20:59 Last Admin: 11/10/21 19:45 Dose: 81 mg Documented by: Dextrose (Dextrose 50% 50 Ml Syringe) 25 - 50 ml IV UD PRN; Protocol PRN Reason: Hypoglycemia Protocol Stop: 12/04/21 20:19 Docusate Sodium (Docusate Sodium 100 Mg Cap) 100 mg PO BID [facility]Y Stop: 12/04/21 20:59 Last Admin: 11/11/21 08:19 Dose: 100 mg Documented by: Fish Oil (Effort-3 (Purified Fish Oil) 1 Gm Cap) 1 gm PO DAILY [facility]Y Stop: 12/05/21 08:59 Last Admin: 11/11/21 08:19 Dose: 1 gm Documented by: Glucagon (Glucagon For Inj 1 Mg Vial) 1 mg SQ UD PRN; Protocol PRN Reason: Hypoglycemia Protocol Stop: 12/04/21 20:19 Glucose (Glucose 10 Tabs/Tube) 4 - 8 tabs PO UD PRN; Protocol PRN Reason: Hypoglycemia Protocol Stop: 12/04/21 20:19 Glucose (Glucose 40% Gel 15 Gm Tube) 15 - 30 gm PO UD PRN; Protocol PRN Reason: Hypoglycemia Protocol Stop: 12/04/21 20:19 Ceftazidime 2,000 mg/ Dextrose 60 mls @ 120 mls/hr IV Q24H [facility]; Protocol Stop: 11/19/21 09:59 Last Infusion: 11/10/21 10:26 Dose: Infused Documented by: N/A (0.2 Micron Filter Set 17" W/Clave,Non-Dehp) 0 mls @ 0.333 mls/hr IV ONE ONE Stop: 11/11/21 09:25 Amiodarone HCl/Dextrose (Nexterone / D5w) 150 mg in 100 mls @ 600 mls/hr IV NOW STA Stop: 11/11/21 09:33 Amiodarone HCl/Dextrose (Nexterone / D5w) 360 mg in 200 mls @ 33.333 mls/hr IV ONE ONE Stop: 11/11/21 15:34 Amiodarone HCl/Dextrose (Nexterone / D5w) 360 mg in 200 mls @ 16.667 mls/hr IV .Q12H [facility] Stop: 12/11/21 15:29 Insulin Aspart (Insulin Aspart Per Unit) 0 units SC ACHS [facility] Stop: 12/05/21 00:09 Last Admin: 11/11/21 08:10 Dose: 8 units Documented by: Insulin Glargine (Insulin Glargine Solostar 100 Units/Ml 3 Ml Pen) 0 units SC BID [facility] Stop: 12/04/21 20:59 Last Admin: 11/11/21 08:11 Dose: 5 units Documented by: Lidocaine (Lidocaine 5% 1 Patch) 1 patch TD HS [facility]Y Stop: 12/04/21 21:44 Last Admin: 11/11/21 01:55 Dose: Not Given Documented by: Magnesium Hydroxide (Magnesium Hydroxide Susp 30 Ml Udc) 30 ml PO Q12H PRN PRN Reason: Constipation Stop: 12/04/21 20:19 Magnesium Oxide (Magnesium Oxide 400 Mg Tab) 400 mg PO DAILY [facility]Y Stop: 12/05/21 08:59 Last Admin: 11/11/21 08:19 Dose: 400 mg Documented by: Meclizine HCl (Meclizine Hcl 25 Mg Tab) 25 mg PO HS [facility]Y Stop: 12/04/21 20:59 Last Admin: 11/10/21 19:47 Dose: 25 mg Documented by: Miscellaneous (Carbohydrates For Hypoglycemia ) 15 - 30 gm PO UD PRN PRN Reason: Hypoglycemia Protocol Stop: 12/04/21 20:19 Miscellaneous (Remove Lidoderm Patch) 1 ea N/A DAILY [facility]Y Stop: 12/05/21 08:59 Last Admin: 11/11/21 08:20 Dose: 1 ea Documented by: Miscellaneous (Stat Iv Infusion Titration Per Protocol) 1 ea N/A NOW STA Stop: 11/11/21 09:25 Niacin (Niacin 500 Mg Tab) 500 mg PO BID [facility] Stop: 12/04/21 20:59 Last Admin: 11/11/21 08:19 Dose: 500 mg Documented by: Nitroglycerin (Nitroglycerin Sl 0.4 Mg/Tab Tab) 0.4 mg SL UD PRN PRN Reason: chest pain Stop: 12/04/21 20:19 Oxycodone HCl (Oxycodone Hcl Ir 5 Mg Tab (Immediate Release)) 5 mg PO Q4 PRN PRN Reason: Pain Stop: 11/24/21 09:32 Last Admin: 11/10/21 21:51 Dose: 5 mg Documented by: Polyethylene Glycol (Polyethylene (Miralax) 17 Gm Pack) 17 gm PO DAILY PRN PRN Reason: Constipation Stop: 12/04/21 20:19 Last Admin: 11/09/21 21:31 Dose: 17 gm Documented by: Pyridoxine HCl (Pyridoxine Hcl 50 Mg Tab) 100 mg PO [facility] Stop: 12/04/21 20:59 Last Admin: 11/10/21 19:45 Dose: 100 mg Documented by: Tamsulosin HCl (Tamsulosin Hcl 0.4 Mg Cap) 0.4 mg PO [facility] Stop: 12/09/21 16:59 Last Admin: 11/11/21 08:19 Dose: 0.4 mg Documented by: Vitamin D (Cholecalciferol 5,000 Units 125 Mcg Tab) 5,000 units PO [facility] Stop: 12/04/21 20:59 Last Admin: 11/10/21 19:45 Dose: 5,000 units Documented by:
[2021-11-11] MEDS ORDERED: AMIODARONE / D5W 360 MG/200 ML BAG IV ONE (09:35)
[2021-11-11] MEDS: HEPARIN SODIUM/DEXTROSE 25,000 UNITS/500 ML BAG IV SCH (10:36)
[2021-11-11] MEDS: POLYETHYLENE (MIRALAX) 17 GM PACK PO PRN (10:36)
[2021-11-11] MEDS: Heparin IV Adult Wt-Based Standard *NO* Bolus Protocol IV SCH ×3 (10:37→12:24)
--- NOTE | 2021-11-11 15:40 | Nephrology Progress Note ---
Date of Service November 11, 2021 Assessment & Plan Admission and Anticipated Discharge Date Admission Date: November 04, 2021 Subjective PHYSICAL EXAMINATION: GENERAL: This is a middle-aged white male who appears to be declining in health and appeared quite weak and debilitated compared to my last visit in the clinic. He is awake, alert, oriented x3. HEENT: Mucous membrane is moist. NECK: Supple. No jugular venous distention. VITAL SIGNS: Blood pressure is 100/56, temperature 37.8, 99% on room air. CHEST: Bilateral decreased breath sounds. CARDIOVASCULAR: S1 and S2 regular. Soft systolic murmur heard. ABDOMEN: Soft, nontender. EXTREMITIES: Show no edema. LABORATORY TEST: From this morning shows sodium 129, potassium 4.3, BUN 46, creatinine of 2.82. C-reactive protein 16.7. Hemoglobin 7.7, WBC count 10.6, platelet count 340. Chest x-ray done at the time of admission showed cardiomegaly, but no pulmonary congestion. ASSESSMENT AND PLAN: A 65-year-old male with bladder cancer with metastasis with severe obstructive uropathy requiring right ureteric stent and left nephrostomy tube associated with chronic kidney disease IV, baseline creatinine in the mid to low 2s. Now admitted with atrial flutter with rapid ventricular response. I have been consulted for somewhat rising creatinine for the last few days. 1. Acute renal failure on background chronic kidney disease. His current cr eatinine of 2.8 is within his overall baseline. Slightly higher than baseline needs to be expected given the acute setting of atrial flutter with rapid ventricular response, which will affect the renal perfusion to some extent. No further workup is needed for the slight rise in creatinine. In any case today's number is actually slightly better than yesterday. Do not use DELICIA inhibitor or ARB. We will continue to follow him in the CKD Clinic. At this point, the nephrostomy tube and the ureteric stent is working appropriately. However, he does have an upcoming appointment in a few days in [facility], which he should definitely attend. No further workup is needed from the renal standpoint. 2. Atrial fibrillation with rapid ventricular response/status post cardioversion twice. He is now on oral amiodarone. Defer to cardiology. ?? transfer to [facility] 3. Anemia. Given his active cancer with metastasis, I do not think we can give ESAs. Consider blood transfusion if agreeable if the blood count gets below 7. 4. Hyponatremia. This is in the setting of CKD and possibly significant mismatch between the amount of liquid he drinks and very little solid food he eats. He is deliberately trying to do this to fix his constipation, but this is causing the sodium to drop. However, sodium is not at a critically low level. He is unwilling to increase the solid food intake by that much and unwilling to lower the fluid intake by that much anyway. Did go up a little bit 13 with some gentle fluid restriction. labs daily Results & Data ([facility]) Vital Signs (Past 12 Hours) Vital Signs Temp Pulse Pulse Resp BP Pulse Ox 11/11/21 15:26 37.5 C 80 18 112/63 97 11/11/21 11:16 37.1 C 73 17 114/64 98 11/11/21 11:11 37.3 C 74 18 112/67 99 11/11/21 07:29 37.3 C 75 17 115/76 96 11/11/21 06:12 84 11/11/21 04:02 36.8 C 80 17 124/66 97
[2021-11-11] MEDS: oxyCODONE HCL IR 5 MG TAB (IMMEDIATE RELEASE) PO PRN ×2 (15:43→21:04)
[2021-11-11] MEDS: AMIODARONE / D5W 360 MG/200 ML BAG IV SCH ×2 (15:49→17:17)
--- NOTE | 2021-11-11 16:07 | Hospitalist Progress Note ---
Date of Service November 11, 2021 Assessment & Plan (1) Atrial flutter: (2) Bladder carcinoma: (3) CAD (coronary artery disease), [place] coronary artery: (4) DM2 (diabetes mellitus, type 2): (5) Stage 4 chronic kidney disease: (6) Anemia: (7) HTN (hypertension): (8) Abnormal urinalysis: Plan: Patient is 65-year-old male with PMH Paroxysmal atrial fibrillation not on anticoagulation, CAD, NSTEMI s/p CABG x4 in December 2020, bladder cancer with metastasis intrapelvic lymph nodes, CKD IV, nephrostomy tube, chronic anemia, HTN, HLD, DM II presented to the ER for tachycardia found at PCP office today. Denies CP, SOB, palpitations. In the ER, he was found to be in atrial flutter rapid ventricular rate, rate in 170s. Was given diltiazem and drip without improvement.Cardiology consulted and performed cardioversion with conversion to sinus rhythm Recurrent Atrial flutter with RVR s/p successful cardioversion 11/04 and 11/08; converted to NRS with amio drip 11/11 - Resumed back on iv amio and iv heparin drip today as he again flipped to A flutter with RVR this morning for the third time - Cardio following- ?possible transfer to [facility] where he had received his prior care - Continue tele; echo reviewed Left hip/knee pain- - Significantly improved today with oxy prn- continue - ?trochanteric bursitis vs others- seen by orthopedics- Xrays hip and spine, MRI lumbar spine did not show significant finding. Discussed with Dr Solares who recommended to follow-up with the [facility] sports medicine physician, Dr. Contreras, soon after he leaves the hospital for additional diagnostics and possible ultrasound-guided injections to help better delineate the source of his pain.If not improved, recommend rheum evaluation given elevated inflammatory markers- I spoke to the patient regarding the recommendations. ARIADNA on CKD3b/4: Cr trending up 2.1->2.4->2.6->2.5->2.8->2.8->2.89; ?related to his malignancy and DM- nephro following- gentle ivf started PAF s/p surgical ALEXANDREA occlusion and not on anticoagulation- now on heparin drip UTI- urine clx on admission was negative however has recurrence of symptoms, hence repeat UA sent which is growing stenotrophomonas maltophila - Was on cefepime and switched to iv ceftazidime D3 for now- will transition to levaquin at discharge renally dosed, QTc 447 but will need to monitor being on amiodarone. 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 Patient treating with alternative medicine - Nephrostomy tube in place CAD (coronary artery disease), [place] coronary artery: S/P CABG x 4 in 2020 - Continue aspirin. Not on ACEI secondary to CKD. Not on beta phuong secondary to h/o bradycardia, not on statin secondary to self preference; reports not taking fenofibrate DM2: A1c: 8. Hold home glycemic agents; basal bolus insulin per protocol- cautious in setting of CKD. Adjusted today for hyperglycemia Anemia: Hgb: 8.8->7.7->8.4->8.5->8.2->8.1->7.7->7.4. no active bleeding noted. likely anemia of chronic disease due to CKD and malignancy. Monitor. Not on anticoagulation. - Might need blood transfusion- will monitor- transfuse if Hb<7 HTN: Continue amlodipine Hyponatremia- stable when corrected for hyperglycemia. Recheck in am DVT Prophylaxis- heparin drip Dispo- Recurrent Aflutter with RVR on iv heparin drip, iv ABx, monitoring labs and on tele. Admission and Anticipated Discharge Date Admission Date: November 04, 2021 Subjective He feels much better today since pain is better with oxy. Now able to sit cross legged and lie comfortably in bed. He is in a better mood today. He was briefly in Aflutter with RVR this morning and converted to NSR with iv amiodarone drip. He tells me that cardiology is trying to get him to [facility] given his recurrent Aflutter with RVR. Physical Exam Physical Exam: General: Lying in bed, comfortable, not in acute distress, on room air HEENT: EOMI, JASWANT, MMM Chest: Clear breath sounds bilaterally, no wheezes or crackles CVS: regular, normal heart sounds Abdomen: Soft, non tender, not distended, normal bowel sounds Left sided nephrostomy tube Neuro: Awake, alert, oriented, conversing well, non focal Extremities: No cyanosis, clubbing or edema Psych: mood better today; appreciative of the care he is receiving Results & Data Results & Data ([facility]) Vital Signs (Past 12 Hours) Vital Signs Temp Pulse Pulse Resp BP Pulse Ox 11/11/21 15:26 37.5 C 80 18 112/63 97 11/11/21 11:16 37.1 C 73 17 114/64 98 11/11/21 11:11 37.3 C 74 18 112/67 99 11/11/21 07:29 37.3 C 75 17 115/76 96 11/11/21 06:12 84 Laboratory Results Short CBC 11/11/21 Range/Units 07:19 WBC 9.95 (4.8-10.8) K/uL Hgb 7.4 L (14.0-18.0) g/dL Hct 23.7 L (42-52) % Plt Count 310 (130-400) K/uL BMP 11/11/21 07:19 Sodium 130 L Potassium 4.6 Chloride 101 Carbon Dioxide 20 L BUN 45 H Creatinine 2.89 H Glucose 140 H Calcium 8.6 Medications Administered Current Inpatient Medications Acetaminophen (Acetaminophen 325 Mg Tab) 650 mg PO Q4H PRN PRN Reason: Pain or Fever Stop: 12/04/21 20:19 Last Admin: 11/11/21 15:43 Dose: 650 mg Documented by: Amlodipine Besylate (Amlodipine Besylate 5 Mg Tab) 5 mg PO DAILY [facility] Stop: 12/05/21 08:59 Last Admin: 11/11/21 08:19 Dose: 5 mg Documented by: Ascorbic Acid (Ascorbic Acid 500 Mg Tab) 2,000 mg PO BID [facility] Stop: 12/04/21 20:59 Last Admin: 11/11/21 08:19 Dose: 2,000 mg Documented by: Aspirin (Aspirin 81 Mg Ectab) 81 mg PO HS [facility] Stop: 12/04/21 20:59 Last Admin: 11/10/21 19:45 Dose: 81 mg Documented by: Dextrose (Dextrose 50% 50 Ml Syringe) 25 - 50 ml IV UD PRN; Protocol PRN Reason: Hypoglycemia Protocol Stop: 12/04/21 20:19 Docusate Sodium (Docusate Sodium 100 Mg Cap) 100 mg PO BID [facility] Stop: 12/04/21 20:59 Last Admin: 11/11/21 08:19 Dose: 100 mg Documented by: Fish Oil (Manson-3 (Purified Fish Oil) 1 Gm Cap) 1 gm PO DAILY [facility] Stop: 12/05/21 08:59 Last Admin: 11/11/21 08:19 Dose: 1 gm Documented by: Glucagon (Glucagon For Inj 1 Mg Vial) 1 mg SQ UD PRN; Protocol PRN Reason: Hypoglycemia Protocol Stop: 12/04/21 20:19 Glucose (Glucose 10 Tabs/Tube) 4 - 8 tabs PO UD PRN; Protocol PRN Reason: Hypoglycemia Protocol Stop: 12/04/21 20:19 Glucose (Glucose 40% Gel 15 Gm Tube) 15 - 30 gm PO UD PRN; Protocol PRN Reason: Hypoglycemia Protocol Stop: 12/04/21 20:19 Ceftazidime 2,000 mg/ Dextrose 60 mls @ 120 mls/hr IV Q24H [facility]; Protocol Stop: 11/19/21 09:59 Last Infusion: 11/11/21 11:14 Dose: Infused Documented by: Amiodarone HCl/Dextrose (Nexterone / D5w) 360 mg in 200 mls @ 16.667 mls/hr IV .Q12H [facility] Stop: 12/11/21 15:29 Last Admin: 11/11/21 15:49 Dose: 0.5 mg/min, 16.7 mls/hr Documented by: Heparin Sodium/Dextrose (Heparin Sodium/Dextrose) 25,000 units in 500 mls @ 26 mls/hr IV .[id number] [facility]; Protocol Stop: 12/11/21 09:59 Last Admin: 11/11/21 10:36 Dose: 1,300 units/hr, 26 mls/hr Documented by: Insulin Aspart (Insulin Aspart Per Unit) 0 units SC ACHS [facility] Stop: 12/05/21 00:09 Last Admin: 11/11/21 16:47 Dose: 10 units Documented by: Insulin Glargine (Insulin Glargine Solostar 100 Units/Ml 3 Ml Pen) 0 units SC BID [facility] Stop: 12/04/21 20:59 Last Admin: 11/11/21 08:11 Dose: 5 units Documented by: Lidocaine (Lidocaine 5% 1 Patch) 1 patch TD HS [facility] Stop: 12/04/21 21:44 Last Admin: 11/11/21 01:55 Dose: Not Given Documented by: Magnesium Hydroxide (Magnesium Hydroxide Susp 30 Ml Udc) 30 ml PO Q12H PRN PRN Reason: Constipation Stop: 12/04/21 20:19 Magnesium Oxide (Magnesium Oxide 400 Mg Tab) 400 mg PO DAILY [facility] Stop: 12/05/21 08:59 Last Admin: 11/11/21 08:19 Dose: 400 mg Documented by: Meclizine HCl (Meclizine Hcl 25 Mg Tab) 25 mg PO HS [facility] Stop: 12/04/21 20:59 Last Admin: 11/10/21 19:47 Dose: 25 mg Documented by: Miscellaneous (Carbohydrates For Hypoglycemia ) 15 - 30 gm PO UD PRN PRN Reason: Hypoglycemia Protocol Stop: 12/04/21 20:19 Miscellaneous (Remove Lidoderm Patch) 1 ea N/A DAILY [facility] Stop: 12/05/21 08:59 Last Admin: 11/11/21 08:20 Dose: 1 ea Documented by: Niacin (Niacin 500 Mg Tab) 500 mg PO BID [facility] Stop: 12/04/21 20:59 Last Admin: 11/11/21 08:19 Dose: 500 mg Documented by: Nitroglycerin (Nitroglycerin Sl 0.4 Mg/Tab Tab) 0.4 mg SL UD PRN PRN Reason: chest pain Stop: 12/04/21 20:19 Oxycodone HCl (Oxycodone Hcl Ir 5 Mg Tab (Immediate Release)) 5 mg PO Q4 PRN PRN Reason: Pain Stop: 11/24/21 09:32 Last Admin: 11/11/21 15:43 Dose: 5 mg Documented by: Polyethylene Glycol (Polyethylene (Miralax) 17 Gm Pack) 17 gm PO DAILY PRN PRN Reason: Constipation Stop: 12/04/21 20:19 Last Admin: 11/11/21 10:36 Dose: 17 gm Documented by: Pyridoxine HCl (Pyridoxine Hcl 50 Mg Tab) 100 mg PO HS [facility] Stop: 12/04/21 20:59 Last Admin: 11/10/21 19:45 Dose: 100 mg Documented by: Tamsulosin HCl (Tamsulosin Hcl 0.4 Mg Cap) 0.4 mg PO QAM [facility] Stop: 12/09/21 16:59 Last Admin: 11/11/21 08:19 Dose: 0.4 mg Documented by: Vitamin D (Cholecalciferol 5,000 Units 125 Mcg Tab) 5,000 units PO [facility] Stop: 12/04/21 20:59 Last Admin: 11/10/21 19:45 Dose: 5,000 units Documented by: (1) Atrial flutter Atrial flutter type: unspecified Qualified Code(s): I48.92 - Unspecified atrial flutter
[2021-11-11 17:04] LABS: Partial Thromboplastin Time 27.4 Seconds (21.0-31.0)
[2021-11-11] MEDS ORDERED: HEPARIN SOD (PORCINE) 1000 UNIT/ML IV ONE (17:25)
[2021-11-11] MEDS: ASPIRIN 81 MG ECTAB PO SCH (21:15)
[2021-11-11] MEDS: MECLIZINE HCL 25 MG TAB PO SCH (21:16)
[2021-11-11] MEDS: CHOLECALCIFEROL 5,000 UNITS 125 MCG TAB PO SCH (21:16)
[2021-11-11] MEDS: PYRIDOXINE HCL 50 MG TAB PO SCH (21:16)
[2021-11-12 00:17] LABS: Partial Thromboplastin Ratio 4.4
[2021-11-12 00:31] LABS: Partial Thromboplastin Time 119.8 Seconds (21.0-31.0)
[2021-11-12] MEDS: LIDOCAINE 5% 1 PATCH TD SCH ×3 (00:43→19:31)
[2021-11-12] MEDS: HEPARIN SODIUM/DEXTROSE 25,000 UNITS/500 ML BAG IV SCH ×2 (01:34→19:06)
[2021-11-12] MEDS: AMIODARONE / D5W 360 MG/200 ML BAG IV SCH ×2 (04:15→16:56)
[2021-11-12] MEDS: oxyCODONE HCL IR 5 MG TAB (IMMEDIATE RELEASE) PO PRN ×3 (05:37→23:18)
[2021-11-12 07:33] LABS: Hematocrit (blood only) 23.6 % (42-52); Hemoglobin 7.6 g/dL (14.0-18.0); Mean Corpuscular Hemoglobin 27.9 pg (25-34); Mean Corpuscular Hgb Conc 32.2 g/dL (32-36); Mean Corpuscular Volume 86.8 fL (80-100); Platelet Count 308 K/uL (130-400); RDW Coefficient of Variation 20.4 % (11.5-14.5); RDW Standard Deviation 64.5 fL (36.4-46.3); Red Blood Count 2.72 M/uL (4.7-6.1); White Blood Count 10.51 K/uL (4.8-10.8)
[2021-11-12 07:50] LABS: BUN Creatinine Ratio 14.3 (10-20); C Reactive Protein 14.99 mg/dl (0-0.5); Calcium 8.5 mg/dl (8.5-10.1); Creatinine Clr Calc Pharmacy 22.8 ml/min; Est GFR (African American) 23.2 ml/min; Potassium 5.1 mmol/L (3.5-5.1)
[2021-11-12 08:16] LABS: Partial Thromboplastin Ratio 2.1
[2021-11-12] MEDS: INSULIN ASPART PER UNIT SC SCH ×4 (08:35→20:32)
[2021-11-12] MEDS: ASCORBIC ACID 500 MG TAB PO SCH ×2 (08:36→20:15)
[2021-11-12] MEDS: MAGNESIUM OXIDE 400 MG TAB PO SCH (08:36)
[2021-11-12] MEDS: INSULIN GLARGINE SOLOSTAR 100 UNITS/ML 3 ML PEN SC SCH ×2 (08:36→20:33)
[2021-11-12] MEDS: NIACIN 500 MG TAB PO SCH ×2 (08:36→20:16)
[2021-11-12] MEDS: DOCUSATE SODIUM 100 MG CAP PO SCH ×2 (08:36→20:18)
[2021-11-12] MEDS: OMEGA-3 (PURIFIED FISH OIL) 1 GM CAP PO SCH (08:36)
[2021-11-12] MEDS: TAMSULOSIN HCL 0.4 MG CAP PO SCH (08:37)
[2021-11-12] MEDS: amLODIPine BESYLATE 5 MG TAB PO SCH (08:37)
[2021-11-12 08:57] LABS: Partial Thromboplastin Time 58.7 Seconds (21.0-31.0)
--- NOTE | 2021-11-12 09:25 | Cardiology Progress Note ---
Date of Service November 12, 2021 Assessment & Plan (1) Atrial flutter with rapid ventricular response: (2) CAD (coronary artery disease), [place] coronary artery: (3) Anemia: (4) Bladder carcinoma: (5) Stage 4 chronic kidney disease: (6) UTI (urinary tract infection): Plan: The patient has maintained sinus rhythm while on the amiodarone infusion for the past 24 hours. I did contact the [facility] at the patient's request. There are willing to take him as soon as a bed is available. The atrial flutter is most likely left-sided. This type of atypical atrial flutter is usually seen following a Maze procedure and can be very difficult to control or to ablate. Therefore he does require a tertiary care center with advanced EP services. His insurance has authorized the transfer. Amiodarone given intravenously through a peripheral vein can result and a localized phlebitis and therefore at some point we will have to switch him over to oral depending on how long it takes for bed to open up at . Admission and Anticipated Discharge Date Admission Date: November 04, 2021 Review of Systems Review of Systems: Review of Systems: See HPI for pertinent positives. All other 10 point review of systems are negative. Physical Exam Physical Exam: General: no acute distress and stated age Head: normocephalic, no masses, lesions, tenderness or abnormalities Eyes: conjunctiva are pink and non-injected, sclera clear Neck: supple, no adenopathy, no bruits, normal jugular venous pulse, no hepatojugular reflux Chest: normal shape and normal respiratory effort Lungs: clear to auscultation and percussion Cardiac Exam: - regular rate & rhythm, no murmurs gallops or rubs - normal S1, normal S2 Pulses: 2(+) throughout Abdomen: abdomen soft, non-tender, no abnormal masses and no hepatosplenomegaly Musculoskeletal: no gait disturbance, no joint inflammation, no deforming arthritis Extremities: no edema and no cyanosis Neuro: grossly normal exam Results & Data ([facility]) Vital Signs (Past 12 Hours) Vital Signs Temp Pulse Pulse Resp BP Pulse Ox 11/12/21 07:27 37.2 C 72 17 127/69 97 11/12/21 07:00 77 11/12/21 03:37 37.1 C 78 18 129/69 96 11/11/21 23:36 36.8 C 83 18 128/71 98 11/11/21 22:20 75 Laboratory Results Laboratory Results - last 24 hr 11/11/21 11/11/21 11/11/21 11:13 16:29 16:38 WBC RBC Hgb Hct MCV MCH MCHC RDW Std Deviation RDW Coeff of Bailey Plt Count MPV APTT 27.4 PTT Ratio 1.0 Sodium Potassium Chloride Carbon Dioxide Anion Gap BUN Creatinine Est Cr Clr Drug Dosing Est GFR ( Amer) Est GFR (Non-Af Amer) BUN/Creatinine Ratio Glucose POC Glucose 246 H 231 H Calcium C-Reactive Protein 11/11/21 11/11/21 11/12/21 20:05 23:35 07:08 WBC 10.51 RBC 2.72 L Hgb 7.6 L Hct 23.6 L MCV 86.8 MCH 27.9 MCHC 32.2 RDW Std Deviation 64.5 H RDW Coeff of Bailey 20.4 H Plt Count 308 MPV 9.0 APTT 119.8 H* PTT Ratio 4.4 Sodium Potassium Chloride Carbon Dioxide Anion Gap BUN Creatinine Est Cr Clr Drug Dosing Est GFR ( Amer) Est GFR (Non-Af Amer) BUN/Creatinine Ratio Glucose POC Glucose 279 H Calcium C-Reactive Protein 11/12/21 11/12/21 11/12/21 07:08 07:08 07:23 WBC RBC Hgb Hct MCV MCH MCHC RDW Std Deviation RDW Coeff of Bailey Plt Count MPV APTT 58.7 H* PTT Ratio 2.1 Sodium 130 L Potassium 5.1 Chloride 99 Carbon Dioxide 21 Anion Gap 10 BUN 44 H Creatinine 3.08 H Est Cr Clr Drug Dosing 22.8 Est GFR ( Amer) 23.2 Est GFR (Non-Af Amer) 20.0 BUN/Creatinine Ratio 14.3 Glucose 223 H POC Glucose 250 H Calcium 8.5 C-Reactive Protein 14.99 H Medications Administered Current Inpatient Medications Acetaminophen (Acetaminophen 325 Mg Tab) 650 mg PO Q4H PRN PRN Reason: Pain or Fever Stop: 12/04/21 20:19 Last Admin: 11/11/21 15:43 Dose: 650 mg Documented by: Amlodipine Besylate (Amlodipine Besylate 5 Mg Tab) 5 mg PO DAILY [facility]Y Stop: 12/05/21 08:59 Last Admin: 11/12/21 08:37 Dose: 5 mg Documented by: Ascorbic Acid (Ascorbic Acid 500 Mg Tab) 2,000 mg PO BID CASEY Stop: 12/04/21 20:59 Last Admin: 11/12/21 08:36 Dose: 2,000 mg Documented by: Aspirin (Aspirin 81 Mg Ectab) 81 mg PO HS CASEY Stop: 12/04/21 20:59 Last Admin: 11/11/21 21:15 Dose: 81 mg Documented by: Dextrose (Dextrose 50% 50 Ml Syringe) 25 - 50 ml IV UD PRN; Protocol PRN Reason: Hypoglycemia Protocol Stop: 12/04/21 20:19 Docusate Sodium (Docusate Sodium 100 Mg Cap) 100 mg PO BID CASEY Stop: 12/04/21 20:59 Last Admin: 11/12/21 08:36 Dose: 100 mg Documented by: Fish Oil ([place]-3 (Purified Fish Oil) 1 Gm Cap) 1 gm PO DAILY CASEY Stop: 12/05/21 08:59 Last Admin: 11/12/21 08:36 Dose: 1 gm Documented by: Glucagon (Glucagon For Inj 1 Mg Vial) 1 mg SQ UD PRN; Protocol PRN Reason: Hypoglycemia Protocol Stop: 12/04/21 20:19 Glucose (Glucose 10 Tabs/Tube) 4 - 8 tabs PO UD PRN; Protocol PRN Reason: Hypoglycemia Protocol Stop: 12/04/21 20:19 Glucose (Glucose 40% Gel 15 Gm Tube) 15 - 30 gm PO UD PRN; Protocol PRN Reason: Hypoglycemia Protocol Stop: 12/04/21 20:19 Ceftazidime 2,000 mg/ Dextrose 60 mls @ 120 mls/hr IV Q24H CASEY; Protocol Stop: 11/19/21 09:59 Last Infusion: 11/11/21 11:14 Dose: Infused Documented by: Amiodarone HCl/Dextrose (Nexterone / D5w) 360 mg in 200 mls @ 16.667 mls/hr IV .Q12H [facility] Stop: 12/11/21 15:29 Last Infusion: 11/12/21 06:58 Dose: 0.5 mg/min, 16.7 mls/hr Documented by: Heparin Sodium/Dextrose (Heparin Sodium/Dextrose) 25,000 units in 500 mls @ 26 mls/hr IV .[id number] CASEY; Protocol Stop: 12/11/21 09:59 Last Titration: 11/12/21 06:57 Dose: 1,300 units/hr, 26 mls/hr Documented by: Lactated Ringer's (Lr) 1,000 mls @ 80 mls/hr IV .[id number] [facility] Stop: 11/13/21 08:14 Insulin Aspart (Insulin Aspart Per Unit) 0 units SC ACHS [facility] Stop: 12/05/21 00:09 Last Admin: 11/12/21 08:35 Dose: 8 units Documented by: Insulin Glargine (Insulin Glargine Solostar 100 Units/Ml 3 Ml Pen) 0 units SC BID [facility]Y Stop: 12/04/21 20:59 Last Admin: 11/12/21 08:36 Dose: 10 units Documented by: Lidocaine (Lidocaine 5% 1 Patch) 1 patch TD HS CASEY Stop: 12/04/21 21:44 Last Admin: 11/12/21 01:45 Dose: 1 patch Documented by: Magnesium Hydroxide (Magnesium Hydroxide Susp 30 Ml Udc) 30 ml PO Q12H PRN PRN Reason: Constipation Stop: 12/04/21 20:19 Magnesium Oxide (Magnesium Oxide 400 Mg Tab) 400 mg PO DAILY CASEY Stop: 12/05/21 08:59 Last Admin: 11/12/21 08:36 Dose: 400 mg Documented by: Meclizine HCl (Meclizine Hcl 25 Mg Tab) 25 mg PO HS [facility]Y Stop: 12/04/21 20:59 Last Admin: 11/11/21 21:16 Dose: 25 mg Documented by: Miscellaneous (Carbohydrates For Hypoglycemia ) 15 - 30 gm PO UD PRN PRN Reason: Hypoglycemia Protocol Stop: 12/04/21 20:19 Miscellaneous (Remove Lidoderm Patch) 1 ea N/A DAILY CASEY Stop: 12/05/21 08:59 Last Admin: 11/12/21 08:38 Dose: 1 ea Documented by: Niacin (Niacin 500 Mg Tab) 500 mg PO BID [facility]Y Stop: 12/04/21 20:59 Last Admin: 11/12/21 08:36 Dose: 500 mg Documented by: Nitroglycerin (Nitroglycerin Sl 0.4 Mg/Tab Tab) 0.4 mg SL UD PRN PRN Reason: chest pain Stop: 12/04/21 20:19 Oxycodone HCl (Oxycodone Hcl Ir 5 Mg Tab (Immediate Release)) 5 mg PO Q4 PRN PRN Reason: Pain Stop: 11/24/21 09:32 Last Admin: 11/12/21 05:37 Dose: 5 mg Documented by: Polyethylene Glycol (Polyethylene (Miralax) 17 Gm Pack) 17 gm PO DAILY PRN PRN Reason: Constipation Stop: 12/04/21 20:19 Last Admin: 11/11/21 10:36 Dose: 17 gm Documented by: Pyridoxine HCl (Pyridoxine Hcl 50 Mg Tab) 100 mg PO [facility] Stop: 12/04/21 20:59 Last Admin: 11/11/21 21:16 Dose: 100 mg Documented by: Tamsulosin HCl (Tamsulosin Hcl 0.4 Mg Cap) 0.4 mg PO [facility] Stop: 12/09/21 16:59 Last Admin: 11/12/21 08:37 Dose: 0.4 mg Documented by: Vitamin D (Cholecalciferol 5,000 Units 125 Mcg Tab) 5,000 units PO [facility] Stop: 12/04/21 20:59 Last Admin: 11/11/21 21:16 Dose: 5,000 units Documented by:
[2021-11-12] MEDS: POLYETHYLENE (MIRALAX) 17 GM PACK PO PRN (09:40)
[2021-11-12] MEDS: LACTATED RINGER'S 1,000 ML IV SCH ×2 (10:18→20:14)
--- NOTE | 2021-11-12 11:04 | Hospitalist Progress Note ---
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 Denies CP, SOB, palpitations. In the ER, he was found to be in atrial flutter rapid ventricular rate, rate in 170s. Was given diltiazem and drip without improvement.Cardiology consulted and performed cardioversion with conversion to sinus rhythm Recurrent Atrial flutter with RVR s/p successful cardioversion 11/04 and 11/08; converted to NRS with amio drip 11/11 - Resumed back on iv amio and iv heparin drip on 11/11 as he again flipped to A flutter with RVR 10 am for the third time but converted to NSR shortly after starting IV amiodarone - Cardio following- Dr Ndiaye spoke to [facility] for transfer as he requires tertiary care center with advanced EP services and he has been accepted for transfer- insurance authorization received [id number]- waiting for bed to be available at [place] - Will need to switch iv amio to po at some point- defer to cardio - Continue tele; echo reviewed Left hip/knee pain- - Significantly improved and currently pain free with oxy prn- continue - ?trochanteric bursitis vs others- seen by orthopedics- Xrays hip and spine, MRI lumbar spine did not show significant finding. Discussed with Dr Solares who recommended to follow-up with the [facility] sports medicine physician, Dr. Contreras, soon after he leaves the hospital for additional diagnostics and possible ultrasound-guided injections to help better delineate the source of his pain.If not improved, recommend rheum evaluation given elevated inflammatory markers- I spoke to the patient regarding the recommendations. ARIADNA on CKD3b/4: Cr trending up 2.1->2.4->2.6->2.5->2.8->2.8->2.89->3.08; ?related to his malignancy and DM- nephro following- gentle ivf started PAF s/p surgical ALEXANDREA occlusion and not on anticoagulation- now on heparin drip UTI- urine clx on admission was negative however has recurrence of symptoms, hence repeat UA sent which is growing stenotrophomonas maltophila - Was on cefepime and switched to iv ceftazidime D4 for now- plan to transition to levaquin at discharge renally dosed, QTc 447 but will need to monitor being on amiodarone. 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 Patient treating with alternative medicine - Nephrostomy tube in place CAD (coronary artery disease), [place] coronary artery: S/P CABG x 4 in 2020 - Continue aspirin. Not on ACEI secondary to CKD. Not on beta phuong secondary to h/o bradycardia, not on statin secondary to self preference; reports not taking fenofibrate DM2: A1c: 8. Hold home glycemic agents; basal bolus insulin per protocol- cautious in setting of CKD. Adjusted again today for hyperglycemia Anemia: Hgb: 8.8->7.7->8.4->8.5->8.2->8.1->7.7->7.4->7.6. no active bleeding noted. likely anemia of chronic disease due to CKD and malignancy. Monitor. Not on anticoagulation. - Might need blood transfusion- will monitor- transfuse if Hb<7- patient agre eable- had multiple transfusions before HTN: Continue amlodipine Hyponatremia- stable when corrected for hyperglycemia. Recheck in am DVT Prophylaxis- heparin drip Dispo- Continue PCU status- Plan to transfer to [facility] when bed available, patient has been accepted per cardiology- will need transfer via ACLS Admission and Anticipated Discharge Date Admission Date: November 04, 2021 Subjective Continues to be in good mood due to better pain relief with oxycodone- no pain during my encounter, and now able to stretch his hip. He is hoping to get transferred to [facility] sooner. States his is bringing his clothes as he does not know how long he will be in [place] this time. No fever, chills, N/V. Physical Exam Physical Exam: General: Lying in bed, comfortable, not in acute distress, on room air HEENT: EOMI, JASWANT, MMM Chest: Clear breath sounds bilaterally, no wheezes or crackles CVS: regular, normal heart sounds Abdomen: Soft, non tender, not distended, normal bowel sounds Left sided nephrostomy tube Neuro: Awake, alert, oriented, conversing well, non focal Extremities: No cyanosis, clubbing or edema. No tenderness in left hip and knee exam today. Psych: mood better; appreciative of the care he is receiving Results & Data Results & Data ([facility]) Vital Signs (Past 12 Hours) Vital Signs Temp Pulse Pulse Resp BP Pulse Ox 11/12/21 07:27 37.2 C 72 17 127/69 97 11/12/21 07:00 77 11/12/21 03:37 37.1 C 78 18 129/69 96 11/11/21 23:36 36.8 C 83 18 128/71 98 Laboratory Results Short CBC 11/12/21 Range/Units 07:08 WBC 10.51 (4.8-10.8) K/uL Hgb 7.6 L (14.0-18.0) g/dL Hct 23.6 L (42-52) % Plt Count 308 (130-400) K/uL BMP 11/12/21 07:08 Sodium 130 L Potassium 5.1 Chloride 99 Carbon Dioxide 21 BUN 44 H Creatinine 3.08 H Glucose 223 H Calcium 8.5 Medications Administered Current Inpatient Medications Acetaminophen (Acetaminophen 325 Mg Tab) 650 mg PO Q4H PRN PRN Reason: Pain or Fever Stop: 12/04/21 20:19 Last Admin: 11/11/21 15:43 Dose: 650 mg Documented by: Amlodipine Besylate (Amlodipine Besylate 5 Mg Tab) 5 mg PO DAILY [facility]Y Stop: 12/05/21 08:59 Last Admin: 11/12/21 08:37 Dose: 5 mg Documented by: Ascorbic Acid (Ascorbic Acid 500 Mg Tab) 2,000 mg PO BID [facility] Stop: 12/04/21 20:59 Last Admin: 11/12/21 08:36 Dose: 2,000 mg Documented by: Aspirin (Aspirin 81 Mg Ectab) 81 mg PO HS [facility] Stop: 12/04/21 20:59 Last Admin: 06/10/22 21:15 Dose: 81 mg Documented by: Dextrose (Dextrose 50% 50 Ml Syringe) 25 - 50 ml IV UD PRN; Protocol PRN Reason: Hypoglycemia Protocol Stop: 12/04/21 20:19 Docusate Sodium (Docusate Sodium 100 Mg Cap) 100 mg PO BID [facility]Y Stop: 12/04/21 20:59 Last Admin: 11/12/21 08:36 Dose: 100 mg Documented by: Fish Oil ([place]-3 (Purified Fish Oil) 1 Gm Cap) 1 gm PO DAILY [facility]Y Stop: 12/05/21 08:59 Last Admin: 11/12/21 08:36 Dose: 1 gm Documented by: Glucagon (Glucagon For Inj 1 Mg Vial) 1 mg SQ UD PRN; Protocol PRN Reason: Hypoglycemia Protocol Stop: 12/04/21 20:19 Glucose (Glucose 10 Tabs/Tube) 4 - 8 tabs PO UD PRN; Protocol PRN Reason: Hypoglycemia Protocol Stop: 12/04/21 20:19 Glucose (Glucose 40% Gel 15 Gm Tube) 15 - 30 gm PO UD PRN; Protocol PRN Reason: Hypoglycemia Protocol Stop: 12/04/21 20:19 Ceftazidime 2,000 mg/ Dextrose 60 mls @ 120 mls/hr IV Q24H [facility]; Protocol Stop: 11/19/21 09:59 Last Infusion: 11/12/21 10:18 Dose: Infused Documented by: Amiodarone HCl/Dextrose (Nexterone / D5w) 360 mg in 200 mls @ 16.667 mls/hr IV .Q12H [facility] Stop: 12/11/21 15:29 Last Infusion: 11/12/21 06:58 Dose: 0.5 mg/min, 16.7 mls/hr Documented by: Heparin Sodium/Dextrose (Heparin Sodium/Dextrose) 25,000 units in 500 mls @ 26 mls/hr IV .[id number] CASEY; Protocol Stop: 12/11/21 09:59 Last Titration: 11/12/21 09:29 Dose: 1,300 units/hr, 26 mls/hr Documented by: Lactated Ringer's (Lr) 1,000 mls @ 80 mls/hr IV .[id number] [facility] Stop: 11/13/21 08:14 Last Admin: 11/12/21 10:18 Dose: 80 mls/hr Documented by: Insulin Aspart (Insulin Aspart Per Unit) 0 units SC ACHS [facility]Y Stop: 12/05/21 00:09 Last Admin: 11/12/21 08:35 Dose: 8 units Documented by: Insulin Glargine (Insulin Glargine Solostar 100 Units/Ml 3 Ml Pen) 0 units SC BID [facility]Y Stop: 12/04/21 20:59 Last Admin: 11/12/21 08:36 Dose: 10 units Documented by: Lidocaine (Lidocaine 5% 1 Patch) 1 patch TD HS [facility]Y Stop: 12/04/21 21:44 Last Admin: 11/12/21 01:45 Dose: 1 patch Documented by: Magnesium Hydroxide (Magnesium Hydroxide Susp 30 Ml Udc) 30 ml PO Q12H PRN PRN Reason: Constipation Stop: 12/04/21 20:19 Magnesium Oxide (Magnesium Oxide 400 Mg Tab) 400 mg PO DAILY [facility]Y Stop: 12/05/21 08:59 Last Admin: 11/12/21 08:36 Dose: 400 mg Documented by: Meclizine HCl (Meclizine Hcl 25 Mg Tab) 25 mg PO HS [facility]Y Stop: 12/04/21 20:59 Last Admin: 11/11/21 21:16 Dose: 25 mg Documented by: Miscellaneous (Carbohydrates For Hypoglycemia ) 15 - 30 gm PO UD PRN PRN Reason: Hypoglycemia Protocol Stop: 12/04/21 20:19 Miscellaneous (Remove Lidoderm Patch) 1 ea N/A DAILY [facility]Y Stop: 12/05/21 08:59 Last Admin: 11/12/21 08:38 Dose: 1 ea Documented by: Niacin (Niacin 500 Mg Tab) 500 mg PO BID [facility]Y Stop: 12/04/21 20:59 Last Admin: 11/12/21 08:36 Dose: 500 mg Documented by: Nitroglycerin (Nitroglycerin Sl 0.4 Mg/Tab Tab) 0.4 mg SL UD PRN PRN Reason: chest pain Stop: 12/04/21 20:19 Oxycodone HCl (Oxycodone Hcl Ir 5 Mg Tab (Immediate Release)) 5 mg PO Q4 PRN PRN Reason: Pain Stop: 11/24/21 09:32 Last Admin: 11/12/21 05:37 Dose: 5 mg Documented by: Polyethylene Glycol (Polyethylene (Miralax) 17 Gm Pack) 17 gm PO DAILY PRN PRN Reason: Constipation Stop: 12/04/21 20:19 Last Admin: 11/12/21 09:40 Dose: 17 gm Documented by: Pyridoxine HCl (Pyridoxine Hcl 50 Mg Tab) 100 mg PO [facility] Stop: 12/04/21 20:59 Last Admin: 11/11/21 21:16 Dose: 100 mg Documented by: Tamsulosin HCl (Tamsulosin Hcl 0.4 Mg Cap) 0.4 mg PO [facility] Stop: 12/09/21 16:59 Last Admin: 11/12/21 08:37 Dose: 0.4 mg Documented by: Vitamin D (Cholecalciferol 5,000 Units 125 Mcg Tab) 5,000 units PO [facility] Stop: 12/04/21 20:59 Last Admin: 11/11/21 21:16 Dose: 5,000 units Documented by: (1) Atrial flutter Atrial flutter type: unspecified Qualified Code(s): I48.92 - Unspecified atrial flutter
[2021-11-12] MEDS: MECLIZINE HCL 25 MG TAB PO SCH (20:15)
[2021-11-12] MEDS: ASPIRIN 81 MG ECTAB PO SCH (20:15)
[2021-11-12] MEDS: CHOLECALCIFEROL 5,000 UNITS 125 MCG TAB PO SCH (20:16)
[2021-11-12] MEDS: PYRIDOXINE HCL 50 MG TAB PO SCH (20:16)
[2021-11-13] MEDS: ACETAMINOPHEN 325 MG TAB PO PRN (00:46)
[2021-11-13] MEDS: AMIODARONE / D5W 360 MG/200 ML BAG IV SCH (04:18)
[2021-11-13] MEDS: OMEGA-3 (PURIFIED FISH OIL) 1 GM CAP PO SCH (08:01)
[2021-11-13] MEDS: NIACIN 500 MG TAB PO SCH ×2 (08:01→21:47)
[2021-11-13] MEDS: amLODIPine BESYLATE 5 MG TAB PO SCH (08:01)
[2021-11-13] MEDS: TAMSULOSIN HCL 0.4 MG CAP PO SCH (08:01)
[2021-11-13] MEDS: ASCORBIC ACID 500 MG TAB PO SCH ×2 (08:02→21:47)
[2021-11-13] MEDS: MAGNESIUM OXIDE 400 MG TAB PO SCH (08:02)
[2021-11-13] MEDS: INSULIN GLARGINE SOLOSTAR 100 UNITS/ML 3 ML PEN SC SCH ×2 (08:06→21:45)
[2021-11-13] MEDS: INSULIN ASPART PER UNIT SC SCH ×4 (08:10→21:45)
[2021-11-13] MEDS: DOCUSATE SODIUM 100 MG CAP PO SCH ×2 (08:11→21:50)
[2021-11-13 08:43] LABS: Hematocrit (blood only) 24.6 % (42-52); Hemoglobin 7.7 g/dL (14.0-18.0)
[2021-11-13 09:05] LABS: BUN Creatinine Ratio 12.9 (10-20); Calcium 8.7 mg/dl (8.5-10.1); Creatinine Clr Calc Pharmacy 22.8 ml/min; Est GFR (African American) 23.1 ml/min; Magnesium 1.7 mg/dl (1.7-2.4); Potassium 5.3 mmol/L (3.5-5.1)
[2021-11-13 09:11] LABS: Partial Thromboplastin Ratio 2.2
[2021-11-13 09:17] LABS: Partial Thromboplastin Time 59.5 Seconds (21.0-31.0)
--- NOTE | 2021-11-13 09:44 | Cardiology Progress Note ---
Date of Service November 13, 2021 Assessment & Plan (1) Atrial flutter with rapid ventricular response: (2) CAD (coronary artery disease), [place] coronary artery: (3) Anemia: (4) Bladder carcinoma: (5) Stage 4 chronic kidney disease: (6) UTI (urinary tract infection): Plan: The patient has been maintaining sinus rhythm. If the [facility] is not going to take him today then I will switch him over to oral amiodarone and stop the infusion. Per nephrology we will hold off on any transfusions unless the patient's hemoglobin drops below 7. He is chronically anemic and according to the patient his hemoglobin usually runs in the sevens. Admission and Anticipated Discharge Date Admission Date: November 04, 2021 Subjective No new cardiac complaints Review of Systems Review of Systems: Review of Systems: See HPI for pertinent positives. All ot her 10 point review of systems are negative. Physical Exam Physical Exam: General: no acute distress and stated age Head: normocephalic, no masses, lesions, tenderness or abnormalities Eyes: conjunctiva are pink and non-injected, sclera clear Neck: supple, no adenopathy, no bruits, normal jugular venous pulse, no hepatojugular reflux Chest: normal shape and normal respiratory effort Lungs: clear to auscultation and percussion Cardiac Exam: - regular rate & rhythm, no murmurs gallops or rubs - normal S1, normal S2 Pulses: 2(+) throughout Abdomen: abdomen soft, non-tender, no abnormal masses and no hepatosplenomegaly Musculoskeletal: no gait disturbance, no joint inflammation, no deforming arthritis Extremities: no edema and no cyanosis Neuro: grossly normal exam Results & Data ([facility]) Vital Signs (Past 12 Hours) Vital Signs Temp Pulse Pulse Resp BP BP Pulse Ox 11/13/21 07:10 37.4 C 67 18 123/67 98 11/13/21 07:00 83 11/13/21 03:47 37.0 C 84 18 110/60 98 11/13/21 01:31 37.2 C 80 16 109/63 97 11/12/21 23:10 37.0 C 74 18 126/75 98 11/12/21 22:20 75 Laboratory Results Laboratory Results - last 24 hr 11/12/21 11/12/21 11/12/21 11:15 16:09 19:57 Hgb Hct APTT PTT Ratio Sodium Potassium Chloride Carbon Dioxide Anion Gap BUN Creatinine Est Cr Clr Drug Dosing Est GFR ( Amer) Est GFR (Non-Af Amer) BUN/Creatinine Ratio Glucose POC Glucose 168 H 189 H 171 H Calcium Magnesium 11/13/21 11/13/21 11/13/21 07:07 07:52 07:52 Hgb 7.7 L Hct 24.6 L APTT PTT Ratio Sodium 130 L Potassium 5.3 H Chloride 98 Carbon Dioxide 21 Anion Gap 11 BUN 40 H Creatinine 3.09 H Est Cr Clr Drug Dosing 22.8 Est GFR ( Amer) 23.1 Est GFR (Non-Af Amer) 20.0 BUN/Creatinine Ratio 12.9 Glucose 244 H POC Glucose 270 H Calcium 8.7 Magnesium 1.7 11/13/21 07:52 Hgb Hct APTT 59.5 H* PTT Ratio 2.2 Sodium Potassium Chloride Carbon Dioxide Anion Gap BUN Creatinine Est Cr Clr Drug Dosing Est GFR ( Amer) Est GFR (Non-Af Amer) BUN/Creatinine Ratio Glucose POC Glucose Calcium Magnesium Medications Administered Current Inpatient Medications Acetaminophen (Acetaminophen 325 Mg Tab) 650 mg PO Q4H PRN PRN Reason: Pain or Fever Stop: 12/04/21 20:19 Last Admin: 11/13/21 00:46 Dose: 650 mg Documented by: Amlodipine Besylate (Amlodipine Besylate 5 Mg Tab) 5 mg PO DAILY CASEY Stop: 12/05/21 08:59 Last Admin: 11/13/21 08:01 Dose: 5 mg Documented by: Ascorbic Acid (Ascorbic Acid 500 Mg Tab) 2,000 mg PO BID CASEY Stop: 12/04/21 20:59 Last Admin: 11/13/21 08:02 Dose: 2,000 mg Documented by: Aspirin (Aspirin 81 Mg Ectab) 81 mg PO HS CASEY Stop: 12/04/21 20:59 Last Admin: 11/12/21 20:15 Dose: 81 mg Documented by: Dextrose (Dextrose 50% 50 Ml Syringe) 25 - 50 ml IV UD PRN; Protocol PRN Reason: Hypoglycemia Protocol Stop: 12/04/21 20:19 Docusate Sodium (Docusate Sodium 100 Mg Cap) 100 mg PO BID CASEY Stop: 12/04/21 20:59 Last Admin: 11/13/21 08:11 Dose: 100 mg Documented by: Fish Oil ([place]-3 (Purified Fish Oil) 1 Gm Cap) 1 gm PO DAILY CASEY Stop: 12/05/21 08:59 Last Admin: 11/13/21 08:01 Dose: 1 gm Documented by: Glucagon (Glucagon For Inj 1 Mg Vial) 1 mg SQ UD PRN; Protocol PRN Reason: Hypoglycemia Protocol Stop: 12/04/21 20:19 Glucose (Glucose 10 Tabs/Tube) 4 - 8 tabs PO UD PRN; Protocol PRN Reason: Hypoglycemia Protocol Stop: 12/04/21 20:19 Glucose (Glucose 40% Gel 15 Gm Tube) 15 - 30 gm PO UD PRN; Protocol PRN Reason: Hypoglycemia Protocol Stop: 12/04/21 20:19 Ceftazidime 2,000 mg/ Dextrose 60 mls @ 120 mls/hr IV Q24H CASEY; Protocol Stop: 11/19/21 09:59 Last Infusion: 11/12/21 10:18 Dose: Infused Documented by: Amiodarone HCl/Dextrose (Nexterone / D5w) 360 mg in 200 mls @ 16.667 mls/hr IV .Q12H CASEY Stop: 12/11/21 15:29 Last Infusion: 11/13/21 07:02 Dose: 0.5 mg/min, 16.7 mls/hr Documented by: Heparin Sodium/Dextrose (Heparin Sodium/Dextrose) 25,000 units in 500 mls @ 26 mls/hr IV .[id number] CASEY; Protocol Stop: 12/11/21 09:59 Last Titration: 11/13/21 07:02 Dose: 1,300 units/hr, 26 mls/hr Documented by: Insulin Aspart (Insulin Aspart Per Unit) 0 units SC ACHS CASEY Stop: 12/05/21 00:09 Last Admin: 11/13/21 08:10 Dose: 10 units Documented by: Insulin Glargine (Insulin Glargine Solostar 100 Units/Ml 3 Ml Pen) 0 units SC BID CASEY Stop: 12/04/21 20:59 Last Admin: 11/13/21 08:06 Dose: 12 units Documented by: Lidocaine (Lidocaine 5% 1 Patch) 1 patch TD HS CASEY Stop: 12/04/21 21:44 Last Admin: 11/12/21 19:31 Dose: 1 patch Documented by: Magnesium Hydroxide (Magnesium Hydroxide Susp 30 Ml Udc) 30 ml PO Q12H PRN PRN Reason: Constipation Stop: 12/04/21 20:19 Magnesium Oxide (Magnesium Oxide 400 Mg Tab) 400 mg PO DAILY CASEY Stop: 12/05/21 08:59 Last Admin: 11/13/21 08:02 Dose: 400 mg Documented by: Meclizine HCl (Meclizine Hcl 25 Mg Tab) 25 mg PO HS CASEY Stop: 12/04/21 20:59 Last Admin: 11/12/21 20:15 Dose: 25 mg Documented by: Miscellaneous (Carbohydrates For Hypoglycemia ) 15 - 30 gm PO UD PRN PRN Reason: Hypoglycemia Protocol Stop: 12/04/21 20:19 Miscellaneous (Remove Lidoderm Patch) 1 ea N/A DAILY CASEY Stop: 12/05/21 08:59 Last Admin: 11/13/21 08:11 Dose: 1 ea Documented by: Niacin (Niacin 500 Mg Tab) 500 mg PO BID CASEY Stop: 12/04/21 20:59 Last Admin: 11/13/21 08:01 Dose: 500 mg Documented by: Nitroglycerin (Nitroglycerin Sl 0.4 Mg/Tab Tab) 0.4 mg SL UD PRN PRN Reason: chest pain Stop: 12/04/21 20:19 Oxycodone HCl (Oxycodone Hcl Ir 5 Mg Tab (Immediate Release)) 5 mg PO Q4 PRN PRN Reason: Pain Stop: 11/24/21 09:32 Last Admin: 11/12/21 23:18 Dose: 5 mg Documented by: Polyethylene Glycol (Polyethylene (Miralax) 17 Gm Pack) 17 gm PO DAILY PRN PRN Reason: Constipation Stop: 12/04/21 20:19 Last Admin: 11/12/21 09:40 Dose: 17 gm Documented by: Pyridoxine HCl (Pyridoxine Hcl 50 Mg Tab) 100 mg PO HS [facility] Stop: 12/04/21 20:59 Last Admin: 11/12/21 20:16 Dose: 100 mg Documented by: Tamsulosin HCl (Tamsulosin Hcl 0.4 Mg Cap) 0.4 mg PO QAM CASEY Stop: 12/09/21 16:59 Last Admin: 11/13/21 08:01 Dose: 0.4 mg Documented by: Vitamin D (Cholecalciferol 5,000 Units 125 Mcg Tab) 5,000 units PO HS CASEY Stop: 12/04/21 20:59 Last Admin: 11/12/21 20:16 Dose: 5,000 units Documented by:
[2021-11-13] MEDS: oxyCODONE HCL IR 5 MG TAB (IMMEDIATE RELEASE) PO PRN ×3 (10:39→21:46)
--- NOTE | 2021-11-13 10:53 | Nephrology Progress Note ---
Date of Service November 13, 2021 Assessment & Plan (1) Acute kidney injury superimposed on chronic kidney disease: Plan: His current creatinine is almost at [place].This is bound to fluctuate in the acute setting of atrial flutter with rapid ventricular response,. -No further workup is needed for the slight rise in creatinine. - Do not use DELICIA inhibitor or ARB. We will continue to follow him in the CKD Clinic. - At this point, the nephrostomy tube and the ureteric stent is working appropriately. He has appointment in a few days in [facility], - No further workup is needed from the renal standpoint. K is creeping up - would start him on K binder , once daily. (2) Atrial flutter with rapid ventricular response: Plan: -Defer to cardiology. ?? transfer to [facility] (3) Anemia: Plan: . Given his active cancer with metastasis, we can give ESAs. Consider blood transfusion if agreeable if the blood count gets below 7. (4) Hyponatremia: Plan: This is in the setting of CKD and possibly significant mismatch between the amount of liquid he drinks and very little solid food he eats. He is deliberately trying to do this to fix his constipation, but this is causing the sodium to drop. However, sodium is not at a critically low level. He is unwilling to increase the solid food intake by that much and unwilling to lower the fluid intake by that much anyway. Admission and Anticipated Discharge Date Admission Date: November 04, 2021 Subjective Comfortable at rest. no distress. Review of Systems Review of Systems: All systems reviewed & are unremarkable except as noted in HPI & below Physical Exam Physical Exam: GENERAL: This is a middle-aged white male ,weak and debilitated . He is awake, alert, oriented x3. HEENT: Mucous membrane is moist. NECK: Supple. No jugular venous distention. VITAL SIGNS: Blood pressure is 123/67, temperature 37.4, 98% on room air. CHEST: Bilateral decreased breath sounds. CARDIOVASCULAR: S1 and S2 regular. Soft systolic murmur heard. ABDOMEN: Soft, nontender. EXTREMITIES: Show no edema Results & Data ([facility]) Vital Signs (Past 12 Hours) Vital Signs Temp Pulse Pulse Resp BP BP Pulse Ox 11/13/21 07:10 37.4 C 67 18 123/67 98 11/13/21 07:00 83 11/13/21 03:47 37.0 C 84 18 110/60 98 11/13/21 01:31 37.2 C 80 16 109/63 97 11/12/21 23:10 37.0 C 74 18 126/75 98 Laboratory Results 11/13/21 07:52 11/13/21 07:52
--- NOTE | 2021-11-13 12:27 | Electrocardiogram Report ---
Test Reason : Blood Pressure : / mmHG Vent. Rate : 091 BPM Atrial Rate : 091 BPM P-R Int : 138 ms QRS Dur : 078 ms QT Int : 382 ms P-R-T Axes : 078 068 084 degrees QTc Int : 469 ms Sinus rhythm with occasional , and consecutive Premature ventricular complexes and Premature atrial c omplexes Low voltage QRS Cannot rule out Anterior infarct , age undetermined Abnormal ECG When compared with ECG of 08-NOV-2021 15:32, Premature atrial complexes are now Present Minimal criteria for Anterior infarct are now Present Confirmed by Varun Dodson ([id number]) on 11/13/2021 12:27:18 PM Referred By: REFERRED SELF Confirmed By:Marek Dodson
[2021-11-13] MEDS ORDERED: PATIROMER CALCIUM SORBITEX 8.4 GM PACK PO SCH (13:15)
--- NOTE | 2021-11-13 13:17 | Hospitalist Progress Note ---
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 Denies CP, SOB, palpitations. In the ER, he was found to be in atrial flutter rapid ventricular rate, rate in 170s. Was given diltiazem and drip without improvement.Cardiology consulted and performed cardioversion with conversion to sinus rhythm Recurrent Atrial flutter with RVR s/p successful cardioversion 11/04 and 11/08; converted to NRS with amio drip 11/11 - Resumed back on iv amio and iv heparin drip on 11/11 as he again flipped to A flutter with RVR 10 am for the third time but converted to NSR shortly after starting IV amiodarone - Cardio following- Dr Ndiaye spoke to [facility] for transfer as he requires tertiary care center with advanced EP services and he has been accepted for transfer- insurance authorization received [id number]- waiting for bed to be available at [place]- Accepting physician Dr Lomeli- ORLIN paperwork completed. - Per cardio, plan to switch iv amio to po today if patient does not get transferred to [facility] today - Continue tele; echo reviewed Left hip/knee pain- - Significantly improved and currently pain free with oxy prn- continue - ?trochanteric bursitis vs others- seen by orthopedics- Xrays hip and spine, MRI lumbar spine did not show significant finding. Discussed with Dr Solares who recommended to follow-up with the [facility] sports medicine physician, Dr. Contreras, soon after he leaves the hospital for additional diagnostics and possible ultrasound-guided injections to help better delineate the source of his pain.If not improved, recommend rheum evaluation given elevated inflammatory markers- I spoke to the patient regarding the recommendations. ARIADNA on CKD3b/4: Cr trending up 2.1->2.4->2.6->2.5->2.8->2.8->2.89->3.08->3.09; ?related to his malignancy and DM- nephro following PAF s/p surgical ALEXANDREA occlusion and not on anticoagulation- now on heparin drip UTI- urine clx on admission was negative however has recurrence of symptoms, hence repeat UA sent which is growing stenotrophomonas maltophila - Was on cefepime and switched to iv ceftazidime D5 for now- plan was to tr ansition to levaquin at discharge renally dosed, QTc 447 but will need to monitor being on amiodarone. 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 Patient treating with alternative medicine - Nephrostomy tube in place CAD (coronary artery disease), [place] coronary artery: S/P CABG x 4 in 2020 - Continue aspirin. Not on ACEI secondary to CKD. Not on beta phuong secondary to h/o bradycardia, not on statin secondary to self preference; reports not taking fenofibrate DM2: A1c: 8. Hold home glycemic agents; basal bolus insulin per protocol- cautious in setting of CKD. Adjusted again today for hyperglycemia Anemia: Hgb: 8.8->7.7->8.4->8.5->8.2->8.1->7.7->7.4->7.6->7.7. no active bleeding noted. likely anemia of chronic disease due to CKD and malignancy. Monitor. Not on anticoagulation. - Might need blood transfusion- will monitor- transfuse if Hb<7- patient agreeable- had multiple transfusions before HTN: Continue amlodipine Hyponatremia- stable when corrected for hyperglycemia. Recheck in am Hyperkalemia- K 5.3. mild. Nephro recommended starting veltassa daily. DVT Prophylaxis- heparin drip Dispo- Continue PCU status- Plan to transfer to [facility] when bed available, patient has been accepted per cardiology- will need transfer via ACLS Admission and Anticipated Discharge Date Admission Date: November 04, 2021 Subjective No new issues. Pain controlled. Feels good. Waiting for bed availability in [facility] for transfer. His brought his clothes for him. Physical Exam Physical Exam: General: Lying in bed, comfortable, not in acute distress, on room air HEENT: EOMI, JASWANT, MMM Chest: Clear breath sounds bilaterally, no wheezes or crackles CVS: regular, normal heart sounds Abdomen: Soft, non tender, not distended, normal bowel sounds Left sided nephrostomy tube Neuro: Awake, alert, oriented, conversing well, non focal Extremities: No cyanosis, clubbing or edema. No tenderness in left hip and knee exam today. Psych: mood better; appreciative of the care he is receiving Results & Data Results & Data ([facility]) Vital Signs (Past 12 Hours) Vital Signs Temp Pulse Pulse Resp BP BP Pulse Ox 11/13/21 12: 37.3 C 77 18 102/70 97 11/13/21 07:10 37.4 C 67 18 123/67 98 11/13/21 07:00 83 11/13/21 03:47 37.0 C 84 18 110/60 98 11/13/21 01:31 37.2 C 80 16 109/63 97 Laboratory Results Short CBC 11/13/21 Range/Units 07:52 Hgb 7.7 L (14.0-18.0) g/dL Hct 24.6 L (42-52) % BMP 11/13/21 07:52 Sodium 130 L Potassium 5.3 H Chloride 98 Carbon Dioxide 21 BUN 40 H Creatinine 3.09 H Glucose 244 H Calcium 8.7 Medications Administered Current Inpatient Medications Acetaminophen (Acetaminophen 325 Mg Tab) 650 mg PO Q4H PRN PRN Reason: Pain or Fever Stop: 12/04/21 20:19 Last Admin: 11/13/21 00:46 Dose: 650 mg Documented by: Amlodipine Besylate (Amlodipine Besylate 5 Mg Tab) 5 mg PO DAILY CASEY Stop: 12/05/21 08:59 Last Admin: 11/13/21 08:01 Dose: 5 mg Documented by: Ascorbic Acid (Ascorbic Acid 500 Mg Tab) 2,000 mg PO BID CASEY Stop: 12/04/21 20:59 Last Admin: 11/13/21 08:02 Dose: 2,000 mg Documented by: Aspirin (Aspirin 81 Mg Ectab) 81 mg PO HS CASEY Stop: 12/04/21 20:59 Last Admin: 11/12/21 20:15 Dose: 81 mg Documented by: Dextrose (Dextrose 50% 50 Ml Syringe) 25 - 50 ml IV UD PRN; Protocol PRN Reason: Hypoglycemia Protocol Stop: 12/04/21 20:19 Docusate Sodium (Docusate Sodium 100 Mg Cap) 100 mg PO BID CASEY Stop: 12/04/21 20:59 Last Admin: 11/13/21 08:11 Dose: 100 mg Documented by: Fish Oil ([employer]-3 (Purified Fish Oil) 1 Gm Cap) 1 gm PO DAILY CASEY Stop: 12/05/21 08:59 Last Admin: 11/13/21 08:01 Dose: 1 gm Documented by: Glucagon (Glucagon For Inj 1 Mg Vial) 1 mg SQ UD PRN; Protocol PRN Reason: Hypoglycemia Protocol Stop: 12/04/21 20:19 Glucose (Glucose 10 Tabs/Tube) 4 - 8 tabs PO UD PRN; Protocol PRN Reason: Hypoglycemia Protocol Stop: 12/04/21 20:19 Glucose (Glucose 40% Gel 15 Gm Tube) 15 - 30 gm PO UD PRN; Protocol PRN Reason: Hypoglycemia Protocol Stop: 12/04/21 20:19 Ceftazidime 2,000 mg/ Dextrose 60 mls @ 120 mls/hr IV Q24H CASEY; Protocol Stop: 11/19/21 09:59 Last Admin: 11/13/21 11:38 Dose: 120 mls/hr Documented by: Amiodarone HCl/Dextrose (Nexterone / D5w) 360 mg in 200 mls @ 16.667 mls/hr IV .Q12H [facility] Stop: 12/11/21 15:29 Last Infusion: 11/13/21 07:02 Dose: 0.5 mg/min, 16.7 mls/hr Documented by: Heparin Sodium/Dextrose (Heparin Sodium/Dextrose) 25,000 units in 500 mls @ 26 mls/hr IV .[id number] CASEY; Protocol Stop: 12/11/21 09:59 Last Titration: 11/13/21 10:28 Dose: 1,300 units/hr, 26 mls/hr Documented by: Insulin Aspart (Insulin Aspart Per Unit) 0 units SC ACHS CASEY Stop: 12/05/21 00:09 Last Admin: 11/13/21 11:48 Dose: 7 units Documented by: Insulin Glargine (Insulin Glargine Solostar 100 Units/Ml 3 Ml Pen) 0 units SC BID CASEY Stop: 12/04/21 20:59 Last Admin: 11/13/21 08:06 Dose: 12 units Documented by: Lidocaine (Lidocaine 5% 1 Patch) 1 patch TD HS CASEY Stop: 12/04/21 21:44 Last Admin: 11/12/21 19:31 Dose: 1 patch Documented by: Magnesium Hydroxide (Magnesium Hydroxide Susp 30 Ml Udc) 30 ml PO Q12H PRN PRN Reason: Constipation Stop: 12/04/21 20:19 Magnesium Oxide (Magnesium Oxide 400 Mg Tab) 400 mg PO DAILY CASEY Stop: 12/05/21 08:59 Last Admin: 11/13/21 08:02 Dose: 400 mg Documented by: Meclizine HCl (Meclizine Hcl 25 Mg Tab) 25 mg PO HS [facility] Stop: 12/04/21 20:59 Last Admin: 11/12/21 20:15 Dose: 25 mg Documented by: Miscellaneous (Carbohydrates For Hypoglycemia ) 15 - 30 gm PO UD PRN PRN Reason: Hypoglycemia Protocol Stop: 12/04/21 20:19 Miscellaneous (Remove Lidoderm Patch) 1 ea N/A DAILY CASEY Stop: 12/05/21 08:59 Last Admin: 11/13/21 08:11 Dose: 1 ea Documented by: Niacin (Niacin 500 Mg Tab) 500 mg PO BID [facility] Stop: 12/04/21 20:59 Last Admin: 11/13/21 08:01 Dose: 500 mg Documented by: Nitroglycerin (Nitroglycerin Sl 0.4 Mg/Tab Tab) 0.4 mg SL UD PRN PRN Reason: chest pain Stop: 12/04/21 20:19 Oxycodone HCl (Oxycodone Hcl Ir 5 Mg Tab (Immediate Release)) 5 mg PO Q4 PRN PRN Reason: Pain Stop: 11/24/21 09:32 Last Admin: 11/13/21 10:39 Dose: 5 mg Documented by: Patiromer (Patiromer Calcium Sorbitex 8.4 Gm Pack) 8.4 gm PO DAILY@1100 [facility] Stop: 12/13/21 13:14 Polyethylene Glycol (Polyethylene (Miralax) 17 Gm Pack) 17 gm PO DAILY PRN PRN Reason: Constipation Stop: 12/04/21 20:19 Last Admin: 11/12/21 09:40 Dose: 17 gm Documented by: Pyridoxine HCl (Pyridoxine Hcl 50 Mg Tab) 100 mg PO [facility] Stop: 12/04/21 20:59 Last Admin: 11/12/21 20:16 Dose: 100 mg Documented by: Tamsulosin HCl (Tamsulosin Hcl 0.4 Mg Cap) 0.4 mg PO [facility] Stop: 12/09/21 16:59 Last Admin: 11/13/21 08:01 Dose: 0.4 mg Documented by: Vitamin D (Cholecalciferol 5,000 Units 125 Mcg Tab) 5,000 units PO [facility] Stop: 12/04/21 20:59 Last Admin: 11/12/21 20:16 Dose: 5,000 units Documented by: (1) Atrial flutter Atrial flutter type: unspecified Qualified Code(s): I48.92 - Unspecified atrial flutter
[2021-11-13] MEDS: AMIODARONE 200 MG TAB PO SCH (15:16)
[2021-11-13] MEDS: HEPARIN SODIUM/DEXTROSE 25,000 UNITS/500 ML BAG IV SCH (16:11)
[2021-11-13] MEDS: PYRIDOXINE HCL 50 MG TAB PO SCH (21:47)
[2021-11-13] MEDS: MECLIZINE HCL 25 MG TAB PO SCH (21:47)
[2021-11-13] MEDS: ASPIRIN 81 MG ECTAB PO SCH (21:48)
[2021-11-13] MEDS: CHOLECALCIFEROL 5,000 UNITS 125 MCG TAB PO SCH (21:48)
[2021-11-14] MEDS: oxyCODONE HCL IR 5 MG TAB (IMMEDIATE RELEASE) PO PRN ×2 (03:27→10:24)
[2021-11-14] MEDS: LIDOCAINE 5% 1 PATCH TD SCH (03:46)
[2021-11-14] MEDS: amLODIPine BESYLATE 5 MG TAB PO SCH (08:04)
[2021-11-14] MEDS: OMEGA-3 (PURIFIED FISH OIL) 1 GM CAP PO SCH (08:04)
[2021-11-14] MEDS: TAMSULOSIN HCL 0.4 MG CAP PO SCH (08:04)
[2021-11-14] MEDS: AMIODARONE 200 MG TAB PO SCH (08:04)
[2021-11-14] MEDS: ASCORBIC ACID 500 MG TAB PO SCH (08:04)
[2021-11-14] MEDS: MAGNESIUM OXIDE 400 MG TAB PO SCH (08:05)
[2021-11-14] MEDS: NIACIN 500 MG TAB PO SCH (08:05)
[2021-11-14] MEDS: INSULIN GLARGINE SOLOSTAR 100 UNITS/ML 3 ML PEN SC SCH (08:06)
[2021-11-14] MEDS: DOCUSATE SODIUM 100 MG CAP PO SCH (08:14)
[2021-11-14] MEDS: INSULIN ASPART PER UNIT SC SCH (08:14)
[2021-11-14 09:07] LABS: BUN Creatinine Ratio 12.9 (10-20); Calcium 8.6 mg/dl (8.5-10.1); Creatinine Clr Calc Pharmacy 23.3 ml/min; Est GFR (African American) 23.8 ml/min; Est GFR (Non-African American) 20.5 ml/min; Magnesium 1.8 mg/dl (1.7-2.4); Potassium 4.5 mmol/L (3.5-5.1)
[2021-11-14 09:12] LABS: Hematocrit (blood only) 25.5 % (42-52)
[2021-11-14 09:23] LABS: Partial Thromboplastin Ratio 1.8
[2021-11-14 09:35] LABS: Partial Thromboplastin Time 50.7 Seconds (21.0-31.0)
--- NOTE | 2021-11-14 14:36 | Nephrology Progress Note ---
Date of Service November 14, 2021 Assessment & Plan (1) Acute kidney injury superimposed on chronic kidney disease: Plan: baseline creatinine per Dr Ibrahim his OP supervisor correspondence section most recently WOUND SPECIALIST about 2; creatinien plateau'd at about 3 past 72 hrs w/ acceptable chemistries apart from sNa 129. ARIADNA and variable renal function attributed to acute heart arrhythmias NEPHROLOGY discharge recommendations > -I will ensure he has nephro f/u w/ Dr Ibrahim in [facility] CKD clinic after [facility] d/c - Do not use DELICIA inhibitor or ARB. We will continue to follow him in the CKD Clinic. - At this point, the nephrostomy tube and the ureteric stent is working appropriately> cont to f/u w/ urology Arcadio Martini, - recommend continue veltassa at d/c d/t issues /tendency to hyperkalemia -weekly bmp to be ordered by nephro RN after [facility] d/c recommended Note these d/c recs placed after pt had already been transferred > will update [facility] CKD team to follow as OP (see EPIC) (2) Atrial flutter with rapid ventricular response: Plan: -Defer to cardiology. ?? transfer to [facility] (3) Anemia: Plan: . Given his active cancer with metastasis, we cannot give ESAs. Consider blood transfusion if agreeable if the blood count gets below 7. (4) Hyponatremia: Plan: This is in the setting of CKD and possibly significant mismatch between the amount of liquid he drinks and very little solid food he eats. He is deliberately trying to do this to fix his constipation, but this is causing the sodium to drop. However, sodium is not at a critically low level. He is unwilling to increase the solid food intake by that much and unwilling to lower the fluid intake by that much anyway. >monitor for now Admission and Anticipated Discharge Date Admission Date: November 04, 2021 Subjective seen aat about 0745. no c/o; slept well; moving bowels, no sob, no N. no change or concerns w/ voiding. Awaiting CC trnsfer Review of Systems Review of Systems: All systems reviewed & are unremarkable except as noted in Subjective Physical Exam Constitutional: well developed and well nourished Eyes: EOM intact bilaterally ENMT: Ears: no external ear abnormality Nose: no external nose abnormality Mouth: + dry oral mucous membranes Neck: no nuchal rigidity Respiratory: normal respiratory effort Auscultation: + diminished lung sounds Cardiovascular: RRR, no murmur, no edema Gastrointestinal (Abdomen): Inspection/Auscultation: normal bowel sounds Percussion/Palpation: abdomen soft; abdomen nontender Musculoskeletal: Extremities: strength 5/5 throughout Skin: no rashes, warm and dry Neurologic: elkins, fluent speech, no tremor Genitourinary: L nephrostomy tube w/ clear UOP/>100 cc; some soft tissue fluctuance L base of spine Results & Data ([facility]) Vital Signs (Past 12 Hours) Vital Signs Temp Pulse Pulse Resp BP Pulse Ox 11/14/21 07:26 37.2 C 80 20 125/70 97 11/14/21 07:00 80 11/14/21 03:25 36.8 C 75 20 120/67 98 Laboratory Results 11/14/21 08:27 11/14/21 08:27
--- NOTE | 2021-11-14 19:36 | Discharge Summary ---
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 Today seen at PCP office for urinary symptoms and was found to have tachycardia and was referred to ER. Reports having dysuria, urinary frequency for past several days. States urine noted to turn white in coloration and also having some discomfort to mid abdomen. reports dx UTI outpatient and was treated with cefdinir on 10/13/21 (No urine culture found in outpatient chart review). Patient denies any chest pain, shortness of breath, palpitations. Has chronic constipation. Also c/o bilateral knee pain, left worse than right knee and reports on medrol dose pack for arthritis and finishes dose pack tomorrow. Denies known fever/chills, diaphoresis, N/V/D, VALENTINE, dizziness, syncope, vision changes, neck pain, orthopnea, cough, sore throat, choking, otalgia, rhinorrhea, abdominal pain, paresthesias, extremity weakness, extremity edema, rashes, hematuria. Today in ER found to be in atrial flutter rapid ventricular rate, rate in 170s. Was given diltiazem and drip without improvement. Cardiology consulted and performed cardioversion with conversion to sinus rhythm. Admission Exam Per Admitting Provider General: Well hydrated, average body habitus, no acute distress, Chronically ill looking Eyes: PERRL, conjunctivae normal, not pale, anicteric sclerae, EOM intact bilaterally ENMT: External ear and nose normal, oropharynx normal Respiratory: Normal respiratory effort, no respiratory distress, lungs clear to auscultation, no crackles and no wheezes Cardiovascular: RRR S1 S2 Gastrointestinal (Abdomen): Abdomen is not distended, soft, non-tender to palpation, no guarding, no palpable hepatosplenomegaly, normal bowel sounds Musculoskeletal: No cyanosis or clubbing, No pedal edema Genitourinary: Left urostomy tube in situ with yellowish urine in bag Neurologic: Alert and oriented x 3, No focal weakness, sensation grossly intact Psychiatric: Alert and oriented x 3, euthymic affect, no depressed affect Principal Diagnosis Atrial flutter with RVR Discharge Exam GENERAL: Alert and oriented x3. NAD, on RA. HEENT: No pallor, no icterus. Pupils equal, round and reactive to light. Oral mucosa moist. NECK: No JVD, no neck masses. HEART: S1 and S2 heard. Regular rate and rhythm. No murmur, no gallop. RESPIRATORY SYSTEM: Normal AP diameter. No accessory muscle use. No wheezing, no crackles. ABDOMEN: Soft, bowel sounds present, nontender, no distention. CENTRAL NERVOUS SYSTEM: No facial droop. Speech is clear. Obeys simple commands. Moves extremities. EXTREMITIES: trace ble edema, no erythema seen. Left nephrostomy tube in place,yellow urine in bag noted. Discharge Data Allergies Allergy/AdvReac Type Severity Reaction Status Date / Time kiwi Allergy Intermediate Lip and Unverified 11/04/21 16:50 Tongue Swell metoprolol AdvReac Intermediate Immediate Unverified 11/04/21 17:04 Bradycardia Hemp Seeds Allergy Intermediate Tongue Uncoded 11/04/21 16:50 Swells Consultations 11/04/21 16:03 Consult Cardiology Stat 11/04/21 18:17 ED Decision to Admit Stat 11/04/21 20:20 Consult Cardiology Routine 11/06/21 13:36 Consult Orthopedic Surgery Routine 11/08/21 09:50 Consult Anesthesiology Routine 11/09/21 13:29 Consult Nephrology Routine 11/10/21 16:43 Consult Infectious Diseases Routine 11/13/21 17:10 Burn CD for patient Stat Procedures Performed Operation Date: 11/08/21 15:30 <No data on this case meets the specified criteria> Operation Date: 11/08/21 15:30 Actual Procedures p Cardioversion Ji Quiñones DO Ordered Studies 11/08/21 07:52 MR lumbar spine wo con Routine Hospital Course (1) Atrial flutter: (2) Bladder carcinoma: (3) CAD (coronary artery disease), circle coronary artery: (4) DM2 (diabetes mellitus, type 2): (5) Stage 4 chronic kidney disease: (6) Anemia: (7) HTN (hypertension): (8) Abnormal urinalysis: Patient is 65-year-old male with PMH Paroxysmal atrial fibrillation not on anticoagulation, CAD, NSTEMI s/p CABG x4 in December 2020, bladder cancer with metastasis intrapelvic lymph nodes, CKD IV, nephrostomy tube, chronic anemia, HTN, HLD, DM II presented to the ER for tachycardia found at PCP office today. Denies CP, SOB, palpitations. In the ER, he was found to be in atrial flutter rapid ventricular rate, rate in 170s. Was given diltiazem and drip without improvement.Cardiology consulted and performed cardioversion with conversion to sinus rhythm. He was managed for the following: Recurrent Atrial flutter with RVR s/p successful cardioversion 11/04 and 11/08; converted to NRS with amio drip 11/11 - Resumed back on iv amio and iv heparin drip on 11/11 as he again flipped to A flutter with RVR 11/11 am for the third time but converted to NSR shortly after starting IV amiodarone - Cardio following- Dr Ndiaye spoke to [facility] for transfer as he requires tertiary care center with advanced EP services and he has been accepted for transfer- insurance authorization received [id number]- waiting for bed to be available at [facility]- Accepting physician Dr Lomeli- [facility]LIN paperwork completed. - Per cardio, plan to switch iv amio to po today if patient does not get transferred to [facility] today - Continue tele; echo reviewed Left hip/knee pain- - Significantly improved and currently pain free with oxy prn- continue - ?trochanteric bursitis vs others- seen by orthopedics- Xrays hip and spine, MRI lumbar spine did not show significant finding. Discussed with Dr Solares who recommended to follow-up with the [facility] sports medicine physician, Dr. Contreras, soon after he leaves the hospital for additional diagnostics and possible ultrasound-guided injections to help better delineate the source of his pain.If not improved, recommend rheum evaluation given elevated inflammatory markers- Pt aware. ARIADNA on CKD3b/4: Cr trending up 2.1->2.4->2.6->2.5->2.8->2.8->2.89->3.08->3.09; ?related to his malignancy and DM- nephro following. Pt to follow up w/ nephro once DC'd from [facility]. PAF s/p surgical ALEXANDREA occlusion and not on anticoagulation- now on heparin drip UTI- urine clx on admission was negative however has recurrence of symptoms, hence repeat UA sent which is growing stenotrophomonas maltophila - Was on cefepime and switched to iv ceftazidime D5 for now- plan was to transition to levaquin at discharge renally dosed, QTc 447 but will need to monitor being on amiodarone. 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 Patient treating with alternative medicine - Nephrostomy tube in place CAD (coronary artery disease), circle coronary artery: S/P CABG x 4 in 2020 - Continue aspirin. Not on ACEI secondary to CKD. Not on beta phuong secondary to h/o bradycardia, not on statin secondary to self preference; reports not taking fenofibrate DM2: A1c: 8. Hold home glycemic agents; basal bolus insulin per protocol- cautious in setting of CKD. Adjusted again today for hyperglycemia Anemia: Hgb: 8.8->7.7->8.4->8.5->8.2->8.1->7.7->7.4->7.6->7.7. no active bleeding noted. likely anemia of chronic disease due to CKD and malignancy. Monitor. Not on anticoagulation. - Might need blood transfusion- will monitor- transfuse if Hb<7- patient agreeable- had multiple transfusions before HTN: Continue amlodipine Hyponatremia- stable when corrected for hyperglycemia. Recheck in am Hyperkalemia- K 5.3. mild. Nephro recommended starting veltassa daily. DVT Prophylaxis- heparin drip Dispo- Pt discharged to [facility]. Total Time Total Time Spent Total Time Spent (In Minutes): 35 Discharge Plan Discharge Items Patient Disposition: Transfer Acute Care Hospital Reason For Visit: AFLUTTER RVR Discharge Diagnosis: Atrial flutter with RVR Activity: As commented below Activity Comment: as per [facility] Non-emergency contact: Primary Care Provider Call non-emergency contact if: you have any medication questions, your symptoms worsen, your pain is not controlled and you have a fever Follow-up/Referrals: Kathy Ibrahim MD [Primary Care Provider] - Diet: Carb Consistent or DM2 Addtl Attending Provider Instructions: Continue amiodarone twice daily for 2 weeks, after that once daily Recommend starting lipitor. Recommend outpatient follow up cardiology with electrophysiology consultation for the atrial flutter management Recommend repeat blood work in a week to monitor the hemoglobin and kidney function Recommend good nephrostomy care- f/u with your doctor Recommend lidocaine patch, tylenol and physical therapy for your hip pain. If it does not improve, recommend seeing an orthopedics- your family doctor will refer If your insurance does not cover the lidocaine patch, you can buy over the counter 4% lidocaine patch. Avoid over the counter pain medications like motrin, advil, naproxen, voltaren etc given your kidney issues. Addtl Plant Quality Manager Provider Instructions: ORTHOPEDIC INSTRUCTIONS Activity Recommendations: Activity as tolerated Follow-Up Visit: Follow-up with Dr. Contreras ([facility] orthopedic sports medicine physician) soon after discharge. He will be able to provide you with further diagnostics and possibly ultrasound- guided injections to help determine the source of the pain. Office phone number is [phone] Pending Studies at Discharge: No Stand-Alone Forms: My [facility] Skilled Items Patient informed of condition?: Yes DNR: No Discharge Level of Care: Other Communicable Disease: No Discharge Prognosis: Other Lines: Peripheral IV Urinary Catheter: No Medications and DC Order Prescriptions: New amiodarone 200 mg Tablet 200 mg PO UD Qty: 60 RF: 0 lidocaine 5 % Adhesive Patch,Medicated 1 patch transdermal HS Qty: 30 RF: 0 atorvastatin [Lipitor] 40 mg tablet 40 mg PO HS Qty: 30 RF: 0 Continued ascorbic acid (vitamin C) 1,000 mg Tablet Extended Release 2,000 mg PO BID RF: 0 aspirin 81 mg Tablet,Delayed Release (Dr/Ec) 81 mg PO HS RF: 0 meclizine 25 mg Tablet 25 mg PO HS RF: 0 niacin 500 mg Tablet 500 mg PO BID RF: 0 vitamin B complex Tablet 1 tab PO DAILY RF: 0 pyridoxine (vitamin B6) [Vitamin B-6] 100 mg Tablet 100 mg PO HS RF: 0 coenzyme Q10 [CoQ-10] 100 mg Capsule 300 mg PO TID RF: 0 cholecalciferol (vitamin D3) 125 mcg (5,000 unit) Tablet 125 mcg PO HS RF: 0 alpha lipoic acid 600 mg Capsule 600 mg PO HS RF: 0 Tradjenta 5 mg Tablet 5 mg PO DAILY RF: 0 biotin 1,000 mcg Tablet,Chewable 1,000 mcg PO HS RF: 0 glipizide 10 mg tablet extended release 24hr 10 mg PO DAILY RF: 0 magnesium 250 mg Tablet 250 mg PO DAILY RF: 0 Glucosamine Complex-MSM Capsule 1 cap PO DAILY RF: 0 omega 1-gxu-jhy-fish oil [Fish Oil] 1,000 mg (120 mg-180 mg) Capsule 1 cap PO DAILY RF: 0 methylprednisolone 4 mg tablets,dose pack 4 - 24 mg PO DAILY RF: 0 docusate sodium 100 mg capsule 100 mg PO BID RF: 0 amlodipine 5 mg tablet 5 mg PO DAILY RF: 0 Apigenin 50 mg PO QAM RF: 0 acetylcysteine [NAC] 600 mg Capsule 600 mg PO HS PRN (Reason: Protection of liver) RF: 0 nitroglycerin [Nitrostat] 0.4 mg Tablet, Sublingual 0.4 mg sublingual UD PRN (Reason: chest pain) Qty: 20 RF: 0 Discharge Orders: Discharge Order (Routine); Ordered 11/14/21 Ordered By: Hever Zelaya Admission Data Admit Date/Time: 11/04/21 18:57 Attending Provider: Christopher Acosta Admit Provider: Jodie Benitez I. Primary Care Provider: Kathy Ibrahim Other Providers: Donald Nguyễn ; Jodie Benitez I. ; [facility] ; Ernesto Solares ; Sharee Garcia ; Iman Cuellar ; Lulú Jade ; Chana Schultz ; Jian Powers ; Amrit Howe ; Rakesh Nicholson ; Andres Meza ; Deloris Meza ; Ernesto Martinez ; Monisha Izaguirre ; Randal Calixto Gary R. ; Carroll Saavedra ; Tristen Asher ; Rosie Ortiz ; Ras Collins ; Mohini Dobbs ; Tiffany Collins ; Chuck Gould ; Taylor Kaplan ; Sundar Damian ; Farida Carr ; Zahida Lozano ; Taylor Ponce ; Inessa Ryder ; Rupert Kaur ; Irma Laird ; Sandi Boykin ; Devora Kincaid ; Yue Dumont ; Dawit Dumont V ; Carson Price ; Iman Sandhu ; Kimani Bourne ; Kina Nixon ; Gely Frazier ; Dawit Barrientos ; Noman Ortiz ; Dimitris Phillips ; Angle Rivera ; Lucia Koenig ; Dawit Celaya ; Devora Phan ; Donald Adam ; Giorgio Asher ; Nadya Marin ; Kingsley Hewitt ; Sunny Diez ; Yon Barney ; Les Solano ; Kingsley Valdes ; Jian Mendes Jr ; Saskia Matos ; Azul Suárez ; Jo Parry ; Rupert Rosenthal ; Chana Donohue ; Andres Jason ; Roland Ba I. ; Jared Ibrahim ; Loi Wynn ; Joy Salas ; Randell Bedolla I. ; Ty Gutierrez II ; Dottie Buckley ; Ras Lyn ; Felipe Curiel Other Interventions: Discharge Summary Assessment (RN) Last Done: 11/14/21 02:21
== END 2021-11-14 11:00 | disposition short-term general hospital (02) | DRG 309 ==
LOC: ED 15:31 → SUATTDRO 18:57 → 2S 18:57

== ENCOUNTER 2021-12-18 23:47 | Inpatient (IN) ==
[2021-12-19] MEDS ORDERED: MoRPHine SULFATE 4 MG/ML 1 ML CARP\\VIAL IV STA ×2 (00:11→01:24)
[2021-12-19] MEDS ORDERED: SODIUM CHLORIDE 0.9% 500 ML IV STA (00:11)
[2021-12-19] MEDS ORDERED: ONDANSETRON INJ 2 MG/ML 2 ML VIAL IV STA (00:11)
--- NOTE | 2021-12-19 00:13 | Emergency Department Note ---
Impression & Plan Abdominal pain ADMIT ED Provider Note HPI: The patient is a 66-year-old male with history of coronary artery disease status post CABG, atrial flutter, or cancers status post bilateral nephrostomy tubes, who presents the emergency department with a chief complaint of abdominal pain. Patient states this began about 2 hours prior to arrival. He does have a history of bladder cancer and has bilateral nephrostomy tubes which have been draining appropriately. Patient states that approximately 2 hours prior to arrival here to the ED he developed mid abdominal pain that was relatively intense. He denies any vomiting. Denies any chest pain but states at times when he goes to the bathroom he does get short of breath. On arrival to the ED the patient is hemodynamically stable, he is saturating well on room air, he appears somewhat listless on arrival. ROS: -GI: Abdominal pain *10 point review systems was conducted and is otherwise negative unless stated above *Outpatient medications and allergy history reviewed PE: General: Frail appearing HEENT: Normocephalic, atraumatic Eyes: Extraocular eye movement is intact, no scleral erythema Pulmonary: Clear to auscultation bilaterally, no wheezing Cardio: Regular rate and rhythm GI: Abdomen is soft, tenderness in the mid abdomen to palpation without guarding or rigidity : No suprapubic tenderness, bilateral nephrostomy tubes in place without surrounding erythema or drainage at the site MSK: No evidence of trauma or malformation of the extremities, no edema Skin: No evidence of rash Neuro: Alert, no focal deficits Psychiatric: Cooperative ekg monitor tech: - An order was placed for continuous cardiac monitoring - Patient was noted to be in sinus rhythm with rate of 80 EKG: Rate: 84 Rhythm: Normal sinus rhythm Intervals: Within normal limits ST changes: No ST elevation, T wave inversions in anterior leads similar to previous EKG Time: 0023 CT ABDOMEN & PELVIS Without Contrast: There is diffuse fluid and gas dilation of the small bowel throughout the abdomen and pelvis. No focal small bowel transition point identified with dilation of the terminal ileum and ileocecal region. Cecum is fluid distended but not dilated. There is oral contrast throughout the colon, which is only mildly distended. The distal rectosigmoid region is decompressed. Findings are greater than expected for gastroenteritis. A colonic obstruction is not excluded. No pneumatosis or pneumoperitoneum. Serial radiographic evaluation may provide additional information. Somewhat irregular soft tissue in the retroperitoneum anterior to the aorta and iliac arteries. The appearance is not typical for lymphadenopathy. This is new from the previous examination 07/01/2021. Differential consideration includes retroperitoneal mass or developing retroperitoneal fibrosis. Recommend nonemergent diagnostic evaluation,, ideally once the bowel process has resolved. Trace hepatic fluid. The gallbladder is prominently distended. No gallstones or biliary dilatation. The unenhanced liver, pancreas, spleen and adrenal glands are unremarkable. Left percutaneous nephrostomy tube in appropriate position with the distal loop in the renal pelvis. Right sided percutaneous nephroureteral stent with the superior loop in the renal pelvis and the inferior loop in the bladder. No hydronephrosis. Extensive subcutaneous edema and fat stranding. Primary consideration is anasarca. The IVC appears flattened and somewhat irregular. Stable retrocaval lymph node at the level of the kidneys measuring 10 mm. Nodular changes in the right middle lobe are noted. This area was not imaged on the examination 06/23/2021. Subtle alveolitis/pneumonia in the right middle lobe is not excluded. Radiologist: Mendel Carter MD Medical Decision Making: Patient presented to the emergency department the chief complaint of mid abdominal pain. He stated this began about 2 hours prior to arrival. He does have a history of multiple comorbidities including bladder cancer, has bilateral nephrostomy tubes, history of atrial fibrillation/flutter requiring cardioversion in the past. Patient has not had any vomiting. On arrival he is slightly tachycardic, denies any chest pain. IV was established, lab work obtained, patient was placed on quality assurance monitor, he was given IV morphine for pain, CT imaging of the abdomen pelvis was obtained contrast given the patient's renal function, CT shows some evidence of fluid and gas dilation of the small bowel without an obvious transition point. Cannot exclude the possibility of a colonic obstruction. No pneumatosis or free air is noted. Also multiple other abnormalities noted including irregular soft tissue in the retroperitoneum for which differential would include retroperitoneal mass or developing fibrosis per stat rad radiologist. There are also findings consistent with anasarca. Patient's lab work shows troponin near baseline at 34.2, acute on chronic renal failure with creatinine of 3.73, uremia with a BUN of 94. Patient was given a small bolus of IV fluid and none further secondary to concern for fluid overload as he is noted to have 2+ pedal edema and anasarca on CT as well as hyponatremia at 126. EKG does not show any evidence of ST elevation per my interpretation, T wave inversions in the anterior leads appears similar to previous EKG. Patient denies any chest pain and has had troponin levels in this range on his last several pieces of lab work. On my reassessment the patient appears uncomfortable and was given another dose of morphine, he has not had any vomiting here in the ED therefore NG tube was not placed. Tachycardia down trended in the ED and blood pressure remained mildly hypotensive in the 90s systolic. I discussed the above findings with the patient, he is in agreement for admission. Case was discussed with the on-call hospitalist for [facility], Dr. Zelaya, and the patient will be admitted for the above findings and for subspecialty consultations likely surgery and gastroenterology. Patient is in agreement to the above plan he was admitted in stable condition. Diagnosis: 1. Hyponatremia 2. Hypochloremia 3. Possible bowel obstruction 4. Elevated high-sensitivity troponin level 5. Uremia 6. Acute on chronic kidney injury Disposition: Admission Ras Lopez DO Emergency Medicine Past Med/Surg History Medical History Bladder carcinoma CAD (coronary artery disease) Chronic kidney disease Chronic sinusitis Concussion DM type 2 (diabetes mellitus, type 2) Dyslipidemia HTN (hypertension) Paroxysmal A-fib Urothelial cancer Varicella without complication Surgical History S/P CABG x 4 Family History Mother Hypertension Cancer Father Cancer Hypertension Grandmother (Maternal) Cancer Social History Smoking Status: Never smoker Second Hand Exposure: Yes; Hx Alcohol Use: Yes Alcohol type: hard liquor Hx Substance Use: No Preferred Language: Kosovan Communication Ability: Effective Wireless Communications Engineer Required: No Beliefs That Will Affect Care: None marital status: Current Living Situation: Spouse current occupation: Retired Feels Safe at Home: Yes Assistive Devices: None Allergies Allergies Allergy/AdvReac Type Severity Reaction Status Date / Time kiwi Allergy Intermediate Lip and Unverified 11/04/21 16:50 Tongue Swell metoprolol AdvReac Intermediate Immediate Unverified 11/04/21 17:04 Bradycardia Hemp Seeds Allergy Intermediate Tongue Uncoded 11/04/21 16:50 Swells Home Meds Home Medications Medication Instructions Recorded Confirmed alpha lipoic acid 600 mg capsule 600 mg PO HS 07/18/20 12/19/21 ascorbic acid (vitamin C) 1,000 mg 2,000 mg PO BID 07/18/20 12/19/21 tablet,extended release aspirin 81 mg tablet,delayed 81 mg PO HS 07/18/20 12/19/21 release biotin 1,000 mcg chewable tablet 1,000 mcg PO HS 07/18/20 12/19/21 cholecalciferol (vitamin D3) 125 125 mcg PO HS 07/18/20 12/19/21 mcg (5,000 unit) tablet coenzyme Q10 100 mg capsule 300 mg PO TID 07/18/20 12/19/21 (CoQ-10) linagliptin 5 mg tablet (Tradjenta) 5 mg PO DAILY 07/18/20 12/19/21 meclizine 25 mg tablet 25 mg PO HS 07/18/20 12/19/21 niacin 500 mg tablet 500 mg PO BID 07/18/20 12/19/21 pyridoxine (vitamin B6) 100 mg 100 mg PO HS 07/18/20 12/19/21 tablet (Vitamin B-6) vitamin B complex 1 tab PO DAILY 07/18/20 12/19/21 acetylcysteine 600 mg capsule (NAC) 600 mg PO HS PRN Protection of 01/02/21 12/19/21 liver amlodipine 5 mg tablet 5 mg PO DAILY 11/04/21 12/19/21 docusate sodium 100 mg capsule 100 mg PO BID 11/04/21 12/19/21 glipizide 10 mg tablet, extended 10 mg PO DAILY 11/04/21 12/19/21 release 24 hr errufkbchhg-nxk-qeieusubg-vitC 1 cap PO DAILY 11/04/21 12/19/21 capsule (Glucosamine Complex-MSM) magnesium 250 mg tablet 250 mg PO DAILY 11/04/21 12/19/21 omega 5-jnh-ety-fish oil 1,000 mg 1 cap PO DAILY 11/04/21 12/19/21 (120 mg-180 mg) capsule (Fish Oil) haloperidol lactate 2 mg/mL oral 1 mg PO Q4H PRN Anxiety 12/19/21 12/19/21 concentrate oxycodone 5 mg tablet 10 mg PO Q4H PRN Pain 12/19/21 12/19/21 Previous Rx's Medication Instructions Recorded nitroglycerin 0.4 mg sublingual 0.4 mg sublingual UD PRN chest 01/08/21 tablet (Nitrostat) pain #20 tabs amiodarone 200 mg tablet 200 mg PO UD #60 tabs 11/06/21 lidocaine 5 % topical patch 1 patch transdermal HS #30 ea 11/06/21 Results & Data (ED) Vital Signs Vital Signs - 24 hr 12/18/21 23:52 12/19/21 00:30 12/19/21 00:31 Temperature 36.8 C Temperature Source Oral Pulse Rate 85 86 Pulse Rate from SpO2 Sensor 86 86 Pulse Rhythm Regular Respiratory Rate 16 16 Respiratory Effort / Characteristics Non-Labored Spontaneous SOB on Exertion Respiratory Depth Normal Respiratory Pattern Regular Blood Pressure 111/70 Blood Pressure Mean 83 Pulse Oximetry 99 97 97 Oxygen Delivery Method Room Air Sepsis Recent Fever Within 48 Hours No Sepsis New/Unexplained Change in Mental Status No Sepsis Action Taken by Nursing No Action Required 12/19/21 00:33 12/19/21 01:00 12/19/21 01:32 Temperature Temperature Source Pulse Rate 80 122 H Pulse Rate from SpO2 Sensor 85 82 Pulse Rhythm Respiratory Rate Respiratory Effort / Characteristics Respiratory Depth Respiratory Pattern Blood Pressure 109/62 95/76 L 95/60 L Blood Pressure Mean 77 82 71 Pulse Oximetry 96 97 Oxygen Delivery Method Sepsis Recent Fever Within 48 Hours Sepsis New/Unexplained Change in Mental Status Sepsis Action Taken by Nursing Laboratory Data Result diagrams: 12/19/21 00:02 12/19/21 00:02 Lab Results 12/19/21 12/19/21 12/19/21 Range/Units 00:02 00:02 00:02 WBC 5.65 (4.8-10.8) K/ul RBC 4.13 L (4.63-6.08) M/uL Hgb 12.6 L (14.0-18.0) g/dl Hct 37.3 L (40.1-51.0) % MCV 90.3 (80.0-100.0) fL MCH 30.5 (25.0-34.0) pg MCHC 33.8 (32.0-36.0) g/dL RDW Std Deviation 58.3 H (36.4-46.3) fL RDW Coeff of Bailey 17.3 H (11.5-14.5) % Plt Count 358 (130-400) K/uL MPV 10.0 (9.4-12.4) fL Immature Gran % (Auto) 0.5 % Neut % (Auto) 87.5 % Lymph % (Auto) 5.3 % Fisher % (Auto) 6.5 % Eos % (Auto) 0.0 % Baso % (Auto) 0.2 % Neut # (Auto) 4.94 (1.4-6.5) K/uL Lymph # (Auto) 0.30 L (1.2-3.4) K/uL Fisher # (Auto) 0.37 (0.24-0.82) K/uL Eos # (Auto) 0.00 (0-0.50) K/uL Baso # (Auto) 0.01 (0-0.2) K/uL Immature Gran # (Auto) 0.03 H (0.00-0.02) K/uL Echinocytes 1+ PT 11.6 (9.0-12.0) Seconds INR 1.1 (0.9-1.1) Sodium 126 L (136-145) mmol/L Potassium 5.2 H (3.5-5.1) mmol/L Chloride 86 L (98-107) mmol/L Carbon Dioxide 21 (21-32) mmol/L Anion Gap 19 H (3-11) BUN 94 H (6-23) mg/dl Creatinine 3.73 H (0.6-1.4) mg/dl Est Cr Clr Drug Dosing 18.6 ml/min Est GFR ( Amer) 18.3 ml/min Est GFR (Non-Af Amer) 15.8 ml/min BUN/Creatinine Ratio 25.2 H (10-20) Glucose 246 H (70-99(Fasting)) mg/dl Calcium 9.3 (8.5-10.1) mg/dl Total Bilirubin 0.6 (0.2-1.0) mg/dl AST 24 (13-39) U/L ALT 22 (7-52) U/L Alkaline Phosphatase 209 H (34-104) U/L Troponin I High Sens 34.2 H (0-20) pg/ml B-Natriuretic Peptide (0-100) pg/ml Total Protein 7.5 (6.0-8.3) gm/dl Albumin 3.7 (3.4-5.0) gm/dl Globulin 3.8 (2.5-4.0) gm/dl Albumin/Globulin Ratio 1.0 (0.9-2) Lipase 4 L (11-82) U/L SARS-CoV-2 (PCR) (Negative) Influenza Type A (PCR) (Neg) Influenza Type B (PCR) (Neg) RSV (RT-PCR) (Neg) 12/19/21 12/19/21 Range/Units 00:02 00:40 WBC (4.8-10.8) K/ul RBC (4.63-6.08) M/uL Hgb (14.0-18.0) g/dl Hct (40.1-51.0) % MCV (80.0-100.0) fL MCH (25.0-34.0) pg MCHC (32.0-36.0) g/dL RDW Std Deviation (36.4-46.3) fL RDW Coeff of Bailey (11.5-14.5) % Plt Count (130-400) K/uL MPV (9.4-12.4) fL Immature Gran % (Auto) % Neut % (Auto) % Lymph % (Auto) % Fisher % (Auto) % Eos % (Auto) % Baso % (Auto) % Neut # (Auto) (1.4-6.5) K/uL Lymph # (Auto) (1.2-3.4) K/uL Fisher # (Auto) (0.24-0.82) K/uL Eos # (Auto) (0-0.50) K/uL Baso # (Auto) (0-0.2) K/uL Immature Gran # (Auto) (0.00-0.02) K/uL Echinocytes PT (9.0-12.0) Seconds INR (0.9-1.1) Sodium (136-145) mmol/L Potassium (3.5-5.1) mmol/L Chloride (98-107) mmol/L Carbon Dioxide (21-32) mmol/L Anion Gap (3-11) BUN (6-23) mg/dl Creatinine (0.6-1.4) mg/dl Est Cr Clr Drug Dosing ml/min Est GFR ( Amer) ml/min Est GFR (Non-Af Amer) ml/min BUN/Creatinine Ratio (10-20) Glucose (70-99(Fasting)) mg/dl Calcium (8.5-10.1) mg/dl Total Bilirubin (0.2-1.0) mg/dl AST (13-39) U/L ALT (7-52) U/L Alkaline Phosphatase (34-104) U/L Troponin I High Sens (0-20) pg/ml B-Natriuretic Peptide 128 H (0-100) pg/ml Total Protein (6.0-8.3) gm/dl Albumin (3.4-5.0) gm/dl Globulin (2.5-4.0) gm/dl Albumin/Globulin Ratio (0.9-2) Lipase (11-82) U/L SARS-CoV-2 (PCR) NEGATIVE (Negative) Influenza Type A (PCR) Negative (Neg) Influenza Type B (PCR) Negative (Neg) RSV (RT-PCR) Negative (Neg) Administered Medications Discontinued Medications Hydromorphone HCl (Hydromorphone Inj 0.5 Mg/0.5 Ml Syr) 0.5 mg IV NOW STA Stop: 12/19/21 02:19 Last Admin: 12/19/21 02:24 Dose: 0.5 mg Documented By: DARON Sodium Chloride (Nss) 500 mls @ 999 mls/hr IV .Q31M STA Stop: 12/19/21 00:41 Last Infusion: 12/19/21 01:28 Dose: 0 mls/hr Documented By: Admin: 12/19/21 00:40 Dose: 999 mls/hr Documented By: DARON Morphine Sulfate (Morphine Sulfate 4 Mg/Ml 1 Ml Carp\Vial) 4 mg IV NOW STA Stop: 12/19/21 00:12 Last Admin: 12/19/21 00:27 Dose: 4 mg Documented By: MT Morphine Sulfate (Morphine Sulfate 4 Mg/Ml 1 Ml Carp\Vial) 4 mg IV NOW STA Stop: 12/19/21 01:25 Last Admin: 12/19/21 01:27 Dose: 4 mg Documented By: DARON Ondansetron HCl (Ondansetron Inj 2 Mg/Ml 2 Ml Vial) 4 mg IV NOW STA Stop: 12/19/21 00:12 Last Admin: 12/19/21 00:27 Dose: 4 mg Documented By: DARON Discharge Plan Visit Data Chief Complaint: Abdominal Pain Stated Complaint: ABDOMINAL PAIN/DISTENTION/PEDAL EDEMA ED Provider: Ras Lopez Discharge Problem: Abdominal pain Patient Disposition: Admitted As Inpatient Forms Stand Alone Forms: [facility] Prescriptions Prescriptions: No Action ascorbic acid (vitamin C) 1,000 mg Tablet Extended Release 2,000 mg PO BID aspirin 81 mg Tablet,Delayed Release (Dr/Ec) 81 mg PO HS meclizine 25 mg Tablet 25 mg PO HS niacin 500 mg Tablet 500 mg PO BID vitamin B complex Tablet 1 tab PO DAILY pyridoxine (vitamin B6) [Vitamin B-6] 100 mg Tablet 100 mg PO HS coenzyme Q10 [CoQ-10] 100 mg Capsule 300 mg PO TID cholecalciferol (vitamin D3) 125 mcg (5,000 unit) Tablet 125 mcg PO HS alpha lipoic acid 600 mg Capsule 600 mg PO HS Tradjenta 5 mg Tablet 5 mg PO DAILY biotin 1,000 mcg Tablet,Chewable 1,000 mcg PO HS glipizide 10 mg tablet extended release 24hr 10 mg PO DAILY magnesium 250 mg Tablet 250 mg PO DAILY Glucosamine Complex-MSM Capsule 1 cap PO DAILY omega 3-bkv-nhj-fish oil [Fish Oil] 1,000 mg (120 mg-180 mg) Capsule 1 cap PO DAILY docusate sodium 100 mg capsule 100 mg PO BID amlodipine 5 mg tablet 5 mg PO DAILY amiodarone 200 mg Tablet 200 mg PO UD Qty: 60 0RF Rx Instructions: Take twice daily for 2 weeks, then once daily lidocaine 5 % Adhesive Patch,Medicated 1 patch transdermal HS Qty: 30 0RF acetylcysteine [NAC] 600 mg Capsule 600 mg PO HS PRN (Reason: Protection of liver) nitroglycerin [Nitrostat] 0.4 mg Tablet, Sublingual 0.4 mg sublingual UD PRN (Reason: chest pain) Qty: 20 0RF haloperidol lactate 2 mg/mL concentrate 1 mg PO Q4H PRN (Reason: Anxiety) oxycodone 5 mg tablet 10 mg PO Q4H PRN (Reason: Pain) Referrals Referrals: Mainali,Kathy, MD [Primary Care Provider] -
[2021-12-19 00:24] LABS: Hematocrit (blood only) 37.3 % (40.1-51.0); Hemoglobin 12.6 g/dl (14.0-18.0); Mean Corpuscular Hemoglobin 30.5 pg (25.0-34.0); Mean Corpuscular Hgb Conc 33.8 g/dL (32.0-36.0); Mean Corpuscular Volume 90.3 fL (80.0-100.0); Platelet Count 358 K/uL (130-400); RDW Coefficient of Variation 17.3 % (11.5-14.5); RDW Standard Deviation 58.3 fL (36.4-46.3); Red Blood Count 4.13 M/uL (4.63-6.08); White Blood Count 5.65 K/ul (4.8-10.8)
[2021-12-19 00:36] LABS: INR 1.1 (0.9-1.1); Prothrombin Time 11.6 Seconds (9.0-12.0)
[2021-12-19 00:41] LABS: Troponin I High Sensitivity 34.2 pg/ml (0-20)
[2021-12-19 00:44] LABS: Albumin Level 3.7 gm/dl (3.4-5.0); BUN Creatinine Ratio 25.2 (10-20); Bilirubin,Total 0.6 mg/dl (0.2-1.0); Calcium 9.3 mg/dl (8.5-10.1); Creatinine Clr Calc Pharmacy 18.6 ml/min; Est GFR (African American) 18.3 ml/min; Est GFR (Non-African American) 15.8 ml/min; Globulin 3.8 gm/dl (2.5-4.0); Potassium 5.2 mmol/L (3.5-5.1); Total Protein 7.5 gm/dl (6.0-8.3)
[2021-12-19 00:48] LABS: Basophils # (auto) 0.01 K/uL (0-0.2); Basophils % (auto) 0.2 %; Echinocytes 1+; Immature Granulocytes # (auto) 0.03 K/uL (0.00-0.02); Immature Granulocytes % (auto) 0.5 %; Lymphocytes % (auto) 5.3 %; Monocytes # (auto) 0.37 K/uL (0.24-0.82); Monocytes % (auto) 6.5 %; Neutrophils # (auto) 4.94 K/uL (1.4-6.5); Neutrophils % (auto) 87.5 %
[2021-12-19 01:34] LABS: Influenza A virus by PCR Negative (Neg); Influenza B virus by PCR Negative (Neg); RSV by PCR Negative (Neg); SARS CoV2 RNA(COVID-19) InHosp NEGATIVE (Negative)
[2021-12-19] MEDS ORDERED: HYDROmorphone INJ 0.5 MG/0.5 ML SYR IV STA (02:18)
[2021-12-19] MEDS ORDERED: ONDANSETRON INJ 2 MG/ML 2 ML VIAL IV ONE (02:33)
[2021-12-19] MEDS ORDERED: FAMOTIDINE 20MG IV PUSH 20 MG/5 ML SYR IV STA (03:36)
[2021-12-19] MEDS ORDERED: ALUMINUM/MAGNESIUM/SIMETH (MAALOX MAX) 30 ML UDC PO STA (03:36)
[2021-12-19] MEDS ORDERED: ONDANSETRON INJ 2 MG/ML 2 ML VIAL IV PRN (05:11)
[2021-12-19] MEDS ORDERED: NITROGLYCERIN SL 0.4 MG/TAB TAB SL PRN (05:11)
[2021-12-19] MEDS ORDERED: ACETAMINOPHEN 325 MG TAB PO PRN (05:11)
[2021-12-19] MEDS ORDERED: CARBOHYDRATES FOR HYPOGLYCEMIA PO PRN (05:30)
[2021-12-19] MEDS ORDERED: DEXTROSE 50% 50 ML SYRINGE IV PRN (05:30)
[2021-12-19] MEDS ORDERED: GLUCAGON FOR INJ 1 MG VIAL IM PRN (05:30)
[2021-12-19] MEDS ORDERED: GLUCOSE 40% GEL 15 GM TUBE PO PRN (05:30)
[2021-12-19] MEDS ORDERED: GLUCOSE 10 TAB/TUBE PO PRN (05:30)
[2021-12-19] MEDS: SODIUM CHLORIDE 0.9% 1000ML 1,000 ML IV SCH ×2 (05:59→21:04)
[2021-12-19 07:34] LABS: Hematocrit (blood only) 36.6 % (40.1-51.0); Hemoglobin 12.3 g/dl (14.0-18.0); Mean Corpuscular Hemoglobin 30.1 pg (25.0-34.0); Mean Corpuscular Hgb Conc 33.6 g/dL (32.0-36.0); Mean Corpuscular Volume 89.7 fL (80.0-100.0); Platelet Count 317 K/uL (130-400); RDW Coefficient of Variation 17.2 % (11.5-14.5); RDW Standard Deviation 56.6 fL (36.4-46.3); Red Blood Count 4.08 M/uL (4.63-6.08); White Blood Count 5.83 K/ul (4.8-10.8)
--- NOTE | 2021-12-19 07:49 | History and Physical Report ---
DATE OF ADMISSION: 12/19/2021. CHIEF COMPLAINT: Abdominal pain. 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 The patient is not on anticoagulation. Presents to the ER with abdominal pain and found to have possible partial small- bowel obstruction, He was having tachycardia and now complaining of also back pain and hip pain, sitting on the chair. The patient has been taking time to answer. The patient says lately his memory is weak and he takes some time to answer, because he is not sleeping much. He says for his bladder cancer, he is started on new treatment, but he is having a hard time to go to [place] and states he missed a few of his appointments. Denies any chest pain, denies shortness of breath, denies cough, no nausea. Has some runny nose. Denies any headache. He is constipated. nephrostomy seems to be working okay. Has some swelling in the legs. He lives with his . He says he ambulates without any support. ALLERGIES: TO KIWI, METOPROLOL, HEMP SEEDS. PAST MEDICAL HISTORY: As mentioned above. PAST SURGICAL HISTORY: CABG, cystoscopy bilateral with insertion of stents, cystourethroscopy with fulguration of small bladder tumor, dental surgery, heart catheterization for ablation of AV node for paroxysmal atrial fibrillation, nephrostomy tubes. He has a history of removal of lesions done at [facility] in 2020. MEDICATIONS: The patient is on Tylenol 650 mg p.o. p.r.n., amiodarone 200 mg p.o. daily, amlodipine 5 mg p.o. daily, ascorbic acid 2000 mg p.o. b.i.d., aspirin 81 mg p.o. at bedtime, vitamin D 125 mcg at bedtime, Colace 100 mg p.o. b.i.d., glipizide 10 mg p.o. daily, lidocaine patch at bedtime, meclizine 25 mg p.o. daily, magnesium 250 mg p.o. daily, Nitrostat 0.4 mg sublingual p.r.n., omega fish oil p.o. daily, oxycodone 5 mg p.o. q. 4 hours p.r.n., Tradjenta 5 mg p.o. daily, vitamin B complex 1 tablet p.o. daily. FAMILY HISTORY: Significant for father had prostate cancer, hypertension; mother has hypertension, colon cancer in 60s; paternal grandmother had colon cancer in 70s. SOCIAL HISTORY: . No smoking. Alcohol rarely. No drug use. REVIEW OF SYSTEMS: As per HPI. Rest of the review of systems is negative. PHYSICAL EXAMINATION: GENERAL: The patient is of moderate build, not in acute distress. VITAL SIGNS: Temperature 36.8, pulse 76, respiratory rate 16, blood pressure 107/62, oxygen 98% on room air. HEENT: Pupils equal, round and reactive to light. Oral mucosa moist. NECK: No JVD, no neck masses. CARDIOVASCULAR: S1 and S2 heard. Tachycardia. No murmurs. RESPIRATORY SYSTEM: Normal AP diameter. No accessory muscle use. No wheezing, no crackles. ABDOMEN: Mild distention. Bowel sounds absent. Mild diffuse discomfort. No guarding, no rigidity. CENTRAL NERVOUS SYSTEM: Cranial nerves II through XII are grossly intact, nonfocal. The patient is slow to answer. Insight is okay.No Facial droop. Obeys simple commands. Moves extremities. EXTREMITIES: Bilateral lower extremity pedal edema present. LABORATORY DATA: WBC 5.6, hemoglobin 12.6, hematocrit 37.3, platelets 358. PT 11.6, INR 1.1. Sodium 126, potassium 5.2, chloride 86, bicarbonate 21, BUN 94, creatinine 3.7, serum glucose 246, calcium 9.3, total bilirubin 0.6, AST 24, ALT 22, alkaline phosphatase 209. Troponin I high sensitivity 34.2. BNP 128. Lipase 4. SARS-CoV-2 PCR negative. Influenza A and B PCR negative. RSV PCR negative. IMAGING DATA: Chest x-ray, no acute findings. CT of the abdomen and pelvis without contrast, diffuse fluid and gas, dilatation of small bowel throughout the abdomen and pelvis, no focal small bowel transition point identified with dilatation of the terminal ileum and ileocecal region. Cecum is fully distended, but not dilated. There is oral contrast throughout the colon, which is only mildly distended. In the distal rectosigmoid, the patient was decompressed. Findings are greater than expected for gastroenteritis. A colonic obstruction is not excluded. No pneumatosis or pneumoperitoneum. Serial radiographic evaluation to provide additional information.. Questionable retroperitoneal mass or developing retroperitoneal fibrosis, left percutaneous nephrostomy tube in appropriate position within the distal loop in the renal pelvis. Right-sided percutaneous nephroureteral stent with a separate loop in the renal pelvis and inferior loop in the bladder. No hydronephrosis. EKG: Normal sinus rhythm at 94.Prolonged Qtc ASSESSMENT AND PLAN: This is a 66-year-old male who presents with abdominal pain and found to have possible bowel obstruction 1. Abdominal pain, found to have questionable partial bowel obstruction, questionable retroperitoneal mass or fibrosis. We will keep the patient n.p.o., gentle fluids as the patient seems to be having lower extremity edema. IV Dilaudid p.r.n., IV antiemetics. Follow the final report of the CT scan. General surgery consult in a.m. 2. Acute kidney injury of chronic kidney disease stage IV: Baseline creatinine around 3, currently with creatinine of 3.7. Avoid nephrotoxic agents. Getting gentle fluids. Follow the labs in the a.m. 3. Hyponatremia, hyperkalemia: Sodium of 126. The baseline sodium used to be around 130. Potassium is 5.2. Follow serum osmolality, urine osmolality, urine sodium. Getting gentle fluids. BMP q. 6 hours. Consult nephrology in the a.m. for further recommendations. 4. Mild elevation in troponin: Follow serial enzymes. The patient is also having tachycardia, history of paroxysmal atrial fibrillation. status post successful cardioversion in November. Currently on amiodarone. Not on any anticoagulation. Will place on IV Lopressor p.r.n. Consult cardiology in the a.m. 5. Hip pain and back pain: He is on pain medication p.r.n. Will hold the oxycodone as currently on iv Dilaudid p.r.n. 6. History of paroxysmal atrial fibrillation/ :hx of cardioversion. on amiodarone. not on anticoagulation.Seems last admit was transferred to [facility]. 7. 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 The patient says he was recently started on treatment in [place], but having difficulty with transport. 8. History of coronary artery disease, status post CABG in 2020. Continue aspirin. Not on ACEI secondary to CKD, not on beta blockers secondary to history of bradycardia, not on any statins secondary to self preference as per previous records. 9. Diabetes: Hold his home medications. Placed on insulin sliding scale. Follow the blood sugars. 10. Anemia, probably anemia of chronic kidney disease: Will follow the labs. 11. History of hypertension: On amlodipine. Will monitor the blood pressure. 12. History of hyperkalemia: Last admission, the patient was started on [place]. 13. Deep venous thrombosis prophylaxis: Sequential compression devices for now. DISPOSITION: Closely monitor in the tele floor. Level 1 full code as per my discussion with the patient. PT, OT prior to discharge. Social service to help with discharge planning. Job ID: [id number] [id number]
[2021-12-19 07:56] LABS: Estimated Average Glucose 146 mg/dl; Hemoglobin A1C 6.7 % (4.5-5.6)
[2021-12-19] MEDS: INSULIN ASPART PER UNIT SC SCH ×4 (07:56→20:50)
[2021-12-19 07:59] LABS: BUN Creatinine Ratio 25.4 (10-20); Calcium 8.8 mg/dl (8.5-10.1); Creatinine Clr Calc Pharmacy 17.6 ml/min; Est GFR (African American) 17.1 ml/min; Est GFR (Non-African American) 14.8 ml/min; Magnesium 2.8 mg/dl (1.7-2.4); Potassium 5.7 mmol/L (3.5-5.1)
[2021-12-19] MEDS: GLUCOSAMINE SULFATE 500 MG CAP PO SCH (08:05)
[2021-12-19] MEDS: AMIODARONE 200 MG TAB PO SCH (08:05)
[2021-12-19 08:06] LABS: Basophils # (auto) 0.01 K/uL (0-0.2); Basophils % (auto) 0.2 %; Immature Granulocytes # (auto) 0.03 K/uL (0.00-0.02); Immature Granulocytes % (auto) 0.5 %; Lymphocytes # (auto) 0.36 K/uL (1.2-3.4); Lymphocytes % (auto) 6.2 %; Monocytes % (auto) 5.1 %; Neutrophils # (auto) 5.13 K/uL (1.4-6.5)
--- NOTE | 2021-12-19 08:10 | XRay Report ---
XR chest 1V portable HISTORY: Generalized abdominal pain. COMPARISON: Chest 11/04/2021. FINDINGS: Rotated study. No pneumothorax. The heart remains mildly enlarged. There are poststernotomy changes. No evidence for pulmonary edema. Stable scarlike densities at the left lung base. Mild inte rstitial thickening within the right lung base. IMPRESSION: Mild interstitial thickening at the right lung base which could represent a low-grade pneumonitis. ACT 112: Negative or not required by law. Electronically signed by: Andres Ye M.D. 12/19/2021 8:08 AM
--- NOTE | 2021-12-19 08:28 | CT Scan Report ---
CT abd pelvis wo con CLINICAL HISTORY: Mid abdominal pain, bilateral nephrostomy tubes TECHNIQUE: Helical axial images of the abdomen and pelvis were obtained. Automated dose lowering tech niques and/or adjustment according to patient size were utilized for this exam. This exam was perfor med without intravenous contrast. CT DOSE: 428.71 mGy.cm COMPARISON: Comparison is made to CT abdomen pelvis 06/23/2021 FINDINGS: Lower chest: No acute abnormality Liver: Unremarkable. No focal lesions are seen. Gallbladder and biliary tree: No calcified gallstones. Normal caliber wall. No intra- or extrahepatic biliary ductal dilation. Pancreas: Unremarkable, no focal lesions. Spleen: Unremarkable. Adrenals: Unremarkable. Kidneys and ureters: Bilateral nephrostomy tubes are seen. A right nephroureteral stent is seen. Bladder: Limited evaluation due to underdistention. Reproductive organs: Unremarkable. Bowel: There is diffuse fluid distention of the small bowel measuring up to 37 mm. No transition poin t or volvulus is seen. The colon appears normal in distention. Layering material is seen in the stoma ch. Lymph nodes Retroperitoneal: Subcentimeter lymph nodes are noted. There is ill-defined soft tissue density in the left and central retroperitoneum which contacts the descending colon. No bulky mass lesion is seen. Mesenteric: Unremarkable. Pelvic: Unremarkable. Peritoneum: Normal. Vessels: Mild atherosclerotic disease is seen. Abdominal wall: Body wall edema is noted. Bones: Mild degenerative changes are seen. IMPRESSION: Distention of numerous small bowel loops without evidence of focal point. The colon is normally diste nded. Findings may represent a colonic obstruction or pseudoobstruction. Soft tissue density material in the retroperitoneum in contact with descending colon may represent fluid/engorged vasculature how ever retroperitoneal fibrosis or less likely retroperitoneal mass cannot be excluded. ACT 112: Negative or not required by law. Electronically signed by: Dimitris Xiong M.D. 12/19/2021 8:27 AM
--- NOTE | 2021-12-19 08:43 | Cardiology Consultation ---
Date of Consultation December 19, 2021 Assessment & Plan (1) Elevated troponin: (2) Hyperkalemia: (3) Acute on chronic renal failure: (4) Abdominal pain: (5) Hyponatremia: (6) Abnormal urinalysis: (7) Anemia: (8) Atrial flutter: Plan Given his lack of cardiac symptoms, significant EKG changes along with his acute on chronic renal failure: I do not see any ischemic component to his troponin elevation. Will perform 2D echo for completeness sake otherwise, no changes from a cardiac standpoint. History of Present Illness Reason for Consultation: elevated troponin Requesting Physician: Dr. Zelaya Attending Physician: Sherman Zuniga MD History of Present Illness It is my pleasure to see It was my pleasure to see Mr. Raymond in cardiac consultation today, 12/19/21. He is a very pleasant 66 yo gentleman that routinely follows with Dr. Ndiaye of our cardiology practice for his history of CAD. He presented to the ED on 12/18/21 with complaints of abdominal pain. He was found to have a SBO on CT. He denied experiencing any chest pain, sob, palpitations or lightheadededness. In the ED he was found to have significant metobolic derrangements along with a minimal rise of his HS trop and cardiology was consulted. Currently his only complaint is that of back pain from laying in bed. PMHX: 1. Stable coronary artery disease 2. Status post coronary artery bypass surgery with a OSBORNE to the LAD, saphenous vein graft to the OM 1, PDA and 2nd diagonal [facility] January 2021 3. History of paroxysmally atrial fibrillation status post Maze and left atrial appendage clip 4. Mixed dyslipidemia with reluctance to take a statin medication 5. Diabetes mellitus 6. History of bladder cancer Allergies Allergy/AdvReac Type Severity Reaction Status Date / Time kiwi Allergy Intermediate Lip and Unverified 11/04/21 16:50 Tongue Swell metoprolol AdvReac Intermediate Immediate Unverified 11/04/21 17:04 Bradycardia Hemp Seeds Allergy Intermediate Tongue Uncoded 11/04/21 16:50 Swells Home Medications Medication Instructions Recorded Confirmed Type alpha lipoic acid 600 mg capsule 600 mg PO HS 07/18/20 12/19/21 History ascorbic acid (vitamin C) 1,000 mg 2,000 mg PO BID 07/18/20 12/19/21 History tablet,extended release aspirin 81 mg tablet,delayed 81 mg PO HS 07/18/20 12/19/21 History release biotin 1,000 mcg chewable tablet 1,000 mcg PO HS 07/18/20 12/19/21 History cholecalciferol (vitamin D3) 125 125 mcg PO HS 07/18/20 12/19/21 History mcg (5,000 unit) tablet coenzyme Q10 100 mg capsule 300 mg PO TID 07/18/20 12/19/21 History (CoQ-10) linagliptin 5 mg tablet (Tradjenta) 5 mg PO DAILY 07/18/20 12/19/21 History meclizine 25 mg tablet 25 mg PO HS 07/18/20 12/19/21 History niacin 500 mg tablet 500 mg PO BID 07/18/20 12/19/21 History pyridoxine (vitamin B6) 100 mg 100 mg PO HS 07/18/20 12/19/21 History tablet (Vitamin B-6) vitamin B complex 1 tab PO DAILY 07/18/20 12/19/21 History acetylcysteine 600 mg capsule (NAC) 600 mg PO HS PRN Protection of 01/02/21 12/19/21 History liver nitroglycerin 0.4 mg sublingual 0.4 mg sublingual UD PRN chest 01/08/21 12/19/21 Rx tablet (Nitrostat) pain #20 tabs amlodipine 5 mg tablet 5 mg PO DAILY 11/04/21 12/19/21 History docusate sodium 100 mg capsule 100 mg PO BID 11/04/21 12/19/21 History glipizide 10 mg tablet, extended 10 mg PO DAILY 11/04/21 12/19/21 History release 24 hr sjizcdfkpvf-yiw-eaxjtqjoo-vitC 1 cap PO DAILY 11/04/21 12/19/21 History capsule (Glucosamine Complex-MSM) magnesium 250 mg tablet 250 mg PO DAILY 11/04/21 12/19/21 History omega 2-kit-nbs-fish oil 1,000 mg 1 cap PO DAILY 11/04/21 12/19/21 History (120 mg-180 mg) capsule (Fish Oil) lidocaine 5 % topical patch 1 patch transdermal HS #30 ea 11/06/21 12/19/21 Rx amiodarone 200 mg tablet 200 mg PO DAILY 12/19/21 12/19/21 History haloperidol lactate 2 mg/mL oral 1 mg PO Q4H PRN Anxiety 12/19/21 12/19/21 History concentrate oxycodone 5 mg tablet 5 mg PO Q4H PRN Pain 12/19/21 12/19/21 History Patient History Medical History Bladder carcinoma CAD (coronary artery disease) Chronic kidney disease Chronic sinusitis Concussion DM type 2 (diabetes mellitus, type 2) Dyslipidemia HTN (hypertension) Paroxysmal A-fib Urothelial cancer Varicella without complication Surgical History S/P CABG x 4 Family History Mother Hypertension Cancer Father Cancer Hypertension Grandmother (Maternal) Cancer Social History Smoking Status: Never smoker Second Hand Exposure: Yes; Hx Alcohol Use: Yes Alcohol type: hard liquor Hx Substance Use: No Preferred Language: Japanese Communication Ability: Effective 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 No acute distress. HEENT: Normocephalic, atraumatic. Pupils equal, round and reactive to light and accommodation. Extraocular muscles are intact. Anicteric sclera. Moist mucous membranes. Neck: No JVD. No bruit. Cardiovascular: Regular. Positive S-4. Normal S-1 and S-2. No S-3. No murmurs or rubs. Pulmonary: Clear to auscultation B/L. No rales, rhonchi or wheezing Abdomen: Bowel sounds x 4, soft. No rebound, guarding or tenderness. No organomegaly. Extremities: No clubbing, cyanosis or edema. +2 pedal pulses bilaterally. Skin: Warm and dry. Results & Data ([facility]) Vital Signs (Past 12 Hours) Vital Signs Temp Pulse Pulse Resp BP BP BP 12/19/21 08:01 36.7 C 76 16 106/62 12/19/21 04:45 36.7 C 77 21 117/75 12/19/21 04:30 110 H 20 112/64 12/19/21 04:00 78 112/70 12/19/21 03:30 78 12/19/21 03:00 12/19/21 03:00 115/69 12/19/21 02:30 76 107/62 12/19/21 02:00 12/19/21 01:32 122 H 95/60 L 12/19/21 01:00 80 95/76 L 12/19/21 00:33 109/62 12/19/21 00:31 12/19/21 00:30 86 16 12/18/21 23:52 36.8 C 85 16 111/70 Pulse Ox O2 Del Method 12/19/21 08:01 96 Room Air 12/19/21 04:45 98 Room Air 12/19/21 04:30 12/19/21 04:00 98 12/19/21 03:30 98 12/19/21 03:00 98 12/19/21 03:00 12/19/21 02:30 98 12/19/21 02:00 98 12/19/21 01:32 12/19/21 01:00 97 12/19/21 00:33 96 12/19/21 00:31 97 12/19/21 00:30 97 12/18/21 23:52 99 Room Air (1) Atrial flutter Atrial flutter type: unspecified Qualified Code(s): I48.92 - Unspecified atrial flutter (2) Abdominal pain Abdominal location: generalized Qualified Code(s): R10.84 - Generalized abdominal pain
[2021-12-19] MEDS ORDERED: amLODIPine BESYLATE 5 MG TAB PO SCH (09:00)
--- NOTE | 2021-12-19 09:05 | Nephrology Consultation ---
Date of Consultation December 19, 2021 Assessment & Plan (1) Hyponatremia: hyperosmolar hyponatremia with volume overload> corrected / effective osms are 273. chronic issue > present last month and at admission. presentign sodium 126; up to 127 now > fluid resuscitation as below -recheck in AM (2) Acute on chronic renal failure: baseline creatinine mid to high 2s or CKD 4, though last creatinine as OP was 2.2 in late November after mid November admission here w/ ARIADNA on CKD and d/c creatinine of 3. Presented with creatinine 3.7 yesterday w/ rapid increase to 4 this am and 4.4 this evening. -work at conservative measures and supportive care pending cardiology/surgery evaluation > with NGT placement he is now nearly a liter negative w/ subsequent hypotension and SBP in 80s >> most recent SBP was 66 -1L NS bolus then NS at 125 mL/hr ordered >RN advised to call hospitalist d/t severe/significant hypotension; I will reach out to that provider as well -low threshold for TTE -repeat bmp in AM (3) Hyperkalemia: resolved w/ NGT placement though K still high normal; NGT output is brisk so far -recheck in AM History of Present Illness Reason for Consultation: ariadna on ckd, hyperkalemia, hyponatremia Requesting Physician: Dr Zelaya Attending Physician: Sherman Zuniga MD History of Present Illness 66 y/o M w/ metastatic bladder CA w/ nephrostomy tubes, CKD 4 baseline creatinine about mid to high 2's, pAF admitted overnight with abdominal pain of so far unclear etiology including possible partial SBO versus retroperitoneal mass. I'm asked to see him for ARIADNA and electrolyte issues including presenting creatinine 3.9, K 5.7, Na 127 Other PMH includes DM, chronic pansinusitis, CAD s/p 4V CABG 12/2020, HTN, paroxysmal AF s/p AV jamal ablation November 2021, HL. Hx of bradycardia precluding beta phuong therapy. He established care w/ Dr Ibrahim in CKD clinic in August w/ f/u cancelled d/t admission. his most recent OP labs show K 4.9, Na 138, creatinine 2.2 for eGFR 32 on 11/29; however he is CKD 4 since this spring w/ baseline more as above. No discussion recently (or ever) of dialysis on chart. His bladder CA care is through a [facility] and also [facility] urology; the pt is under active treatment, though details not clear. Per report he has missed a few appts d/t logistical challenges. The patient is NPO d/t his abdominal pain/clinical status; gen surgery evaluated him and recommended NGT placement, which was pending when I saw him. cardiology also following. He is receiving NS at 50 ML hourly after a 500 mL NS bolus and has made 125 mL urine over past 6 hrs or less approx as of 9 am. He had been started on veltassa last admission but has not been taking it since d/c. This afternoon at 1400 when I evaluated pt in person, he was clearly very uncomfortable from abdominal pain and N; he was sitting on the side of the bed shaking. Denied SOB. endorsed lower extremity edema for past 2 weeks. some psychomotor slowing notable at the time and ROS was incomplete. This afternoon it was discovered that the pt had been at home on hospice since 12/16 but that he'd come to hospital after cancelling hospice d/t uncontrolled pain. For now pt is full code pending palliative care consultation to clarify goals of care. NGT was placed and has drained 1.3L so far. Allergies Allergy/AdvReac Type Severity Reaction Status Date / Time kiwi Allergy Intermediate Lip and Unverified 11/04/21 16:50 Tongue Swell metoprolol AdvReac Intermediate Immediate Unverified 11/04/21 17:04 Bradycardia Hemp Seeds Allergy Intermediate Tongue Uncoded 11/04/21 16:50 Swells Home Medications Medication Instructions Recorded Confirmed Type alpha lipoic acid 600 mg capsule 600 mg PO HS 07/18/20 12/19/21 History ascorbic acid (vitamin C) 1,000 mg 2,000 mg PO BID 07/18/20 12/19/21 History tablet,extended release aspirin 81 mg tablet,delayed 81 mg PO HS 07/18/20 12/19/21 History release biotin 1,000 mcg chewable tablet 1,000 mcg PO HS 07/18/20 12/19/21 History cholecalciferol (vitamin D3) 125 125 mcg PO HS 07/18/20 12/19/21 History mcg (5,000 unit) tablet coenzyme Q10 100 mg capsule 300 mg PO TID 07/18/20 12/19/21 History (CoQ-10) linagliptin 5 mg tablet (Tradjenta) 5 mg PO DAILY 07/18/20 12/19/21 History meclizine 25 mg tablet 25 mg PO HS 07/18/20 12/19/21 History niacin 500 mg tablet 500 mg PO BID 07/18/20 12/19/21 History pyridoxine (vitamin B6) 100 mg 100 mg PO HS 07/18/20 12/19/21 History tablet (Vitamin B-6) vitamin B complex 1 tab PO DAILY 07/18/20 12/19/21 History acetylcysteine 600 mg capsule (NAC) 600 mg PO HS PRN Protection of 01/02/21 12/19/21 History liver nitroglycerin 0.4 mg sublingual 0.4 mg sublingual UD PRN chest 01/08/21 12/19/21 Rx tablet (Nitrostat) pain #20 tabs amlodipine 5 mg tablet 5 mg PO DAILY 11/04/21 12/19/21 History docusate sodium 100 mg capsule 100 mg PO BID 11/04/21 12/19/21 History glipizide 10 mg tablet, extended 10 mg PO DAILY 11/04/21 12/19/21 History release 24 hr chajgbgxtxx-tqk-qervbjwvg-vitC 1 cap PO DAILY 11/04/21 12/19/21 History capsule (Glucosamine Complex-MSM) magnesium 250 mg tablet 250 mg PO DAILY 11/04/21 12/19/21 History omega 1-xea-yms-fish oil 1,000 mg 1 cap PO DAILY 11/04/21 12/19/21 History (120 mg-180 mg) capsule (Fish Oil) lidocaine 5 % topical patch 1 patch transdermal HS #30 ea 11/06/21 12/19/21 Rx amiodarone 200 mg tablet 200 mg PO DAILY 12/19/21 12/19/21 History haloperidol lactate 2 mg/mL oral 1 mg PO Q4H PRN Anxiety 12/19/21 12/19/21 History concentrate oxycodone 5 mg tablet 5 mg PO Q4H PRN Pain 12/19/21 12/19/21 History Patient History Medical History Bladder carcinoma CAD (coronary artery disease) Chronic kidney disease Chronic sinusitis Concussion DM type 2 (diabetes mellitus, type 2) Dyslipidemia HTN (hypertension) Paroxysmal A-fib Urothelial cancer Varicella without complication Surgical History S/P CABG x 4 Family History Mother Hypertension Cancer Father Cancer Hypertension Grandmother (Maternal) Cancer Social History Smoking Status: Never smoker Second Hand Exposure: Yes; Hx Alcohol Use: Yes Alcohol type: hard liquor Hx Substance Use: No Preferred Language: South Korean Communication Ability: Effective 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 Beliefs That Will Affect Care: None marital status: Current Living Situation: Spouse current occupation: Retired Other Information That Helps Us Care for You: Yes Feels Safe at Home: Yes Safety Concerns: Feels Safe At This Time Assistive Devices: Hospital Bed Review of Systems Review of Systems: All systems reviewed & are unremarkable except as noted in HPI & below (ROS limited by pt clinical condition/discomfort) Physical Exam Constitutional: well developed, well nourished, + ill appearing, + frail appearing and + disheveled Eyes: EOM intact bilaterally ENMT: Ears: no external ear abnormality Nose: no external nose abnormality Mouth: + dry oral mucous membranes Neck: no nuchal rigidity Respiratory: normal respiratory effort Auscultation: + diminished lung sounds Cardiovascular: Rate/Rhythm: regular rate and regular rhythm Extremities: + edema (2+ BLE) Gastrointestinal (Abdomen): Inspection/Auscultation: + abdomen distended and + hypoactive bowel sounds Percussion/Palpation: + abdomen tender and abdomen soft Musculoskeletal: Extremities: strength 5/5 throughout Skin: no rashes, warm and dry Neurologic: elkins, very speech/answers in monosyllables, shivering Psychiatric: Orientation: oriented to person and oriented to place does not make eye contact; answers in monosyllables Genitourinary: BL nephrostomy tubes with dark yellow clear urine Results & Data ([facility]) Vital Signs (Past 12 Hours) Vital Signs Temp Pulse Pulse Resp BP BP BP 12/19/21 08:01 36.7 C 76 16 106/62 12/19/21 04:45 36.7 C 77 21 117/75 12/19/21 04:30 110 H 20 112/64 12/19/21 04:00 78 112/70 12/19/21 03:30 78 12/19/21 03:00 12/19/21 03:00 115/69 12/19/21 02:30 76 107/62 12/19/21 02:00 12/19/21 01:32 122 H 95/60 L 12/19/21 01:00 80 95/76 L 12/19/21 00:33 109/62 12/19/21 00:31 12/19/21 00:30 86 16 12/18/21 23:52 36.8 C 85 16 111/70 Pulse Ox O2 Del Method 12/19/21 08:01 96 Room Air 12/19/21 04:45 98 Room Air 12/19/21 04:30 12/19/21 04:00 98 12/19/21 03:30 98 12/19/21 03:00 98 12/19/21 03:00 12/19/21 02:30 98 12/19/21 02:00 98 12/19/21 01:32 12/19/21 01:00 97 12/19/21 00:33 96 12/19/21 00:31 97 12/19/21 00:30 97 12/18/21 23:52 99 Room Air Laboratory Results 12/19/21 07:23 12/19/21 07:23 sOsm 309 urine studies pending Diagnostic Findings cxr Mild interstitial thickening at the right lung base which could represent a low- grade pneumonitis. CT a/p non con Lower chest: No acute abnormality Liver: Unremarkable. No focal lesions are seen. Gallbladder and biliary tree: No calcified gallstones. Normal caliber wall. No intra- or extrahepatic biliary ductal dilation. Pancreas: Unremarkable, no focal lesions. Spleen: Unremarkable. Adrenals: Unremarkable. Kidneys and ureters: Bilateral nephrostomy tubes are seen. A right nephroureteral stent is seen. Bladder: Limited evaluation due to underdistention. Reproductive organs: Unremarkable. Bowel: There is diffuse fluid distention of the small bowel measuring up to 37 mm. No transition point or volvulus is seen. The colon appears normal in distention. Layering material is seen in the stomach. Lymph nodes Retroperitoneal: Subcentimeter lymph nodes are noted. There is ill-defined soft tissue density in the left and central retroperitoneum which contacts the descending colon. No bulky mass lesion is seen. Mesenteric: Unremarkable. Pelvic: Unremarkable. Peritoneum: Normal. Vessels: Mild atherosclerotic disease is seen. Abdominal wall: Body wall edema is noted. Bones: Mild degenerative changes are seen. IMPRESSION: Distention of numerous small bowel loops without evidence of focal point. The colon is normally distended. Findings may represent a colonic obstruction or pseudoobstruction. Soft tissue density material in the retroperitoneum in contact with descending colon may represent fluid/engorged vasculature however retroperitoneal fibrosis or less likely retroperitoneal mass cannot be excluded. TTE November 2021 EF 55%, moderate atrial dilation
[2021-12-19] MEDS: HYDROmorphone INJ 0.5 MG/0.5 ML SYR IV PRN ×2 (09:22→13:42)
[2021-12-19] MEDS ORDERED: LIDOCAINE 2% JELLY 5 ML TUBE EXT ONE (12:23)
--- NOTE | 2021-12-19 12:52 | Electrocardiogram Report ---
Test Reason : Blood Pressure : / mmHG Vent. Rate : 084 BPM Atrial Rate : 084 BPM P-R Int : 156 ms QRS Dur : 080 ms QT Int : 422 ms P-R-T Axes : 085 084 098 degrees QTc Int : 498 ms Normal sinus rhythm Low voltage QRS Cannot rule out Anterior infarct (cited on or before 13-NOV-2021) Inferior ST abnormality Abnormal ECG When compared with ECG of 13-NOV-2021 02:20, Premature ventricular complexes are no longer Present Premature atrial complexes are no longer Present Confirmed by Gordon Fung ([id number]) on 12/19/2021 12:52:02 PM Referred By: REFERRED SELF Confirmed By:Gordon Fung
--- NOTE | 2021-12-19 12:54 | Communication Note ---
Date of Service: December 19, 2021 Pt was seen and examined for follow up of SBO. Lying in bed with no acute distress. He said pain is tolerable for the narcotic. CT abd/pelvis showed distention of numerous small bowel loops without evidence of focal point. On exam, abdomen is distended, hypoactive bowel sound. He has not had a BM yet. Case discussed with surgery that recommended conservative management for now by placing an NG tube to decompress the abdomen. Pt is a little hesitant to let them put the NG tube. He is asking if he can get sedated to pass the NG tube. As per surgery if patient will need surgery that he would need to transfer to a tertiary care given his complex history and metastatic disease. His lab showed Na 127, creatinine 3.9 and K 5.7 today. Nephrology on board . Continue gentle IVF. Continue monitor BMP. cardiology on board. ECho pending. Continue monitor closely. Called from case management that pt just started hospice last Sunday. case mark collier was not sure if we need to admit him as hospice. I spoke to over the phone she said pt was cancelled hospice last night because he was having a lot of pain and wanted to come to the hospital for treatment. Pt also confirmed to me that he cancelled hospice last night. When I addressed code status with the , "she kept answered i don't know, just do anything Handy wants". I explained to her because Handy sometimes gets sleepy after the pain medication, I would like to ask her about Handy' wishes in case he stops breathing or his heart stops. said that she does not know and when we got to that point she would make the decision but for now follow Handy's decision. I spoke to Handy later about code status while he was more awake. Handy said to tell the there is an advance directive form on the fridge and to follow it because he forgot what he stated on the form. I called again about the form on the fridge. She said that she found it but it looks blank that Handy never completed it, but the believe there might have a form ( advance directive) that was completed in the house. she will look for it and bring it tomorrow. In the meantime she wants him to remain full code. said that she thinks the hospice team might have a copy of the advance directive. will talk to case management to reach to the hospice agency to check if they have a copy of the advance directive. Will consult palliative care.
--- NOTE | 2021-12-19 13:17 | Surgery Consultation ---
Date of Consultation December 19, 2021 Assessment & Plan (1) Abdominal pain: (2) Bladder carcinoma: Plan 66 year-old male with metastatic bladder carcinoma s/p bilateral nephrostomy tube placement presented to ED with sudden onset of abdominal pain. CT scan showing distended small bowel to the ileocecal with no focal transition point. Colon is within normal limits. NO leukocytosis. Per independent review of CT scan images, patient's stomach is significantly dilated with layering of fluid and food products. Abdomen is distended on examination. Plan: Recommend conservative treatment with NPO, bowel rest, NGT to LIS given stomach distension, pain management as needed, and IV fluids. If patient were to require surgical intervention he would require transfer to tertiary center given his complex history of metastatic bladder carcinoma and s/p bilateral nephrostomy tubes. Dr. Martinez discussed placement of NGT given significant stomach distention and fluid filled and he might feel much better after placement. Somewhat reluctant and asking if the NGT can be placed under sedation. Discussed numbing of the nose with spray or jelly prior to NGT placement Continue current medical management Will continue to follow. Dr. Martinez has seen patient, see addendum for further recommendations/plan. Supervising Physician Co-Signing Physician Notes I have seen and examined the patient and agree with the above assessment plan. It appears to be a small bowel obstruction in a patient with inoperable metastatic urethral/bladder cancer. NG tube will be placed. We will follow along with serial exams. History of Present Illness Reason for Consultation: SBO Requesting Physician: Dr. Garcia MD Attending Physician: Sherman Zuniga MD History of Present Illness Handy is a 66-year-old male with past medical history significant for diabetes, chronic kidney disease stage IV, hyperlipidemia, chronic pansinusitis, paroxysmal atrial fibrillation, coronary artery disease status post CABG x4 in December 2020, bladder cancer with metastases to intrapelvic lymph nodes, status post nephrostomy tubes, chronic anemia, hypertension, hyperlipidemia who presented to emergency department due to abdominal pain. Most of history obtained by chart as patient was uncomfortable during our evaluation and unable to sit still or be comfortable enough to answer questions. Abdominal pain start ed approximately 2 hours prior to his arrival per ED notes. No episodes of vomiting however patient states that he did vomit a few days ago. Not passing any gas or flatus. He was recently admitted here at [facility] at beginning of November with atrial fibrillation and atrial flutter and required cardioversion. Per chart he is getting treatments in [place] for his bladder cancer but has been unable to make it down there. Ed work-up showed no leukocytosis. CT scan of abdomen and pelvis without contrast showed distended fluid filled small bowel loops and layering in the stomach. Small bowel is distended to the ileocecal valve, colon without distention. Upon evaluation, patient states he is having pain, mostly in lower back and down into his hips and thighs. Nurse states she gave him Dilaudid at 9 am due to low back pain. Handy states that he cannot get comfortable. Standing up makes him feel slightly better. Unable to get much history from patient due to his memory as well as he current state. Allergies Allergy/AdvReac Type Severity Reaction Status Date / Time kiwi Allergy Intermediate Lip and Unverified 11/04/21 16:50 Tongue Swell metoprolol AdvReac Intermediate Immediate Unverified 11/04/21 17:04 Bradycardia Hemp Seeds Allergy Intermediate Tongue Uncoded 11/04/21 16:50 Swells Home Medications Medication Instructions Recorded Confirmed Type alpha lipoic acid 600 mg capsule 600 mg PO HS 07/18/20 12/19/21 History ascorbic acid (vitamin C) 1,000 mg 2,000 mg PO BID 07/18/20 12/19/21 History tablet,extended release aspirin 81 mg tablet,delayed 81 mg PO HS 07/18/20 12/19/21 History release biotin 1,000 mcg chewable tablet 1,000 mcg PO HS 07/18/20 12/19/21 History cholecalciferol (vitamin D3) 125 125 mcg PO HS 07/18/20 12/19/21 History mcg (5,000 unit) tablet coenzyme Q10 100 mg capsule 300 mg PO TID 07/18/20 12/19/21 History (CoQ-10) linagliptin 5 mg tablet (Tradjenta) 5 mg PO DAILY 07/18/20 12/19/21 History meclizine 25 mg tablet 25 mg PO HS 07/18/20 12/19/21 History niacin 500 mg tablet 500 mg PO BID 07/18/20 12/19/21 History pyridoxine (vitamin B6) 100 mg 100 mg PO HS 07/18/20 12/19/21 History tablet (Vitamin B-6) vitamin B complex 1 tab PO DAILY 07/18/20 12/19/21 History acetylcysteine 600 mg capsule (NAC) 600 mg PO HS PRN Protection of 01/02/21 12/19/21 History liver nitroglycerin 0.4 mg sublingual 0.4 mg sublingual UD PRN chest 01/08/21 12/19/21 Rx tablet (Nitrostat) pain #20 tabs amlodipine 5 mg tablet 5 mg PO DAILY 11/04/21 12/19/21 History docusate sodium 100 mg capsule 100 mg PO BID 11/04/21 12/19/21 History glipizide 10 mg tablet, extended 10 mg PO DAILY 11/04/21 12/19/21 History release 24 hr [id number]-vitC 1 cap PO DAILY 11/04/21 12/19/21 History capsule (Glucosamine Complex-MSM) magnesium 250 mg tablet 250 mg PO DAILY 11/04/21 12/19/21 History omega 7-xdb-krp-fish oil 1,000 mg 1 cap PO DAILY 11/04/21 12/19/21 History (120 mg-180 mg) capsule (Fish Oil) lidocaine 5 % topical patch 1 patch transdermal HS #30 ea 11/06/21 12/19/21 Rx amiodarone 200 mg tablet 200 mg PO DAILY 12/19/21 12/19/21 History haloperidol lactate 2 mg/mL oral 1 mg PO Q4H PRN Anxiety 12/19/21 12/19/21 History concentrate oxycodone 5 mg tablet 5 mg PO Q4H PRN Pain 12/19/21 12/19/21 History Patient History Medical History (Updated 12/20/21 @ 04:19 by NICKO Soler) Bladder carcinoma CAD (coronary artery disease) Chronic kidney disease Chronic sinusitis Concussion DM type 2 (diabetes mellitus, type 2) Dyslipidemia HTN (hypertension) Paroxysmal A-fib Urothelial cancer Varicella without complication Surgical History S/P CABG x 4 Family History Mother Hypertension Cancer Father Cancer Hypertension Grandmother (Maternal) Cancer Social History Smoking Status: Never smoker Second Hand Exposure: Yes; Hx Alcohol Use: Yes Alcohol type: hard liquor Hx Substance Use: No Preferred Language: Moroccan Communication Ability: Effective [place] Required: No Beliefs That Will Affect Care: None marital status: Current Living Situation: Spouse current occupation: Retired Other Information That Helps Us Care for You: Yes Feels Safe at Home: Yes Safety Concerns: Feels Safe At This Time Assistive Devices: Hospital Bed Physical Exam Constitutional: + cachectic, + frail appearing and cooperative; no acute distress and + uncomfortable looks uncomfortable, constantly changing positions Neck: normal visual inspection and trachea midline Respiratory: normal respiratory effort; no respiratory distress, no labored breathing and no cough Gastrointestinal (Abdomen): Inspection/Auscultation: + abdomen distended abdomen distended, bilateral nephrostomy tubes with clear yellow urine presents. Skin: no rashes, warm and dry no jaundice Psychiatric: Orientation: alert Eye Contact: + poor eye contact Affect: + depressed affect Results & Data ([facility]) Vital Signs (Past 12 Hours) Vital Signs Temp Pulse Pulse Resp BP BP BP 12/19/21 05:01 76 12/19/21 07:20 12/19/21 06:45 76 12/19/21 08:01 36.7 C 76 16 106/62 12/19/21 04:45 36.7 C 77 21 117/75 12/19/21 04:30 110 H 20 112/64 12/19/21 04:00 78 112/70 12/19/21 03:30 78 12/19/21 03:00 12/19/21 03:00 115/69 12/19/21 02:30 76 107/62 12/19/21 02:00 12/19/21 01:32 122 H 95/60 L Pulse Ox O2 Del Method 12/19/21 05:01 12/19/21 07:20 Room Air 12/19/21 06:45 12/19/21 08:01 96 Room Air 12/19/21 04:45 98 Room Air 12/19/21 04:30 12/19/21 04:00 98 12/19/21 03:30 98 12/19/21 03:00 98 12/19/21 03:00 12/19/21 02:30 98 12/19/21 02:00 98 12/19/21 01:32 Laboratory Results 12/19/21 12/19/21 12/19/21 Range/Units 12:52 11:28 11:07 WBC (4.8-10.8) K/ul RBC (4.63-6.08) M/uL Hgb (14.0-18.0) g/dl Hct (40.1-51.0) % MCV (80.0-100.0) fL MCH (25.0-34.0) pg MCHC (32.0-36.0) g/dL RDW Std Deviation (36.4-46.3) fL RDW Coeff of Bailey (11.5-14.5) % Plt Count (130-400) K/uL MPV (9.4-12.4) fL Immature Gran % (Auto) % Neut % (Auto) % Lymph % (Auto) % [place] % (Auto) % Eos % (Auto) % Baso % (Auto) % Neut # (Auto) (1.4-6.5) K/uL Lymph # (Auto) (1.2-3.4) K/uL [place] # (Auto) (0.24-0.82) K/uL Eos # (Auto) (0-0.50) K/uL Baso # (Auto) (0-0.2) K/uL Immature Gran # (Auto) (0.00-0.02) K/uL Echinocytes PT (9.0-12.0) Seconds INR (0.9-1.1) Sodium Pending (136-145) mmol/L Potassium Pending (3.5-5.1) mmol/L Chloride Pending (98-107) mmol/L Carbon Dioxide Pending (21-32) mmol/L Anion Gap Pending (3-11) BUN Pending (6-23) mg/dl Creatinine Pending (0.6-1.4) mg/dl Est Cr Clr Drug Dosing Pending ml/min Est GFR ( Amer) Pending ml/min Est GFR (Non-Af Amer) Pending ml/min BUN/Creatinine Ratio Pending (10-20) Glucose Pending (70-99(Fasting)) mg/dl POC Glucose 150 H (70-99) mg/dl Estimat Average Glucose mg/dl Hemoglobin A1c (4.5-5.6) % Osmolality (280-300) mOsm/kg Calcium Pending (8.5-10.1) mg/dl Magnesium (1.7-2.4) mg/dl Total Bilirubin (0.2-1.0) mg/dl AST (13-39) U/L ALT (7-52) U/L Alkaline Phosphatase (34-104) U/L Troponin I High Sens 35.8 H (0-20) pg/ml B-Natriuretic Peptide (0-100) pg/ml Total Protein (6.0-8.3) gm/dl Albumin (3.4-5.0) gm/dl Globulin (2.5-4.0) gm/dl Albumin/Globulin Ratio (0.9-2) Lipase (11-82) U/L SARS-CoV-2 (PCR) (Negative) Influenza Type A (PCR) (Neg) Influenza Type B (PCR) (Neg) RSV (RT-PCR) (Neg) 12/19/21 12/19/21 12/19/21 Range/Units 07:23 07:23 07:23 WBC (4.8-10.8) K/ul RBC (4.63-6.08) M/uL Hgb (14.0-18.0) g/dl Hct (40.1-51.0) % MCV (80.0-100.0) fL MCH (25.0-34.0) pg MCHC (32.0-36.0) g/dL RDW Std Deviation (36.4-46.3) fL RDW Coeff of Bailey (11.5-14.5) % Plt Count (130-400) K/uL MPV (9.4-12.4) fL Immature Gran % (Auto) % Neut % (Auto) % Lymph % (Auto) % [place] % (Auto) % Eos % (Auto) % Baso % (Auto) % Neut # (Auto) (1.4-6.5) K/uL Lymph # (Auto) (1.2-3.4) K/uL [place] # (Auto) (0.24-0.82) K/uL Eos # (Auto) (0-0.50) K/uL Baso # (Auto) (0-0.2) K/uL Immature Gran # (Auto) (0.00-0.02) K/uL Echinocytes PT (9.0-12.0) Seconds INR (0.9-1.1) Sodium 127 L (136-145) mmol/L Potassium 5.7 H (3.5-5.1) mmol/L Chloride 86 L (98-107) mmol/L Carbon Dioxide 27 (21-32) mmol/L Anion Gap 14 H (3-11) BUN 100 H (6-23) mg/dl Creatinine 3.94 H (0.6-1.4) mg/dl Est Cr Clr Drug Dosing 17.6 ml/min Est GFR ( Amer) 17.1 ml/min Est GFR (Non-Af Amer) 14.8 ml/min BUN/Creatinine Ratio 25.4 H (10-20) Glucose 200 H (70-99(Fasting)) mg/dl POC Glucose (70-99) mg/dl Estimat Average Glucose mg/dl Hemoglobin A1c (4.5-5.6) % Osmolality 309 H (280-300) mOsm/kg Calcium 8.8 (8.5-10.1) mg/dl Magnesium 2.8 H (1.7-2.4) mg/dl Total Bilirubin (0.2-1.0) mg/dl AST (13-39) U/L ALT (7-52) U/L Alkaline Phosphatase (34-104) U/L Troponin I High Sens 35.9 H (0-20) pg/ml B-Natriuretic Peptide (0-100) pg/ml Total Protein (6.0-8.3) gm/dl Albumin (3.4-5.0) gm/dl Globulin (2.5-4.0) gm/dl Albumin/Globulin Ratio (0.9-2) Lipase (11-82) U/L SARS-CoV-2 (PCR) (Negative) Influenza Type A (PCR) (Neg) Influenza Type B (PCR) (Neg) RSV (RT-PCR) (Neg) 12/19/21 12/19/21 12/19/21 Range/Units 07:23 07:23 07:20 WBC 5.83 (4.8-10.8) K/ul RBC 4.08 L (4.63-6.08) M/uL Hgb 12.3 L (14.0-18.0) g/dl Hct 36.6 L (40.1-51.0) % MCV 89.7 (80.0-100.0) fL MCH 30.1 (25.0-34.0) pg MCHC 33.6 (32.0-36.0) g/dL RDW Std Deviation 56.6 H (36.4-46.3) fL RDW Coeff of Bailey 17.2 H (11.5-14.5) % Plt Count 317 (130-400) K/uL MPV 10.0 (9.4-12.4) fL Immature Gran % (Auto) 0.5 % Neut % (Auto) 88.0 % Lymph % (Auto) 6.2 % [place] % (Auto) 5.1 % Eos % (Auto) 0.0 % Baso % (Auto) 0.2 % Neut # (Auto) 5.13 (1.4-6.5) K/uL Lymph # (Auto) 0.36 L (1.2-3.4) K/uL [place] # (Auto) 0.30 (0.24-0.82) K/uL Eos # (Auto) 0.00 (0-0.50) K/uL Baso # (Auto) 0.01 (0-0.2) K/uL Immature Gran # (Auto) 0.03 H (0.00-0.02) K/uL Echinocytes PT (9.0-12.0) Seconds INR (0.9-1.1) Sodium (136-145) mmol/L Potassium (3.5-5.1) mmol/L Chloride (98-107) mmol/L Carbon Dioxide (21-32) mmol/L Anion Gap (3-11) BUN (6-23) mg/dl Creatinine (0.6-1.4) mg/dl Est Cr Clr Drug Dosing ml/min Est GFR ( Amer) ml/min Est GFR (Non-Af Amer) ml/min BUN/Creatinine Ratio (10-20) Glucose (70-99(Fasting)) mg/dl POC Glucose 223 H (70-99) mg/dl Estimat Average Glucose 146 mg/dl Hemoglobin A1c 6.7 H (4.5-5.6) % Osmolality (280-300) mOsm/kg Calcium (8.5-10.1) mg/dl Magnesium (1.7-2.4) mg/dl Total Bilirubin (0.2-1.0) mg/dl AST (13-39) U/L ALT (7-52) U/L Alkaline Phosphatase (34-104) U/L Troponin I High Sens (0-20) pg/ml B-Natriuretic Peptide (0-100) pg/ml Total Protein (6.0-8.3) gm/dl Albumin (3.4-5.0) gm/dl Globulin (2.5-4.0) gm/dl Albumin/Globulin Ratio (0.9-2) Lipase (11-82) U/L SARS-CoV-2 (PCR) (Negative) Influenza Type A (PCR) (Neg) Influenza Type B (PCR) (Neg) RSV (RT-PCR) (Neg) 12/19/21 12/19/21 12/19/21 Range/Units 04:50 03:19 00:40 WBC (4.8-10.8) K/ul RBC (4.63-6.08) M/uL Hgb (14.0-18.0) g/dl Hct (40.1-51.0) % MCV (80.0-100.0) fL MCH (25.0-34.0) pg MCHC (32.0-36.0) g/dL RDW Std Deviation (36.4-46.3) fL RDW Coeff of Bailey (11.5-14.5) % Plt Count (130-400) K/uL MPV (9.4-12.4) fL Immature Gran % (Auto) % Neut % (Auto) % Lymph % (Auto) % [place] % (Auto) % Eos % (Auto) % Baso % (Auto) % Neut # (Auto) (1.4-6.5) K/uL Lymph # (Auto) (1.2-3.4) K/uL [place] # (Auto) (0.24-0.82) K/uL Eos # (Auto) (0-0.50) K/uL Baso # (Auto) (0-0.2) K/uL Immature Gran # (Auto) (0.00-0.02) K/uL Echinocytes PT (9.0-12.0) Seconds INR (0.9-1.1) Sodium (136-145) mmol/L Potassium (3.5-5.1) mmol/L Chloride (98-107) mmol/L Carbon Dioxide (21-32) mmol/L Anion Gap (3-11) BUN (6-23) mg/dl Creatinine (0.6-1.4) mg/dl Est Cr Clr Drug Dosing ml/min Est GFR ( Amer) ml/min Est GFR (Non-Af Amer) ml/min BUN/Creatinine Ratio (10-20) Glucose (70-99(Fasting)) mg/dl POC Glucose 221 H (70-99) mg/dl Estimat Average Glucose mg/dl Hemoglobin A1c (4.5-5.6) % Osmolality (280-300) mOsm/kg Calcium (8.5-10.1) mg/dl Magnesium (1.7-2.4) mg/dl Total Bilirubin (0.2-1.0) mg/dl AST (13-39) U/L ALT (7-52) U/L Alkaline Phosphatase (34-104) U/L Troponin I High Sens 33.7 H (0-20) pg/ml B-Natriuretic Peptide (0-100) pg/ml Total Protein (6.0-8.3) gm/dl Albumin (3.4-5.0) gm/dl Globulin (2.5-4.0) gm/dl Albumin/Globulin Ratio (0.9-2) Lipase (11-82) U/L SARS-CoV-2 (PCR) NEGATIVE (Negative) Influenza Type A (PCR) Negative (Neg) Influenza Type B (PCR) Negative (Neg) RSV (RT-PCR) Negative (Neg) 12/19/21 12/19/21 12/19/21 Range/Units 00:02 00:02 00:02 WBC (4.8-10.8) K/ul RBC (4.63-6.08) M/uL Hgb (14.0-18.0) g/dl Hct (40.1-51.0) % MCV (80.0-100.0) fL MCH (25.0-34.0) pg MCHC (32.0-36.0) g/dL RDW Std Deviation (36.4-46.3) fL RDW Coeff of Bailey (11.5-14.5) % Plt Count (130-400) K/uL MPV (9.4-12.4) fL Immature Gran % (Auto) % Neut % (Auto) % Lymph % (Auto) % [place] % (Auto) % Eos % (Auto) % Baso % (Auto) % Neut # (Auto) (1.4-6.5) K/uL Lymph # (Auto) (1.2-3.4) K/uL [place] # (Auto) (0.24-0.82) K/uL Eos # (Auto) (0-0.50) K/uL Baso # (Auto) (0-0.2) K/uL Immature Gran # (Auto) (0.00-0.02) K/uL Echinocytes PT 11.6 (9.0-12.0) Seconds INR 1.1 (0.9-1.1) Sodium 126 L (136-145) mmol/L Potassium 5.2 H (3.5-5.1) mmol/L Chloride 86 L (98-107) mmol/L Carbon Dioxide 21 (21-32) mmol/L Anion Gap 19 H (3-11) BUN 94 H (6-23) mg/dl Creatinine 3.73 H (0.6-1.4) mg/dl Est Cr Clr Drug Dosing 18.6 ml/min Est GFR ( Amer) 18.3 ml/min Est GFR (Non-Af Amer) 15.8 ml/min BUN/Creatinine Ratio 25.2 H (10-20) Glucose 246 H (70-99(Fasting)) mg/dl POC Glucose (70-99) mg/dl Estimat Average Glucose mg/dl Hemoglobin A1c (4.5-5.6) % Osmolality (280-300) mOsm/kg Calcium 9.3 (8.5-10.1) mg/dl Magnesium (1.7-2.4) mg/dl Total Bilirubin 0.6 (0.2-1.0) mg/dl AST 24 (13-39) U/L ALT 22 (7-52) U/L Alkaline Phosphatase 209 H (34-104) U/L Troponin I High Sens 34.2 H (0-20) pg/ml B-Natriuretic Peptide 128 H (0-100) pg/ml Total Protein 7.5 (6.0-8.3) gm/dl Albumin 3.7 (3.4-5.0) gm/dl Globulin 3.8 (2.5-4.0) gm/dl Albumin/Globulin Ratio 1.0 (0.9-2) Lipase 4 L (11-82) U/L SARS-CoV-2 (PCR) (Negative) Influenza Type A (PCR) (Neg) Influenza Type B (PCR) (Neg) RSV (RT-PCR) (Neg) 12/19/21 Range/Units 00:02 WBC 5.65 (4.8-10.8) K/ul RBC 4.13 L (4.63-6.08) M/uL Hgb 12.6 L (14.0-18.0) g/dl Hct 37.3 L (40.1-51.0) % MCV 90.3 (80.0-100.0) fL MCH 30.5 (25.0-34.0) pg MCHC 33.8 (32.0-36.0) g/dL RDW Std Deviation 58.3 H (36.4-46.3) fL RDW Coeff of Bailey 17.3 H (11.5-14.5) % Plt Count 358 (130-400) K/uL MPV 10.0 (9.4-12.4) fL Immature Gran % (Auto) 0.5 % Neut % (Auto) 87.5 % Lymph % (Auto) 5.3 % [place] % (Auto) 6.5 % Eos % (Auto) 0.0 % Baso % (Auto) 0.2 % Neut # (Auto) 4.94 (1.4-6.5) K/uL Lymph # (Auto) 0.30 L (1.2-3.4) K/uL [place] # (Auto) 0.37 (0.24-0.82) K/uL Eos # (Auto) 0.00 (0-0.50) K/uL Baso # (Auto) 0.01 (0-0.2) K/uL Immature Gran # (Auto) 0.03 H (0.00-0.02) K/uL Echinocytes 1+ PT (9.0-12.0) Seconds INR (0.9-1.1) Sodium (136-145) mmol/L Potassium (3.5-5.1) mmol/L Chloride (98-107) mmol/L Carbon Dioxide (21-32) mmol/L Anion Gap (3-11) BUN (6-23) mg/dl Creatinine (0.6-1.4) mg/dl Est Cr Clr Drug Dosing ml/min Est GFR ( Amer) ml/min Est GFR (Non-Af Amer) ml/min BUN/Creatinine Ratio (10-20) Glucose (70-99(Fasting)) mg/dl POC Glucose (70-99) mg/dl Estimat Average Glucose mg/dl Hemoglobin A1c (4.5-5.6) % Osmolality (280-300) mOsm/kg Calcium (8.5-10.1) mg/dl Magnesium (1.7-2.4) mg/dl Total Bilirubin (0.2-1.0) mg/dl AST (13-39) U/L ALT (7-52) U/L Alkaline Phosphatase (34-104) U/L Troponin I High Sens (0-20) pg/ml B-Natriuretic Peptide (0-100) pg/ml Total Protein (6.0-8.3) gm/dl Albumin (3.4-5.0) gm/dl Globulin (2.5-4.0) gm/dl Albumin/Globulin Ratio (0.9-2) Lipase (11-82) U/L SARS-CoV-2 (PCR) (Negative) Influenza Type A (PCR) (Neg) Influenza Type B (PCR) (Neg) RSV (RT-PCR) (Neg) Diagnostic Findings CT abd pelvis wo con CLINICAL HISTORY: Mid abdominal pain, bilateral nephrostomy tubes TECHNIQUE: Helical axial images of the abdomen and pelvis were obtained. Automated dose lowering techniques and/or adjustment according to patient size were utilized for this exam. This exam was performed without intravenous contrast. CT DOSE: 428.71 mGy.cm COMPARISON: Comparison is made to CT abdomen pelvis 06/23/2021 FINDINGS: Lower chest: No acute abnormality Liver: Unremarkable. No focal lesions are seen. Gallbladder and biliary tree: No calcified gallstones. Normal caliber wall. No intra- or extrahepatic biliary ductal dilation. Pancreas: Unremarkable, no focal lesions. Spleen: Unremarkable. Adrenals: Unremarkable. Kidneys and ureters: Bilateral nephrostomy tubes are seen. A right nephroureteral stent is seen. Bladder: Limited evaluation due to underdistention. Reproductive organs: Unremarkable. Bowel: There is diffuse fluid distention of the small bowel measuring up to 37 mm. No transition point or volvulus is seen. The colon appears normal in distention. Layering material is seen in the stomach. Lymph nodes Retroperitoneal: Subcentimeter lymph nodes are noted. There is ill-defined soft tissue density in the left and central retroperitoneum which contacts the descending colon. No bulky mass lesion is seen. Mesenteric: Unremarkable. Pelvic: Unremarkable. Peritoneum: Normal. Vessels: Mild atherosclerotic disease is seen. Abdominal wall: Body wall edema is noted. Bones: Mild degenerative changes are seen. IMPRESSION: Distention of numerous small bowel loops without evidence of focal point. The colon is normally distended. Findings may represent a colonic obstruction or pseudoobstruction. Soft tissue density material in the retroperitoneum in contact with descending colon may represent fluid/engorged vasculature however retroperitoneal fibrosis or less likely retroperitoneal mass cannot be excluded. (1) Abdominal pain Abdominal location: generalized Qualified Code(s): R10.84 - Generalized abdominal pain
--- NOTE | 2021-12-19 13:43 | XRay Report ---
XR KUB/Abdomen 1 view CLINICAL HISTORY: ng tube placement TECHNIQUE: 1 view of the abdomen was obtained. Comparison: Comparison is made to CT abdomen pelvis 12/09/2021 FINDINGS: Median sternotomy wires are seen. An enteric tube side-port is above the diaphragm, the tip is below the diaphragm. Atrial appendage clip is seen. The osseous structures are grossly unremarkable. Multip le gas-distended loops of bowel are seen compatible with previously noted distended loops of bowel. IMPRESSION: Enteric tube side-port lies above the diaphragm. Tube can be advanced approximately 7 cm for improved positioning. ACT 112: Negative or not required by law. Electronically signed by: Dimitris Xiong M.D. 12/19/2021 1:42 PM
[2021-12-19 13:52] LABS: BUN Creatinine Ratio 24.8 (10-20); Creatinine Clr Calc Pharmacy 15.9 ml/min; Est GFR (African American) 15.2 ml/min; Est GFR (Non-African American) 13.1 ml/min; Potassium 5.6 mmol/L (3.5-5.1)
[2021-12-19] MEDS ORDERED: MoRPHine SULFATE 2 MG/ML CARP IV ONE (15:00)
[2021-12-19] MEDS: ACETAMINOPHEN 1,000 MG/100 ML VIAL IV PRN (18:33)
[2021-12-19 19:01] LABS: BUN Creatinine Ratio 25.7 (10-20); Calcium 8.4 mg/dl (8.5-10.1); Creatinine Clr Calc Pharmacy 15.6 ml/min; Est GFR (African American) 14.8 ml/min; Est GFR (Non-African American) 12.8 ml/min; Potassium 4.9 mmol/L (3.5-5.1)
[2021-12-19] MEDS ORDERED: SODIUM CHLORIDE 0.9% 1000ML 1,000 ML IV STA (19:51)
[2021-12-19] MEDS ORDERED: ASPIRIN 81 MG ECTAB PO SCH (21:00)
[2021-12-19] MEDS ORDERED: CHOLECALCIFEROL 5,000 UNITS 125 MCG TAB PO SCH (21:00)
[2021-12-19] MEDS ORDERED: SODIUM CHLORIDE 0.9% 500 ML IV SCH (23:30)
[2021-12-20] MEDS ORDERED: SODIUM CHLORIDE 0.9% 1000ML 1,000 ML IV ONE ×2 (01:05→01:18)
[2021-12-20] MEDS ORDERED: ALBUMIN 5% 250 ML IV ONE ×2 (01:18→01:51)
[2021-12-20] MEDS ORDERED: VANCOMYCIN CONSULT ACTIVE PRN (01:52)
[2021-12-20 01:56] LABS: Appearance Urine Turbid (Clear); Blood Urine Trace (Negative); Color Urine Dark Yellow; Epithelial Cell Urine Auto >30 /lpf (0-5); Glucose Urine UA Trace (Negative); Ketones Urine Negative (Negative); Leukocyte Esterase Urine 2+ (Negative); Nitrite Urine Negative (Negative); Protein Urine 3+ (Negative); RBC Urine Automated >30 /hpf (0-4); Urobilinogen Urine Negative (Negative); WBC Urine Automated >30 /hpf (0-5)
[2021-12-20] MEDS ORDERED: STAT IV Infusion **Titration per Protocol STA ×2 (02:03→15:37)
[2021-12-20 02:05] LABS: Bilirubin Urine 1+ (Negative)
[2021-12-20] MEDS: NOREPINEPHRINE/D5W 4 MG/250 ML PLCT IV SCH ×3 (02:07→17:49)
[2021-12-20 02:11] LABS: Bacteria Urine Automated 2+ (Negative); Cast Urine Automated 0 /lpf (0-5)
[2021-12-20 02:13] LABS: Amorphous Sediment Urine Present (None Prsent); Calcium Oxalate Crystals Urine Present (None Prsent)
[2021-12-20] MEDS ORDERED: VANCOMYCIN HCL 1,500 MG in SODIUM CHLORIDE 0.9% 500 ML IV ONE (02:15)
[2021-12-20] MEDS ORDERED: PIPERACILLIN/TAZOBACTAM 4.5 GM in DEXTROSE 5% 100 ML IV ONE (02:15)
[2021-12-20] MEDS ORDERED: fentaNYL citrate 100 MCG/2 ML VIAL ONE (02:27)
[2021-12-20 02:34] LABS: Partial Thromboplastin Ratio 1.1; Partial Thromboplastin Time 29.4 Seconds (21.0-31.0)
[2021-12-20] MEDS ORDERED: fentaNYL citrate 100 MCG/2 ML VIAL IV STA (02:41)
--- NOTE | 2021-12-20 02:44 | Procedure Note ---
Procedure Note Date of Service December 20, 2021 Note INTERNAL JUGULAR CENTRAL LINE PROCEDURE NOTE: Procedure: Internal Jugular Central Line Placement Attending: Dr. Mancilla Provider: NICKO Valentine Indication: Central Drug Administration, Poor Venous Access, Multiple Lab Draws Necessary, etc. Anesthesia: Lidocaine 1% Line placed emergently in the setting of septic shock requiring vasopressor support and transferred to ICU. A time-out was completed verifying correct patient, procedure, site, positioning, and implants(s) or special equipment if applicable. Patients right neck was cleansed and draped in the typical sterile fashion using Chloraprep. The Internal Jugular Vein and Carotid Artery were identified using ultrasound. The superficial tissue was anesthetized using 3 mL of 1% lidocaine without epinephrine under direct visualization with the ultrasound. After adequate anesthetization was achieved, the Internal Jugular vein was cannulated under direct ultrasound guidance using an introducer needle on a syringe. Good venous blood return was maintained prior to removal of syringe from introducer needle. Using Seldinger Technique, a guide wire was advanced through the introducer needle without resistance. The introducer needle was removed and ultrasound images were obtained of the guide wire within the Internal Jugular Vein and saved to the patients medical record. A small incision was made in penetrating fashion at the guide wire insertion site utilizing an 11 blade scalpel. The dilator was advanced to the vessel without resistance. The dilator was exchanged for the triple lumen catheter which was advanced into the vessel without resistance. The guide wire was removed intact from the catheter without issue. Claves were placed on each catheter tip with confirmation of good blood flow from each lumen. Each port was easily flushed with sterile saline. The catheter was placed at 16 cm and sutured in place. BioPatch was applied to the catheter and a sterile Tegaderm dressing was applied over the catheter with careful attention to sterility. Patient tolerated procedure well. No immediate complications were met. Post procedure x-ray was completed, placement was appropriate and no pneumothorax was noted. Images obtained are saved for permanent record Procedural Ultrasound Guidance: Procedure Date: 12/20/2021 Indication: Central venous catheter insertion Attending: Dr. Mancilla Provider: NICKO Valentine Artery AND Vein visualized: Yes Compressible Vein: Yes Guidewire or Short Catheter seen in vein prior to dilation: Yes Line confirmed in Vein with ultrasound: Yes Images obtained are saved for permanent record. Coding CPT Codes Tubes, Drains, and Vasc Access - Tubes, Drains, and Vasc Access: [id number] Place catheter in vein superior or inferior vena cava ([id number]) Tubes, Drains, and Vasc Access - Tubes, Drains, and Vasc Access: [id number] Ultrasound Guidance For Vascular ([id number]) [facility] [place] Codes (Charges) Tubes, Drains, and Vasc Access Procedure 1: Tubes, Drains, and Vasc Access: [id number] Place catheter in vein superior or inferior vena cava Procedure 2: Tubes, Drains, and Vasc Access: [id number] Ultrasound Guidance For Vascular
--- NOTE | 2021-12-20 02:44 | Critical Care Consultation ---
Date of Consultation December 20, 2021 Assessment & Plan (1) Septic shock: Reason Critically Ill: 66-year-old male with extensive past medical history including current metastatic bladder cancer, bilateral nephrostomy tubes who presents to the ICU with hypotension requiring vasopressor support and suspected septic shock. Neuro - [facility] ICU: Negative Cardiac - Shocksuspicious for septic shock although cannot rule out all other etiologies at this time -See ID for management of sepsis -Last echo with EF 55 to 60%, grade 2 diastolic dysfunction. Repeat echo pending -Troponins unremarkable -Cortisol appropriately elevated. No indication for steroids -H&H stable. No signs of bleeding -Remained hypotensive despite 2.5 L crystalloid and 500 albumin. Now requiring vasopressors. Continue Levophed to maintain maps greater than 65 Proximal A. fibcurrently in NSR rhythm with occasional breakthrough of A. fib. -Continue amiodarone. Patient was unable to tolerate beta-blockers due to bradycardia -Hold on anticoagulation for the time being until surgery ruled out -Continuous monitoring telemetry CADs/p CABG times 09/21/2020 -Patient was unable to tolerate lisinopril due to CKD. Unable to tolerate MTP due to bradycardia. Refused statin -Continue ASA HTNhold amlodipine in the setting of hypotension Respiratory - No history of pulmonary disease and lungs clear to auscultation. Nonlabored breathing and maintaining oxygen saturation on room air. Continuous monitoring pulse ox GI - Colonic obstruction?CT abdomen and pelvis with numerous small bowel loops without evidence of focal point. Soft tissue density material in the retroperitoneum was noted and cannot rule out retroperitoneal mass? -Surgery consulted and NGT placed to suction. No surgical interventions at this time, however if he were to need surgery would need to transfer to tertiary center given his complexity. -N.p.o. -We will repeat CT abdomen pelvis as patient is now experiencing septic shock RENAL/LYTES - Acute renal failure on CKDlikely prerenal/ATN in the setting of hypotension. Patient also has bilateral nephrostomy tubes which appear to be working secondary to bladder cancer -Nephrology following. No dialysis recommendations at this time and medically managing. However, patient's creatinine does appear to be worse and he is again hyperkalemic. Suspect of this trend continues he will need dialysis soon -We will avoid nephrotoxic's agents and renally adjust medications. Maintain maps greater than 65. Continue with IV fluid resuscitation -Monitor BMPs every 12 for now - Bladder cancer (metastatic)patient supposed to be receiving treatment in [place] but has not been compliant as he has not been able to get a ride to [place]. He was also noted to be on hospice -bilateral nephrostomy tubesappear to be working well. ENDO - DM type IIcurrently euglycemic. Sliding scale. ICU hyperglycemic protocol HEME - H&H stablemild drop in hemoglobin from 12-10 likely delusional. We will continue to monitor with routine CBCs. No evidence of bleeding at this time ID - Sepsismultiple possible sources and patient with metastatic cancer, nephrostomy tubes, bowel obstruction, possible pneumonia on chest x-ray -Elevated procalcitonin 150 suggestive of sepsis. Lactate within normal limits. Afebrile, no leukocytosis -Blood cultures and urine culture pending -Continue with broad-spectrum antibiotics vancomycin and Zosyn LINES/IV ACCESS - Right IJ CVC (12/20) DVT PROPHYLAXIS - SCDs CODE STATUS: Full code at this time. Palliative consult pending I have personally spent 70 minutes of critical care time in the direct management of this patient. This is a life/limb threatening event. This includes time spent evaluating patient, direct bedside care, chart review, placing orders, interpretation of diagnostic studies, discussion with consultants, patient, and family members, as well as other required patient management activities. This time is exclusive of all separately billable procedures, and teaching time and separate from and in addition to any other critical care service time. Thank you for allowing us to participate in the care of this patient. Please refer to my attending physician's documentation for any further recommendations. (2) Hyperkalemia: (3) Acute on chronic renal failure: (4) Abdominal pain: (5) Hyponatremia: (6) HTN (hypertension): (7) Bladder carcinoma: (8) Atrial flutter: (9) Stage 4 chronic kidney disease: (10) CAD (coronary artery disease), sioux coronary artery: (11) DM2 (diabetes mellitus, type 2): Plan Patient separately seen and examined from nurse practitioner. Patient with findings of sepsis and ischemic ATN. Appreciate nephrology input. Palliative care consulted as the patient was previously on hospice care. Continue supportive measures with low-dose vasopressor to maintain mean arterial pressure above 65. Continue broad-spectrum antibiotics for possible complicated urinary tract infection and bacteremia. Antibiotics changed to Levaquin and Flagyl given his history of stenotrophomonas in the urine. Patient has evidence of gastrointestinal obstruction. Appreciate surgical input. Initiate bicarbonate drip given hyperkalemia and acidosis. Follow urine output closely via nephrostomy tubes. Echo from 11/05/2021 with grade 2 diastolic dysfunction. Normal LVEF of 55 to 60%. Repeat echo pending. Continue ICU care. History of Present Illness Attending Physician: Sherman Zuniga MD History of Present Illness 66-year-old male with a past medical history significant for diabetes, CKD stage IV, HLD, chronic pansinusitis, paroxysmal A. fib, CAD s/p CABG times 09/21/2020, and bladder cancer with metastatic disease to intrapelvic lymph nodes, nephrostomy tubes, chronic anemia, HTN. Per documentation patient was to receive treatments in [place] for his bladder cancer but was unable to make it to his appointments so far. He was also reported to be on hospice. Patient presented to the emergency department with complaints of abdominal pain yesterday. CT abdomen and pelvis showed distended and fluid-filled small bowel loops which were distended to the ileocecal valve. Surgery consulted and recommended bowel rest with NG tube to low wall suction. They did recommend transfer to tertiary center in the event that he would need surgical intervention as he would be a very complex case given his diagnosis/comorbidities. Patient was also noted to be in acute renal failure and was seen by nephrology. He also recently had hospitalization for A. fib in which she required cardioversion. This evening he became increasingly hypotensive and was unresponsive to fluid resuscitation. Pro-Pipo was significantly elevated suggestive of sepsis and he was transferred to the ICU and placed on vasopressor support. He was started on broad-spectrum antibiotics and cultures were collected. Central line inserted. Repeat CT abdomen and pelvis now pending although abdominal exam is rather unremarkable. Patient now critically ill and further management in ICU at the time being. Currently the patient appears to be comfortable at rest without acute distress and is oriented. He continues to complain lower back pain but denies abdominal pain at rest. Abdomen is noted to be tender with palpation. He denies any headache or dizziness, cough or congestion, fevers, shortness of breath, chest pain, nausea or vomiting or diarrhea. Patient is noted to have bilateral lower extremity edema and a maculopapular rash of both lower extremities. Allergies Allergy/AdvReac Type Severity Reaction Status Date / Time kiwi Allergy Intermediate Lip and Unverified 11/04/21 16:50 Tongue Swell metoprolol AdvReac Intermediate Immediate Unverified 11/04/21 17:04 Bradycardia Hemp Seeds Allergy Intermediate Tongue Uncoded 11/04/21 16:50 Swells Home Medications Medication Instructions Recorded Confirmed Type alpha lipoic acid 600 mg capsule 600 mg PO HS 07/18/20 12/19/21 History ascorbic acid (vitamin C) 1,000 mg 2,000 mg PO BID 07/18/20 12/19/21 History tablet,extended release aspirin 81 mg tablet,delayed 81 mg PO HS 07/18/20 12/19/21 History release biotin 1,000 mcg chewable tablet 1,000 mcg PO HS 07/18/20 12/19/21 History cholecalciferol (vitamin D3) 125 125 mcg PO HS 07/18/20 12/19/21 History mcg (5,000 unit) tablet coenzyme Q10 100 mg capsule 300 mg PO TID 07/18/20 12/19/21 History (CoQ-10) linagliptin 5 mg tablet (Tradjenta) 5 mg PO DAILY 07/18/20 12/19/21 History meclizine 25 mg tablet 25 mg PO HS 07/18/20 12/19/21 History niacin 500 mg tablet 500 mg PO BID 07/18/20 12/19/21 History pyridoxine (vitamin B6) 100 mg 100 mg PO HS 07/18/20 12/19/21 History tablet (Vitamin B-6) vitamin B complex 1 tab PO DAILY 07/18/20 12/19/21 History acetylcysteine 600 mg capsule (NAC) 600 mg PO HS PRN Protection of 01/02/21 12/19/21 History liver nitroglycerin 0.4 mg sublingual 0.4 mg sublingual UD PRN chest 01/08/21 12/19/21 Rx tablet (Nitrostat) pain #20 tabs amlodipine 5 mg tablet 5 mg PO DAILY 11/04/21 12/19/21 History docusate sodium 100 mg capsule 100 mg PO BID 11/04/21 12/19/21 History glipizide 10 mg tablet, extended 10 mg PO DAILY 11/04/21 12/19/21 History release 24 hr wgkyechofbj-kow-dslizsfvd-vitC 1 cap PO DAILY 11/04/21 12/19/21 History capsule (Glucosamine Complex-MSM) magnesium 250 mg tablet 250 mg PO DAILY 11/04/21 12/19/21 History omega 1-dnv-xup-fish oil 1,000 mg 1 cap PO DAILY 11/04/21 12/19/21 History (120 mg-180 mg) capsule (Fish Oil) lidocaine 5 % topical patch 1 patch transdermal HS #30 ea 11/06/21 12/19/21 Rx amiodarone 200 mg tablet 200 mg PO DAILY 12/19/21 12/19/21 History haloperidol lactate 2 mg/mL oral 1 mg PO Q4H PRN Anxiety 12/19/21 12/19/21 History concentrate oxycodone 5 mg tablet 5 mg PO Q4H PRN Pain 12/19/21 12/19/21 History Patient History Medical History (Updated 12/20/21 @ 04:19 by NICKO Soler) Bladder carcinoma CAD (coronary artery disease) Chronic kidney disease Chronic sinusitis Concussion DM type 2 (diabetes mellitus, type 2) Dyslipidemia HTN (hypertension) Paroxysmal A-fib Urothelial cancer Varicella without complication Surgical History S/P CABG x 4 Family History Mother Hypertension Cancer Father Cancer Hypertension Grandmother (Maternal) Cancer Social History Smoking Status: Never smoker Second Hand Exposure: Yes; Hx Alcohol Use: Yes Alcohol type: hard liquor Hx Substance Use: No Preferred Language: Polish Communication Ability: Effective Test Analyst Required: No Beliefs That Will Affect Care: None marital status: Current Living Situation: Spouse current occupation: Retired Other Information That Helps Us Care for You: Yes Feels Safe at Home: Yes Safety Concerns: Feels Safe At This Time Assistive Devices: Hospital Bed Review of Systems Review of Systems: All systems reviewed & are unremarkable except as noted in HPI & below Physical Exam Constitutional: + frail appearing, cooperative and comfortable Eyes: PERRL, conjunctivae normal, anicteric sclerae ENMT: external ear and nose normal, oropharynx normal Neck: trachea midline, no thyromegaly Respiratory: normal respiratory effort, lungs clear to auscultation Cardiovascular: RRR, no murmur, no edema Heart Sounds: normal S1 and normal S2 Extremities: + edema (Bilateral lower extremity edema +2) Gastrointestinal (Abdomen): Abdomen somewhat distended but not rigid. Was tender with light palpation in all 4 quadrants. Bowel sounds present Skin: Maculopapular rash to bilateral lower extremities. Skin feels cool and clammy to touch. Neurologic: PERRL, EOMI, accommodation nl, no face palsy, no dysarthria Psychiatric: Orientation: oriented x 3 Affect: + flat affect Genitourinary: Bilateral nephrostomy tubes Results & Data Results & Data ([facility]) Vital Signs (Past 12 Hours) Vital Signs Temp Pulse Pulse Resp BP BP Pulse Ox 12/20/21 01:34 36.3 C L 12/19/21 20:00 12/20/21 01:12 74 12/20/21 01:01 74/50 L 99 12/20/21 00:45 78/45 L 12/20/21 00:30 73/44 L 12/20/21 00:15 76/48 L 12/20/21 00:00 80/46 L 12/19/21 23:46 93/54 L 12/19/21 23:30 79/42 L 12/19/21 23:22 79/43 L 12/19/21 23:10 36.5 C 71 14 76/46 L 96 12/19/21 19:49 36.6 C 78 21 66/55 L 96 12/19/21 16:22 36.6 C 83 12 75/49 L 80/56 L 97 O2 Del Method 12/20/21 01:34 12/19/21 20:00 Room Air 12/20/21 01:12 12/20/21 01:01 Room Air 12/20/21 00:45 12/20/21 00:30 12/20/21 00:15 12/20/21 00:00 12/19/21 23:46 12/19/21 23:30 12/19/21 23:22 12/19/21 23:10 Room Air 12/19/21 19:49 Room Air 12/19/21 16:22 Room Air Coding Level of Care Code Critical Care 1st 30-74 mins Diagnoses Septic shock A41.9; R65.21 Hyperkalemia E87.5 Acute on chronic renal failure N17.9; N18.9 Abdominal pain R10.84 Abdominal location: generalized Hyponatremia E87.1 HTN (hypertension) I10 Bladder carcinoma C67.9 Atrial flutter I48.92 Atrial flutter type: unspecified Stage 4 chronic kidney disease N18.4 CAD (coronary artery disease), [place] coronary artery I25.10 DM2 (diabetes mellitus, type 2) E11.9 (1) Atrial flutter Atrial flutter type: unspecified Qualified Code(s): I48.92 - Unspecified atrial flutter (2) Abdominal pain Abdominal location: generalized Qualified Code(s): R10.84 - Generalized abdominal pain
[2021-12-20 02:49] LABS: Albumin Globulin Ratio 1.1 (0.9-2); Albumin Level 3.1 gm/dl (3.4-5.0); BUN Creatinine Ratio 25.4 (10-20); Bilirubin,Total 0.9 mg/dl (0.2-1.0); Calcium 7.5 mg/dl (8.5-10.1); Creatinine Clr Calc Pharmacy 15.9 ml/min; Est GFR (African American) 15.1 ml/min; Globulin 2.9 gm/dl (2.5-4.0); Magnesium 2.5 mg/dl (1.7-2.4); Phosphorus 6.9 mg/dl (2.5-4.9); Potassium 5.3 mmol/L (3.5-5.1)
[2021-12-20 03:02] LABS: Hematocrit (blood only) 31.5 % (40.1-51.0); Hemoglobin 10.3 g/dl (14.0-18.0); Mean Corpuscular Hemoglobin 30.3 pg (25.0-34.0); Mean Corpuscular Hgb Conc 32.7 g/dL (32.0-36.0); Mean Corpuscular Volume 92.6 fL (80.0-100.0); Mean Platelet Volume 10.1 fL (9.4-12.4); Platelet Count 195 K/uL (130-400); RDW Coefficient of Variation 17.4 % (11.5-14.5); RDW Standard Deviation 59.6 fL (36.4-46.3); White Blood Count 8.51 K/ul (4.8-10.8)
[2021-12-20 03:03] LABS: Basophils # (auto) 0.02 K/uL (0-0.2); Basophils % (auto) 0.2 %; Echinocytes 2+; Immature Granulocytes # (auto) 0.06 K/uL (0.00-0.02); Immature Granulocytes % (auto) 0.7 %; Lymphocytes % (auto) 2.4 %; Monocytes # (auto) 0.21 K/uL (0.24-0.82); Monocytes % (auto) 2.5 %; Neutrophils # (auto) 8.02 K/uL (1.4-6.5); Neutrophils % (auto) 94.2 %
[2021-12-20] MEDS ORDERED: SODIUM CHLORIDE 0.9% 1000ML 1,000 ML IV SCH (03:15)
--- NOTE | 2021-12-20 07:23 | Communication Note ---
Date of Service: December 20, 2021 Last night patient was hypotensive despite fluid bolus. Notified ICU and was transferred to ICU started on pressor and iv vanco and zosyn as his procal was elevated. Ct abd/pelvis was done final report pending. Updated .
--- NOTE | 2021-12-20 07:28 | XRay Report ---
XR chest 1V portable CLINICAL HISTORY: CVC insertion TECHNIQUE: Single frontal radiograph of the chest was obtained. Comparison: Comparison is made to chest radiographs 2021 FINDINGS: Right venous catheter terminates in the mid SVC. Median sternotomy wires are noted. Enteric tube term inates in the stomach. The cardiomediastinal silhouette is normal. Atelectasis at the left lung base. Thickening of the interstitium of the right lower lobe is again noted. No evidence of pleural effusi on or pneumothorax. IMPRESSION: 1. Satisfactory position of venous catheter. 2. Questionable faint opacity in the right lung base is unchanged. ACT 112: Negative or not required by law. Electronically signed by: Dimitris Xiong M.D. 12/20/2021 7:26 AM
--- NOTE | 2021-12-20 07:39 | CT Scan Report ---
CT abd pelvis wo con CLINICAL HISTORY: septic shock . Pain in the back. COMPARISON STUDY: 12/19/2021 CT DOSE: 435.69 mGy.cm TECHNIQUE: Standard CT of the Abdomen and Pelvis was performed without IV contrast. The patient did not receive oral contrast. A dose lowering technique was utilized adhering to the principles of CORKY Alexander. FINDINGS: Lung base: Compared to previous examination, there has been interval development of small bilateral p leural effusions and bibasilar atelectasis. Abdominal cavity: Compared to previous study, there has been interval development of mild abdominal a scites with fluid now seen surrounding the liver and spleen. There is also been interval development of mild anasarca. Minimal retroperitoneal fluid is again seen on the left of uncertain etiology. No definite retroperit [place] hematoma is seen. However, the findings could relate to the placement of the left-sided nephros latosha tube. Liver: The liver is homogeneous in attenuation on these limited noncontrast images.. Spleen: The spleen is homogeneous in attenuation on these limited noncontrast images. Pancreas: The pancreas is homogeneous in attenuation on these limited noncontrast images. Gall Bladder: Not imaged Adrenal glands: The adrenal glands are normal in size and attenuation on these limited noncontrast im ages. Kidneys: There is again atrophy of the kidneys bilaterally with bilateral nephrostomy tubes. Evidence for a double-J ureteral stent is also seen on the right. There is no evidence for gross renal mass, calculus or hydronephrosis bilaterally. Bowel: Compared to previous examination, an NG tube has been placed with decompression of markedly di lated stomach. Moderately dilated, fluid-filled loops of small bowel are again seen throughout the en tire abdomen and pelvis with no focal transition site present. The colon is of normal caliber with mi ld diffuse mucosal thickening present. The findings are most suspicious for ileus versus gastroenteri tis. There is no evidence for mass lesion. There are no inflammatory changes present. There is no chung dence for free air. Bladder: There is no evidence for focal bladder wall thickening, calculus or diverticulum. : There is no evidence for pelvic mass or adenopathy. Vasculature: There is no evidence for focal aneurysmal dilatation of the abdominal aorta. Atheroscler otic calcification is present. Osseous structures: There is no acute osseous pathology. Degenerative changes are seen within the spi ne. IMPRESSION: 1. Interval development of small bilateral pleural effusions and bibasilar atelectasis. 2. Interval development of mild abdominal ascites. 3. Interval development of mild anasarca. 4. Moderately dilated fluid-filled loops of small bowel are again seen with no focal site of obstruct ion identified. The findings are suspicious for ileus versus gastroenteritis. 5. Bilateral nephrostomy tubes and right double-J ureteral stent are again seen. 6. Minimal retroperitoneal fluid is present on the left which may relate to placement of nephrostomy tube on the left. ACT 112: Negative or not required by law. Electronically signed by: Titus Duran M.D. 12/20/2021 7:37 AM
--- NOTE | 2021-12-20 07:45 | Hospitalist Progress Note ---
Date of Service December 20, 2021 Assessment & Plan (1) Abdominal pain: (2) Acute kidney injury superimposed on chronic kidney disease: (3) Bladder carcinoma: (4) Septic shock: (5) Elevated troponin: Plan: This is a 66-year-old male who presents with abdominal pain and found to have possible bowel obstruction 1. Abdominal pain, found to have questionable partial bowel obstruction, questionable retroperitoneal mass or fibrosis. keep the patient n.p.o., gentle fluids as the patient seems to be having lower extremity edema. IV Dilaudid p.r.n., IV antiemetics. General surgery consulted - NGT placed Patient feeling somewhat better after NG tube placed, but still continues to have abdominal pain 2. Acute kidney injury of chronic kidney disease stage IV: Baseline creatinine around 3, on admission creatinine of 3.7. Avoid nephrotoxic agents. Getting gentle fluids. Nephrology consulted, bicarb started 3. Hyponatremia, hyperkalemia: Sodium of 126. The baseline sodium used to be around 130. Potassium 5.2. Obtained serum osmolality, urine osmolality, urine sodium. Getting gentle fluids. monitor BMP Nephrology consulted, appreciate further recommendations. 4. Mild elevation in troponin: serial enzymes in 30s. + tachycardia on admission, history of paroxysmal atrial fibrillation. status post successful cardioversion in November. Currently on amiodarone. IV Lopressor p.r.n. Cardiology consulted. Echo obtained today - LV is normal in size. Mild concentric LVH. LV wall motion is normal. EF 55 to 60%. LA is borderline dilated. Diastolic dysfunction, grade 2. There is trace mitral regurg. There is trace tricuspid regurg. Doppler findings do not suggest pulmonary hypertension. Given his lack of cardiac symptoms, significant EKG changes along with his acute on chronic renal failure - not likely ischemic component to his troponin elevation. 5. Bacteremia Blood culture positive for gram-negative bacilli Urine culture from November, positive for stenotrophomonas Antibiotics changed per ICU team, to Levaquin and Flagyl 6. Septic shock Patient hypotensive overnight, required transfer to ICU Central line was placed, and patient on Levophed Likely secondary to above ID broad-spectrum antibiotics started, now changed to Levaquin and Flagyl per ICU 7. Hip pain and back pain: He is on pain medication p.r.n. Will hold the oxycodone as currently on iv Dilaudid p.r.n. . History of paroxysmal atrial fibrillation/ :hx of cardioversion. on amiodarone. not on anticoagulation.Seems last admit was transferred to [facility]. . 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 The patient says he was recently started on treatment in [place], but having difficulty with transport. He reports seeing alternative medicine doctor. When asked about urology, he reports" not really seeing them" Plan to consult urology, if patient wanted to proceed with any possible treatment . History of coronary artery disease, status post CABG in 2020. Continue aspirin. Not on ACEI secondary to CKD, not on beta blockers secondary to history of bradycardia, not on any statins secondary to self preference as per previous records. . Diabetes: Hold his home medications. Placed on insulin sliding scale. Follow the blood sugars. . Anemia, probably anemia of chronic kidney disease: Will follow the labs. . History of hypertension: On amlodipine. Will monitor the blood pressure. . History of hyperkalemia: Last admission, the patient was started on V[place]. DVT prophylaxis: Sequential compression devices for now. Comfort care Patient previously on home hospice, however as pain was not controlled he presented in ED. After further discussion with providers, patient was full code on admission. Palliative medicine was consulted to clarify goals of care. Dr. Whaley met with the patient and his . Appreciate their input and plan. Patient made comfort care. Plan to continue IV Levophed, and patient started on hydromorphone infusion. Plan to wean off Levophed when patient comfortable. Admission and Anticipated Discharge Date Admission Date: December 19, 2021 Subjective Patient seen in follow-up of SBO, NG tube placed, patient has history of metast atic bladder cancer Overnight became hypotensive, and was transferred to ICU Central line was placed, and currently on Levophed Patient is sitting up in bed, in no acute distress He is able to answer simple questions, however not able to provide much history When asked, he tells me that he sees alternative medicine doctor in [place] for bladder cancer, and that he "does not really" follow-up with urology Currently denies any fevers, chills, chest pain, shortness of breath, reports being very uncomfortable due to hip pain, and right lower abdominal pain Palliative medicine was consulted, and per most recent update, patient was made comfort care Review of Systems Review of Systems: All systems reviewed & are unremarkable except as noted in Subjective Physical Exam Physical Exam: GENERAL: The patient is of moderate build, not in acute distress. NGT in place. HEENT: NC/AT. EOMI. Pupils equal, round and reactive to light. Oral mucosa moist. NECK: central line placed CARDIOVASCULAR: S1 and S2 heard. RRR. No murmurs. RESPIRATORY SYSTEM: Normal AP diameter. No accessory muscle use. No wheezing, no crackles. ABDOMEN: Mild distention. Bowel sounds absent.+ R lower quadrant tenderness to palpation NEURO:Awake and alert, able to answer simple questions appropriately, however not able to provide much history. Speech fluent. Moves extremities. EXTREMITIES: Bilateral lower extremity pedal edema present. Results & Data Results & Data ([facility]) Vital Signs (Past 12 Hours) Vital Signs Temp Pulse Pulse Resp BP BP Pulse Ox 12/20/21 06:16 92 H 17 94 12/20/21 06:16 116/64 12/20/21 06:00 92 H 10 L 97 12/20/21 05:45 112/58 L 12/20/21 05:45 91 H 15 96 12/20/21 05:30 90 14 93 12/20/21 05:30 115/59 L 12/20/21 05:15 107/68 12/20/21 05:15 91 H 14 97 12/20/21 05:00 111/57 L 12/20/21 05:00 92 H 21 96 12/20/21 04:45 103/53 L 12/20/21 04:45 92 H 19 97 12/20/21 04:30 36.7 C 115 H 10 L 93 12/20/21 04:30 108/60 12/20/21 04:15 64 15 95 12/20/21 04:15 104/50 L 12/20/21 04:00 65 17 94 12/20/21 04:00 93/57 L 12/20/21 03:56 99/54 L 12/20/21 03:56 103 H 13 95 12/20/21 03:30 66 13 97 12/20/21 03:30 87/58 L 12/20/21 03:15 67 13 96 12/20/21 03:15 82/45 L 12/20/21 01:58 79 12/20/21 04:26 12/20/21 03:00 69 9 L 96 12/20/21 03:00 86/46 L 12/20/21 02:45 68 15 94 12/20/21 02:45 82/50 L 12/20/21 02:30 68 28 H 93 12/20/21 02:30 125/67 12/20/21 02:15 125 H 15 94 12/20/21 02:15 89/68 L 12/20/21 02:00 139 H 13 94 12/20/21 02:00 36.4 C L 69/52 L 12/20/21 01:45 124 H 19 93 12/20/21 01:34 36.3 C L 12/19/21 20:00 12/20/21 01:12 74 12/20/21 01:01 74/50 L 99 12/20/21 00:45 78/45 L 12/20/21 00:30 73/44 L 12/20/21 00:15 76/48 L 12/20/21 00:00 80/46 L 12/19/21 23:46 93/54 L 12/19/21 23:30 79/42 L 12/19/21 23:22 79/43 L 12/19/21 23:10 36.5 C 71 14 76/46 L 96 12/19/21 19:49 36.6 C 78 21 66/55 L 96 O2 Del Method 12/20/21 06:16 12/20/21 06:16 12/20/21 06:00 12/20/21 05:45 12/20/21 05:45 12/20/21 05:30 12/20/21 05:30 12/20/21 05:15 12/20/21 05:15 12/20/21 05:00 12/20/21 05:00 12/20/21 04:45 12/20/21 04:45 12/20/21 04:30 12/20/21 04:30 12/20/21 04:15 12/20/21 04:15 12/20/21 04:00 12/20/21 04:00 12/20/21 03:56 12/20/21 03:56 12/20/21 03:30 12/20/21 03:30 12/20/21 03:15 12/20/21 03:15 12/20/21 01:58 12/20/21 04:26 Room Air 12/20/21 03:00 12/20/21 03:00 12/20/21 02:45 12/20/21 02:45 12/20/21 02:30 12/20/21 02:30 12/20/21 02:15 12/20/21 02:15 12/20/21 02:00 12/20/21 02:00 12/20/21 01:45 Room Air 12/20/21 01:34 12/19/21 20:00 Room Air 12/20/21 01:12 12/20/21 01:01 Room Air 12/20/21 00:45 12/20/21 00:30 12/20/21 00:15 12/20/21 00:00 12/19/21 23:46 12/19/21 23:30 12/19/21 23:22 12/19/21 23:10 Room Air 12/19/21 19:49 Room Air Laboratory Results 12/20/21 12/20/21 12/20/21 Range/Units Unknown Unknown Unknown WBC (4.8-10.8) K/ul RBC (4.63-6.08) M/uL Hgb (14.0-18.0) g/dl Hct (40.1-51.0) % MCV (80.0-100.0) fL MCH (25.0-34.0) pg MCHC (32.0-36.0) g/dL RDW Std Deviation (36.4-46.3) fL RDW Coeff of Bailey (11.5-14.5) % Plt Count (130-400) K/uL MPV (9.4-12.4) fL Immature Gran % (Auto) % Neut % (Auto) % Lymph % (Auto) % [place] % (Auto) % Eos % (Auto) % Baso % (Auto) % Neut # (Auto) (1.4-6.5) K/uL Lymph # (Auto) (1.2-3.4) K/uL [place] # (Auto) (0.24-0.82) K/uL Eos # (Auto) (0-0.50) K/uL Baso # (Auto) (0-0.2) K/uL Immature Gran # (Auto) (0.00-0.02) K/uL Echinocytes APTT (21.0-31.0) Seconds PTT Ratio Sodium (136-145) mmol/L Potassium (3.5-5.1) mmol/L Chloride (98-107) mmol/L Carbon Dioxide (21-32) mmol/L Anion Gap (3-11) BUN (6-23) mg/dl Creatinine (0.6-1.4) mg/dl Est Cr Clr Drug Dosing ml/min Est GFR ( Amer) ml/min Est GFR (Non-Af Amer) ml/min BUN/Creatinine Ratio (10-20) Glucose (70-99(Fasting)) mg/dl POC Glucose (70-99) mg/dl Estimat Average Glucose mg/dl Hemoglobin A1c (4.5-5.6) % Osmolality (280-300) mOsm/kg Lactate (0.4-2.0) mmol/L Calcium (8.5-10.1) mg/dl Phosphorus (2.5-4.9) mg/dl Magnesium (1.7-2.4) mg/dl Total Bilirubin (0.2-1.0) mg/dl AST (13-39) U/L ALT (7-52) U/L Alkaline Phosphatase (34-104) U/L Troponin I High Sens (0-20) pg/ml Total Protein (6.0-8.3) gm/dl Albumin (3.4-5.0) gm/dl Globulin (2.5-4.0) gm/dl Albumin/Globulin Ratio (0.9-2) Procalcitonin (0-0.5) ng/ml Random Cortisol mcg/dl Urine Color Dark Yellow Urine Appearance Turbid A (Clear) Urine pH 5.0 (4.5-7.5) Ur Specific [place] 1.020 (1.000-1.030) Urine Protein 3+ H (Negative) Urine Glucose (UA) Trace H (Negative) Urine Ketones Negative (Negative) Urine Blood Trace H (Negative) Urine Nitrite Negative (Negative) Urine Bilirubin 1+ H (Negative) Urine Urobilinogen Negative (Negative) Ur Leukocyte Esterase 2+ H (Negative) Urine WBC (Auto) >30 H (0-5) /hpf Urine RBC (Auto) >30 H (0-4) /hpf U Hyaline Cast (Auto) 0 (0-5) /lpf U Epithel Cells (Auto) >30 H (0-5) /lpf Urine Bacteria (Auto) 2+ H (Negative) Urine Crystals Not Reportable Calcium Oxalate Crystal Present A (None Prsent) Amorphous Sediment Present A (None Prsent) Urine Osmolality 340 L (500-800) mOsm/kg Ur Random Sodium 39 mmol/L Nasal Screen MRSA (PCR) (Negative) Hepatitis C Ab (EIA) Hep C Ab Signal/Cutoff 12/20/21 12/20/21 12/20/21 Range/Units 02:10 02:07 02:07 WBC 8.51 (4.8-10.8) K/ul RBC 3.40 L (4.63-6.08) M/uL Hgb 10.3 L (14.0-18.0) g/dl Hct 31.5 L (40.1-51.0) % MCV 92.6 (80.0-100.0) fL MCH 30.3 (25.0-34.0) pg MCHC 32.7 (32.0-36.0) g/dL RDW Std Deviation 59.6 H (36.4-46.3) fL RDW Coeff of Bailey 17.4 H (11.5-14.5) % Plt Count 195 (130-400) K/uL MPV 10.1 (9.4-12.4) fL Immature Gran % (Auto) 0.7 % Neut % (Auto) 94.2 % Lymph % (Auto) 2.4 % [place] % (Auto) 2.5 % Eos % (Auto) 0.0 % Baso % (Auto) 0.2 % Neut # (Auto) 8.02 H (1.4-6.5) K/uL Lymph # (Auto) 0.20 L (1.2-3.4) K/uL [place] # (Auto) 0.21 L (0.24-0.82) K/uL Eos # (Auto) 0.00 (0-0.50) K/uL Baso # (Auto) 0.02 (0-0.2) K/uL Immature Gran # (Auto) 0.06 H (0.00-0.02) K/uL Echinocytes 2+ APTT 29.4 (21.0-31.0) Seconds PTT Ratio 1.1 Sodium (136-145) mmol/L Potassium (3.5-5.1) mmol/L Chloride (98-107) mmol/L Carbon Dioxide (21-32) mmol/L Anion Gap (3-11) BUN (6-23) mg/dl Creatinine (0.6-1.4) mg/dl Est Cr Clr Drug Dosing ml/min Est GFR ( Amer) ml/min Est GFR (Non-Af Amer) ml/min BUN/Creatinine Ratio (10-20) Glucose (70-99(Fasting)) mg/dl POC Glucose (70-99) mg/dl Estimat Average Glucose mg/dl Hemoglobin A1c (4.5-5.6) % Osmolality (280-300) mOsm/kg Lactate (0.4-2.0) mmol/L Calcium (8.5-10.1) mg/dl Phosphorus (2.5-4.9) mg/dl Magnesium (1.7-2.4) mg/dl Total Bilirubin (0.2-1.0) mg/dl AST (13-39) U/L ALT (7-52) U/L Alkaline Phosphatase (34-104) U/L Troponin I High Sens (0-20) pg/ml Total Protein (6.0-8.3) gm/dl Albumin (3.4-5.0) gm/dl Globulin (2.5-4.0) gm/dl Albumin/Globulin Ratio (0.9-2) Procalcitonin (0-0.5) ng/ml Random Cortisol mcg/dl Urine Color Urine Appearance (Clear) Urine pH (4.5-7.5) Ur Specific [place] (1.000-1.030) Urine Protein (Negative) Urine Glucose (UA) (Negative) Urine Ketones (Negative) Urine Blood (Negative) Urine Nitrite (Negative) Urine Bilirubin (Negative) Urine Urobilinogen (Negative) Ur Leukocyte Esterase (Negative) Urine WBC (Auto) (0-5) /hpf Urine RBC (Auto) (0-4) /hpf U Hyaline Cast (Auto) (0-5) /lpf U Epithel Cells (Auto) (0-5) /lpf Urine Bacteria (Auto) (Negative) Urine Crystals Calcium Oxalate Crystal (None Prsent) Amorphous Sediment (None Prsent) Urine Osmolality (500-800) mOsm/kg Ur Random Sodium mmol/L Nasal Screen MRSA (PCR) Negative (Negative) Hepatitis C Ab (EIA) Hep C Ab Signal/Cutoff 12/20/21 12/20/21 12/20/21 Range/Units 02:07 02:07 00:55 WBC (4.8-10.8) K/ul RBC (4.63-6.08) M/uL Hgb (14.0-18.0) g/dl Hct (40.1-51.0) % MCV (80.0-100.0) fL MCH (25.0-34.0) pg MCHC (32.0-36.0) g/dL RDW Std Deviation (36.4-46.3) fL RDW Coeff of Bailey (11.5-14.5) % Plt Count (130-400) K/uL MPV (9.4-12.4) fL Immature Gran % (Auto) % Neut % (Auto) % Lymph % (Auto) % [place] % (Auto) % Eos % (Auto) % Baso % (Auto) % Neut # (Auto) (1.4-6.5) K/uL Lymph # (Auto) (1.2-3.4) K/uL [place] # (Auto) (0.24-0.82) K/uL Eos # (Auto) (0-0.50) K/uL Baso # (Auto) (0-0.2) K/uL Immature Gran # (Auto) (0.00-0.02) K/uL Echinocytes APTT (21.0-31.0) Seconds PTT Ratio Sodium 130 L (136-145) mmol/L Potassium 5.3 H (3.5-5.1) mmol/L Chloride 93 L (98-107) mmol/L Carbon Dioxide 21 (21-32) mmol/L Anion Gap 16 H (3-11) BUN 111 H (6-23) mg/dl Creatinine 4.37 H (0.6-1.4) mg/dl Est Cr Clr Drug Dosing 15.9 ml/min Est GFR ( Amer) 15.1 ml/min Est GFR (Non-Af Amer) 13.0 ml/min BUN/Creatinine Ratio 25.4 H (10-20) Glucose 95 (70-99(Fasting)) mg/dl POC Glucose (70-99) mg/dl Estimat Average Glucose mg/dl Hemoglobin A1c (4.5-5.6) % Osmolality (280-300) mOsm/kg Lactate (0.4-2.0) mmol/L Calcium 7.5 L (8.5-10.1) mg/dl Phosphorus 6.9 H (2.5-4.9) mg/dl Magnesium 2.5 H (1.7-2.4) mg/dl Total Bilirubin 0.9 (0.2-1.0) mg/dl AST 72 H (13-39) U/L ALT 40 (7-52) U/L Alkaline Phosphatase 257 H (34-104) U/L Troponin I High Sens (0-20) pg/ml Total Protein 6.0 (6.0-8.3) gm/dl Albumin 3.1 L (3.4-5.0) gm/dl Globulin 2.9 (2.5-4.0) gm/dl Albumin/Globulin Ratio 1.1 (0.9-2) Procalcitonin (0-0.5) ng/ml Random Cortisol > 60.00 mcg/dl Urine Color Urine Appearance (Clear) Urine pH (4.5-7.5) Ur Specific [place] (1.000-1.030) Urine Protein (Negative) Urine Glucose (UA) (Negative) Urine Ketones (Negative) Urine Blood (Negative) Urine Nitrite (Negative) Urine Bilirubin (Negative) Urine Urobilinogen (Negative) Ur Leukocyte Esterase (Negative) Urine WBC (Auto) (0-5) /hpf Urine RBC (Auto) (0-4) /hpf U Hyaline Cast (Auto) (0-5) /lpf U Epithel Cells (Auto) (0-5) /lpf Urine Bacteria (Auto) (Negative) Urine Crystals Calcium Oxalate Crystal (None Prsent) Amorphous Sediment (None Prsent) Urine Osmolality (500-800) mOsm/kg Ur Random Sodium mmol/L Nasal Screen MRSA (PCR) (Negative) Hepatitis C Ab (EIA) Pending Hep C Ab Signal/Cutoff Pending 12/20/21 12/20/21 12/19/21 Range/Units 00:55 00:55 20:30 WBC (4.8-10.8) K/ul RBC (4.63-6.08) M/uL Hgb (14.0-18.0) g/dl Hct (40.1-51.0) % MCV (80.0-100.0) fL MCH (25.0-34.0) pg MCHC (32.0-36.0) g/dL RDW Std Deviation (36.4-46.3) fL RDW Coeff of Bailey (11.5-14.5) % Plt Count (130-400) K/uL MPV (9.4-12.4) fL Immature Gran % (Auto) % Neut % (Auto) % Lymph % (Auto) % [place] % (Auto) % Eos % (Auto) % Baso % (Auto) % Neut # (Auto) (1.4-6.5) K/uL Lymph # (Auto) (1.2-3.4) K/uL [place] # (Auto) (0.24-0.82) K/uL Eos # (Auto) (0-0.50) K/uL Baso # (Auto) (0-0.2) K/uL Immature Gran # (Auto) (0.00-0.02) K/uL Echinocytes APTT (21.0-31.0) Seconds PTT Ratio Sodium (136-145) mmol/L Potassium (3.5-5.1) mmol/L Chloride (98-107) mmol/L Carbon Dioxide (21-32) mmol/L Anion Gap (3-11) BUN (6-23) mg/dl Creatinine (0.6-1.4) mg/dl Est Cr Clr Drug Dosing ml/min Est GFR ( Amer) ml/min Est GFR (Non-Af Amer) ml/min BUN/Creatinine Ratio (10-20) Glucose (70-99(Fasting)) mg/dl POC Glucose 153 H (70-99) mg/dl Estimat Average Glucose mg/dl Hemoglobin A1c (4.5-5.6) % Osmolality (280-300) mOsm/kg Lactate 1.9 (0.4-2.0) mmol/L Calcium (8.5-10.1) mg/dl Phosphorus (2.5-4.9) mg/dl Magnesium (1.7-2.4) mg/dl Total Bilirubin (0.2-1.0) mg/dl AST (13-39) U/L ALT (7-52) U/L Alkaline Phosphatase (34-104) U/L Troponin I High Sens (0-20) pg/ml Total Protein (6.0-8.3) gm/dl Albumin (3.4-5.0) gm/dl Globulin (2.5-4.0) gm/dl Albumin/Globulin Ratio (0.9-2) Procalcitonin 151.23 H (0-0.5) ng/ml Random Cortisol mcg/dl Urine Color Urine Appearance (Clear) Urine pH (4.5-7.5) Ur Specific [place] (1.000-1.030) Urine Protein (Negative) Urine Glucose (UA) (Negative) Urine Ketones (Negative) Urine Blood (Negative) Urine Nitrite (Negative) Urine Bilirubin (Negative) Urine Urobilinogen (Negative) Ur Leukocyte Esterase (Negative) Urine WBC (Auto) (0-5) /hpf Urine RBC (Auto) (0-4) /hpf U Hyaline Cast (Auto) (0-5) /lpf U Epithel Cells (Auto) (0-5) /lpf Urine Bacteria (Auto) (Negative) Urine Crystals Calcium Oxalate Crystal (None Prsent) Amorphous Sediment (None Prsent) Urine Osmolality (500-800) mOsm/kg Ur Random Sodium mmol/L Nasal Screen MRSA (PCR) (Negative) Hepatitis C Ab (EIA) Hep C Ab Signal/Cutoff 12/19/21 12/19/21 12/19/21 Range/Units 18:36 16:02 12:52 WBC (4.8-10.8) K/ul RBC (4.63-6.08) M/uL Hgb (14.0-18.0) g/dl Hct (40.1-51.0) % MCV (80.0-100.0) fL MCH (25.0-34.0) pg MCHC (32.0-36.0) g/dL RDW Std Deviation (36.4-46.3) fL RDW Coeff of Bailey (11.5-14.5) % Plt Count (130-400) K/uL MPV (9.4-12.4) fL Immature Gran % (Auto) % Neut % (Auto) % Lymph % (Auto) % [place] % (Auto) % Eos % (Auto) % Baso % (Auto) % Neut # (Auto) (1.4-6.5) K/uL Lymph # (Auto) (1.2-3.4) K/uL [place] # (Auto) (0.24-0.82) K/uL Eos # (Auto) (0-0.50) K/uL Baso # (Auto) (0-0.2) K/uL Immature Gran # (Auto) (0.00-0.02) K/uL Echinocytes APTT (21.0-31.0) Seconds PTT Ratio Sodium 127 L 127 L (136-145) mmol/L Potassium 4.9 5.6 H (3.5-5.1) mmol/L Chloride 88 L 85 L (98-107) mmol/L Carbon Dioxide 23 22 (21-32) mmol/L Anion Gap 16 H 20 H (3-11) BUN 114 H 108 H (6-23) mg/dl Creatinine 4.44 H 4.35 H D (0.6-1.4) mg/dl Est Cr Clr Drug Dosing 15.6 15.9 ml/min Est GFR ( Amer) 14.8 15.2 ml/min Est GFR (Non-Af Amer) 12.8 13.1 ml/min BUN/Creatinine Ratio 25.7 H 24.8 H (10-20) Glucose 142 H 167 H (70-99(Fasting)) mg/dl POC Glucose 172 H (70-99) mg/dl Estimat Average Glucose mg/dl Hemoglobin A1c (4.5-5.6) % Osmolality (280-300) mOsm/kg Lactate (0.4-2.0) mmol/L Calcium 8.4 L 9.0 (8.5-10.1) mg/dl Phosphorus (2.5-4.9) mg/dl Magnesium (1.7-2.4) mg/dl Total Bilirubin (0.2-1.0) mg/dl AST (13-39) U/L ALT (7-52) U/L Alkaline Phosphatase (34-104) U/L Troponin I High Sens (0-20) pg/ml Total Protein (6.0-8.3) gm/dl Albumin (3.4-5.0) gm/dl Globulin (2.5-4.0) gm/dl Albumin/Globulin Ratio (0.9-2) Procalcitonin (0-0.5) ng/ml Random Cortisol mcg/dl Urine Color Urine Appearance (Clear) Urine pH (4.5-7.5) Ur Specific [place] (1.000-1.030) Urine Protein (Negative) Urine Glucose (UA) (Negative) Urine Ketones (Negative) Urine Blood (Negative) Urine Nitrite (Negative) Urine Bilirubin (Negative) Urine Urobilinogen (Negative) Ur Leukocyte Esterase (Negative) Urine WBC (Auto) (0-5) /hpf Urine RBC (Auto) (0-4) /hpf U Hyaline Cast (Auto) (0-5) /lpf U Epithel Cells (Auto) (0-5) /lpf Urine Bacteria (Auto) (Negative) Urine Crystals Calcium Oxalate Crystal (None Prsent) Amorphous Sediment (None Prsent) Urine Osmolality (500-800) mOsm/kg Ur Random Sodium mmol/L Nasal Screen MRSA (PCR) (Negative) Hepatitis C Ab (EIA) Hep C Ab Signal/Cutoff 12/19/21 12/19/21 12/19/21 Range/Units 11:28 11:07 07:23 WBC (4.8-10.8) K/ul RBC (4.63-6.08) M/uL Hgb (14.0-18.0) g/dl Hct (40.1-51.0) % MCV (80.0-100.0) fL MCH (25.0-34.0) pg MCHC (32.0-36.0) g/dL RDW Std Deviation (36.4-46.3) fL RDW Coeff of Bailey (11.5-14.5) % Plt Count (130-400) K/uL MPV (9.4-12.4) fL Immature Gran % (Auto) % Neut % (Auto) % Lymph % (Auto) % [place] % (Auto) % Eos % (Auto) % Baso % (Auto) % Neut # (Auto) (1.4-6.5) K/uL Lymph # (Auto) (1.2-3.4) K/uL [place] # (Auto) (0.24-0.82) K/uL Eos # (Auto) (0-0.50) K/uL Baso # (Auto) (0-0.2) K/uL Immature Gran # (Auto) (0.00-0.02) K/uL Echinocytes APTT (21.0-31.0) Seconds PTT Ratio Sodium (136-145) mmol/L Potassium (3.5-5.1) mmol/L Chloride (98-107) mmol/L Carbon Dioxide (21-32) mmol/L Anion Gap (3-11) BUN (6-23) mg/dl Creatinine (0.6-1.4) mg/dl Est Cr Clr Drug Dosing ml/min Est GFR ( Amer) ml/min Est GFR (Non-Af Amer) ml/min BUN/Creatinine Ratio (10-20) Glucose (70-99(Fasting)) mg/dl POC Glucose 150 H (70-99) mg/dl Estimat Average Glucose mg/dl Hemoglobin A1c (4.5-5.6) % Osmolality (280-300) mOsm/kg Lactate (0.4-2.0) mmol/L Calcium (8.5-10.1) mg/dl Phosphorus (2.5-4.9) mg/dl Magnesium (1.7-2.4) mg/dl Total Bilirubin (0.2-1.0) mg/dl AST (13-39) U/L ALT (7-52) U/L Alkaline Phosphatase (34-104) U/L Troponin I High Sens 35.8 H 35.9 H (0-20) pg/ml Total Protein (6.0-8.3) gm/dl Albumin (3.4-5.0) gm/dl Globulin (2.5-4.0) gm/dl Albumin/Globulin Ratio (0.9-2) Procalcitonin (0-0.5) ng/ml Random Cortisol mcg/dl Urine Color Urine Appearance (Clear) Urine pH (4.5-7.5) Ur Specific [place] (1.000-1.030) Urine Protein (Negative) Urine Glucose (UA) (Negative) Urine Ketones (Negative) Urine Blood (Negative) Urine Nitrite (Negative) Urine Bilirubin (Negative) Urine Urobilinogen (Negative) Ur Leukocyte Esterase (Negative) Urine WBC (Auto) (0-5) /hpf Urine RBC (Auto) (0-4) /hpf U Hyaline Cast (Auto) (0-5) /lpf U Epithel Cells (Auto) (0-5) /lpf Urine Bacteria (Auto) (Negative) Urine Crystals Calcium Oxalate Crystal (None Prsent) Amorphous Sediment (None Prsent) Urine Osmolality (500-800) mOsm/kg Ur Random Sodium mmol/L Nasal Screen MRSA (PCR) (Negative) Hepatitis C Ab (EIA) Hep C Ab Signal/Cutoff 12/19/21 12/19/21 12/19/21 Range/Units 07:23 07:23 07:23 WBC (4.8-10.8) K/ul RBC (4.63-6.08) M/uL Hgb (14.0-18.0) g/dl Hct (40.1-51.0) % MCV (80.0-100.0) fL MCH (25.0-34.0) pg MCHC (32.0-36.0) g/dL RDW Std Deviation (36.4-46.3) fL RDW Coeff of Bailey (11.5-14.5) % Plt Count (130-400) K/uL MPV (9.4-12.4) fL Immature Gran % (Auto) % Neut % (Auto) % Lymph % (Auto) % [place] % (Auto) % Eos % (Auto) % Baso % (Auto) % Neut # (Auto) (1.4-6.5) K/uL Lymph # (Auto) (1.2-3.4) K/uL [place] # (Auto) (0.24-0.82) K/uL Eos # (Auto) (0-0.50) K/uL Baso # (Auto) (0-0.2) K/uL Immature Gran # (Auto) (0.00-0.02) K/uL Echinocytes APTT (21.0-31.0) Seconds PTT Ratio Sodium 127 L (136-145) mmol/L Potassium 5.7 H (3.5-5.1) mmol/L Chloride 86 L (98-107) mmol/L Carbon Dioxide 27 (21-32) mmol/L Anion Gap 14 H (3-11) BUN 100 H (6-23) mg/dl Creatinine 3.94 H (0.6-1.4) mg/dl Est Cr Clr Drug Dosing 17.6 ml/min Est GFR ( Amer) 17.1 ml/min Est GFR (Non-Af Amer) 14.8 ml/min BUN/Creatinine Ratio 25.4 H (10-20) Glucose 200 H (70-99(Fasting)) mg/dl POC Glucose (70-99) mg/dl Estimat Average Glucose 146 mg/dl Hemoglobin A1c 6.7 H (4.5-5.6) % Osmolality 309 H (280-300) mOsm/kg Lactate (0.4-2.0) mmol/L Calcium 8.8 (8.5-10.1) mg/dl Phosphorus (2.5-4.9) mg/dl Magnesium 2.8 H (1.7-2.4) mg/dl Total Bilirubin (0.2-1.0) mg/dl AST (13-39) U/L ALT (7-52) U/L Alkaline Phosphatase (34-104) U/L Troponin I High Sens (0-20) pg/ml Total Protein (6.0-8.3) gm/dl Albumin (3.4-5.0) gm/dl Globulin (2.5-4.0) gm/dl Albumin/Globulin Ratio (0.9-2) Procalcitonin (0-0.5) ng/ml Random Cortisol mcg/dl Urine Color Urine Appearance (Clear) Urine pH (4.5-7.5) Ur Specific [place] (1.000-1.030) Urine Protein (Negative) Urine Glucose (UA) (Negative) Urine Ketones (Negative) Urine Blood (Negative) Urine Nitrite (Negative) Urine Bilirubin (Negative) Urine Urobilinogen (Negative) Ur Leukocyte Esterase (Negative) Urine WBC (Auto) (0-5) /hpf Urine RBC (Auto) (0-4) /hpf U Hyaline Cast (Auto) (0-5) /lpf U Epithel Cells (Auto) (0-5) /lpf Urine Bacteria (Auto) (Negative) Urine Crystals Calcium Oxalate Crystal (None Prsent) Amorphous Sediment (None Prsent) Urine Osmolality (500-800) mOsm/kg Ur Random Sodium mmol/L Nasal Screen MRSA (PCR) (Negative) Hepatitis C Ab (EIA) Hep C Ab Signal/Cutoff 12/19/21 Range/Units 07:23 WBC (4.8-10.8) K/ul RBC (4.63-6.08) M/uL Hgb (14.0-18.0) g/dl Hct (40.1-51.0) % MCV (80.0-100.0) fL MCH (25.0-34.0) pg MCHC (32.0-36.0) g/dL RDW Std Deviation (36.4-46.3) fL RDW Coeff of Bailey (11.5-14.5) % Plt Count (130-400) K/uL MPV (9.4-12.4) fL Immature Gran % (Auto) 0.5 % Neut % (Auto) 88.0 % Lymph % (Auto) 6.2 % [place] % (Auto) 5.1 % Eos % (Auto) 0.0 % Baso % (Auto) 0.2 % Neut # (Auto) 5.13 (1.4-6.5) K/uL Lymph # (Auto) 0.36 L (1.2-3.4) K/uL [place] # (Auto) 0.30 (0.24-0.82) K/uL Eos # (Auto) 0.00 (0-0.50) K/uL Baso # (Auto) 0.01 (0-0.2) K/uL Immature Gran # (Auto) 0.03 H (0.00-0.02) K/uL Echinocytes APTT (21.0-31.0) Seconds PTT Ratio Sodium (136-145) mmol/L Potassium (3.5-5.1) mmol/L Chloride (98-107) mmol/L Carbon Dioxide (21-32) mmol/L Anion Gap (3-11) BUN (6-23) mg/dl Creatinine (0.6-1.4) mg/dl Est Cr Clr Drug Dosing ml/min Est GFR ( Amer) ml/min Est GFR (Non-Af Amer) ml/min BUN/Creatinine Ratio (10-20) Glucose (70-99(Fasting)) mg/dl POC Glucose (70-99) mg/dl Estimat Average Glucose mg/dl Hemoglobin A1c (4.5-5.6) % Osmolality (280-300) mOsm/kg Lactate (0.4-2.0) mmol/L Calcium (8.5-10.1) mg/dl Phosphorus (2.5-4.9) mg/dl Magnesium (1.7-2.4) mg/dl Total Bilirubin (0.2-1.0) mg/dl AST (13-39) U/L ALT (7-52) U/L Alkaline Phosphatase (34-104) U/L Troponin I High Sens (0-20) pg/ml Total Protein (6.0-8.3) gm/dl Albumin (3.4-5.0) gm/dl Globulin (2.5-4.0) gm/dl Albumin/Globulin Ratio (0.9-2) Procalcitonin (0-0.5) ng/ml Random Cortisol mcg/dl Urine Color Urine Appearance (Clear) Urine pH (4.5-7.5) Ur Specific [place] (1.000-1.030) Urine Protein (Negative) Urine Glucose (UA) (Negative) Urine Ketones (Negative) Urine Blood (Negative) Urine Nitrite (Negative) Urine Bilirubin (Negative) Urine Urobilinogen (Negative) Ur Leukocyte Esterase (Negative) Urine WBC (Auto) (0-5) /hpf Urine RBC (Auto) (0-4) /hpf U Hyaline Cast (Auto) (0-5) /lpf U Epithel Cells (Auto) (0-5) /lpf Urine Bacteria (Auto) (Negative) Urine Crystals Calcium Oxalate Crystal (None Prsent) Amorphous Sediment (None Prsent) Urine Osmolality (500-800) mOsm/kg Ur Random Sodium mmol/L Nasal Screen MRSA (PCR) (Negative) Hepatitis C Ab (EIA) Hep C Ab Signal/Cutoff Medications Administered Current Inpatient Medications Acetaminophen (Acetaminophen 325 Mg Tab) 650 mg PO Q4H PRN PRN Reason: Pain or Fever Stop: 01/18/22 05:10 Last Admin: 12/19/21 15:56 Dose: 650 mg Amiodarone HCl (Amiodarone 200 Mg Tab) 200 mg PO DAILY [facility] Stop: 01/18/22 08:59 Last Admin: 12/19/21 08:05 Dose: 200 mg Amlodipine Besylate (Amlodipine Besylate 5 Mg Tab) 5 mg PO DAILY CASEY Stop: 01/18/22 08:59 Last Admin: 12/19/21 08:05 Dose: 5 mg Aspirin (Aspirin 81 Mg Ectab) 81 mg PO HS CASEY Stop: 01/18/22 20:59 Last Admin: 12/19/21 20:11 Dose: 81 mg Dextrose (Dextrose 50% 50 Ml Syringe) 25 - 50 ml IV UD PRN; Protocol PRN Reason: Hypoglycemia Protocol Stop: 01/18/22 05:29 Glucagon (Glucagon For Inj 1 Mg Vial) 1 mg IM UD PRN; Protocol PRN Reason: Hypoglycemia Protocol Stop: 01/18/22 05:29 Glucosamine Sulfate (Glucosamine Sulfate 500 Mg Cap) 500 mg PO DAILY CASEY Stop: 01/18/22 08:59 Last Admin: 12/19/21 08:05 Dose: 500 mg Glucose (Glucose 40% Gel 15 Gm Tube) 15 - 30 gm PO UD PRN; Protocol PRN Reason: Hypoglycemia Protocol Stop: 01/18/22 05:29 Glucose (Glucose 10 Tab/Tube) 4 - 8 tab PO UD PRN; Protocol PRN Reason: Hypoglycemia Protocol Stop: 01/18/22 05:29 Hydromorphone HCl (Hydromorphone Inj 0.5 Mg/0.5 Ml Syr) 0.5 mg IV Q3H PRN PRN Reason: Pain Stop: 01/02/22 05:10 Last Admin: 12/19/21 13:42 Dose: 0.5 mg Acetaminophen (Ofirmev) 1,000 mg in 100 mls @ 400 mls/hr IV Q8H PRN PRN Reason: Moderate Pain Stop: 12/22/21 17:23 Last Infusion: 12/19/21 18:48 Dose: Infused Piperacillin Sod/Tazobactam (Sod 3.375 gm/ Dextrose) 115 mls @ 28.75 mls/hr IV Q12H CASEY; Protocol Stop: 12/22/21 11:59 Norepinephrine Bitartrate (Levophed/D5w) 4 mg in 250 mls @ 13.669 mls/hr IV .[id number] CASEY; Protocol Stop: 01/19/22 02:14 Last Titration: 12/20/21 06:56 Dose: 0.13 mcg/kg/min, 35.5 mls/hr Sodium Chloride (Nss 1000ml) 1,000 mls @ 125 mls/hr IV .Q8H CASEY Stop: 01/19/22 03:14 Last Admin: 12/20/21 03:00 Dose: 125 mls/hr Insulin Aspart (Insulin Aspart Per Unit) 0 units SC ACHS CASEY Stop: 01/18/22 07:29 Last Admin: 12/19/21 20:50 Dose: 1 units Miscellaneous (Carbohydrates For Hypoglycemia ) 15 - 30 gm PO UD PRN PRN Reason: Hypoglycemia Treatment Stop: 01/18/22 05:29 Miscellaneous Information (Vancomycin Consult Active) 1 each N/A UD PRN PRN Reason: Consult Stop: 01/19/22 01:51 Nitroglycerin (Nitroglycerin Sl 0.4 Mg/Tab Tab) 0.4 mg SL Q5M PRN PRN Reason: Chest Pain Stop: 01/18/22 05:10 Ondansetron HCl (Ondansetron Inj 2 Mg/Ml 2 Ml Vial) 4 mg IV Q6H PRN PRN Reason: Nausea Stop: 01/18/22 05:10 Vitamin D (Cholecalciferol 5,000 Units 125 Mcg Tab) 5,000 units PO HS CASEY Stop: 01/18/22 20:59 Last Admin: 12/19/21 20:11 Dose: 5,000 units (1) Abdominal pain Abdominal location: generalized Qualified Code(s): R10.84 - Generalized abdominal pain
[2021-12-20] MEDS: AMIODARONE 200 MG TAB PO SCH (08:26)
[2021-12-20] MEDS: GLUCOSAMINE SULFATE 500 MG CAP PO SCH (08:27)
[2021-12-20 08:37] LABS: BUN Creatinine Ratio 24.5 (10-20); Calcium 7.4 mg/dl (8.5-10.1); Creatinine Clr Calc Pharmacy 15.9 ml/min; Est GFR (African American) 15.2 ml/min; Est GFR (Non-African American) 13.1 ml/min; Potassium 5.3 mmol/L (3.5-5.1)
--- NOTE | 2021-12-20 09:19 | Nephrology Progress Note ---
Date of Service December 20, 2021 Assessment & Plan (1) Acute on chronic renal failure: Plan: baseline creatinine mid to high 2s or CKD 4, though last creatinine as OP was 2.2 in late November after mid November admission here w/ ARIADNA on CKD and d/c creatinine of 3. Presented with creatinine 3.7 12/18 w/ rapid increase to 4 12/19 and plateau'd at 4.4 since 12/19 evening in setting of pressor dependent hypotension after large/abrupt NG output; renal function in this setting may worsen before it improves -would NOT initiate dialysis at this time pending palliative care assistance in discussing goals of care; this pt was on hospice as recently as 12/16; I have concerns that dialysis would be futile care in this context until/unless care goals are clarified -borderline anuria noted >> and CT w/ ? issues w/ L nephrostomy placement >> defer to primary service to evaluate function of this tube and/or to involve urology -f/u pending TTE -repeat bmp in AM -change NS to bicarb gtt same rate to help w/ K and acidosis -f/u pending palliative c/s (2) Hyponatremia: Plan: hyperosmolar hyponatremia with volume overload> corrected / effective osms are 273. complex issue clinically > he is intravascularly depleted but total body overloaded. chronic issue > present last month and at admission. presentign sodium 126; up to 131 now, rate appropriate -recheck in AM (3) Hyperkalemia: Plan: resolved w/ NGT placement and now recurring though mild; NGT output is brisk so far -recheck in AM Admission and Anticipated Discharge Date Admission Date: December 19, 2021 Subjective seen late this am. no sob, abd pain resolved and less bloating; moved to ICU ON d/t symptomatic hpyotension; on 1:1 Review of Systems Review of Systems: All systems reviewed & are unremarkable except as noted in Subjective Physical Exam Constitutional: well developed, well nourished, + ill appearing and + frail appearing Eyes: EOM intact bilaterally ENMT: Ears: no external ear abnormality Nose: no external nose abnormality Mouth: + dry oral mucous membranes Neck: no nuchal rigidity Respiratory: normal respiratory effort Auscultation: + diminished lung sounds Cardiovascular: Rate/Rhythm: regular rate and regular rhythm Extremities: + edema (2+ BLE) Gastrointestinal (Abdomen): Inspection/Auscultation: + abdomen distended and + hypoactive bowel sounds Percussion/Palpation: + abdomen tender and abdomen soft Musculoskeletal: Extremities: strength 5/5 throughout Skin: no rashes, warm and dry Neurologic: limited but mostly appropriate speech, no tremor Psychiatric: Orientation: oriented to person and oriented to place Genitourinary: BL nephrostomies Results & Data ([facility]) Vital Signs (Past 12 Hours) Vital Signs Temp Pulse Pulse Resp BP BP Pulse Ox 12/20/21 06:16 92 H 17 94 12/20/21 06:16 116/64 12/20/21 06:00 92 H 10 L 97 12/20/21 05:45 112/58 L 12/20/21 05:45 91 H 15 96 12/20/21 05:30 90 14 93 12/20/21 05:30 115/59 L 12/20/21 05:15 107/68 12/20/21 05:15 91 H 14 97 12/20/21 05:00 111/57 L 12/20/21 05:00 92 H 21 96 12/20/21 04:45 103/53 L 12/20/21 04:45 92 H 19 97 12/20/21 04:30 36.7 C 115 H 10 L 93 12/20/21 04:30 108/60 12/20/21 04:15 64 15 95 12/20/21 04:15 104/50 L 12/20/21 04:00 65 17 94 12/20/21 04:00 93/57 L 12/20/21 03:56 99/54 L 12/20/21 03:56 103 H 13 95 12/20/21 03:30 66 13 97 12/20/21 03:30 87/58 L 12/20/21 03:15 67 13 96 12/20/21 03:15 82/45 L 12/20/21 01:58 79 12/20/21 04:26 12/20/21 03:00 69 9 L 96 12/20/21 03:00 86/46 L 12/20/21 02:45 68 15 94 12/20/21 02:45 82/50 L 12/20/21 02:30 68 28 H 93 12/20/21 02:30 125/67 12/20/21 02:15 125 H 15 94 07/19/22 02:15 89/68 L 12/20/21 02:00 139 H 13 94 12/20/21 02:00 36.4 C L 69/52 L 12/20/21 01:45 124 H 19 93 12/20/21 01:34 36.3 C L 12/20/21 01:12 74 12/20/21 01:01 74/50 L 99 12/20/21 00:45 78/45 L 12/20/21 00:30 73/44 L 12/20/21 00:15 76/48 L 12/20/21 00:00 80/46 L 12/19/21 23:46 93/54 L 12/19/21 23:30 79/42 L 12/19/21 23:22 79/43 L 12/19/21 23:10 36.5 C 71 14 76/46 L 96 O2 Del Method 12/20/21 06:16 12/20/21 06:16 12/20/21 06:00 12/20/21 05:45 12/20/21 05:45 12/20/21 05:30 12/20/21 05:30 12/20/21 05:15 12/20/21 05:15 12/20/21 05:00 12/20/21 05:00 12/20/21 04:45 12/20/21 04:45 12/20/21 04:30 12/20/21 04:30 12/20/21 04:15 12/20/21 04:15 12/20/21 04:00 12/20/21 04:00 12/20/21 03:56 12/20/21 03:56 12/20/21 03:30 12/20/21 03:30 12/20/21 03:15 12/20/21 03:15 12/20/21 01:58 12/20/21 04:26 Room Air 12/20/21 03:00 12/20/21 03:00 12/20/21 02:45 12/20/21 02:45 12/20/21 02:30 12/20/21 02:30 12/20/21 02:15 12/20/21 02:15 12/20/21 02:00 12/20/21 02:00 12/20/21 01:45 Room Air 12/20/21 01:34 12/20/21 01:12 12/20/21 01:01 Room Air 12/20/21 00:45 12/20/21 00:30 12/20/21 00:15 12/20/21 00:00 12/19/21 23:46 12/19/21 23:30 12/19/21 23:22 12/19/21 23:10 Room Air Laboratory Results 12/20/21 02:07 12/20/21 08:[address] a/p today 1. Interval development of small bilateral pleural effusions and bibasilar atelectasis. 2. Interval development of mild abdominal ascites. 3. Interval development of mild anasarca. 4. Moderately dilated fluid-filled loops of small bowel are again seen with no focal site of obstruction identified. The findings are suspicious for ileus versus gastroenteritis. 5. Bilateral nephrostomy tubes and right double-J ureteral stent are again seen. 6. Minimal retroperitoneal fluid is present on the left which may relate to placement of nephrostomy tube on the left.
[2021-12-20] MEDS: INSULIN ASPART PER UNIT SC SCH ×2 (09:27→11:50)
[2021-12-20] MEDS ORDERED: levoFLOXacin/D5W 750 MG/150 ML BAG IV ONE (10:15)
[2021-12-20] MEDS ORDERED: NORMOSOL-R 1,000 ML IV SCH (10:15)
--- NOTE | 2021-12-20 10:16 | Cardiology Progress Note ---
Date of Service December 20, 2021 Assessment & Plan (1) Elevated troponin: (2) Hyperkalemia: (3) Acute on chronic renal failure: (4) Abdominal pain: (5) Hyponatremia: (6) Abnormal urinalysis: (7) Anemia: (8) Atrial flutter: Plan Given his lack of cardiac symptoms, significant EKG changes along with his acute on chronic renal failure: I do not see any ischemic component to his troponin elevation. unable to perform echo yesterday due to patient's discomfort with lying flat, will retry today otherwise, care as per our surgical and critical care colleagues Admission and Anticipated Discharge Date Admission Date: December 19, 2021 Subjective Pt seen and examined, chart reviewed. More lethargic today with baseline slowness to respond to questioning. Denies cp or sob at rest. tele reviewed: sinus thm Review of Systems Review of Systems: All systems reviewed & are unremarkable except as noted in HPI & below Physical Exam Physical Exam: General: Awake, alert and oriented x 3. No acute distress. HEENT: Normocephalic, atraumatic. Pupils equal, round and reactive to light and accommodation. Extraocular muscles are intact. Anicteric sclera. Moist mucous membranes. Neck: No JVD. No bruit. Cardiovascular: Regular. Positive S-4. Normal S-1 and S-2. No S-3. No murmurs or rubs. Pulmonary: Clear to auscultation B/L. No rales, rhonchi or wheezing Abdomen: Bowel sounds x 4, soft. No rebound, guarding or tenderness. No organomegaly. Extremities: No clubbing, cyanosis or edema. +2 pedal pulses bilaterally. Skin: Warm and dry. Results & Data ([facility]) Vital Signs (Past 12 Hours) Vital Signs Temp Pulse Pulse Resp BP BP Pulse Ox 12/20/21 09:14 12/20/21 06:16 92 H 17 94 12/20/21 06:16 116/64 12/20/21 06:00 92 H 10 L 97 12/20/21 05:45 112/58 L 12/20/21 05:45 91 H 15 96 12/20/21 05:30 90 14 93 12/20/21 05:30 115/59 L 12/20/21 05:15 107/68 12/20/21 05:15 91 H 14 97 07/19/22 05:00 111/57 L 12/20/21 05:00 92 H 21 96 12/20/21 04:45 103/53 L 12/20/21 04:45 92 H 19 97 12/20/21 04:30 36.7 C 115 H 10 L 93 12/20/21 04:30 108/60 12/20/21 04:15 64 15 95 12/20/21 04:15 104/50 L 12/20/21 04:00 65 17 94 12/20/21 04:00 93/57 L 12/20/21 03:56 99/54 L 12/20/21 03:56 103 H 13 95 12/20/21 03:30 66 13 97 12/20/21 03:30 87/58 L 12/20/21 03:15 67 13 96 12/20/21 03:15 82/45 L 12/20/21 01:58 79 12/20/21 04:26 12/20/21 03:00 69 9 L 96 12/20/21 03:00 86/46 L 12/20/21 02:45 68 15 94 12/20/21 02:45 82/50 L 12/20/21 02:30 68 28 H 93 12/20/21 02:30 125/67 12/20/21 02:15 125 H 15 94 12/20/21 02:15 89/68 L 12/20/21 02:00 139 H 13 94 12/20/21 02:00 36.4 C L 69/52 L 12/20/21 01:45 124 H 19 93 12/20/21 01:34 36.3 C L 12/20/21 01:12 74 12/20/21 01:01 74/50 L 99 12/20/21 00:45 78/45 L 12/20/21 00:30 73/44 L 12/20/21 00:15 76/48 L 12/20/21 00:00 80/46 L 12/19/21 23:46 93/54 L 12/19/21 23:30 79/42 L 12/19/21 23:22 79/43 L 12/19/21 23:10 36.5 C 71 14 76/46 L 96 O2 Del Method 12/20/21 09:14 Room Air 12/20/21 06:16 12/20/21 06:16 12/20/21 06:00 12/20/21 05:45 12/20/21 05:45 12/20/21 05:30 12/20/21 05:30 12/20/21 05:15 12/20/21 05:15 12/20/21 05:00 12/20/21 05:00 12/20/21 04:45 12/20/21 04:45 12/20/21 04:30 12/20/21 04:30 12/20/21 04:15 12/20/21 04:15 12/20/21 04:00 12/20/21 04:00 12/20/21 03:56 12/20/21 03:56 12/20/21 03:30 12/20/21 03:30 12/20/21 03:15 12/20/21 03:15 12/20/21 01:58 12/20/21 04:26 Room Air 12/20/21 03:00 12/20/21 03:00 12/20/21 02:45 12/20/21 02:45 12/20/21 02:30 12/20/21 02:30 12/20/21 02:15 12/20/21 02:15 12/20/21 02:00 12/20/21 02:00 12/20/21 01:45 Room Air 12/20/21 01:34 12/20/21 01:12 12/20/21 01:01 Room Air 12/20/21 00:45 12/20/21 00:30 12/20/21 00:15 12/20/21 00:00 12/19/21 23:46 12/19/21 23:30 12/19/21 23:22 12/19/21 23:10 Room Air (1) Abdominal pain Abdominal location: generalized Qualified Code(s): R10.84 - Generalized abdominal pain (2) Atrial flutter Atrial flutter type: unspecified Qualified Code(s): I48.92 - Unspecified atrial flutter
[2021-12-20] MEDS ORDERED: metroNIDAZOLE 500 MG/100 ML BAG IV SCH (11:00)
--- NOTE | 2021-12-20 11:03 | Surgery Progress Note ---
Date of Service December 20, 2021 Assessment & Plan (1) Abdominal pain: (2) Bladder carcinoma: Plan 66 year-old male with metastatic bladder carcinoma s/p bilateral nephrostomy tube placement presented to ED with sudden onset of abdominal pain. CT scan showing distended small bowel to the ileocecal with no focal transition point. Colon is within normal limits. NO leukocytosis. now s/p NGT placement given severely distended stomach on initial CT scan with 2 liters output since placement. Abdomen is distended but not peritonitic. Repeat CT scan showing decompressed stomach with NGT and small bowel dilatation without transition point. Plan: Recommend continue conservative treatment with NPO, bowel rest, NGT to LIS pain management as needed, and IV fluids. If patient were to require surgical intervention he would require transfer to tertiary center given his complex h istory of metastatic bladder carcinoma and s/p bilateral nephrostomy tubes. Await palliative care consult for patient and family to discuss goals of care as patient was in hospice prior to his admission. Continue current icu management Continue current medical management Will continue to follow. Dr. Martinez has seen and examined pt, agrees with above. Admission and Anticipated Discharge Date Admission Date: December 19, 2021 Supervising Physician Co-Signing Physician Notes I have seen and examined the patient personally. I received a call from radiology, CT scan from yesterday is actually suggestive of possible large bowel obstruction secondary to the metastatic bladder cancer. He feels better today with the NG tube in place, however the CT still demonstrates significant dilatation of the small bowel. There is a palliative care consult in to discuss with the patient and his family options. I would recommend reconsulting urology for their recommendations based on the urologic cancer to help with potential palliative care recommendations. Second recommendation for possible GI intervention, colonoscopy with possibility of stent placement if this is a stricture of the colon secondary to tumor encroachment. Treatment of last resort could potentially be diverting ileostomy, however given the tumor burden and other factors, this would be with significant risk and potentially little benefit. We will continue to follow. Finally, he may benefit from transfer to tertiary care center for further evaluation, treatment Subjective feeling better today since NGT was placed in regards to abdominal discomfort. Still feels bloated. Not passing any gas. present at bedside and states his abdomen was bloated for 4-5 days prior to calling ambulance. Was transferred to ICU last evening due to hypotension now on Levophed. Repeat CT scan of abd and pelvis showed decompressed stomach and dilated small bowel without transition consistent with ileus vs gastroenteritis. 2 liters out of NGT since placement Physical Exam Constitutional: + cachectic, + frail appearing, cooperative and + lethargic; no acute distress Neck: normal visual inspection and trachea midline Left internal Jugular central venous catheter present Respiratory: normal respiratory effort; no respiratory distress and no labored breathing Gastrointestinal (Abdomen): Inspection/Auscultation: abdomen normal to inspection, + abdomen distended and + hypoactive bowel sounds; + abnormal bowel sounds Percussion/Palpation: + abdomen tender (generalized) and abdomen soft; no guarding and abdomen not rigid NGT to right nare with bilious output Skin: no rashes, warm and dry Psychiatric: Orientation: alert Results & Data ([facility]) Vital Signs (Past 12 Hours) Vital Signs Temp Pulse Pulse Resp BP BP Pulse Ox 12/20/21 09:14 12/20/21 06:16 92 H 17 94 12/20/21 06:16 116/64 12/20/21 06:00 92 H 10 L 97 12/20/21 05:45 112/58 L 12/20/21 05:45 91 H 15 96 12/20/21 05:30 90 14 93 12/20/21 05:30 115/59 L 12/20/21 05:15 107/68 12/20/21 05:15 91 H 14 97 12/20/21 05:00 111/57 L 12/20/21 05:00 92 H 21 96 12/20/21 04:45 103/53 L 12/20/21 04:45 92 H 19 97 12/20/21 04:30 36.7 C 115 H 10 L 93 12/20/21 04:30 108/60 12/20/21 04:15 64 15 95 12/20/21 04:15 104/50 L 12/20/21 04:00 65 17 94 12/20/21 04:00 93/57 L 12/20/21 03:56 99/54 L 12/20/21 03:56 103 H 13 95 12/20/21 03:30 66 13 97 12/20/21 03:30 87/58 L 12/20/21 03:15 67 13 96 12/20/21 03:15 82/45 L 12/20/21 01:58 79 12/20/21 04:26 12/20/21 03:00 69 9 L 96 12/20/21 03:00 86/46 L 12/20/21 02:45 68 15 94 12/20/21 02:45 82/50 L 12/20/21 02:30 68 28 H 93 12/20/21 02:30 125/67 12/20/21 02:15 125 H 15 94 12/20/21 02:15 89/68 L 12/20/21 02:00 139 H 13 94 12/20/21 02:00 36.4 C L 69/52 L 12/20/21 01:45 124 H 19 93 12/20/21 01:34 36.3 C L 12/20/21 01:12 74 12/20/21 01:01 74/50 L 99 12/20/21 00:45 78/45 L 12/20/21 00:30 73/44 L 12/20/21 00:15 76/48 L 12/20/21 00:00 80/46 L 12/19/21 23:46 93/54 L 12/19/21 23:30 79/42 L 12/19/21 23:22 79/43 L 12/19/21 23:10 36.5 C 71 14 76/46 L 96 O2 Del Method 12/20/21 09:14 Room Air 12/20/21 06:16 12/20/21 06:16 12/20/21 06:00 12/20/21 05:45 12/20/21 05:45 12/20/21 05:30 12/20/21 05:30 12/20/21 05:15 12/20/21 05:15 12/20/21 05:00 12/20/21 05:00 12/20/21 04:45 12/20/21 04:45 12/20/21 04:30 12/20/21 04:30 12/20/21 04:15 12/20/21 04:15 12/20/21 04:00 12/20/21 04:00 12/20/21 03:56 12/20/21 03:56 12/20/21 03:30 12/20/21 03:30 12/20/21 03:15 12/20/21 03:15 12/20/21 01:58 12/20/21 04:26 Room Air 12/20/21 03:00 12/20/21 03:00 12/20/21 02:45 12/20/21 02:45 12/20/21 02:30 12/20/21 02:30 12/20/21 02:15 12/20/21 02:15 12/20/21 02:00 12/20/21 02:00 12/20/21 01:45 Room Air 12/20/21 01:34 12/20/21 01:12 12/20/21 01:01 Room Air 12/20/21 00:45 12/20/21 00:30 12/20/21 00:15 12/20/21 00:00 12/19/21 23:46 12/19/21 23:30 12/19/21 23:22 12/19/21 23:10 Room Air Laboratory Results 12/20/21 12/20/21 12/20/21 Range/Units Unknown Unknown Unknown WBC (4.8-10.8) K/ul RBC (4.63-6.08) M/uL Hgb (14.0-18.0) g/dl Hct (40.1-51.0) % MCV (80.0-100.0) fL MCH (25.0-34.0) pg MCHC (32.0-36.0) g/dL RDW Std Deviation (36.4-46.3) fL RDW Coeff of Bailey (11.5-14.5) % Plt Count (130-400) K/uL MPV (9.4-12.4) fL Immature Gran % (Auto) % Neut % (Auto) % Lymph % (Auto) % [place] % (Auto) % Eos % (Auto) % Baso % (Auto) % Neut # (Auto) (1.4-6.5) K/uL Lymph # (Auto) (1.2-3.4) K/uL [place] # (Auto) (0.24-0.82) K/uL Eos # (Auto) (0-0.50) K/uL Baso # (Auto) (0-0.2) K/uL Immature Gran # (Auto) (0.00-0.02) K/uL Echinocytes APTT (21.0-31.0) Seconds PTT Ratio Sodium (136-145) mmol/L Potassium (3.5-5.1) mmol/L Chloride (98-107) mmol/L Carbon Dioxide (21-32) mmol/L Anion Gap (3-11) BUN (6-23) mg/dl Creatinine (0.6-1.4) mg/dl Est Cr Clr Drug Dosing ml/min Est GFR ( Amer) ml/min Est GFR (Non-Af Amer) ml/min BUN/Creatinine Ratio (10-20) Glucose (70-99(Fasting)) mg/dl POC Glucose (70-99) mg/dl Lactate (0.4-2.0) mmol/L Calcium (8.5-10.1) mg/dl Phosphorus (2.5-4.9) mg/dl Magnesium (1.7-2.4) mg/dl Total Bilirubin (0.2-1.0) mg/dl AST (13-39) U/L ALT (7-52) U/L Alkaline Phosphatase (34-104) U/L Total Protein (6.0-8.3) gm/dl Albumin (3.4-5.0) gm/dl Globulin (2.5-4.0) gm/dl Albumin/Globulin Ratio (0.9-2) Procalcitonin (0-0.5) ng/ml Random Cortisol mcg/dl Urine Color Dark Yellow Urine Appearance Turbid A (Clear) Urine pH 5.0 (4.5-7.5) Ur Specific [place] 1.020 (1.000-1.030) Urine Protein 3+ H (Negative) Urine Glucose (UA) Trace H (Negative) Urine Ketones Negative (Negative) Urine Blood Trace H (Negative) Urine Nitrite Negative (Negative) Urine Bilirubin 1+ H (Negative) Urine Urobilinogen Negative (Negative) Ur Leukocyte Esterase 2+ H (Negative) Urine WBC (Auto) >30 H (0-5) /hpf Urine RBC (Auto) >30 H (0-4) /hpf U Hyaline Cast (Auto) 0 (0-5) /lpf U Epithel Cells (Auto) >30 H (0-5) /lpf Urine Bacteria (Auto) 2+ H (Negative) Urine Crystals Not Reportable Calcium Oxalate Crystal Present A (None Prsent) Amorphous Sediment Present A (None Prsent) Urine Osmolality 340 L (500-800) mOsm/kg Ur Random Sodium 39 mmol/L Nasal Screen MRSA (PCR) (Negative) Hepatitis C Ab (EIA) Hep C Ab Signal/Cutoff 12/20/21 12/20/21 12/20/21 Range/Units 10:58 08:01 02:10 WBC (4.8-10.8) K/ul RBC (4.63-6.08) M/uL Hgb (14.0-18.0) g/dl Hct (40.1-51.0) % MCV (80.0-100.0) fL MCH (25.0-34.0) pg MCHC (32.0-36.0) g/dL RDW Std Deviation (36.4-46.3) fL RDW Coeff of Bailey (11.5-14.5) % Plt Count (130-400) K/uL MPV (9.4-12.4) fL Immature Gran % (Auto) % Neut % (Auto) % Lymph % (Auto) % [place] % (Auto) % Eos % (Auto) % Baso % (Auto) % Neut # (Auto) (1.4-6.5) K/uL Lymph # (Auto) (1.2-3.4) K/uL [place] # (Auto) (0.24-0.82) K/uL Eos # (Auto) (0-0.50) K/uL Baso # (Auto) (0-0.2) K/uL Immature Gran # (Auto) (0.00-0.02) K/uL Echinocytes APTT (21.0-31.0) Seconds PTT Ratio Sodium 131 L (136-145) mmol/L Potassium 5.3 H (3.5-5.1) mmol/L Chloride 94 L (98-107) mmol/L Carbon Dioxide 20 L (21-32) mmol/L Anion Gap 17 H (3-11) BUN 107 H (6-23) mg/dl Creatinine 4.36 H (0.6-1.4) mg/dl Est Cr Clr Drug Dosing 15.9 ml/min Est GFR ( Amer) 15.2 ml/min Est GFR (Non-Af Amer) 13.1 ml/min BUN/Creatinine Ratio 24.5 H (10-20) Glucose 119 H (70-99(Fasting)) mg/dl POC Glucose 119 H (70-99) mg/dl Lactate (0.4-2.0) mmol/L Calcium 7.4 L (8.5-10.1) mg/dl Phosphorus (2.5-4.9) mg/dl Magnesium (1.7-2.4) mg/dl Total Bilirubin (0.2-1.0) mg/dl AST (13-39) U/L ALT (7-52) U/L Alkaline Phosphatase (34-104) U/L Total Protein (6.0-8.3) gm/dl Albumin (3.4-5.0) gm/dl Globulin (2.5-4.0) gm/dl Albumin/Globulin Ratio (0.9-2) Procalcitonin (0-0.5) ng/ml Random Cortisol mcg/dl Urine Color Urine Appearance (Clear) Urine pH (4.5-7.5) Ur Specific [place] (1.000-1.030) Urine Protein (Negative) Urine Glucose (UA) (Negative) Urine Ketones (Negative) Urine Blood (Negative) Urine Nitrite (Negative) Urine Bilirubin (Negative) Urine Urobilinogen (Negative) Ur Leukocyte Esterase (Negative) Urine WBC (Auto) (0-5) /hpf Urine RBC (Auto) (0-4) /hpf U Hyaline Cast (Auto) (0-5) /lpf U Epithel Cells (Auto) (0-5) /lpf Urine Bacteria (Auto) (Negative) Urine Crystals Calcium Oxalate Crystal (None Prsent) Amorphous Sediment (None Prsent) Urine Osmolality (500-800) mOsm/kg Ur Random Sodium mmol/L Nasal Screen MRSA (PCR) Negative (Negative) Hepatitis C Ab (EIA) Hep C Ab Signal/Cutoff 12/20/21 12/20/21 12/20/21 Range/Units 02:07 02:07 02:07 WBC 8.51 (4.8-10.8) K/ul RBC 3.40 L (4.63-6.08) M/uL Hgb 10.3 L (14.0-18.0) g/dl Hct 31.5 L (40.1-51.0) % MCV 92.6 (80.0-100.0) fL MCH 30.3 (25.0-34.0) pg MCHC 32.7 (32.0-36.0) g/dL RDW Std Deviation 59.6 H (36.4-46.3) fL RDW Coeff of Bailey 17.4 H (11.5-14.5) % Plt Count 195 (130-400) K/uL MPV 10.1 (9.4-12.4) fL Immature Gran % (Auto) 0.7 % Neut % (Auto) 94.2 % Lymph % (Auto) 2.4 % [place] % (Auto) 2.5 % Eos % (Auto) 0.0 % Baso % (Auto) 0.2 % Neut # (Auto) 8.02 H (1.4-6.5) K/uL Lymph # (Auto) 0.20 L (1.2-3.4) K/uL [place] # (Auto) 0.21 L (0.24-0.82) K/uL Eos # (Auto) 0.00 (0-0.50) K/uL Baso # (Auto) 0.02 (0-0.2) K/uL Immature Gran # (Auto) 0.06 H (0.00-0.02) K/uL Echinocytes 2+ APTT 29.4 (21.0-31.0) Seconds PTT Ratio 1.1 Sodium 130 L (136-145) mmol/L Potassium 5.3 H (3.5-5.1) mmol/L Chloride 93 L (98-107) mmol/L Carbon Dioxide 21 (21-32) mmol/L Anion Gap 16 H (3-11) BUN 111 H (6-23) mg/dl Creatinine 4.37 H (0.6-1.4) mg/dl Est Cr Clr Drug Dosing 15.9 ml/min Est GFR ( Amer) 15.1 ml/min Est GFR (Non-Af Amer) 13.0 ml/min BUN/Creatinine Ratio 25.4 H (10-20) Glucose 95 (70-99(Fasting)) mg/dl POC Glucose (70-99) mg/dl Lactate (0.4-2.0) mmol/L Calcium 7.5 L (8.5-10.1) mg/dl Phosphorus 6.9 H (2.5-4.9) mg/dl Magnesium 2.5 H (1.7-2.4) mg/dl Total Bilirubin 0.9 (0.2-1.0) mg/dl AST 72 H (13-39) U/L ALT 40 (7-52) U/L Alkaline Phosphatase 257 H (34-104) U/L Total Protein 6.0 (6.0-8.3) gm/dl Albumin 3.1 L (3.4-5.0) gm/dl Globulin 2.9 (2.5-4.0) gm/dl Albumin/Globulin Ratio 1.1 (0.9-2) Procalcitonin (0-0.5) ng/ml Random Cortisol mcg/dl Urine Color Urine Appearance (Clear) Urine pH (4.5-7.5) Ur Specific [place] (1.000-1.030) Urine Protein (Negative) Urine Glucose (UA) (Negative) Urine Ketones (Negative) Urine Blood (Negative) Urine Nitrite (Negative) Urine Bilirubin (Negative) Urine Urobilinogen (Negative) Ur Leukocyte Esterase (Negative) Urine WBC (Auto) (0-5) /hpf Urine RBC (Auto) (0-4) /hpf U Hyaline Cast (Auto) (0-5) /lpf U Epithel Cells (Auto) (0-5) /lpf Urine Bacteria (Auto) (Negative) Urine Crystals Calcium Oxalate Crystal (None Prsent) Amorphous Sediment (None Prsent) Urine Osmolality (500-800) mOsm/kg Ur Random Sodium mmol/L Nasal Screen MRSA (PCR) (Negative) Hepatitis C Ab (EIA) Hep C Ab Signal/Cutoff 12/20/21 12/20/21 12/20/21 Range/Units 02:07 00:55 00:55 WBC (4.8-10.8) K/ul RBC (4.63-6.08) M/uL Hgb (14.0-18.0) g/dl Hct (40.1-51.0) % MCV (80.0-100.0) fL MCH (25.0-34.0) pg MCHC (32.0-36.0) g/dL RDW Std Deviation (36.4-46.3) fL RDW Coeff of Bailey (11.5-14.5) % Plt Count (130-400) K/uL MPV (9.4-12.4) fL Immature Gran % (Auto) % Neut % (Auto) % Lymph % (Auto) % [place] % (Auto) % Eos % (Auto) % Baso % (Auto) % Neut # (Auto) (1.4-6.5) K/uL Lymph # (Auto) (1.2-3.4) K/uL [place] # (Auto) (0.24-0.82) K/uL Eos # (Auto) (0-0.50) K/uL Baso # (Auto) (0-0.2) K/uL Immature Gran # (Auto) (0.00-0.02) K/uL Echinocytes APTT (21.0-31.0) Seconds PTT Ratio Sodium (136-145) mmol/L Potassium (3.5-5.1) mmol/L Chloride (98-107) mmol/L Carbon Dioxide (21-32) mmol/L Anion Gap (3-11) BUN (6-23) mg/dl Creatinine (0.6-1.4) mg/dl Est Cr Clr Drug Dosing ml/min Est GFR ( Amer) ml/min Est GFR (Non-Af Amer) ml/min BUN/Creatinine Ratio (10-20) Glucose (70-99(Fasting)) mg/dl POC Glucose (70-99) mg/dl Lactate (0.4-2.0) mmol/L Calcium (8.5-10.1) mg/dl Phosphorus (2.5-4.9) mg/dl Magnesium (1.7-2.4) mg/dl Total Bilirubin (0.2-1.0) mg/dl AST (13-39) U/L ALT (7-52) U/L Alkaline Phosphatase (34-104) U/L Total Protein (6.0-8.3) gm/dl Albumin (3.4-5.0) gm/dl Globulin (2.5-4.0) gm/dl Albumin/Globulin Ratio (0.9-2) Procalcitonin 151.23 H (0-0.5) ng/ml Random Cortisol > 60.00 mcg/dl Urine Color Urine Appearance (Clear) Urine pH (4.5-7.5) Ur Specific [place] (1.000-1.030) Urine Protein (Negative) Urine Glucose (UA) (Negative) Urine Ketones (Negative) Urine Blood (Negative) Urine Nitrite (Negative) Urine Bilirubin (Negative) Urine Urobilinogen (Negative) Ur Leukocyte Esterase (Negative) Urine WBC (Auto) (0-5) /hpf Urine RBC (Auto) (0-4) /hpf U Hyaline Cast (Auto) (0-5) /lpf U Epithel Cells (Auto) (0-5) /lpf Urine Bacteria (Auto) (Negative) Urine Crystals Calcium Oxalate Crystal (None Prsent) Amorphous Sediment (None Prsent) Urine Osmolality (500-800) mOsm/kg Ur Random Sodium mmol/L Nasal Screen MRSA (PCR) (Negative) Hepatitis C Ab (EIA) Pending Hep C Ab Signal/Cutoff Pending 12/20/21 12/19/21 12/19/21 Range/Units 00:55 20:30 18:36 WBC (4.8-10.8) K/ul RBC (4.63-6.08) M/uL Hgb (14.0-18.0) g/dl Hct (40.1-51.0) % MCV (80.0-100.0) fL MCH (25.0-34.0) pg MCHC (32.0-36.0) g/dL RDW Std Deviation (36.4-46.3) fL RDW Coeff of Bailey (11.5-14.5) % Plt Count (130-400) K/uL MPV (9.4-12.4) fL Immature Gran % (Auto) % Neut % (Auto) % Lymph % (Auto) % [place] % (Auto) % Eos % (Auto) % Baso % (Auto) % Neut # (Auto) (1.4-6.5) K/uL Lymph # (Auto) (1.2-3.4) K/uL [place] # (Auto) (0.24-0.82) K/uL Eos # (Auto) (0-0.50) K/uL Baso # (Auto) (0-0.2) K/uL Immature Gran # (Auto) (0.00-0.02) K/uL Echinocytes APTT (21.0-31.0) Seconds PTT Ratio Sodium 127 L (136-145) mmol/L Potassium 4.9 (3.5-5.1) mmol/L Chloride 88 L (98-107) mmol/L Carbon Dioxide 23 (21-32) mmol/L Anion Gap 16 H (3-11) BUN 114 H (6-23) mg/dl Creatinine 4.44 H (0.6-1.4) mg/dl Est Cr Clr Drug Dosing 15.6 ml/min Est GFR ( Amer) 14.8 ml/min Est GFR (Non-Af Amer) 12.8 ml/min BUN/Creatinine Ratio 25.7 H (10-20) Glucose 142 H (70-99(Fasting)) mg/dl POC Glucose 153 H (70-99) mg/dl Lactate 1.9 (0.4-2.0) mmol/L Calcium 8.4 L (8.5-10.1) mg/dl Phosphorus (2.5-4.9) mg/dl Magnesium (1.7-2.4) mg/dl Total Bilirubin (0.2-1.0) mg/dl AST (13-39) U/L ALT (7-52) U/L Alkaline Phosphatase (34-104) U/L Total Protein (6.0-8.3) gm/dl Albumin (3.4-5.0) gm/dl Globulin (2.5-4.0) gm/dl Albumin/Globulin Ratio (0.9-2) Procalcitonin (0-0.5) ng/ml Random Cortisol mcg/dl Urine Color Urine Appearance (Clear) Urine pH (4.5-7.5) Ur Specific [place] (1.000-1.030) Urine Protein (Negative) Urine Glucose (UA) (Negative) Urine Ketones (Negative) Urine Blood (Negative) Urine Nitrite (Negative) Urine Bilirubin (Negative) Urine Urobilinogen (Negative) Ur Leukocyte Esterase (Negative) Urine WBC (Auto) (0-5) /hpf Urine RBC (Auto) (0-4) /hpf U Hyaline Cast (Auto) (0-5) /lpf U Epithel Cells (Auto) (0-5) /lpf Urine Bacteria (Auto) (Negative) Urine Crystals Calcium Oxalate Crystal (None Prsent) Amorphous Sediment (None Prsent) Urine Osmolality (500-800) mOsm/kg Ur Random Sodium mmol/L Nasal Screen MRSA (PCR) (Negative) Hepatitis C Ab (EIA) Hep C Ab Signal/Cutoff 12/19/21 12/19/21 Range/Units 16:02 12:52 WBC (4.8-10.8) K/ul RBC (4.63-6.08) M/uL Hgb (14.0-18.0) g/dl Hct (40.1-51.0) % MCV (80.0-100.0) fL MCH (25.0-34.0) pg MCHC (32.0-36.0) g/dL RDW Std Deviation (36.4-46.3) fL RDW Coeff of Bailey (11.5-14.5) % Plt Count (130-400) K/uL MPV (9.4-12.4) fL Immature Gran % (Auto) % Neut % (Auto) % Lymph % (Auto) % [place] % (Auto) % Eos % (Auto) % Baso % (Auto) % Neut # (Auto) (1.4-6.5) K/uL Lymph # (Auto) (1.2-3.4) K/uL [place] # (Auto) (0.24-0.82) K/uL Eos # (Auto) (0-0.50) K/uL Baso # (Auto) (0-0.2) K/uL Immature Gran # (Auto) (0.00-0.02) K/uL Echinocytes APTT (21.0-31.0) Seconds PTT Ratio Sodium 127 L (136-145) mmol/L Potassium 5.6 H (3.5-5.1) mmol/L Chloride 85 L (98-107) mmol/L Carbon Dioxide 22 (21-32) mmol/L Anion Gap 20 H (3-11) BUN 108 H (6-23) mg/dl Creatinine 4.35 H D (0.6-1.4) mg/dl Est Cr Clr Drug Dosing 15.9 ml/min Est GFR ( Amer) 15.2 ml/min Est GFR (Non-Af Amer) 13.1 ml/min BUN/Creatinine Ratio 24.8 H (10-20) Glucose 167 H (70-99(Fasting)) mg/dl POC Glucose 172 H (70-99) mg/dl Lactate (0.4-2.0) mmol/L Calcium 9.0 (8.5-10.1) mg/dl Phosphorus (2.5-4.9) mg/dl Magnesium (1.7-2.4) mg/dl Total Bilirubin (0.2-1.0) mg/dl AST (13-39) U/L ALT (7-52) U/L Alkaline Phosphatase (34-104) U/L Total Protein (6.0-8.3) gm/dl Albumin (3.4-5.0) gm/dl Globulin (2.5-4.0) gm/dl Albumin/Globulin Ratio (0.9-2) Procalcitonin (0-0.5) ng/ml Random Cortisol mcg/dl Urine Color Urine Appearance (Clear) Urine pH (4.5-7.5) Ur Specific [place] (1.000-1.030) Urine Protein (Negative) Urine Glucose (UA) (Negative) Urine Ketones (Negative) Urine Blood (Negative) Urine Nitrite (Negative) Urine Bilirubin (Negative) Urine Urobilinogen (Negative) Ur Leukocyte Esterase (Negative) Urine WBC (Auto) (0-5) /hpf Urine RBC (Auto) (0-4) /hpf U Hyaline Cast (Auto) (0-5) /lpf U Epithel Cells (Auto) (0-5) /lpf Urine Bacteria (Auto) (Negative) Urine Crystals Calcium Oxalate Crystal (None Prsent) Amorphous Sediment (None Prsent) Urine Osmolality (500-800) mOsm/kg Ur Random Sodium mmol/L Nasal Screen MRSA (PCR) (Negative) Hepatitis C Ab (EIA) Hep C Ab Signal/Cutoff Diagnostic Findings CT abd pelvis wo con CLINICAL HISTORY: septic shock . Pain in the back. COMPARISON STUDY: 12/19/2021 CT DOSE: 435.69 mGy.cm TECHNIQUE: Standard CT of the Abdomen and Pelvis was performed without IV contrast. The patient did not receive oral contrast. A dose lowering technique was utilized adhering to the principles of ALARA. FINDINGS: Lung base: Compared to previous examination, there has been interval development of small bilateral pleural effusions and bibasilar atelectasis. Abdominal cavity: Compared to previous study, there has been interval development of mild abdominal ascites with fluid now seen surrounding the liver and spleen. There is also been interval development of mild anasarca. Minimal retroperitoneal fluid is again seen on the left of uncertain etiology. No definite retroperitoneal hematoma is seen. However, the findings could relate to the placement of the left-sided nephrostomy tube. Liver: The liver is homogeneous in attenuation on these limited noncontrast images.. Spleen: The spleen is homogeneous in attenuation on these limited noncontrast images. Pancreas: The pancreas is homogeneous in attenuation on these limited noncontrast images. Gall Bladder: Not imaged Adrenal glands: The adrenal glands are normal in size and attenuation on these limited noncontrast images. Kidneys: There is again atrophy of the kidneys bilaterally with bilateral nephrostomy tubes. Evidence for a double-J ureteral stent is also seen on the right. There is no evidence for gross renal mass, calculus or hydronephrosis bilaterally. Bowel: Compared to previous examination, an NG tube has been placed with decompression of markedly dilated stomach. Moderately dilated, fluid-filled loops of small bowel are again seen throughout the entire abdomen and pelvis with no focal transition site present. The colon is of normal caliber with mild diffuse mucosal thickening present. The findings are most suspicious for ileus versus gastroenteritis. There is no evidence for mass lesion. There are no inflammatory changes present. There is no evidence for free air. Bladder: There is no evidence for focal bladder wall thickening, calculus or diverticulum. : There is no evidence for pelvic mass or adenopathy. Vasculature: There is no evidence for focal aneurysmal dilatation of the abdominal aorta. Atherosclerotic calcification is present. Osseous structures: There is no acute osseous pathology. Degenerative changes are seen within the spine. IMPRESSION: 1. Interval development of small bilateral pleural effusions and bibasilar atelectasis. 2. Interval development of mild abdominal ascites. 3. Interval development of mild anasarca. 4. Moderately dilated fluid-filled loops of small bowel are again seen with no focal site of obstruction identified. The findings are suspicious for ileus versus gastroenteritis. 5. Bilateral nephrostomy tubes and right double-J ureteral stent are again seen. 6. Minimal retroperitoneal fluid is present on the left which may relate to placement of nephrostomy tube on the left. (1) Abdominal pain Abdominal location: generalized Qualified Code(s): R10.84 - Generalized abdominal pain
[2021-12-20] MEDS: HYDROmorphone INJ 0.5 MG/0.5 ML SYR IV PRN ×2 (11:15→15:33)
[2021-12-20] MEDS ORDERED: PIPERACILLIN/TAZOBACTAM 3.375 GM in DEXTROSE 5% 100 ML IV SCH (12:00)
[2021-12-20] MEDS: ACETAMINOPHEN 1,000 MG/100 ML VIAL IV PRN (13:03)
[2021-12-20] MEDS ORDERED: SODIUM BICARBONATE 8.4% 150 MEQ in DEXTROSE 5% 1,000 ML IV SCH (13:45)
[2021-12-20] MEDS ORDERED: ONDANSETRON INJ 2 MG/ML 2 ML VIAL IV PRN (15:31)
[2021-12-20] MEDS ORDERED: GLYCOPYRROLATE 0.2 MG/ML VIAL IV PRN (15:31)
[2021-12-20] MEDS ORDERED: ONDANSETRON 4 MG OD TAB SL PRN (15:31)
[2021-12-20] MEDS ORDERED: LORazepam 0.5 MG TAB PO PRN (15:31)
[2021-12-20] MEDS ORDERED: LORazepam 0.5 MG in SYRINGE 0.25 ML IV PRN (15:31)
[2021-12-20] MEDS ORDERED: HYDROmorphone/NSS 100 MG/100 ML BAG IV SCH (15:45)
[2021-12-20] MEDS ORDERED: HYDROmorphone INJ 1 MG/ML SYRINGE IV PRN (15:46)
[2021-12-20 15:50] LABS: BUN Creatinine Ratio 23.5 (10-20); Calcium 6.9 mg/dl (8.5-10.1); Creatinine Clr Calc Pharmacy 15.7 ml/min; Est GFR (African American) 14.9 ml/min; Est GFR (Non-African American) 12.9 ml/min; Potassium 5.3 mmol/L (3.5-5.1)
--- NOTE | 2021-12-20 16:12 | Palliative Care Consultation ---
Date of Consultation December 20, 2021 Assessment & Plan (1) Hip pain: He has been treated for osteoarthritis and has some disc bulging on imaging but pain appears out of proportion for these. He does not have any known bony metastases. ? referred pain with bladder cancer. He is very restless and frequently asking for pain medication with only mild relief from hydromorphone 0.5mg IV. He has difficulty concentrating on conversation due to pain and associated anxiety. While he was being repositioned, his and I spoke in the conference room. She is very stressed and angry and talked for 45 minutes about the course of his disease. They have had treatment at multiple facilities with mixed messages and have been very frustrated. He has been very uncomfortable at home and she has had very little sleep in the last several days. She does not feel that she is able to care for him at home with his cu rrent needs. We talked frankly about his current illness and poor prognosis. She tells me that he has said that he would want any care necessary to prolong his life but has also talked about just wanting to be at home. We spoke with Giorgio at bedside. I explained my concerns about his poor prognosis and presented two options for care. One being full treatment with possible transfer to tertiary care facility for further treatment. The other option would be shift of focus to pain management and comfort for his remaining time. Either way, it appears that his time is short. He asked about prognosis which could be hours to a few weeks depending on how he wants to proceed with his care. He tells me that he wants the focus to be pain control. He asked what would happen. We discussed starting hydromorphone infusion for pain control, removing testing or medications not contributing to his comfort. For the time being, would continue levophed infusion until he is comfortable and then wean. We discussed that it may be only hours after levophed weaned until his dying time. He understands this and wants to proceed. His supports his decision. I spoke with Dr. Mancilla and notified Dr. Slaughter. Plan of care discussed with RN. (2) Abdominal pain: Improving with decompression. Abdominal location: generalized Qualified Code(s): R10.84 - Generalized abdominal pain (3) Anxiety: Strongly related to pain. Lorazepam available if needed. (4) Palliative care encounter: as above History of Present Illness Reason for Consultation: goals of care Requesting Physician: Dr. Zuniga Attending Physician: To Slaughter MD History of Present Illness 66 yo gentleman with bladder cancer with lymphatic metastases. He has had bilateral hydronephrosis with nephrostomy tubes. He also has CAD and is s/p CABG at [facility] one year ago. He was admitted with uncontrolled hip pain, abdominal pain and distension. He was found to have possible SBO on admission. He has also had ARIADNA on CKD with in the mid 4s over the last two days. Last night he became hypotensive overnight and was transferred to ICU on pressors. He is currently on a levophed infusion. Prior to admission, he had been on hospice for a day or two at home. After discussion with his , it seems that he agreed to hospice because they told him that they could control his pain rather than really feeling like he was at the end stage of his illness. Despite hospice, his pain was not controlled at home and he came to the ER. He has been complaining of pain in his left hip radiating down to his knee which is now in his low back and right hip. Imaging does not show bony mets. There is some lumbar disc bulging with only mild foraminal stenosis. He rates the pain as severe and is constantly trying to reposition himself. Allergies Allergy/AdvReac Type Severity Reaction Status Date / Time kiwi Allergy Intermediate Lip and Unverified 11/04/21 16:50 Tongue Swell metoprolol AdvReac Intermediate Immediate Unverified 11/04/21 17:04 Bradycardia Hemp Seeds Allergy Intermediate Tongue Uncoded 11/04/21 16:50 Swells Home Medications Medication Instructions Recorded Confirmed Type alpha lipoic acid 600 mg capsule 600 mg PO HS 07/18/20 12/19/21 History ascorbic acid (vitamin C) 1,000 mg 2,000 mg PO BID 07/18/20 12/19/21 History tablet,extended release aspirin 81 mg tablet,delayed 81 mg PO HS 07/18/20 12/19/21 History release biotin 1,000 mcg chewable tablet 1,000 mcg PO HS 07/18/20 12/19/21 History cholecalciferol (vitamin D3) 125 125 mcg PO HS 07/18/20 12/19/21 History mcg (5,000 unit) tablet coenzyme Q10 100 mg capsule 300 mg PO TID 07/18/20 12/19/21 History (CoQ-10) linagliptin 5 mg tablet (Tradjenta) 5 mg PO DAILY 07/18/20 12/19/21 History meclizine 25 mg tablet 25 mg PO HS 07/18/20 12/19/21 History niacin 500 mg tablet 500 mg PO BID 07/18/20 12/19/21 History pyridoxine (vitamin B6) 100 mg 100 mg PO HS 07/18/20 12/19/21 History tablet (Vitamin B-6) vitamin B complex 1 tab PO DAILY 07/18/20 12/19/21 History acetylcysteine 600 mg capsule (NAC) 600 mg PO HS PRN Protection of 01/02/21 12/19/21 History liver nitroglycerin 0.4 mg sublingual 0.4 mg sublingual UD PRN chest 01/08/21 12/19/21 Rx tablet (Nitrostat) pain #20 tabs amlodipine 5 mg tablet 5 mg PO DAILY 11/04/21 12/19/21 History docusate sodium 100 mg capsule 100 mg PO BID 11/04/21 12/19/21 History glipizide 10 mg tablet, extended 10 mg PO DAILY 11/04/21 12/19/21 History release 24 hr whmiymyrviq-hlp-fndxjwyth-vitC 1 cap PO DAILY 11/04/21 12/19/21 History capsule (Glucosamine Complex-MSM) magnesium 250 mg tablet 250 mg PO DAILY 11/04/21 12/19/21 History omega 3-boc-ivq-fish oil 1,000 mg 1 cap PO DAILY 11/04/21 12/19/21 History (120 mg-180 mg) capsule (Fish Oil) lidocaine 5 % topical patch 1 patch transdermal HS #30 ea 11/06/21 12/19/21 Rx amiodarone 200 mg tablet 200 mg PO DAILY 12/19/21 12/19/21 History haloperidol lactate 2 mg/mL oral 1 mg PO Q4H PRN Anxiety 12/19/21 12/19/21 History concentrate oxycodone 5 mg tablet 5 mg PO Q4H PRN Pain 12/19/21 12/19/21 History Patient History Medical History Bladder carcinoma CAD (coronary artery disease) Chronic kidney disease Chronic sinusitis Concussion DM type 2 (diabetes mellitus, type 2) Dyslipidemia HTN (hypertension) Paroxysmal A-fib Urothelial cancer Varicella without complication Surgical History S/P CABG x 4 Family History Mother Hypertension Cancer Father Cancer Hypertension Grandmother (Maternal) Cancer Social History Smoking Status: Never smoker Second Hand Exposure: Yes; Hx Alcohol Use: Yes Alcohol type: hard liquor Hx Substance Use: No Preferred Language: Turkish Communication Ability: Effective Liquor Gallery Operator Required: No Beliefs That Will Affect Care: None marital status: Current Living Situation: Spouse current occupation: Retired Other Information That Helps Us Care for You: Yes Feels Safe at Home: Yes Safety Concerns: Feels Safe At This Time Assistive Devices: Hospital Bed Review of Systems Review of Systems: ESAS Pain 3/3 Dyspnea 0/3 Anxiety 2/3 Nausea 0/3 Fatigue 2/3 Drowsiness 1/3 PPS 30% Physical Exam Constitutional: + ill appearing and + disheveled ENMT: NG tube to suction Respiratory: normal respiratory effort; no labored breathing Cardiovascular: Rate/Rhythm: regular rate and regular rhythm Musculoskeletal: Extremities: + muscle atrophy Skin: warm and dry Neurologic: Speech / Cognition: normal cognition Genitourinary: b/l nephrostomies Results & Data ([facility]) Vital Signs (Past 12 Hours) Vital Signs Temp Pulse Resp BP Pulse Ox O2 Del Method 12/20/21 11:00 99 H 13 92 12/20/21 10:45 98 H 15 91 12/20/21 10:30 97 H 21 93 12/20/21 10:30 98/63 L 12/20/21 10:15 100 H 10 L 94 12/20/21 10:00 99 H 8 L 94 12/20/21 09:45 99 H 12 94 12/20/21 09:30 98 H 10 L 94 12/20/21 09:15 99 H 11 L 94 12/20/21 09:00 97 H 14 94 12/20/21 08:45 98 H 11 L 94 12/20/21 08:30 96 H 17 94 07/19/22 08:15 97 H 10 L 94 12/20/21 08:00 97 H 13 93 12/20/21 08:00 102/58 L 12/20/21 07:45 96 H 9 L 94 12/20/21 07:45 105/59 L 12/20/21 07:30 95 H 12 95 12/20/21 07:30 103/57 L 12/20/21 07:16 96 H 11 L 95 12/20/21 11:59 97.7 F 12/20/21 08:00 98.2 F 12/20/21 09:14 Room Air 12/20/21 06:16 92 H 17 94 12/20/21 06:16 116/64 12/20/21 06:00 92 H 10 L 97 12/20/21 05:45 112/58 L 12/20/21 05:45 91 H 15 96 12/20/21 05:30 90 14 93 12/20/21 05:30 115/59 L 12/20/21 05:15 107/68 12/20/21 05:15 91 H 14 97 12/20/21 05:00 111/57 L 12/20/21 05:00 92 H 21 96 12/20/21 04:45 103/53 L 12/20/21 04:45 92 H 19 97 12/20/21 04:30 98.1 F 115 H 10 L 93 12/20/21 04:30 108/60 12/20/21 04:15 64 15 95 12/20/21 04:15 104/50 L 12/20/21 04:26 Room Air PG Care Time/CCT Total # of Minutes Spent Total Time Spent: 110 Total Time Spent with Patient: Total time spent is greater than 50% in coordination of care (as documented) at patient's floor/unit and/or counseling patient: goals of care, symptom management, coordination of care, prognosis, patient and family education and support Coding Level of Care Code 86477 Initial Inpt Care Lvl 3 Diagnoses Hip pain M25.559 Abdominal pain R10.84 Abdominal location: generalized Anxiety F41.9 Palliative care encounter Z51.5 Time Spent (min) 110
[2021-12-20 16:59] LABS: A calco-baum cmplx NotReported Not Detected (NotDetected); Bact fragilis Not Reported Not Detected (NotDetected); C auris Not Reported Not Detected (NotDetected); CTX-M Resistant Gene Not Detected (NotDetected); Calbicans Not Reported Not Detected (NotDetected); Candida glabrata Not Reported Not Detected (NotDetected); Candida krusei Not Reported Not Detected (NotDetected); Cneoformans/gatti Not Reported Not Detected (NotDetected); Cparapsilosis Not Reported Not Detected (NotDetected); Ctropicalis Not Reported Not Detected (NotDetected); Efaecalis Not Reported Not Detected (NotDetected); Efaecium Not Reported Not Detected (NotDetected); Escherichia coli Not Reported Not Detected (NotDetected); H influenzae Not Reported Not Detected (NotDetected); IMP Resistant Gene Not Detected (NotDetected); K aerogenes Not Reported Not Detected (NotDetected); KPC Resistant Gene Not Detected (NotDetected); Koxytoca Not Reported Not Detected (NotDetected); Kpneumoniae grp Not Reported Not Detected (NotDetected); Lmonocyt Not Reported Not Detected (NotDetected); N meningitidis Not Reported Not Detected (NotDetected); NDM Resistant Gene Not Detected (NotDetected); OXA 48 Like Resistant Gene Not Detected (NotDetected); P aeruginosa Not Reported Not Detected (NotDetected); Proteus spp Not Reported Not Detected (NotDetected); Salmonella spp Not Reported Not Detected (NotDetected); Smarcescens Not Reported Not Detected (NotDetected); Staph lugdunensis Not Reported Not Detected (NotDetected); Staph spp. Not Reported Not Detected (NotDetected); Staphaureus Not Reported Not Detected (NotDetected); Staphepi Not Reported Not Detected (NotDetected); Stenmaltophilia Not Reported Not Detected (NotDetected); Strep agal(GrpB) Not Reported Not Detected (NotDetected); Strep pneum Not Reported Not Detected (NotDetected); Strep pyog (GrpA) Not Reported Not Detected (NotDetected); Strep spp Not Reported Not Detected (NotDetected); VIM Resistant Gene Not Detected (NotDetected); mcr-1 Colistin Resistant Gene Not Detected (NotDetected)
[2021-12-20 17:43] LABS: Enterobacterales DETECTED (NotDetected); Enterobacterales Not Reported DETECTED (NotDetected)
[2021-12-20 17:44] LABS: E cloacae compx Not Reported DETECTED (NotDetected); Enterobacter cloacae complex DETECTED (NotDetected)
--- NOTE | 2021-12-21 07:19 | Discharge Summary ---
Date of Service December 21, 2021 Admission HPI Per Admitting Provider A 66-year-old male with past medical history significant for diabetes, diabetes causing eye disease, chronic kidney disease stage IV, hyperlipidemia, chronic pansinusitis, paroxysmal atrial fibrillation, coronary artery disease status post CABG x4 in December 2020, bladder cancer with metastases to intrapelvic lymph nodes, status post nephrostomy tubes, chronic anemia, hypertension, hyperlipidemia. The patient is not on anticoagulation. Presents to the ER with abdominal pain and found to have possible partial small-bowel obstruction, He was having tachycardia and now complaining of also back pain and hip pain, sitti ng on the chair. The patient has been taking time to answer. The patient says lately his memory is weak and he takes some time to answer, because he is not sleeping much. He says for his bladder cancer, he is started on new treatment, but he is having a hard time to go to [place] and states he missed a few of his appointments. Denies any chest pain, denies shortness of breath, denies cough, no nausea. Has some runny nose. Denies any headache. He is constipated. nephrostomy seems to be working okay. Has some swelling in the legs. He lives with his . He says he ambulates without any support. Admission Exam Per Admitting Provider GENERAL: The patient is of moderate build, not in acute distress. VITAL SIGNS: Temperature 36.8, pulse 76, respiratory rate 16, blood pressure 107/62, oxygen 98% on room air. HEENT: Pupils equal, round and reactive to light. Oral mucosa moist. NECK: No JVD, no neck masses. CARDIOVASCULAR: S1 and S2 heard. Tachycardia. No murmurs. RESPIRATORY SYSTEM: Normal AP diameter. No accessory muscle use. No wheezing, no crackles. ABDOMEN: Mild distention. Bowel sounds absent. Mild diffuse discomfort. No guarding, no rigidity. CENTRAL NERVOUS SYSTEM: Cranial nerves II through XII are grossly intact, nonfocal. The patient is slow to answer. Insight is okay.No Facial droop. Obeys simple commands. Moves extremities. EXTREMITIES: Bilateral lower extremity pedal edema present. Principal Diagnosis Bladder carcinoma with metastases Bowel obstruction Sepsis, POA, secondary to gram-negative bacteremia Discharge Exam Patient pronounced at 6:00 in the morning, December 21, 2021 Discharge Data Allergies Allergy/AdvReac Type Severity Reaction Status Date / Time kiwi Allergy Intermediate Lip and Unverified 11/04/21 16:50 Tongue Swell metoprolol AdvReac Intermediate Immediate Unverified 11/04/21 17:04 Bradycardia Hemp Seeds Allergy Intermediate Tongue Uncoded 11/04/21 16:50 Swells Consultations 12/19/21 02:26 ED Decision to Admit Stat 12/19/21 08:00 Consult Cardiology Routine Consult General Surgery Routine Consult Nephrology Routine 12/19/21 17:51 Consult Palliative Care Routine 12/20/21 01:53 Consult Civil Engineer Land Development Routine 12/20/21 12:59 Consult Civil Engineer Land Development Routine 12/20/21 15:32 Consult Palliative Care Routine Ordered Studies 12/19/21 00:49 CT abd pelvis wo con Urgent FINDINGS: Lower chest: No acute abnormality Liver: Unremarkable. No focal lesions are seen. Gallbladder and biliary tree: No calcified gallstones. Normal caliber wall. No intra- or extrahepatic biliary ductal dilation. Pancreas: Unremarkable, no focal lesions. Spleen: Unremarkable. Adrenals: Unremarkable. Kidneys and ureters: Bilateral nephrostomy tubes are seen. A right nephroureteral stent is seen. Bladder: Limited evaluation due to underdistention. Reproductive organs: Unremarkable. Bowel: There is diffuse fluid distention of the small bowel measuring up to 37 mm. No transition point or volvulus is seen. The colon appears normal in distention. Layering material is seen in the stomach. Lymph nodes Retroperitoneal: Subcentimeter lymph nodes are noted. There is ill-defined soft tissue density in the left and central retroperitoneum which contacts the descending colon. No bulky mass lesion is seen. Mesenteric: Unremarkable. Pelvic: Unremarkable. Peritoneum: Normal. Vessels: Mild atherosclerotic disease is seen. Abdominal wall: Body wall edema is noted. Bones: Mild degenerative changes are seen. IMPRESSION: Distention of numerous small bowel loops without evidence of focal point. The colon is normally distended. Findings may represent a colonic obstruction or pseudoobstruction. Soft tissue density material in the retroperitoneum in contact with descending colon may represent fluid/engorged vasculature however retroperitoneal fibrosis or less likely retroperitoneal mass cannot be excluded. ACT 112: Negative or not required by law. Electronically signed by: Dimitris Xiong M.D. 12/19/2021 8:27 AM 12/20/21 02:04 US point of care ultrasound Stat 12/20/21 03:22 CT Abd and Pelvis [CT abd pelvis wo con] Urgent ADDENDUM ADDENDUM: As noted, the small bowel loops are markedly dilated and fluid-filled measuring up to 4 cm in diameter. The right colon is also dilated and contains hyperdense material. There are 2 foci of marked colonic narrowing seen. The first is in the right midabdomen on image #213 involving the ascending colon, and the second involves the descending colon seen on axial image #205. The distal colon is completely decompressed. These findings are highly suspicious for retroperitoneal neoplasm causing colonic obstruction. No intraperitoneal free air is identified. No organized fluid collection is seen to suggest abscess. Foci of retroperitoneal soft tissue thickening and lymphadenopathy are consistent with the patient's known history of urothelial neoplasm. The gallbladder is markedly distended with surrounding inflammation. There is clinical concern for cholecystitis a right upper quadrant ultrasound should be considered. Findings were reviewed with Dr. Martinez in surgery at the time of addendum. Electronically signed by: Diego Melendez M.D. 12/20/2021 2:[address] abd pelvis wo con CLINICAL HISTORY: septic shock . Pain in the back. COMPARISON STUDY: 12/19/2021 CT DOSE: 435.69 mGy.cm TECHNIQUE: Standard CT of the Abdomen and Pelvis was performed without IV contrast. The patient did not receive oral contrast. A dose lowering technique was utilized adhering to the principles of ALARA. FINDINGS: Lung base: Compared to previous examination, there has been interval development of small bilateral pleural effusions and bibasilar atelectasis. Abdominal cavity: Compared to previous study, there has been interval development of mild abdominal ascites with fluid now seen surrounding the liver and spleen. There is also been interval development of mild anasarca. Minimal retroperitoneal fluid is again seen on the left of uncertain etiology. No definite retroperitoneal hematoma is seen. However, the findings could relate to the placement of the left-sided nephrostomy tube. Liver: The liver is homogeneous in attenuation on these limited noncontrast images.. Spleen: The spleen is homogeneous in attenuation on these limited noncontrast images. Pancreas: The pancreas is homogeneous in attenuation on these limited noncontrast images. Gall Bladder: Not imaged Adrenal glands: The adrenal glands are normal in size and attenuation on these limited noncontrast images. Kidneys: There is again atrophy of the kidneys bilaterally with bilateral nephrostomy tubes. Evidence for a double-J ureteral stent is also seen on the right. There is no evidence for gross renal mass, calculus or hydronephrosis bilaterally. Bowel: Compared to previous examination, an NG tube has been placed with decompression of markedly dilated stomach. Moderately dilated, fluid-filled loops of small bowel are again seen throughout the entire abdomen and pelvis with no focal transition site present. The colon is of normal caliber with mild diffuse mucosal thickening present. The findings are most suspicious for ileus versus gastroenteritis. There is no evidence for mass lesion. There are no inflammatory changes present. There is no evidence for free air. Bladder: There is no evidence for focal bladder wall thickening, calculus or diverticulum. : There is no evidence for pelvic mass or adenopathy. Vasculature: There is no evidence for focal aneurysmal dilatation of the abdominal aorta. Atherosclerotic calcification is present. Osseous structures: There is no acute osseous pathology. Degenerative changes are seen within the spine. IMPRESSION: 1. Interval development of small bilateral pleural effusions and bibasilar atelectasis. 2. Interval development of mild abdominal ascites. 3. Interval development of mild anasarca. 4. Moderately dilated fluid-filled loops of small bowel are again seen with no focal site of obstruction identified. The findings are suspicious for ileus versus gastroenteritis. 5. Bilateral nephrostomy tubes and right double-J ureteral stent are again seen. 6. Minimal retroperitoneal fluid is present on the left which may relate to placement of nephrostomy tube on the left. ACT 112: Negative or not required by law. Electronically signed by: Titus Duran M.D. 12/20/2021 7:37 AM Hospital Course (1) Abdominal pain: (2) Acute kidney injury superimposed on chronic kidney disease: (3) Bladder carcinoma: (4) Septic shock: (5) Elevated troponin: This is a 66-year-old male who presents with abdominal pain and found to have possible bowel obstruction 1. Abdominal pain, found to have questionable partial bowel obstruction, questionable retroperitoneal mass or fibrosis. keep the patient n.p.o., gentle fluids as the patient seems to be having lower extremity edema. IV Dilaudid p.r.n., IV antiemetics. General surgery consulted - NGT placed Patient feeling somewhat better after NG tube placed, but still continues to have abdominal pain 2. Acute kidney injury of chronic kidney disease stage IV: Baseline creatinine around 3, on admission creatinine of 3.7. Avoid nephrotoxic agents. Getting gentle fluids. Nephrology consulted, bicarb started 3. Hyponatremia, hyperkalemia: Sodium of 126. The baseline sodium used to be around 130. Potassium 5.2. Obtained serum osmolality, urine osmolality, urine sodium. Getting gentle fluids. monitor BMP Nephrology consulted, appreciate further recommendations. 4. Mild elevation in troponin: serial enzymes in 30s. + tachycardia on admission, history of paroxysmal atrial fibrillation. status post successful cardioversion in November. Currently on amiodarone. IV Lopressor p.r.n. Cardiology consulted. Echo obtained today - LV is normal in size. Mild concentric LVH. LV wall motion is normal. EF 55 to 60%. LA is borderline dilated. Diastolic dysfunction, grade 2. There is trace mitral regurg. There is trace tricuspid regurg. Doppler findings do not suggest pulmonary hypertension. Per cardiology, given his lack of cardiac symptoms, significant EKG changes along with his acute on chronic renal failure - not likely ischemic component to his troponin elevation. 5. Bacteremia Blood culture positive for gram-negative bacilli Urine culture from November, positive for stenotrophomonas Antibiotics changed per ICU team, to Levaquin and Flagyl 6. Sepsis, POA, 2/2 to bacteremia, as above Septic shock Patient hypotensive overnight, required transfer to ICU Central line was placed, and patient on Levophed Likely secondary to above ID broad-spectrum antibiotics started, now changed to Levaquin and Flagyl per ICU 7. Hip pain and back pain: He is on pain medication p.r.n. Will hold the oxycodone as currently on iv Dilaudid p.r.n. . History of paroxysmal atrial fibrillation/ :hx of cardioversion. on amiodarone. not on anticoagulation.Seems last admit was transferred to [facility]. . 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 The patient says he was recently started on treatment in [place], but having difficulty with transport. He reports seeing alternative medicine doctor. When asked about urology, he reports" not really seeing them" Plan to consult urology, if patient wanted to proceed with any possible treatment . History of coronary artery disease, status post CABG in 2020. Continue aspirin. Not on ACEI secondary to CKD, not on beta blockers secondary to his tory of bradycardia, not on any statins secondary to self preference as per previous records. . Diabetes: Hold his home medications. Placed on insulin sliding scale. Follow the blood sugars. . Anemia, probably anemia of chronic kidney disease: Will follow the labs. . History of hypertension: On amlodipine. Will monitor the blood pressure. . History of hyperkalemia: Last admission, the patient was started on Veltassa. DVT prophylaxis: Sequential compression devices for now. Comfort care Patient previously on home hospice, however as pain was not controlled he presented in ED. After further discussion with providers, patient was full code on admission. Palliative medicine was consulted to clarify goals of care. Dr. Whaley met with the patient and his . Appreciate their input and plan. Patient made comfort care. Plan to continue IV Levophed, and patient started on hydromorphone infusion. Plan to wean off Levophed when patient comfortable. Patient ceased to breathe at 6: 00 a.m., on December 21. Total Time Total Time Spent Total Time Spent (In Minutes): 0 Discharge Plan Discharge Items Patient Disposition: Other Date/Time: 12/21/21 06:00
[2021-12-22] MEDS ORDERED: levoFLOXacin/D5W 500 MG/100 ML BAG IV SCH (11:00)
--- NOTE | 2021-12-22 12:10 | Hospitalist Progress Note ---
Date of Service December 22, 2021 Assessment & Plan Admission and Anticipated Discharge Date Admission Date: December 19, 2021 Subjective 12/22/2021 Informed that the patient's is requesting an autopsy to evaluate whether the patient had bursitis. Explained that bursitis is a minor diagnosis in any case and patient had multiple other significant causes of that could be leading to patient's demise as previously explained. Pt's persisting on autopsy to be done to establish a diagnosis of bursitis. We have contacted the floor staff to further coordinate with the morgue and the patient's for further proceedings. MD Sukhjinder
== END 2021-12-21 07:45 | disposition expired | DRG 686 ==
LOC: ED 23:47 → 2E 12-19 03:15 → SUATTDRO 12-19 03:15 → 2E 12-19 05:02 → 1E 12-20 01:53 → 3W 12-21 02:31